=== PATIENT | female | born 1985 | race Caucasian/White ===

== ENCOUNTER 2021-08-08 20:08 | Emergency (ER) | payer OTHER ==
[2021-08-08 21:01] VITALS: TEMP 98.3
[2021-08-08] MEDS ORDERED: SODIUM CHLORIDE 0.9% 1,000 ML IV STA (22:41)
[2021-08-08] MEDS ORDERED: SODIUM CHLORIDE 0.9% 500 ML 500 ML IV STA (22:41)
--- NOTE | 2021-08-08 22:42 | ED ---
Chest Pain HPI - General Chief Complaint: Chest Pain Stated Complaint: Chest pain and low blood pressure Time Seen by Provider: 08/08/21 22:40 Source: patient, RN notes reviewed, old records reviewed Mode of arrival: ambulatory Limitations: no limitations - History of Present Illness Initial Comments: This is a 36-year-old female DF for evaluation chest pain chest pain which makes her severely anxious patient is anxious she has had: Is really what having a blood clot. Patient's chest pain is anterior with travel to her back.. Is pretty sudden onset with shortness of breath prior to arrival. Otherwise patient has no fevers cough or congestion. MD Complaint: chest pain, other (Shortness of breath) -: hour(s) Onset: during rest Pain Location: substernal, left chest Pain Radiation: back Severity: moderate Severity scale (1-10): 7 Quality: aching Consistency: constant Improves With: nothing Worsens With: nothing Context: recent illness (Patient did have coronavirus is here) Anginal Symptoms: dyspnea Other Symptoms: cough, palpitations Treatments Prior to Arrival: none - Related Data Home Medications Medication Instructions Recorded Confirmed ARIPiprazole [Abilify] 10 mg PO HS 04/07/21 04/07/21 Fludrocortisone [Florinef] 0.1 mg PO DAILY 04/07/21 04/07/21 Levothyroxine Sodium [Synthroid] 25 mcg PO DAILY 04/07/21 04/07/21 Meclizine [Antivert] 25 mg PO TID PRN 04/07/21 04/07/21 OXcarbazepine [Trileptal] 300 mg PO TID 04/07/21 04/07/21 Ondansetron [Zofran ODT] 4 mg PO Q8H PRN 04/07/21 04/07/21 SUMAtriptan SUCCINATE [Imitrex] 100 mg PO BID PRN 04/07/21 04/07/21 Topiramate [Topamax] 50 mg PO HS 04/07/21 04/07/21 Venlafaxine HCl ER [Effexor XR] 75 mg PO AC-BRKFST 04/07/21 04/07/21 Allergies Allergy/AdvReac Type Severity Reaction Status Date / Time Tetanus Vaccines and Toxoid Allergy Anaphylaxis Verified 08/08/21 20:59 cephalexin [From Keflex] AdvReac Nausea & Verified 08/08/21 20:59 Vomiting Review of Systems ROS Statement: Those systems with pertinent positive or pertinent negative responses have been documented in the HPI. ROS Other: All systems not noted in ROS Statement are negative. EKG Findings - EKG Comments: EKG Findings:: EKG is sinus rhythm 101 MO 93 QRS 128 QTc 88 QTc 455 Past Medical History Additional Past Medical History / Comment(s): POTS, covid 2020 History of Any Multi-Drug Resistant Organisms: None Reported Additional Past Surgical History / Comment(s): right shoulder. fallopian removal, right elbow. Past Psychological History: No Psychological Hx Reported Smoking Status: Never smoker Past Alcohol Use History: None Reported Past Drug Use History: None Reported General Exam Limitations: no limitations General appearance: alert, in no apparent distress, anxious Head exam: Present: atraumatic, normocephalic, normal inspection Eye exam: Present: normal appearance, PERRL, EOMI. Absent: scleral icterus, conjunctival injection, periorbital swelling ENT exam: Present: normal exam, mucous membranes moist Neck exam: Present: normal inspection. Absent: tenderness, meningismus, lymphadenopathy Respiratory exam: Present: normal lung sounds bilaterally. Absent: respiratory distress, wheezes, rales, rhonchi, stridor Cardiovascular Exam: Present: normal rhythm, tachycardia, normal heart sounds. Absent: systolic murmur, diastolic murmur, rubs, gallop, clicks GI/Abdominal exam: Present: soft, normal bowel sounds. Absent: distended, tenderness, guarding, rebound, rigid Extremities exam: Present: normal inspection, full ROM, normal capillary refill. Absent: tenderness, pedal edema, joint swelling, calf tenderness Back exam: Present: normal inspection Neurological exam: Present: alert, oriented X3, CN II-XII intact Psychiatric exam: Present: normal affect, normal mood Skin exam: Present: warm, dry, intact, normal color. Absent: rash Course Vital Signs 08/08/21 08/08/21 08/09/21 20:59 23:04 01:18 Temperature 98.3 F Pulse Rate 101 H 95 87 Respiratory 18 17 17 Rate Blood Pressure 123/72 113/61 107/67 O2 Sat by Pulse 99 99 98 Oximetry - Reevaluation(s) Reevaluation #1: Medical record is reviewed Patient symptoms are significantly improved here in the Patient informed of results and questions answered Chest Pain MDM - MDM 36 female to the emergency or today. Patient is safe for evaluation of chest pain believes her blood pressure maybe low. Patient has significant chest pain sharp chest pain, normal imaging and EKG here in the ER, labs are normal patient can be discharged home Disposition Clinical Impression: Chest pain, Atypical chest pain Disposition: HOME SELF-CARE Condition: Good Instructions (If sedation given, give patient instructions): Chest Pain (ED) Is patient prescribed a controlled substance at d/c from ED?: No Referrals: Nonstaff,Physician [Primary Care Provider] - 1-2 days
[2021-08-08 23:05] VITALS: RESP 17
[2021-08-08 23:18] LABS: Basophils # (A) 0.1 k/uL (0-0.2); Basophils % (A) 1 %; Eosinophils # (A) 0.1 k/uL (0-0.7); Eosinophils % (A) 1 %; HCT 41.5 % (34.0-46.0); HGB 13.8 gm/dL (11.4-16.0); Lymphocytes # (A) 3.9 k/uL (1.0-4.8); Lymphocytes % (A) 37 %; MCH 29.8 pg (25.0-35.0); MCHC 33.2 g/dL (31.0-37.0); MCV 89.8 fL (80.0-100.0); Mean Platelet Volume 7.6; Monocytes # (A) 0.4 k/uL (0-1.0); Monocytes % (A) 4 %; Neutrophils # (A) 5.8 k/uL (1.3-7.7); Neutrophils % (A) 56 %; Platelet Count 288 k/uL (150-450); RBC 4.62 m/uL (3.80-5.40); RDW 13.6 % (11.5-15.5); WBC 10.4 k/uL (3.8-10.6)
[2021-08-08 23:27] LABS: ALT 39 U/L (4-34); AST 36 U/L (14-36); African American GFR (CKD) >90 (>60 ml/min/1.73 sqM); Albumin 4.5 g/dL (3.5-5.0); Alkaline Phosphatase 72 U/L (38-126); Anion Gap 11 mmol/L; Blood Urea Nitrogen 14 mg/dL (7-17); Calcium 9.4 mg/dL (8.4-10.2); Carbon Dioxide 22 mmol/L (22-30); Chloride 104 mmol/L (98-107); Glucose 133 mg/dL (74-99); Lipase 172 U/L (23-300); Non-African American GFR(CKD) >90 (>60 ml/min/1.73 sqM); Potassium 4.2 mmol/L (3.5-5.1); Sodium 137 mmol/L (137-145); Total Bilirubin 0.2 mg/dL (0.2-1.3); Total Protein 7.6 g/dL (6.3-8.2)
--- NOTE | 2021-08-08 23:34 | XR ---
EXAMINATION TYPE: XR chest 2V DATE OF EXAM: 08/08/2021 COMPARISON: 04/07/2021 HISTORY: Chest pain TECHNIQUE: FINDINGS: Heart and mediastinum are normal. Lungs are clear. Diaphragm is normal. Bony thorax is inta ct. There are chest leads. IMPRESSION: Normal chest. No change.
[2021-08-08 23:36] LABS: INR 0.9 (<1.2); Partial Thromboplastin Time 23.4 sec (22.0-30.0); Prothrombin Time 9.8 sec (9.0-12.0)
--- NOTE | 2021-08-09 00:38 | CT ---
EXAMINATION TYPE: CT angio chest DATE OF EXAM: 08/08/2021 COMPARISON: 04/08/2021 HISTORY: rule out PE Chest pain CT DLP: 722.8 mGycm Automated exposure control for dose reduction was used. CONTRAST: Performed with IV Contrast, patient injected with 80ml mL of Isovue 370. There are 3-D post processed images. There is mild increased interstitial density in the lungs. Heart is enlarged. There is no pleural eff usion. There is no pericardial effusion. There is normal contrast opacification of the pulmonary arteries. There are no filling defects. There is no mediastinal adenopathy. There are no hilar masses. The thoracic spine is intact. There is no c ompression fracture. Sternum is intact. Some fatty infiltration of the liver. IMPRESSION: No evidence of pulmonary embolism. Fatty infiltration of the liver. Mild increased pulmonary intersti tial density. No suspicious pulmonary mass.
[2021-08-09 01:19] VITALS: BP 107/67; PULSE 87
== END 2021-08-09 01:18 | disposition home or self-care (01) ==
LOC: EC 20:08
DX: R07.89 Other chest pain (principal); Z79.899 Other long term (current) drug therapy
CPT/HCPCS: 36415; 93005; 85379; 83880; 80053; 83690; 83735; 84484; 85025; 85610; 85730; 71046; 71275; 99285; 96360; Q9967

== ENCOUNTER 2021-09-14 16:28 | Emergency (ER) | payer OTHER ==
[2021-09-14 16:49] VITALS: RESP 18
[2021-09-14 17:22] LABS: Basophils % (A) 0 %; Eosinophils # (A) 0.2 k/uL (0-0.7); Eosinophils % (A) 2 %; HCT 41.1 % (34.0-46.0); HGB 13.6 gm/dL (11.4-16.0); Lymphocytes # (A) 2.7 k/uL (1.0-4.8); Lymphocytes % (A) 27 %; MCH 29.7 pg (25.0-35.0); MCHC 33.1 g/dL (31.0-37.0); MCV 89.9 fL (80.0-100.0); Mean Platelet Volume 7.6; Monocytes # (A) 0.4 k/uL (0-1.0); Monocytes % (A) 4 %; Neutrophils # (A) 6.6 k/uL (1.3-7.7); Neutrophils % (A) 66 %; Platelet Count 267 k/uL (150-450); RBC 4.57 m/uL (3.80-5.40); RDW 13.1 % (11.5-15.5)
[2021-09-14 17:27] LABS: Appearance,Urine Cloudy (Clear); Bacteria,Urine Rare /hpf; Bilirubin,Urine Negative (Negative); Blood,Urine Trace (Negative); Color,Urine Light Yellow; Glucose,Urine (UA) Negative (Negative); Ketones,Urine Negative (Negative); Leukocyte Esterase,Urine Negative (Negative); Mucus,Urine Rare /hpf; Nitrite,Urine Negative (Negative); Protein,Urine Negative (Negative); RBC,Urine 9 /hpf (0-5); Specific Gravity,Urine 1.019 (1.001-1.035); Squamous Epithelial Cell,Urine 10 /hpf (0-4); Urobilinogen,Urine <2.0 mg/dL (<2.0); WBC,Urine 6 /hpf (0-5)
[2021-09-14 17:31] LABS: African American GFR (CKD) >90 (>60 ml/min/1.73 sqM); Anion Gap 13 mmol/L; Blood Urea Nitrogen 14 mg/dL (7-17); Calcium 9.3 mg/dL (8.4-10.2); Carbon Dioxide 20 mmol/L (22-30); Chloride 106 mmol/L (98-107); Glucose 108 mg/dL (74-99); Non-African American GFR(CKD) >90 (>60 ml/min/1.73 sqM); Potassium 3.9 mmol/L (3.5-5.1); Sodium 139 mmol/L (137-145)
[2021-09-14] MEDS ORDERED: SODIUM CHLORIDE 0.9% 1,000 ML IV STA (18:56)
[2021-09-14] MEDS ORDERED: ONDANSETRON 4 MG/2 ML VIAL IVP STA (18:56)
[2021-09-14] MEDS ORDERED: KETOROLAC 15 MG/ML 1 ML VIAL IVP STA (18:56)
--- NOTE | 2021-09-14 19:00 | ED ---
General Adult HPI - General Chief complaint: Urogenital Stated complaint: Lower back pain/side pain/blood in urine Time Seen by Provider: 09/14/21 18:40 Source: patient, RN notes reviewed Mode of arrival: ambulatory Limitations: no limitations - History of Present Illness Initial comments: 36-year-old female presents to the emergency Department with complaints of right flank pain that began last night and is accompanied by urgency and frequency. Patient states she noticed blood in her urine today so decided to come to the emergency department for further evaluation and treatment. Patient reports mild nausea. Denies fever, chills, chest pain, shortness of breath, vomiting, diarrhea, or constipation. - Related Data Home Medications Medication Instructions Recorded Confirmed ARIPiprazole [Abilify] 10 mg PO HS 04/07/21 04/07/21 Fludrocortisone [Florinef] 0.1 mg PO DAILY 04/07/21 04/07/21 Levothyroxine Sodium [Synthroid] 25 mcg PO DAILY 04/07/21 04/07/21 Meclizine [Antivert] 25 mg PO TID PRN 04/07/21 04/07/21 OXcarbazepine [Trileptal] 300 mg PO TID 04/07/21 04/07/21 Ondansetron [Zofran ODT] 4 mg PO Q8H PRN 04/07/21 04/07/21 SUMAtriptan SUCCINATE [Imitrex] 100 mg PO BID PRN 04/07/21 04/07/21 Topiramate [Topamax] 50 mg PO HS 04/07/21 04/07/21 Venlafaxine HCl ER [Effexor XR] 75 mg PO AC-BRKFST 04/07/21 04/07/21 Previous Rx's Medication Instructions Recorded Sulfamethox-Tmp 800-160Mg [Bactrim 1 each PO Q12HR #20 tab 09/14/21 Ds] Allergies Allergy/AdvReac Type Severity Reaction Status Date / Time Tetanus Vaccines and Toxoid Allergy Anaphylaxis Verified 09/14/21 16:49 cephalexin [From Keflex] AdvReac Nausea & Verified 09/14/21 16:49 Vomiting Review of Systems ROS Statement: Those systems with pertinent positive or pertinent negative responses have been documented in the HPI. ROS Other: All systems not noted in ROS Statement are negative. Past Medical History Additional Past Medical History / Comment(s): POTS, covid 2020 History of Any Multi-Drug Resistant Organisms: None Reported Past Surgical History: Orthopedic Surgery Additional Past Surgical History / Comment(s): right shoulder. fallopian removal, right elbow. Past Psychological History: No Psychological Hx Reported Smoking Status: Never smoker Past Alcohol Use History: None Reported Past Drug Use History: None Reported General Exam Limitations: no limitations (Well-developed, well-nourished female in no acute distress. Initial temperature 98.7, pulse 88, respirations 18, blood pressure 139/89, pulse ox 98% on room air) General appearance: alert, in no apparent distress ENT exam: Present: normal exam, normal oropharynx, mucous membranes moist Respiratory exam: Present: normal lung sounds bilaterally. Absent: respiratory distress, wheezes, rales, rhonchi, stridor Cardiovascular Exam: Present: regular rate, normal rhythm, normal heart sounds. Absent: systolic murmur, diastolic murmur, rubs, gallop, clicks GI/Abdominal exam: Present: soft, normal bowel sounds. Absent: distended, tenderness, guarding, rebound, rigid Back exam: Present: CVA tenderness (R). Absent: CVA tenderness (L) Neurological exam: Present: alert, oriented X3, CN II-XII intact Psychiatric exam: Present: normal affect, normal mood Skin exam: Present: warm, dry, intact, normal color. Absent: rash Course Vital Signs 09/14/21 09/14/21 09/14/21 16:46 19:45 21:23 Temperature 98.7 F 98.4 F Pulse Rate 88 80 78 Respiratory 18 18 18 Rate Blood Pressure 139/89 133/94 134/92 O2 Sat by Pulse 98 97 97 Oximetry Medical Decision Making - Medical Decision Making 36-year-old female presents to the emergency department for evaluation of right flank pain, urinary frequency, and urgency, onset last night. Upon exam, patient is well-appearing and in no acute distress. Physical exam findings are significant for right CVA tenderness upon palpation. Patient was given IV fluids, pain medication, and nausea medicine with improvement. Laboratory studies were reviewed. Urinalysis positive for RBCs and WBCs. CT of the abdomen and pelvis was unremarkable. The urinalysis was not overwhelmingly demonstrative of infectious process, given physical exam findings she will be started on Bactrim and instructed to follow up with her primary care provider for a recheck. Also instructed to increase fluids. Return parameters were discussed in detail. Patient verbalizes understanding and agrees with this plan. This patient's care was discussed with my attending Dr. Augustin. - Lab Data Result diagrams: 09/14/21 17:14 09/14/21 17:14 Lab Results 09/14/21 09/14/21 09/14/21 Range/Units 17:14 17:14 17:14 WBC 10.0 (3.8-10.6) k/uL RBC 4.57 (3.80-5.40) m/uL Hgb 13.6 (11.4-16.0) gm/dL Hct 41.1 (34.0-46.0) % MCV 89.9 (80.0-100.0) fL MCH 29.7 (25.0-35.0) pg MCHC 33.1 (31.0-37.0) g/dL RDW 13.1 (11.5-15.5) % Plt Count 267 (150-450) k/uL MPV 7.6 Neutrophils % 66 % Lymphocytes % 27 % Monocytes % 4 % Eosinophils % 2 % Basophils % 0 % Neutrophils # 6.6 (1.3-7.7) k/uL Lymphocytes # 2.7 (1.0-4.8) k/uL Monocytes # 0.4 (0-1.0) k/uL Eosinophils # 0.2 (0-0.7) k/uL Basophils # 0.0 (0-0.2) k/uL Sodium 139 (137-145) mmol/L Potassium 3.9 (3.5-5.1) mmol/L Chloride 106 (98-107) mmol/L Carbon Dioxide 20 L (22-30) mmol/L Anion Gap 13 mmol/L BUN 14 (7-17) mg/dL Creatinine 0.64 (0.52-1.04) mg/dL Est GFR (CKD-EPI)AfAm >90 (>60 ml/min/1.73 sqM) Est GFR (CKD-EPI)NonAf >90 (>60 ml/min/1.73 sqM) Glucose 108 H (74-99) mg/dL Calcium 9.3 (8.4-10.2) mg/dL Urine Color Light Yellow Urine Appearance Cloudy H (Clear) Urine pH 6.0 (5.0-8.0) Ur Specific [place] 1.019 (1.001-1.035) Urine Protein Negative (Negative) Urine Glucose (UA) Negative (Negative) Urine Ketones Negative (Negative) Urine Blood Trace H (Negative) Urine Nitrite Negative (Negative) Urine Bilirubin Negative (Negative) Urine Urobilinogen <2.0 (<2.0) mg/dL Ur Leukocyte Esterase Negative (Negative) Urine RBC 9 H (0-5) /hpf Urine WBC 6 H (0-5) /hpf Ur Squamous Epith Cells 10 H (0-4) /hpf Urine Bacteria Rare H (None) /hpf Urine Mucus Rare H (None) /hpf - Radiology Data Radiology results: report reviewed, image reviewed CT of the abdomen and pelvis was obtained without contrast. Report was reviewed in its entirety. Impression per Dr. Doyle is fatty infiltration of the liver. No dilated ducts. No evidence of renal stone or obstruction. Normal appendix. Disposition Clinical Impression: Pyelonephritis of right kidney, Hematuria Disposition: HOME SELF-CARE Condition: Stable Instructions (If sedation given, give patient instructions): Urinary Tract Infection in Women (ED), Kidney Infection (ED) Additional Instructions: Increase intake of fluids. Alternate Tylenol and Motrin as needed for pain or fever. Take antibiotic as directed. Follow up with her primary care provider for a recheck early next week. Return to the emergency department with any new, worsening, or concerning symptoms. Prescriptions: Sulfamethox-Tmp 800-160Mg [Bactrim Ds] 1 each PO Q12HR #20 tab Is patient prescribed a controlled substance at d/c from ED?: No Referrals: None,Stated [Primary Care Provider] - 1-2 days Time of Disposition: 21:22
[2021-09-14] MEDS ORDERED: MORPHINE SULFATE 2 MG/ML SYRINGE IVP ONE (19:42)
--- NOTE | 2021-09-14 20:20 | CT ---
EXAMINATION TYPE: CT abdomen pelvis wo con DATE OF EXAM: 09/14/2021 COMPARISON: None HISTORY: RT flank pain, hematuria CT DLP: 1747 mGycm Automated exposure control for dose reduction was used. Images obtained from the diaphragm to the floor the pelvis without contrast. Lung bases are clear. There is no pleural effusion. Heart size is normal. There is no pericardial eff usion. There is diffuse fatty infiltration of the liver. Spleen is intact. Stomach is intact. There i s no pancreatic mass. There are clips from cholecystectomy. The bile ducts are not dilated. There is no adrenal mass. Kidneys have normal size and contour. There is no hydronephrosis. Ureters a re not dilated. There is no retroperitoneal adenopathy. Bladder distends smoothly. There is no inguin al hernia. Uterus is anteverted. There is no pelvic mass. There is no free fluid in the pelvis. There is no mesenteric edema. There is no ascites or free air. There is no bowel obstruction. Appendi x is posterior and appears normal. There is fat containing 3 x 2 cm umbilical hernia. Liver is enlarged and measures 23 cm. The lumbar vertebra have normal alignment. Disc spaces are norm al. Posterior elements are intact. There is no compression fracture. Bony pelvis is intact. IMPRESSION: Fatty infiltration of the liver. No dilated ducts. No evidence of renal stone or obstruction. Normal appendix.
[2021-09-14] MEDS ORDERED: SULFAMETHOX-TMP 800-160MG 1 EACH TAB PO STA (20:46)
[2021-09-14 21:25] VITALS: BP 134/92; PULSE 78; TEMP 98.4
== END 2021-09-14 21:30 | disposition home or self-care (01) ==
LOC: EC 16:28
DX: N10 Acute pyelonephritis (principal); R31.9 Hematuria, unspecified; Z88.7 Allergy status to serum and vaccine; Z88.1 Allergy status to other antibiotic agents
CPT/HCPCS: 99284; 96374; 96375 ×2; 96361; 36415; 80048; 85025; 81001; 74176; J2405; J2270; J1885

== ENCOUNTER 2021-09-26 18:49 | Observation (INO) | payer OTHER ==
[2021-09-26] MEDS ORDERED: ASPIRIN 81 MG PO STA (20:41)
[2021-09-26 21:23] LABS: Basophils # (A) 0.1 k/uL (0-0.2); Basophils % (A) 1 %; Eosinophils # (A) 0.2 k/uL (0-0.7); Eosinophils % (A) 2 %; HCT 42.4 % (34.0-46.0); HGB 14.1 gm/dL (11.4-16.0); Lymphocytes # (A) 3.8 k/uL (1.0-4.8); Lymphocytes % (A) 37 %; MCH 30.4 pg (25.0-35.0); MCHC 33.3 g/dL (31.0-37.0); MCV 91.3 fL (80.0-100.0); Mean Platelet Volume 7.9; Monocytes # (A) 0.5 k/uL (0-1.0); Monocytes % (A) 4 %; Neutrophils # (A) 5.7 k/uL (1.3-7.7); Neutrophils % (A) 56 %; Platelet Count 290 k/uL (150-450); RBC 4.65 m/uL (3.80-5.40); RDW 13.2 % (11.5-15.5); WBC 10.3 k/uL (3.8-10.6)
[2021-09-26 21:34] LABS: ALT 28 U/L (4-34); AST 27 U/L (14-36); African American GFR (CKD) >90 (>60 ml/min/1.73 sqM); Albumin 4.6 g/dL (3.5-5.0); Alkaline Phosphatase 76 U/L (38-126); Anion Gap 12 mmol/L; Blood Urea Nitrogen 12 mg/dL (7-17); Calcium 9.6 mg/dL (8.4-10.2); Carbon Dioxide 23 mmol/L (22-30); Chloride 103 mmol/L (98-107); Glucose 103 mg/dL (74-99); Magnesium 2.1 mg/dL (1.6-2.3); Non-African American GFR(CKD) >90 (>60 ml/min/1.73 sqM); Potassium 4.1 mmol/L (3.5-5.1); Sodium 138 mmol/L (137-145); Total Bilirubin 0.2 mg/dL (0.2-1.3); Total Protein 7.7 g/dL (6.3-8.2)
--- NOTE | 2021-09-26 21:35 | XR ---
EXAMINATION TYPE: XR chest 2V DATE OF EXAM: 09/26/2021 COMPARISON: 08/08/2021 HISTORY: 36 years Female. STUDY INDICATION GIVEN: Chest Pain . TECHNIQUE: Frontal and lateral chest radiographs. IMPRESSION: No focal airspace disease, pneumothorax or pleural effusion. The cardiomediastinal silhouette is normal in appearance. No acute osseous abnormalities seen. No significant change compared to prior.
[2021-09-26 21:38] LABS: INR 0.9 (<1.2); Partial Thromboplastin Time 23.6 sec (22.0-30.0); Prothrombin Time 9.8 sec (9.0-12.0)
[2021-09-26] MEDS ORDERED: MORPHINE SULFATE 4 MG/ML SYRINGE IVP STA (22:01)
--- NOTE | 2021-09-26 22:23 | ED ---
General Adult HPI - General Chief complaint: Chest Pain Stated complaint: Chest Pain, Arm numbness, Pots syndrome Time Seen by Provider: 09/26/21 20:39 Source: patient, RN notes reviewed, old records reviewed Mode of arrival: wheelchair Limitations: no limitations - History of Present Illness Initial comments: Patient is a 36-year-old female with past medical history remarkable for pots disease, Covid 19 in 2020, and family medical history of early-onset CAD and [place] as in family members who presents emergency Department complaining of acute onset of chest pain an approximate 6 PM. She discounts as a sharp sensation left chest with radiation to left arm. States she has had chest pain in the past but not similar to this in severity. Currently rates it as a 6 out of 10. He does not radiate. It started while watching TV. No known palliative or provocative factors. Presents emergency department for further evaluation. I evaluated the patient when she was placed in a room. - Related Data Home Medications Medication Instructions Recorded Confirmed Fludrocortisone [Florinef] 0.1 mg PO DAILY 04/07/21 09/26/21 Topiramate [Topamax] 50 mg PO BID 04/07/21 09/26/21 ARIPiprazole [Abilify] 15 mg PO DAILY 09/26/21 09/26/21 Levothyroxine Sodium [Synthroid] 50 mcg PO DAILY 09/26/21 09/26/21 Venlafaxine HCl ER [Effexor Xr] 150 mg PO DAILY 09/26/21 09/26/21 lamoTRIgine [LaMICtal] 100 mg PO DAILY 09/26/21 09/26/21 Allergies Allergy/AdvReac Type Severity Reaction Status Date / Time Tetanus Vaccines and Toxoid Allergy Anaphylaxis Verified 09/26/21 22:43 cephalexin [From Keflex] AdvReac Nausea & Verified 09/26/21 22:43 Vomiting Review of Systems ROS Statement: Those systems with pertinent positive or pertinent negative responses have been documented in the HPI. Review of Systems: CONST: Denies fever EYES: Denies blurry vision ENT: Denies nasal congestion C/V: Endorses chest pain RESP: Denies shortness of breath GI: Denies abdominal pain : Denies dysuria SKIN: Denies rash. MSK: Denies joint pain. NEURO: Denies headache ROS Other: All systems not noted in ROS Statement are negative. Past Medical History Additional Past Medical History / Comment(s): POTS, covid 2020 History of Any Multi-Drug Resistant Organisms: None Reported Past Surgical History: Orthopedic Surgery Additional Past Surgical History / Comment(s): right shoulder. fallopian removal, right elbow. Past Psychological History: No Psychological Hx Reported Smoking Status: Never smoker Past Alcohol Use History: None Reported Past Drug Use History: None Reported General Exam - General Exam Comments Initial Comments: General: Appears in no acute distress. HEAD: Normal with no signs of head trauma. EYES: PERRLA, EOMI, conjunctiva normal, no discharge. ENT: Hearing grossly intact, normal oropharynx. RESPIRATORY: Clear breath sounds bilaterally. No wheezes, rales, or rhonchi. C/V: Regular rate and rhythm. S1 and S2 auscultated, no edema, peripheral pulses 2+ and intact throughout ABD: Abd is soft, nontender, nondistended EXT: Normal range of motion, no obvious deformity SKIN: No rashes or lesions observed on exposed skin. NEURO: Alert and oriented 4. No focal deficits. Limitations: no limitations Course Vital Signs 09/26/21 09/26/21 19:15 22:29 Temperature 99.3 F Pulse Rate 90 72 Respiratory 18 16 Rate Blood Pressure 124/73 137/101 O2 Sat by Pulse 98 98 Oximetry Medical Decision Making - Medical Decision Making Based on the patient's presentation and physical exam, I'm concerned for cardiac etiology for her current symptoms. This is in particular due to her distinct family medical history. We will obtain cardiac workup including troponin, EKG, chest x-ray. She will be given morphine as well as aspirin. She was in agreement this plan. EKG showed chronic T wave inversions with no signs of acute ischemia. Labora tory studies are remarkable for negative troponin, d-dimer that is within normal limits. Remainder of the labs are unremarkable. Chest x-ray showed no acute cardio pulmonary process. On reevaluation, patient states her chest pain is somewhat improved. Heart score is 3-4 points, and after discussion with the patient I would like to mention the hospital for cardiac evaluation. She was in agreement this plan. Patient's chest pain is intermittent and is currently under control at this time. We'll continue to monitor. I spoke with the admitting team under [facility], who accepted the patient. Patient will be admitted in stable condition to observation telemetry for chest pain. Cardiology is consulted. - Lab Data Result diagrams: 09/26/21 21:15 09/26/21 21:15 Lab Results 09/26/21 09/26/21 09/26/21 Range/Units 21:15 21:15 21:15 WBC 10.3 (3.8-10.6) k/uL RBC 4.65 (3.80-5.40) m/uL Hgb 14.1 (11.4-16.0) gm/dL Hct 42.4 (34.0-46.0) % MCV 91.3 (80.0-100.0) fL MCH 30.4 (25.0-35.0) pg MCHC 33.3 (31.0-37.0) g/dL RDW 13.2 (11.5-15.5) % Plt Count 290 (150-450) k/uL MPV 7.9 Neutrophils % 56 % Lymphocytes % 37 % Monocytes % 4 % Eosinophils % 2 % Basophils % 1 % Neutrophils # 5.7 (1.3-7.7) k/uL Lymphocytes # 3.8 (1.0-4.8) k/uL Monocytes # 0.5 (0-1.0) k/uL Eosinophils # 0.2 (0-0.7) k/uL Basophils # 0.1 (0-0.2) k/uL PT 9.8 (9.0-12.0) sec INR 0.9 (<1.2) APTT 23.6 (22.0-30.0) sec D-Dimer 0.36 (<0.60) mg/L FEU Sodium 138 (137-145) mmol/L Potassium 4.1 (3.5-5.1) mmol/L Chloride 103 (98-107) mmol/L Carbon Dioxide 23 (22-30) mmol/L Anion Gap 12 mmol/L BUN 12 (7-17) mg/dL Creatinine 0.73 (0.52-1.04) mg/dL Est GFR (CKD-EPI)AfAm >90 (>60 ml/min/1.73 sqM) Est GFR (CKD-EPI)NonAf >90 (>60 ml/min/1.73 sqM) Glucose 103 H (74-99) mg/dL Calcium 9.6 (8.4-10.2) mg/dL Magnesium 2.1 (1.6-2.3) mg/dL Total Bilirubin 0.2 (0.2-1.3) mg/dL AST 27 (14-36) U/L ALT 28 (4-34) U/L Alkaline Phosphatase 76 (38-126) U/L Troponin I (0.000-0.034) ng/mL Total Protein 7.7 (6.3-8.2) g/dL Albumin 4.6 (3.5-5.0) g/dL 09/26/21 Range/Units 21:15 WBC (3.8-10.6) k/uL RBC (3.80-5.40) m/uL Hgb (11.4-16.0) gm/dL Hct (34.0-46.0) % MCV (80.0-100.0) fL MCH (25.0-35.0) pg MCHC (31.0-37.0) g/dL RDW (11.5-15.5) % Plt Count (150-450) k/uL MPV Neutrophils % % Lymphocytes % % Monocytes % % Eosinophils % % Basophils % % Neutrophils # (1.3-7.7) k/uL Lymphocytes # (1.0-4.8) k/uL Monocytes # (0-1.0) k/uL Eosinophils # (0-0.7) k/uL Basophils # (0-0.2) k/uL PT (9.0-12.0) sec INR (<1.2) APTT (22.0-30.0) sec D-Dimer (<0.60) mg/L FEU Sodium (137-145) mmol/L Potassium (3.5-5.1) mmol/L Chloride (98-107) mmol/L Carbon Dioxide (22-30) mmol/L Anion Gap mmol/L BUN (7-17) mg/dL Creatinine (0.52-1.04) mg/dL Est GFR (CKD-EPI)AfAm (>60 ml/min/1.73 sqM) Est GFR (CKD-EPI)NonAf (>60 ml/min/1.73 sqM) Glucose (74-99) mg/dL Calcium (8.4-10.2) mg/dL Magnesium (1.6-2.3) mg/dL Total Bilirubin (0.2-1.3) mg/dL AST (14-36) U/L ALT (4-34) U/L Alkaline Phosphatase (38-126) U/L Troponin I <0.012 (0.000-0.034) ng/mL Total Protein (6.3-8.2) g/dL Albumin (3.5-5.0) g/dL - EKG Data -: EKG Interpreted by Me EKG Comments: 12-lead Electrocardiogram Interpretation Note EKG was reviewed and interpreted by myself. 12-lead ECG performed at 1923 is interpreted by me as revealing normal sinus rhythm at a rate of 92 beats per minute. [place] is normal. MA interval is 124 ms, QRS duration is 84 ms, QTc is 440 ms.. There were T-wave inversion seen in III, aVF, V3 through V6 which are seen on prior EKGs from last month.. R wave progression across the precordium was satisfactory. By my interpretation this EKG is non-diagnostic for acute ischemia. It does show chronic EKG changes including T-wave inversions in inferior lateral distribution that are seen on prior EKGs from July 2021 Disposition Clinical Impression: Chest pain of unknown etiology Disposition: ADMITTED IP TO THIS [facility] Condition: Stable Referrals: None,Stated [Primary Care Provider] - 1-2 days
[2021-09-26] MEDS ORDERED: NALOXONE 0.4 MG/ML 1 ML VIAL IV PRN (23:33)
[2021-09-27] MEDS: HEPARIN SODIUM,PORCINE/PF 5,000 UNIT/0.5 ML SYRINGE SQ SCH ×4 (00:08→20:03)
[2021-09-27] MEDS: MORPHINE SULFATE 4 MG/ML SYRINGE IV PRN ×5 (03:20→20:02)
[2021-09-27] MEDS: LEVOTHYROXINE 50 MCG TAB PO SCH (05:42)
[2021-09-27] MEDS: lamoTRIgine 100 MG TAB PO SCH (08:44)
[2021-09-27] MEDS: TOPIRAMATE 25 MG TAB PO SCH ×2 (08:44→20:03)
[2021-09-27] MEDS: ARIPiprazole 15 MG TAB PO SCH (09:50)
[2021-09-27] MEDS: VENLAFAXINE HCL ER 150 MG CAP PO SCH (09:50)
--- NOTE | 2021-09-27 10:00 | ECHOF ---
Referral Reason:chest pain MEASUREMENTS -------- HEIGHT: 172.7 cm WEIGHT: 127.0 kg BP: 130/94 RVIDd: 3.3 cm (< 3.3) IVSd: 1.2 cm (0.6 - 1.1) LVIDd: 4.6 cm (3.9 - 5.3) LVPWd: 1.1 cm (0.6 - 1.1) IVSs: 1.6 cm LVIDs: 3.0 cm LVPWs: 1.8 cm Ao Diam: 3.2 cm (2.0 - 3.7) AV Cusp: 2.1 cm (1.5 - 2.6) LA Diam: 3.1 cm (2.7 - 3.8) MV EXCURSION: 19.436 mm (> 18.000) MV EF SLOPE: 90 mm/s (70 - 150) EPSS: 1.5 cm MV E Awais: 0.58 m/s MV DecT: 169 ms MV A Awais: 0.53 m/s MV E/A Ratio: 1.09 RAP: 5.00 mmHg RVSP: 23.79 mmHg FINDINGS -------- Sinus rhythm. This was a technically difficult study with suboptimal apical views. The left ventricular size is normal. There is mild concentric left ventricular hypertrophy. Overa ll left ventricular systolic function is normal with, an EF between 55 - 60 %. The right ventricle is normal in size. Normal LA size by volume 22+/-6 ml/m2. The right atrium was not well visualized. 5.0mg of Lumason was utilized for enhancement of images Interatrial and interventricular septum intact. There is no evidence of aortic regurgitation. There is no evidence of aortic stenosis. No mitral regurgitation. Mild tricuspid regurgitation present. There is no evidence of pulmonary hypertension. The right v entricular systolic pressure, as measured by Doppler, is 23.79mmHg. There is no pulmonic regurgitation present. The aortic root size is normal. IVC Not well visulized. There is no pericardial effusion. CONCLUSIONS -------- 1. The left ventricular size is normal. 2. There is mild concentric left ventricular hypertrophy. 3. Overall left ventricular systolic function is normal with, an EF between 55 - 60 %. 4. Mild tricuspid regurgitation present. DIRECTOR OF SEARCH ENGINE MARKETING: Vicky Juárez [facility]
[2021-09-27] MEDS: FLUDROCORTISONE 0.1 MG TAB PO SCH (13:17)
--- NOTE | 2021-09-27 13:58 | P.CRDCN ---
History of Present Illness Consult date: 09/27/21 History of present illness: She is a 36-year-old female with a past medical history for Pott's disease, hypothyroidism,bipolar disease, and COVID-19 in 2020, and a family medical history of early onset coronary artery disease and [place] admitted with sharp left- sided chest pain that radiates down the left arm. She follows with Dr. Dunn in the office. Today patient is examined resting in bed in with no acute distress. She denies chest pain, palpitations, dyspnea, dizziness, syncope, edema, nausea, vomiting, or diaphoresis. Her EKG shows sinus rhythm with poor R-wave progression and nonspecific ST and T-wave changes. Patient's cardiac enzymes were negative 3. She is not currently on any cardiac medication. Will obtain an echocardiogram to evaluate myocardial function. Will evaluate echocardiogram and patient's symptoms for the next 24 hours. If symptoms persist will consider doing stress test tomorrow. If patient remains chest pain free for the next 24 hours will perform stress test as an outpatient. Patient's blood pressure is 129/71, heart rate 97, respirations 18, 98% on room air. DIAGNOSTICS chest x-ray was negative for acute cardiopulmonary process Labs reviewed, WBC 10.3, hemoglobin 14.1, d-dimer negative, INR 0.9, sodium 138, potassium 4.1, BUN 12, creatinine 0.73, magnesium 2.1, AST 27, ALT 28, troponins negative 3 Review of Systems REVIEW OF SYSTEMS At the time of my exam: CONSTITUTIONAL: Denies fever or chills. EYES: Negative for vision changes ENT: Negative for hearing loss CARDIOVASCULAR: Denies chest pain, shortness of breath, diaphoresis, orthopnea, PND or palpitations. VASCULAR: Denies edema RESPIRATORY: Denies cough. GASTROINTESTINAL: Denies abdominal pain, diarrhea, constipation, nausea or vomiting. MUSCULOSKELETAL: Denies myalgias. NEUROLOGIC: Denies numbness, tingling, headache or weakness. ENDOCRINE: Denies fatigue, weight change, polydipsia or polyurina. GENITOURINARY: Denies burning, hematuria or urgency with micturation. HEMATOLOGIC: Denies history of anemia or bleeding. DERMATOLOGY: Denies rash or skin sores PSYCH: Negative for depression or hallucinations. Past Medical History Additional Past Medical History / Comment(s): POTS, covid 2020 History of Any Multi-Drug Resistant Organisms: None Reported Past Surgical History: Orthopedic Surgery Additional Past Surgical History / Comment(s): right shoulder. fallopian removal, right elbow. Past Psychological History: No Psychological Hx Reported Smoking Status: Never smoker Past Alcohol Use History: None Reported Past Drug Use History: None Reported Medications and Allergies Home Medications Medication Instructions Recorded Confirmed Type Fludrocortisone [Florinef] 0.1 mg PO DAILY 04/07/21 09/26/21 History Topiramate [Topamax] 50 mg PO BID 04/07/21 09/26/21 History ARIPiprazole [Abilify] 15 mg PO DAILY 09/26/21 09/26/21 History Levothyroxine Sodium [Synthroid] 50 mcg PO DAILY 09/26/21 09/26/21 History Venlafaxine HCl ER [Effexor Xr] 150 mg PO DAILY 09/26/21 09/26/21 History lamoTRIgine [LaMICtal] 100 mg PO DAILY 09/26/21 09/26/21 History Allergies Allergy/AdvReac Type Severity Reaction Status Date / Time Tetanus Vaccines and Toxoid Allergy Anaphylaxis Verified 09/26/21 22:43 cephalexin [From Keflex] AdvReac Nausea & Verified 09/26/21 22:43 Vomiting Physical Exam Vitals: Vital Signs Temp Pulse Pulse Resp BP BP Pulse Ox 09/27/21 13:20 97 18 129/71 98 09/27/21 11:00 82 16 111/65 97 09/27/21 09:51 80 18 121/82 98 09/27/21 08:43 75 18 112/73 96 09/27/21 07:00 98.4 F 77 18 132/94 98 09/27/21 03:19 84 16 130/94 98 09/26/21 22:29 72 16 137/101 98 09/26/21 19:15 99.3 F 90 18 124/73 98 Intake and Output 09/26/21 09/27/21 09/27/21 22:59 06:59 14:59 Other: Weight 127.006 kg PHYSICAL EXAMINATION VITAL SIGNS: Reviewed CONSTITUTIONAL: No apparent distress. HEENT: Head is normocephalic. Pupils are equal, round. Sclerae anicteric. Mucous membranes of the mouth are moist. NECK: No JVD. No carotid bruit. RESPIRATORY: Lungs are clear to auscultation. No chest wall tenderness is noted on palpation or with deep breathing. CARDIAC: Regular rate and rhythm. S1, S2 heard. No murmurs, gallops or rub. ABDOMEN: Soft, nontender. EXTREMITIES: 2+ peripheral pulses, no lower extremity edema and no calf tendern ess. NEUROLOGIC EXAMINATION: Patient is awake, alert and oriented x3. INTEGUMENTARY: Warm, absent for rashes or sores PSYCH: Negative for depression or hallucinations, mood appropriate. Results 09/26/21 21:15 09/26/21 21:15 Cardiac Enzymes 09/26/21 09/26/21 09/26/21 Range/Units 21:15 21:15 23:30 AST 27 (14-36) U/L Troponin I <0.012 <0.012 (0.000-0.034) ng/mL 09/27/21 Range/Units 02:51 AST (14-36) U/L Troponin I <0.012 (0.000-0.034) ng/mL Coagulation 09/26/21 Range/Units 21:15 PT 9.8 (9.0-12.0) sec APTT 23.6 (22.0-30.0) sec CBC 09/26/21 Range/Units 21:15 WBC 10.3 (3.8-10.6) k/uL RBC 4.65 (3.80-5.40) m/uL Hgb 14.1 (11.4-16.0) gm/dL Hct 42.4 (34.0-46.0) % Plt Count 290 (150-450) k/uL Comprehensive Metabolic Panel 09/26/21 Range/Units 21:15 Sodium 138 (137-145) mmol/L Potassium 4.1 (3.5-5.1) mmol/L Chloride 103 (98-107) mmol/L Carbon Dioxide 23 (22-30) mmol/L BUN 12 (7-17) mg/dL Creatinine 0.73 (0.52-1.04) mg/dL Glucose 103 H (74-99) mg/dL Calcium 9.6 (8.4-10.2) mg/dL AST 27 (14-36) U/L ALT 28 (4-34) U/L Alkaline Phosphatase 76 (38-126) U/L Total Protein 7.7 (6.3-8.2) g/dL Albumin 4.6 (3.5-5.0) g/dL Current Medications Generic Name Dose Route Start Last Admin Trade Name Freq PRN Reason Stop Dose Admin Aripiprazole 15 mg 09/27/21 09:00 09/27/21 09:50 Aripiprazole 15 Mg Tab PO 15 mg DAILY BRITTANEY Administration Fludrocortisone Acetate 0.1 mg 09/27/21 12:45 09/27/21 13:17 Fludrocortisone 0.1 Mg Tab PO 0.1 mg DAILY BRITTANEY Administration Heparin Sodium (Porcine) 5,000 unit 09/27/21 00:00 09/27/21 08:44 Heparin Sodium,Porcine/Pf 5,000 Unit/0.5 Ml Syringe SQ 5,000 unit Q8HR BRITTANEY Administration Lamotrigine 100 mg 09/27/21 09:00 09/27/21 08:44 Lamotrigine 100 Mg Tab PO 100 mg DAILY BRITTANEY Administration Levothyroxine Sodium 50 mcg 09/27/21 06:30 09/27/21 05:42 Levothyroxine 50 Mcg Tab PO 50 mcg DAILY@0630 BRITTANEY Administration Morphine Sulfate 4 mg 09/26/21 23:33 09/27/21 12:22 Morphine Sulfate 4 Mg/Ml Syringe IV 4 mg Q4HR PRN Administration Severe Pain Naloxone HCl 0.2 mg 09/26/21 23:33 Naloxone 0.4 Mg/Ml 1 Ml Vial IV Q2M PRN Opioid Reversal Topiramate 50 mg 09/27/21 09:00 09/27/21 08:44 Topiramate 25 Mg Tab PO 50 mg BID BRITTANEY Administration Venlafaxine HCl 150 mg 09/27/21 09:00 09/27/21 09:50 Venlafaxine Hcl Er 150 Mg Cap PO 150 mg DAILY BRITTANEY Administration Intake and Output 09/26/21 09/27/21 09/27/21 22:59 06:59 14:59 Other: Weight 127.006 kg 09/26/21 21:15 09/26/21 21:15 Assessment and Plan Assessment: Chest pain Negative troponins Hypothyroidism Plan: Obtain an echocardiogram to evaluate myocardial function Increase activity as tolerated Continue with telemetry monitoring Possible stress test outpatient If patient remains free from cardiac symptoms possible discharge tomorrow The above impression and plan of care have been discussed and directed by the signing physician. Lyubov Joseph, nurse practitioner, acting as scribe for signing physician.
--- NOTE | 2021-09-27 21:44 | P.HPIM ---
History of Present Illness H&P Date: 09/27/21 Chief Complaint: Chest Pain Patient is a 36-year-old female with a known history of POTS and history of COVID-19 in 2019, hypothyroidism, bipolar disorder presents to ER with complaints of chest pain left retrosternal started around 5 PM yesterday evening. Patient did have sharp pain along with tingling sensation in the left arm. Patient felt like increased heart rate. Denied any complaints of shortness of breath. No nausea vomiting or abdominal pain or diarrhea. No dizziness or lightheadedness no diaphoresis. No fever no chills. Denied any recent illnesses. EKG showed normal sinus rhythm with nonspecific ST-T wave changes. Chest x-ray showed no focal airspace disease, pneumothorax or pleural effusion. Laboratory data showed sodium 138 potassium 4.1 chloride 103 bicarb is 23 BUN 12 and creatinine 0.73 Troponin x3 - D-dimer 0.36 COVID-19 PCR not detected Review of Systems Constitutional: Patient denies any fever or chills . No generalized weakness or weight loss. Abdomen: Patient denied nausea vomiting and diarrhea and abdominal pain. Cardiovascular: Patient denies any chest pain or short of breath no palpitations. Respiratory: patient denied any cough or sputum production. No shortness of breath Neurologic: Patient denied any numbness or tingling headache. Musculoskeletal: Patient denies any complaints of joint swelling or deformity. Skin: Negative Psychiatric: Negative Endocrine: No heat or cold intolerance. No recent weight gain. Genitourinary: No dysuria or hematuria. All other 14 point ROS negative except the above Past Medical History Additional Past Medical History / Comment(s): POTS, covid 2019 History of Any Multi-Drug Resistant Organisms: None Reported Past Surgical History: Orthopedic Surgery Additional Past Surgical History / Comment(s): right shoulder. fallopian removal, right elbow. Past Psychological History: No Psychological Hx Reported Smoking Status: Never smoker Past Alcohol Use History: None Reported Past Drug Use History: None Reported Medications and Allergies Home Medications Medication Instructions Recorded Confirmed Type Fludrocortisone [Florinef] 0.1 mg PO DAILY 04/07/21 09/26/21 History Topiramate [Topamax] 50 mg PO BID 04/07/21 09/26/21 History ARIPiprazole [Abilify] 15 mg PO DAILY 09/26/21 09/26/21 History Levothyroxine Sodium [Synthroid] 50 mcg PO DAILY 09/26/21 09/26/21 History Venlafaxine HCl ER [Effexor Xr] 150 mg PO DAILY 09/26/21 09/26/21 History lamoTRIgine [LaMICtal] 100 mg PO DAILY 09/26/21 09/26/21 History Allergies Allergy/AdvReac Type Severity Reaction Status Date / Time Tetanus Vaccines and Toxoid Allergy Anaphylaxis Verified 09/26/21 22:43 cephalexin [From Keflex] AdvReac Nausea & Verified 09/26/21 22:43 Vomiting Physical Exam Vitals: Vital Signs Temp Pulse Pulse Resp BP BP Pulse Ox 09/27/21 11:00 82 16 111/65 97 09/27/21 09:51 80 18 121/82 98 09/27/21 08:43 75 18 112/73 96 09/27/21 07:00 98.4 F 77 18 132/94 98 09/27/21 03:19 84 16 130/94 98 09/26/21 22:29 72 16 137/101 98 09/26/21 19:15 99.3 F 90 18 124/73 98 Intake and Output 09/26/21 09/27/21 09/27/21 22:59 06:59 14:59 Other: Weight 127.006 kg PHYSICAL EXAMINATION: Patient is lying in the bed comfortably, no acute distress, awake alert and oriented.. HEENT: Normocephalic. Neck is supple. Pupils reactive. Nostrils clear. Oral cavity is moist. Neck reveals no JVD, carotid bruits, or thyromegaly. CHEST EXAMINATION: Trachea is central. Symmetrical expansion. Lung grande clear to auscultation and percussion. CARDIAC: Normal S1, S2 with no gallops. No murmurs ABDOMEN: Soft. Bowel sounds normal. No organomegaly. No abdominal bruits. Extremities: reveal no edema. No clubbing or cyanosis Neurologically awake, alert, oriented x3 with well-coordinated movements. No focal deficits noted Skin: No rash or skin lesions. Psychiatric: Cooperative. Nonsuicidal Musculoskeletal: No joint swelling or deformity. Normal range of motion. Results CBC & Chem 7: 09/26/21 21:15 09/26/21 21:15 Labs: Abnormal Lab Results - Last 24 Hours (Table) 09/26/21 Range/Units 21:15 Glucose 103 H (74-99) mg/dL Thrombosis Risk Factor Assmnt - DVT/VTE Prophylaxis DVT/VTE Prophylaxis: Pharmacologic Prophylaxis ordered Assessment and Plan Assessment: Atypical chest pain. Ruled out ACS. History of COVID-19 in 2019 POTS Hypothyroidism Anxiety/depression and bipolar disorder Morbid obesity with BMI 42.6 DVT prophylaxis. Plan: Patient be continued on telemetry monitoring. Serial EKG and troponin x3 -. D- dimer is not elevated. Cardiology was consulted for evaluation of chest pain. 2D echocardiogram is ordered. Currently patient is asymptomatic. Cardiology is planning for stress test tomorrow. Continue to follow closely. Time with Patient: Greater than 30
[2021-09-28] MEDS: MORPHINE SULFATE 4 MG/ML SYRINGE IV PRN ×2 (03:27→13:01)
[2021-09-28] MEDS: LEVOTHYROXINE 50 MCG TAB PO SCH (05:53)
[2021-09-28] MEDS: HEPARIN SODIUM,PORCINE/PF 5,000 UNIT/0.5 ML SYRINGE SQ SCH ×3 (08:21→20:40)
[2021-09-28] MEDS: ARIPiprazole 15 MG TAB PO SCH (08:22)
[2021-09-28] MEDS: FLUDROCORTISONE 0.1 MG TAB PO SCH (08:22)
[2021-09-28] MEDS: lamoTRIgine 100 MG TAB PO SCH (08:22)
[2021-09-28] MEDS: TOPIRAMATE 25 MG TAB PO SCH ×2 (08:22→20:40)
[2021-09-28] MEDS: VENLAFAXINE HCL ER 150 MG CAP PO SCH (08:22)
--- NOTE | 2021-09-28 11:15 | P.PN ---
Subjective Progress Note Date: 09/28/21 She is a 36-year-old female with a past medical history for Pott's disease, hypothyroidism, bipolar disease, COVID-19 in 2020, and a family medical history of early onset coronary artery disease and [place] is admitted with sharp left-sided chest pain that radiates down the left arm. She follows with Dr. Dunn in the office. Today patient is examined resting in bed with no signs of acute distress. Patient reports she is having the same chest pain she did when she came in. She reports pain at a 7/10 and is radiating down her left arm. She denies palpitations, dyspnea, dizziness, syncope, edema, nausea, vomiting, or diaphoresis. She remains sinus rhythm on telemetry. Patient's cardiac enzymes were negative 3. She is not currently on any cardiac medication. Patient's echocardiogram revealed a normal left ventricular function with an EF of 55-60% and mild tricuspid regurgitation. Patient was unable to do a stress test yesterday due to she had already eaten breakfast. Patient's blood pressure is 115/75, heart rate 84, respirations 16, 96% on room air. Will obtain a new EKG and troponin 1 to rule out ischemic changes. Objective - Vital Signs Vital signs: Vital Signs Temp 98.0 F 09/28/21 07:00 Pulse 84 09/28/21 07:00 Resp 16 09/28/21 07:00 BP 115/75 09/28/21 07:00 Pulse Ox 96 09/28/21 07:00 Intake & Output 09/27/21 09/28/21 09/28/21 18:59 06:59 18:59 Intake Total 240 Balance 240 Weight 127.006 kg Intake: Oral 240 Other: # Voids 0 2 - Exam PHYSICAL EXAM: VITAL SIGNS: Reviewed. GENERAL: Well-developed in no acute distress. HEENT: Head is normocephalic. Pupils are equal, round. Sclerae anicteric. Mucous membranes of the mouth are moist. NECK: Supple. No JVD or thyromegaly RESPIRATORY: Respirations even and unlabored. Lungs diminished to auscultation bilaterally. CARDIO: Regular rate and rhythm. S1 and S2 heard. No murmur or gallops. EXTREMITIES: Normal range of motion. No clubbing or cyanosis. Peripheral pulses intact. Negative for bilateral lower extremity edema NEURO: Orientated to person, time, mood is appropriate - Labs CBC & Chem 7: 09/26/21 21:15 09/26/21 21:15 Assessment and Plan Assessment: Pericardial Chest pain Negative troponins x3 Hypothyroidism Plan: Will obtain a new EKG and troponin x1 to rule out ischemic changes Continue with telemetry monitoring Possible stress test outpatient Further recommendations based on clinical course The above impression and plan of care have been discussed and directed by the signing physician. Lyubov Joseph, nurse practitioner, acting as scribe for signing physician.
[2021-09-29] MEDS: LEVOTHYROXINE 50 MCG TAB PO SCH (05:40)
[2021-09-29] MEDS: lamoTRIgine 100 MG TAB PO SCH (08:44)
[2021-09-29] MEDS: HEPARIN SODIUM,PORCINE/PF 5,000 UNIT/0.5 ML SYRINGE SQ SCH ×3 (08:44→21:04)
[2021-09-29] MEDS: TOPIRAMATE 25 MG TAB PO SCH ×2 (08:44→21:04)
[2021-09-29] MEDS: ARIPiprazole 15 MG TAB PO SCH (08:44)
[2021-09-29] MEDS: VENLAFAXINE HCL ER 150 MG CAP PO SCH (08:44)
[2021-09-29] MEDS: FLUDROCORTISONE 0.1 MG TAB PO SCH (08:45)
--- NOTE | 2021-09-29 13:31 | PN ---
PROGRESS NOTE FOLLOW-UP NOTE: Sary is a 36-year-old lady who is admitted to hospital with chest pain and ruled out for myocardial infarction. This morning she is feeling comfortable at rest and does not have any chest pain. On exam, vital signs are stable. There jugular venous distention. Carotid upstroke is normal. There is no bruit. Chest exam reveals good air entry bilaterally. Heart exam reveals first and second heart sounds. No gallop. No murmur. Abdomen is soft, nontender. Examination of extremities did not reveal any edema. Peripheral pulses are felt. ASSESSMENT: Chest pain, sharp, precordial. Patient will undergo a stress echo tomorrow. If this is negative, she will be discharged home. If this is abnormal, I will perform a cardiac catheterization on her. MMODL / IJN: [id number] /
[2021-09-29] MEDS: MORPHINE SULFATE 4 MG/ML SYRINGE IV PRN ×2 (13:34→22:05)
--- NOTE | 2021-09-30 02:39 | P.PN ---
Subjective Progress Note Date: 09/29/21 Patient is a 36-year-old female with a known history of POTS and history of COVID-19 in 2019, hypothyroidism, bipolar disorder presents to ER with complaints of chest pain left retrosternal started around 5 PM yesterday evening. Patient did have sharp pain along with tingling sensation in the left arm. Patient felt like increased heart rate. Denied any complaints of shortness of breath. No nausea vomiting or abdominal pain or diarrhea. No dizziness or lightheadedness no diaphoresis. No fever no chills. Denied any recent illnesses. EKG showed normal sinus rhythm with nonspecific ST-T wave paul nges. Chest x-ray showed no focal airspace disease, pneumothorax or pleural effusion. Laboratory data showed sodium 138 potassium 4.1 chloride 103 bicarb is 23 BUN 12 and creatinine 0.73 Troponin x3 - D-dimer 0.36 COVID-19 PCR not detected 09/28/2021 Patient is currently sitting in chair. Awake alert and oriented x3. Still complains of left retrosternal chest pressure and radiating to the left arm. No complaints of nausea vomiting. No palpitations. No headache or dizziness lightheadedness. Troponin x3 -. 2D echocardiogram today contractibility bradycardia 60% and mild TR. Patient is scheduled for stress test on Thursday. 09/29/2021 Patient is currently resting in the bed. Awake alert and oriented x3. No complaints of fever or chills. No cough or sputum production. Still having left retrosternal chest pressure. Which is constant. Patient will be started on PPI and follow-up closely. Serial EKG and troponin x3 -. Continued on telemetry monitoring. Cardiology is planning for stress test tomorrow morning. Current medications reviewed. Objective - Vital Signs Vital signs: Vital Signs Temp 98.4 F 09/29/21 19:51 Pulse 88 09/29/21 19:51 Resp 17 09/29/21 19:51 BP 115/75 09/29/21 19:51 Pulse Ox 97 09/29/21 19:51 Intake & Output 09/29/21 09/29/21 09/30/21 06:59 18:59 06:59 Intake Total 350 Balance 350 Intake: Oral 350 Other: Voiding Method Toilet Toilet # Voids 1 3 0 # Bowel Movements 1 - Exam PHYSICAL EXAMINATION: Patient is lying in the bed comfortably, no acute distress, awake alert and oriented.. HEENT: Normocephalic. Neck is supple. Pupils reactive. Nostrils clear. Oral cavity is moist. Neck reveals no JVD, carotid bruits, or thyromegaly. CHEST EXAMINATION: Trachea is central. Symmetrical expansion. Lung grande clear to auscultation and percussion. CARDIAC: Normal S1, S2 with no gallops. No murmurs ABDOMEN: Soft. Bowel sounds normal. No organomegaly. No abdominal bruits. Extremities: reveal no edema. No clubbing or cyanosis Neurologically awake, alert, oriented x3 with well-coordinated movements. No focal deficits noted Skin: No rash or skin lesions. Psychiatric: Cooperative. Nonsuicidal Musculoskeletal: No joint swelling or deformity. Normal range of motion. - Labs CBC & Chem 7: 09/26/21 21:15 09/26/21 21:15 Assessment and Plan Assessment: Atypical chest pain. Ruled out ACS. History of COVID-19 in 2019 POTS Hypothyroidism Anxiety/depression and bipolar disorder Morbid obesity with BMI 42.6 DVT prophylaxis. Plan: Patient be continued on telemetry monitoring. Serial EKG and troponin x3 -. D- dimer is not elevated. Cardiology was consulted for evaluation of chest pain. 2D echocardiogram is ordered. Currently patient is asymptomatic. Cardiology is planning for stress test on thursday. Continue to follow closely.
--- NOTE | 2021-09-30 02:39 | P.PN ---
Subjective Progress Note Date: 09/28/21 Patient is a 36-year-old female with a known history of POTS and history of COVID-19 in 2019, hypothyroidism, bipolar disorder presents to ER with complaints of chest pain left retrosternal started around 5 PM yesterday evening. Patient did have sharp pain along with tingling sensation in the left arm. Patient felt like increased heart rate. Denied any complaints of shortness of breath. No nausea vomiting or abdominal pain or diarrhea. No dizziness or lightheadedness no diaphoresis. No fever no chills. Denied any recent illnesses. EKG showed normal sinus rhythm with nonspecific ST-T wave paul nges. Chest x-ray showed no focal airspace disease, pneumothorax or pleural effusion. Laboratory data showed sodium 138 potassium 4.1 chloride 103 bicarb is 23 BUN 12 and creatinine 0.73 Troponin x3 - D-dimer 0.36 COVID-19 PCR not detected 09/28/2021 Patient is currently sitting in chair. Awake alert and oriented x3. Still complains of left retrosternal chest pressure and radiating to the left arm. No complaints of nausea vomiting. No palpitations. No headache or dizziness lightheadedness. Troponin x3 -. 2D echocardiogram today contractibility bradycardia 60% and mild TR. Patient is scheduled for stress test on Thursday. Current medications reviewed. Objective - Vital Signs Vital signs: Vital Signs Temp 98.1 F 09/28/21 15:00 Pulse 91 09/28/21 15:00 Resp 16 09/28/21 15:00 BP 115/76 09/28/21 15:00 Pulse Ox 95 09/28/21 15:00 Intake & Output 09/28/21 09/28/21 09/29/21 06:59 18:59 06:59 Intake Total 1192 Balance 1192 Intake: Oral 1192 Other: # Voids 2 2 - Exam PHYSICAL EXAMINATION: Patient is lying in the bed comfortably, no acute distress, awake alert and oriented.. HEENT: Normocephalic. Neck is supple. Pupils reactive. Nostrils clear. Oral cavity is moist. Neck reveals no JVD, carotid bruits, or thyromegaly. CHEST EXAMINATION: Trachea is central. Symmetrical expansion. Lung garnde clear to auscultation and percussion. CARDIAC: Normal S1, S2 with no gallops. No murmurs ABDOMEN: Soft. Bowel sounds normal. No organomegaly. No abdominal bruits. Extremities: reveal no edema. No clubbing or cyanosis Neurologically awake, alert, oriented x3 with well-coordinated movements. No focal deficits noted Skin: No rash or skin lesions. Psychiatric: Cooperative. Nonsuicidal Musculoskeletal: No joint swelling or deformity. Normal range of motion. - Labs CBC & Chem 7: 09/26/21 21:15 09/26/21 21:15 Assessment and Plan Assessment: Atypical chest pain. Ruled out ACS. History of COVID-19 in 2019 POTS Hypothyroidism Anxiety/depression and bipolar disorder Morbid obesity with BMI 42.6 DVT prophylaxis. Plan: Patient be continued on telemetry monitoring. Serial EKG and troponin x3 -. D- dimer is not elevated. Cardiology was consulted for evaluation of chest pain. 2D echocardiogram is ordered. Currently patient is asymptomatic. Cardiology is planning for stress test on thursday. Continue to follow closely.
[2021-09-30] MEDS: LEVOTHYROXINE 50 MCG TAB PO SCH (05:14)
[2021-09-30] MEDS ORDERED: AMINOPHYLLINE 500 MG/20 ML VIAL IV PRN (06:00)
[2021-09-30] MEDS ORDERED: CAFFEINE CITRATE 60 MG/3 ML VIAL IV PRN (06:00)
[2021-09-30] MEDS ORDERED: REGADENOSON 0.4 MG/5 ML SYRINGE IV PRN (06:00)
[2021-09-30] MEDS ORDERED: PANTOPRAZOLE 40 MG TABLET PO SCH (07:30)
[2021-09-30] MEDS: lamoTRIgine 100 MG TAB PO SCH (08:14)
[2021-09-30] MEDS: HEPARIN SODIUM,PORCINE/PF 5,000 UNIT/0.5 ML SYRINGE SQ SCH (08:14)
[2021-09-30] MEDS: FLUDROCORTISONE 0.1 MG TAB PO SCH (08:14)
[2021-09-30] MEDS: TOPIRAMATE 25 MG TAB PO SCH (08:14)
[2021-09-30] MEDS: ARIPiprazole 15 MG TAB PO SCH (08:14)
[2021-09-30] MEDS: VENLAFAXINE HCL ER 150 MG CAP PO SCH (08:15)
--- NOTE | 2021-09-30 11:11 | NM ---
EXAMINATION TYPE: NM stress lexiscan cardiolite DATE OF EXAM: 09/30/2021 COMPARISON: CTA chest August 08, 2021 HISTORY: History of hypercholesterolemia and family history of heart attack presents with chest pain and difficulty in breathing. TECHNIQUE: After the intravenous administration of 10.3 mCi Tc 99m Sestamibi - Cardiolite resting SP ECT images acquired 45 minutes post injection. The patient received 0.4mg Lexiscan, 26.8 mCi Tc 99m Sestamibi - Stress images obtained [address] injection FINDINGS: Review of stress and rest SPECT images demonstrates no distinct perfusion abnormality. Gated analysi s shows normal wall motion with an estimated left ventricular ejection fraction of 54 %. IMPRESSION: No scintigraphic evidence for reversible ischemia.
--- NOTE | 2021-09-30 12:06 | P.PN ---
Subjective At baseline EKG showed normal sinus rhythm, normal axis, T-wave inversions 3 and aVF, T-wave inversion in V3, V4. Patient recieved IV infusion of Lexiscan 0.4mg and at peak infusion EKG showed a significant change from baseline. Conclusions: 1. Nondiagnostic stress EKG portion secondary baseline EKG abnormalities. 2. Nuclear imaging to be reported separately. Objective - Vital Signs Vital signs: Vital Signs Temp 97.4 F L 09/30/21 07:00 Pulse 70 09/30/21 07:00 Resp 16 09/30/21 07:00 BP 114/53 09/30/21 07:00 Pulse Ox 98 09/30/21 07:00 Intake & Output 09/29/21 09/30/21 09/30/21 18:59 06:59 18:59 Intake Total 350 Balance 350 Weight 127.01 kg Intake: Oral 350 Other: Voiding Method Toilet # Voids 3 2 # Bowel Movements 1 - Labs CBC & Chem 7: 09/26/21 21:15 09/26/21 21:15
[2021-09-30 12:21] LABS: Basophils % (A) 0 %; Eosinophils # (A) 0.1 k/uL (0-0.7); Eosinophils % (A) 1 %; HCT 41.2 % (34.0-46.0); HGB 13.2 gm/dL (11.4-16.0); Lymphocytes % (A) 31 %; MCH 29.8 pg (25.0-35.0); MCHC 32.2 g/dL (31.0-37.0); MCV 92.7 fL (80.0-100.0); Mean Platelet Volume 7.9; Monocytes # (A) 0.3 k/uL (0-1.0); Monocytes % (A) 4 %; Neutrophils # (A) 4.1 k/uL (1.3-7.7); Neutrophils % (A) 63 %; Platelet Count 242 k/uL (150-450); RBC 4.44 m/uL (3.80-5.40); RDW 13.6 % (11.5-15.5); WBC 6.4 k/uL (3.8-10.6)
[2021-09-30 12:37] LABS: African American GFR (CKD) >90 (>60 ml/min/1.73 sqM); Anion Gap 11 mmol/L; Blood Urea Nitrogen 12 mg/dL (7-17); Calcium 9.1 mg/dL (8.4-10.2); Carbon Dioxide 21 mmol/L (22-30); Chloride 106 mmol/L (98-107); Glucose 116 mg/dL (74-99); Non-African American GFR(CKD) >90 (>60 ml/min/1.73 sqM); Sodium 138 mmol/L (137-145)
--- NOTE | 2021-09-30 13:30 | P.PN ---
Subjective She is a 36-year-old female with a past medical history for postural orthostatic tachycardia disease, hypothyroidism, bipolar disease, COVID-19 in 2020, and a family medical history of early onset coronary artery disease and [place]. Patient was admitted with sharp left-sided chest pain that radiates down the left arm. She follows with Dr. Dunn in the office. Patient reports she is having the same chest pain she did when she came in. She denies palpitations, dyspnea, dizziness, syncope, edema, nausea, vomiting, or diaphoresis. She remains sinus mechanism on telemetry HR 60s-90s, occasionally up to low 100s. Patient's cardiac enzymes were negative 4. She is not currently on any cardiac medication. Patient's echocardiogram revealed a normal left ventricular function with an EF of 55-60% and mild tricuspid regurgitation. She is hemod ynamically stable. Vitals: Reviewed GENERAL: Well-appearing, well-nourished and in no acute distress. NECK: Supple without JVD or thyromegaly. LUNGS: Breath sounds clear to auscultation bilaterally. Respiration equal and unlabored. No wheezes, rales or rhonchi. HEART: Regular rate and rhythm without murmurs, rubs or gallops. S1 and S2 heard. EXTREMITIES: Normal range of motion, no edema. No clubbing or cyanosis. Peripheral pulses intact. ASSESSMENT Chest pain, atypical acute coronary syndrome ruled out History of hypothyroidism Bipolar History of postural orthostatic tachycardia disease PLAN Patient's Lexiscan stress test was negative for reversible ischemia. Ok to discharge from cardiology perspective and follow up with Dr. Marquis outpatient. Nurse Practitioner note has been reviewed, I agree with a documented findings and plan of care. Patient was seen and examined. Objective - Vital Signs Vital signs: Vital Signs Temp 97.4 F L 09/30/21 07:00 Pulse 70 09/30/21 07:00 Resp 16 09/30/21 07:00 BP 114/53 09/30/21 07:00 Pulse Ox 98 09/30/21 07:00 Intake & Output 09/29/21 09/30/21 09/30/21 18:59 06:59 18:59 Intake Total 350 Balance 350 Weight 127.01 kg Intake: Oral 350 Other: Voiding Method Toilet # Voids 3 2 # Bowel Movements 1 - Labs CBC & Chem 7: 09/30/21 11:40 09/30/21 11:40
[2021-09-30 14:35] VITALS: BP 121/83; PULSE 104; RESP 17; TEMP 98.7
--- NOTE | 2021-10-01 08:57 | ECHOS ---
At baseline EKG showed normal sinus rhythm, normal axis, T-wave inversions 3 and aVF, T-wave inversion in V3, V4. Patient recieved IV infusion of Lexiscan 0.4mg and at peak infusion EKG showed a significant change from baseline. Conclusions: 1. Nondiagnostic stress EKG portion secondary baseline EKG abnormalities. 2. Nuclear imaging to be reported separately. [facility]
--- NOTE | 2021-10-21 15:00 | P.DS ---
Providers Date of admission: 09/30/21 08:27 Expected date of discharge: 09/30/21 Attending physician: Bettye Briones Consults: 09/26/21 23:33 Consult Physician Routine Consulting Provider: [facility] Consult Reason/Comments: chest pain Do you want consulting provider notified?: Yes Primary care physician: Stated None Hospital Course: Discharge diagnosis Atypical chest pain. Ruled out ACS. History of COVID-19 in 2019 POTS Hypothyroidism Anxiety/depression and bipolar disorder Morbid obesity with BMI 42.6 DVT prophylaxis. Hospital course Patient is a 36-year-old female with a known history of POTS and history of COVID-19 in 2019, hypothyroidism, bipolar disorder presents to ER with complaints of chest pain left retrosternal started around 5 PM yesterday e vening. Patient did have sharp pain along with tingling sensation in the left arm. Patient felt like increased heart rate. Denied any complaints of shortness of breath. No nausea vomiting or abdominal pain or diarrhea. No dizziness or lightheadedness no diaphoresis. No fever no chills. Denied any recent illnesses. EKG showed normal sinus rhythm with nonspecific ST-T wave changes. Chest x-ray showed no focal airspace disease, pneumothorax or pleural effusion. Laboratory data showed sodium 138 potassium 4.1 chloride 103 bicarb is 23 BUN 12 and creatinine 0.73 Troponin x3 - D-dimer 0.36 COVID-19 PCR not detected 09/28/2021 Patient is currently sitting in chair. Awake alert and oriented x3. Still complains of left retrosternal chest pressure and radiating to the left arm. No complaints of nausea vomiting. No palpitations. No headache or dizziness lightheadedness. Troponin x3 -. 2D echocardiogram today contractibility bradycardia 60% and mild TR. Patient is scheduled for stress test on Thursday. 09/29/2021 Patient is currently resting in the bed. Awake alert and oriented x3. No complaints of fever or chills. No cough or sputum production. Still having left retrosternal chest pressure. Which is constant. Patient will be started on PPI and follow-up closely. Serial EKG and troponin x3 -. Continued on telemetry monitoring. Cardiology is planning for stress test tomorrow morning. 09/30/2021 Patient is currently resting in the bed. No complaints of chest pain or shortness of breath.. Underwent Lexiscan stress test today. Which is nondiagnostic stress EKG portion secondary to baseline EKG abnormalities. Nuclear scan showed no scintigraphic evidence for reversible ischemia. Laboratory data reviewed. Patient is cleared from cardiology and is being discharged home today. Follow-up with primary care physician and Dr. Dunn as an outpatient. PHYSICAL EXAMINATION: Patient is lying in the bed comfortably, no acute distress, awake alert and oriented.. HEENT: Normocephalic. Neck is supple. Pupils reactive. Nostrils clear. Oral cavity is moist. Neck reveals no JVD, carotid bruits, or thyromegaly. CHEST EXAMINATION: Trachea is central. Symmetrical expansion. Lung grande clear to auscultation and percussion. CARDIAC: Normal S1, S2 with no gallops. No murmurs ABDOMEN: Soft. Bowel sounds normal. No organomegaly. No abdominal bruits. Extremities: reveal no edema. No clubbing or cyanosis Neurologically awake, alert, oriented x3 with well-coordinated movements. No focal deficits noted Skin: No rash or skin lesions. Psychiatric: Cooperative. Nonsuicidal Musculoskeletal: No joint swelling or deformity. Normal range of motion. Vital signs: Vital Signs Temp 97.4 F L 09/30/21 07:00 Pulse 70 09/30/21 07:00 Resp 16 09/30/21 07:00 BP 114/53 09/30/21 07:00 Pulse Ox 98 09/30/21 07:00 Intake & Output 09/29/21 09/30/21 09/30/21 18:59 06:59 18:59 Intake Total 350 Balance 350 Weight 127.01 kg Intake: Oral 350 Other: Voiding Method Toilet # Voids 3 2 # Bowel Movements 1 Patient Condition at Discharge: Stable Plan - Discharge Summary New Discharge Prescriptions: Continue lamoTRIgine [LaMICtal] 100 mg PO DAILY Levothyroxine Sodium [Synthroid] 50 mcg PO DAILY Topiramate [Topamax] 50 mg PO BID Fludrocortisone [Florinef] 0.1 mg PO DAILY Venlafaxine HCl ER [Effexor XR] 150 mg PO DAILY ARIPiprazole [Abilify] 15 mg PO DAILY Discharge Medication List Fludrocortisone [Florinef] 0.1 mg PO DAILY 04/07/21 [History] Topiramate [Topamax] 50 mg PO BID 04/07/21 [History] ARIPiprazole [Abilify] 15 mg PO DAILY 09/26/21 [History] Levothyroxine Sodium [Synthroid] 50 mcg PO DAILY 09/26/21 [History] Venlafaxine HCl ER [Effexor XR] 150 mg PO DAILY 09/26/21 [History] lamoTRIgine [LaMICtal] 100 mg PO DAILY 09/26/21 [History] Follow up Appointment(s)/Referral(s): Bud Dunn MD [STAFF PHYSICIAN] - 2 Weeks (office to call patient to schedule ) None,Stated [Primary Care Provider] - 1-2 days Patient Instructions/Handouts: Chest Pain (DC) Discharge Disposition: HOME SELF-CARE
== END 2021-09-30 15:45 | disposition home or self-care (01) ==
LOC: EC 18:49 → 6NMEDSUR 23:33 → OBSVTOIN 09-30 08:27 → INTOOBSV 09-30 08:27 → UNDODISIN 09-30 15:45
PROVIDERS: ADMIT Hospitalist; ATTEND Hospitalist
DX: R07.2 Precordial pain (principal); Z68.41 Body mass index [BMI] 40.0-44.9, adult; R20.0 Anesthesia of skin; R20.2 Paresthesia of skin; I49.8 Other specified cardiac arrhythmias; R00.1 Bradycardia, unspecified; E03.9 Hypothyroidism, unspecified; I25.10 Atherosclerotic heart disease of native coronary artery without angina pectoris; I51.7 Cardiomegaly; I08.1 Rheumatic disorders of both mitral and tricuspid valves; E66.01 Morbid (severe) obesity due to excess calories; Z20.822 Contact with and (suspected) exposure to COVID-19; F31.9 Bipolar disorder, unspecified; F41.9 Anxiety disorder, unspecified; Z79.890 Hormone replacement therapy; Z79.52 Long term (current) use of systemic steroids; Z79.899 Other long term (current) drug therapy; Z88.1 Allergy status to other antibiotic agents; Z88.7 Allergy status to serum and vaccine; Z86.16 Personal history of COVID-19; Z82.49 Family history of ischemic heart disease and other diseases of the circulatory system
CPT/HCPCS: 96376 ×4; 96372 ×5; 96374; 99285; 36415; 93005; 93017; 85379; 80053; 80048; 83735; 84484 ×3; 85025 ×2; 85610; 85730; 87635; 71046; 78452; G0378 ×4; C8929; A9500; J2270 ×4; J2785; Q9950; J1644 ×4; 93306

== ENCOUNTER 2021-10-23 12:29 | Observation (INO) | payer OTHER ==
[2021-10-23] MEDS ORDERED: SODIUM CHLORIDE 0.9% 1,000 ML IV ONE (13:01)
--- NOTE | 2021-10-23 13:04 | ED ---
General Adult HPI - General Chief complaint: Syncope Stated complaint: Syncope/weak Time Seen by Provider: 10/23/21 12:35 Source: patient, RN notes reviewed, old records reviewed Mode of arrival: wheelchair Limitations: no limitations - History of Present Illness Initial comments: This is a 36-year-old female with a past medical history significant for pots syndrome. Patient comes in today stating she felt lightheaded at work so she had her father come pick her up. Patient states her dad tells her that she passed out once in the car and then again when they got home and she was lying down she lost consciousness again. Patient denies any injury because she was sitting in the car. Patient states she has no headache she denies numbness or focal weakness. Patient states she still feels a little lightheaded. Patient denies any palpitations. Patient states when she presses on the side of her breasts she has some tenderness but it does not hurt unless somebody is palpating it. Patient denies any abdominal pain patient denies any nausea vo miting or diarrhea. Patient denies any recent fever chills or cough per patient denies any swelling to the legs or calf tenderness. - Related Data Home Medications Medication Instructions Recorded Confirmed Fludrocortisone [Florinef] 0.1 mg PO DAILY 04/07/21 10/23/21 Topiramate [Topamax] 50 mg PO BID 04/07/21 10/23/21 ARIPiprazole [Abilify] 15 mg PO DAILY 09/26/21 10/23/21 Levothyroxine Sodium [Synthroid] 50 mcg PO DAILY 09/26/21 10/23/21 Venlafaxine HCl ER [Effexor XR] 150 mg PO DAILY 09/26/21 10/23/21 lamoTRIgine [LaMICtal] 100 mg PO DAILY 09/26/21 10/23/21 Allergies Allergy/AdvReac Type Severity Reaction Status Date / Time Tetanus Vaccines and Toxoid Allergy Anaphylaxis Verified 10/23/21 13:48 cephalexin [From Keflex] AdvReac Nausea & Verified 10/23/21 13:48 Vomiting Review of Systems ROS Statement: Those systems with pertinent positive or pertinent negative responses have been documented in the HPI. ROS Other: All systems not noted in ROS Statement are negative. Past Medical History Additional Past Medical History / Comment(s): POTS, covid 2020 History of Any Multi-Drug Resistant Organisms: None Reported Past Surgical History: Cholecystectomy, Orthopedic Surgery Additional Past Surgical History / Comment(s): right shoulder. fallopian removal, right elbow. Past Anesthesia/Blood Transfusion Reactions: No Reported Reaction Past Psychological History: Depression Smoking Status: Never smoker Past Alcohol Use History: None Reported Past Drug Use History: None Reported General Exam - General Exam Comments Initial Comments: GENERAL: Patient is well-developed and well-nourished. Patient is nontoxic and well- hydrated and is in no acute distress. ENT: Neck is soft and supple. No significant lymphadenopathy is noted. Oropharynx is clear. Moist mucous membranes. Neck has full range of motion without jamee citing any pain. EYES: The sclera were anicteric and conjunctiva were pink and moist. Extraocular movements were intact and pupils were equal round and reactive to light. Eyelids were unremarkable. PULMONARY: Unlabored respirations. Good breath sounds bilaterally. No audible rales rhonchi or wheezing was noted. CARDIOVASCULAR: There is a regular rate and rhythm without any murmurs gallops or rubs. ABDOMEN: Soft and nontender with normal bowel sounds. SKIN: Skin is clear with no lesions or rashes and otherwise unremarkable. NEUROLOGIC: Patient is alert and oriented x3. Cranial nerves II through XII are grossly intact. Motor and sensory are also intact. Normal speech, volume and content. Symmetrical smile. MUSCULOSKELETAL: Normal extremities with adequate strength and full range of motion. LYMPHATICS: No significant lymphadenopathy is noted PSYCHIATRIC: Normal psychiatric evaluation. Limitations: no limitations Course Vital Signs 10/23/21 10/23/21 12:34 15:14 Temperature 97.9 F Pulse Rate 77 Pulse Rate [ 65 Sitting] Pulse Rate [ 75 Standing] Pulse Rate [ 66 Supine] Respiratory 18 Rate Blood Pressure 149/99 Blood Pressure 136/89 [Sitting] Blood Pressure 135/90 [Standing] Blood Pressure 130/87 [Supine] O2 Sat by Pulse 99 Oximetry Medical Decision Making - Medical Decision Making EKG shows normal sinus rhythm at 60 bpm OH interval 232 QRS is 92 QT interval 46 QTC is 431 per patient's EKG shows no ST segment elevation or depression. Orthostatics were negative. Chest x-ray showed no acute abnormality. I went back into reevaluate the patient she stated she continued to feel lightheaded and she was scared to go home because she or depressed up twice and she has a 3-year-old. I spoke with some physicians and he agreed to admit the patient is a 23 hour observation and I admitted the patient. - Lab Data Result diagrams: 10/23/21 13:55 10/23/21 13:55 Lab Results 10/23/21 10/23/21 10/23/21 Range/Units 13:55 13:55 13:55 WBC 7.1 (3.8-10.6) k/uL RBC 4.38 (3.80-5.40) m/uL Hgb 13.5 (11.4-16.0) gm/dL Hct 40.0 (34.0-46.0) % MCV 91.4 (80.0-100.0) fL MCH 30.7 (25.0-35.0) pg MCHC 33.6 (31.0-37.0) g/dL RDW 13.4 (11.5-15.5) % Plt Count 261 (150-450) k/uL MPV 7.7 Neutrophils % 60 % Lymphocytes % 33 % Monocytes % 4 % Eosinophils % 2 % Basophils % 1 % Neutrophils # 4.3 (1.3-7.7) k/uL Lymphocytes # 2.4 (1.0-4.8) k/uL Monocytes # 0.3 (0-1.0) k/uL Eosinophils # 0.1 (0-0.7) k/uL Basophils # 0.1 (0-0.2) k/uL PT 10.1 (9.0-12.0) sec INR 0.9 (<1.2) APTT 24.6 (22.0-30.0) sec Sodium 139 (137-145) mmol/L Potassium 3.9 (3.5-5.1) mmol/L Chloride 104 (98-107) mmol/L Carbon Dioxide 27 (22-30) mmol/L Anion Gap 8 mmol/L BUN 13 (7-17) mg/dL Creatinine 0.74 (0.52-1.04) mg/dL Est GFR (CKD-EPI)AfAm >90 (>60 ml/min/1.73 sqM) Est GFR (CKD-EPI)NonAf >90 (>60 ml/min/1.73 sqM) Glucose 95 (74-99) mg/dL Calcium 9.4 (8.4-10.2) mg/dL Magnesium 2.0 (1.6-2.3) mg/dL Total Bilirubin 0.5 (0.2-1.3) mg/dL AST 37 H (14-36) U/L ALT 34 (4-34) U/L Alkaline Phosphatase 89 (38-126) U/L Troponin I (0.000-0.034) ng/mL Total Protein 7.6 (6.3-8.2) g/dL Albumin 4.6 (3.5-5.0) g/dL Coronavirus (PCR) (Not Detectd) 10/23/21 10/23/21 Range/Units 13:55 13:55 WBC (3.8-10.6) k/uL RBC (3.80-5.40) m/uL Hgb (11.4-16.0) gm/dL Hct (34.0-46.0) % MCV (80.0-100.0) fL MCH (25.0-35.0) pg MCHC (31.0-37.0) g/dL RDW (11.5-15.5) % Plt Count (150-450) k/uL MPV Neutrophils % % Lymphocytes % % Monocytes % % Eosinophils % % Basophils % % Neutrophils # (1.3-7.7) k/uL Lymphocytes # (1.0-4.8) k/uL Monocytes # (0-1.0) k/uL Eosinophils # (0-0.7) k/uL Basophils # (0-0.2) k/uL PT (9.0-12.0) sec INR (<1.2) APTT (22.0-30.0) sec Sodium (137-145) mmol/L Potassium (3.5-5.1) mmol/L Chloride (98-107) mmol/L Carbon Dioxide (22-30) mmol/L Anion Gap mmol/L BUN (7-17) mg/dL Creatinine (0.52-1.04) mg/dL Est GFR (CKD-EPI)AfAm (>60 ml/min/1.73 sqM) Est GFR (CKD-EPI)NonAf (>60 ml/min/1.73 sqM) Glucose (74-99) mg/dL Calcium (8.4-10.2) mg/dL Magnesium (1.6-2.3) mg/dL Total Bilirubin (0.2-1.3) mg/dL AST (14-36) U/L ALT (4-34) U/L Alkaline Phosphatase (38-126) U/L Troponin I <0.012 (0.000-0.034) ng/mL Total Protein (6.3-8.2) g/dL Albumin (3.5-5.0) g/dL Coronavirus (PCR) Not Detected (Not Detectd) Disposition Clinical Impression: Syncope Disposition: ADMITTED IP TO THIS HOSP Referrals: None,Stated [Primary Care Provider] - 1-2 days Time of Disposition: 15:37
[2021-10-23 14:00] LABS: Basophils # (A) 0.1 k/uL (0-0.2); Basophils % (A) 1 %; Eosinophils # (A) 0.1 k/uL (0-0.7); Eosinophils % (A) 2 %; HGB 13.5 gm/dL (11.4-16.0); Lymphocytes # (A) 2.4 k/uL (1.0-4.8); Lymphocytes % (A) 33 %; MCH 30.7 pg (25.0-35.0); MCHC 33.6 g/dL (31.0-37.0); MCV 91.4 fL (80.0-100.0); Mean Platelet Volume 7.7; Monocytes # (A) 0.3 k/uL (0-1.0); Monocytes % (A) 4 %; Neutrophils # (A) 4.3 k/uL (1.3-7.7); Neutrophils % (A) 60 %; Platelet Count 261 k/uL (150-450); RBC 4.38 m/uL (3.80-5.40); RDW 13.4 % (11.5-15.5); WBC 7.1 k/uL (3.8-10.6)
--- NOTE | 2021-10-23 14:01 | XR ---
EXAMINATION TYPE: XR chest 2V DATE OF EXAM: 10/23/2021 COMPARISON: 09/26/2021 HISTORY: Chest pain TECHNIQUE: Frontal and lateral views of the chest are obtained. FINDINGS: There is no focal air space opacity. No evidence for pneumothorax. No pleural effusion. The cardiac silhouette size is within normal limits. The osseous structures are grossly intact. IMPRESSION: 1. No acute cardiopulmonary process.
[2021-10-23 14:12] LABS: INR 0.9 (<1.2); Partial Thromboplastin Time 24.6 sec (22.0-30.0); Prothrombin Time 10.1 sec (9.0-12.0)
[2021-10-23 14:14] LABS: ALT 34 U/L (4-34); AST 37 U/L (14-36); African American GFR (CKD) >90 (>60 ml/min/1.73 sqM); Albumin 4.6 g/dL (3.5-5.0); Alkaline Phosphatase 89 U/L (38-126); Anion Gap 8 mmol/L; Blood Urea Nitrogen 13 mg/dL (7-17); Calcium 9.4 mg/dL (8.4-10.2); Carbon Dioxide 27 mmol/L (22-30); Chloride 104 mmol/L (98-107); Glucose 95 mg/dL (74-99); Non-African American GFR(CKD) >90 (>60 ml/min/1.73 sqM); Potassium 3.9 mmol/L (3.5-5.1); Sodium 139 mmol/L (137-145); Total Bilirubin 0.5 mg/dL (0.2-1.3); Total Protein 7.6 g/dL (6.3-8.2)
[2021-10-23] MEDS ORDERED: MAG HYDROX/AL HYDROX/SIMETH 30 ML CUP PO PRN (15:47)
[2021-10-23] MEDS ORDERED: ACETAMINOPHEN TAB 325 MG TAB PO PRN (15:47)
[2021-10-23] MEDS ORDERED: ONDANSETRON 4 MG/2 ML VIAL IVP PRN (15:47)
[2021-10-23] MEDS ORDERED: NALOXONE 0.4 MG/ML 1 ML VIAL IV PRN (15:47)
--- NOTE | 2021-10-23 16:07 | P.HPIM ---
History of Present Illness H&P Date: 10/23/21 This 36-year-old female with past medical history of pots syndrome admitted to the hospital with a syncopal episode the patient states that she did have 2 syncopal episodes Did have question about chest discomfort that resolved Patient did have history of syncopal episodes in the past and was diagnosed with possible syndrome Review of systems and systems has been reviewed all negative and positive findings as per history of present illness Constitutional: No acute distress, conversant, pleasant Eyes: Anicteric sclerae, moist conjunctiva, no lid-lag PERRLA ENMT: NC/AT Oropharynx clear, no erythema, exudates Neck: Supple, FROM, no masses, or JVD No carotid bruits No thyromegaly Lungs: Clear to auscultation Clear to percussion Normal respiratory effort, no accessory muscle use Cardiovascular: Heart regular in rate and rhythm, No murmurs, gallops, or rubs No peripheral edema Abdominal: Soft Nontender, no guarding, rebound or rigidity Abdomen moving with respiration Normoactive bowel sounds No hepatomegaly, No splenomegaly No palpable mass No abdominal wall hernia noted Skin: Normal temperature, tone, texture, turgor No induration No subcutaneous nodules No rash, lesions No ulcers Extremities: No digital cyanosis No clubbing Pedal pulses intact and symmetrical Radial pulses intact and symmetrical Normal gait and station No calf tenderness Psychiatric:Alert and oriented to person, place and time Appropriate affect Intact judgement Neuro: Muscles Strength 5/5 in all 4 extremities Sensation to light touch grossly present throughout Cranial nerves II-XII grossly intact No focal sensory deficits Syncopal episode likely due to pots syndrome will observe overnight we'll consult cardiology Anxiety Obesity Past Medical History Additional Past Medical History / Comment(s): POTS, covid 2020 History of Any Multi-Drug Resistant Organisms: None Reported Past Surgical History: Cholecystectomy, Orthopedic Surgery Additional Past Surgical History / Comment(s): right shoulder. fallopian removal, right elbow. Past Anesthesia/Blood Transfusion Reactions: No Reported Reaction Past Psychological History: Depression Smoking Status: Never smoker Past Alcohol Use History: None Reported Past Drug Use History: None Reported Medications and Allergies Home Medications Medication Instructions Recorded Confirmed Type Fludrocortisone [Florinef] 0.1 mg PO DAILY 04/07/21 10/23/21 History Topiramate [Topamax] 50 mg PO BID 04/07/21 10/23/21 History ARIPiprazole [Abilify] 15 mg PO DAILY 09/26/21 10/23/21 History Levothyroxine Sodium [Synthroid] 50 mcg PO DAILY 09/26/21 10/23/21 History Venlafaxine HCl ER [Effexor XR] 150 mg PO DAILY 09/26/21 10/23/21 History lamoTRIgine [LaMICtal] 100 mg PO DAILY 09/26/21 10/23/21 History Allergies Allergy/AdvReac Type Severity Reaction Status Date / Time Tetanus Vaccines and Toxoid Allergy Anaphylaxis Verified 10/23/21 13:48 cephalexin [From Keflex] AdvReac Nausea & Verified 10/23/21 13:48 Vomiting Physical Exam Vitals: Vital Signs Temp Pulse Pulse Pulse Pulse Resp BP 10/23/21 15:14 65 75 66 10/23/21 12:34 97.9 F 77 18 149/99 BP BP BP Pulse Ox 10/23/21 15:14 136/89 135/90 130/87 10/23/21 12:34 99 Intake and Output 10/23/21 10/23/21 10/23/21 06:59 14:59 22:59 Other: Weight 130.635 kg Results CBC & Chem 7: 10/23/21 13:55 10/23/21 13:55 Labs: Abnormal Lab Results - Last 24 Hours (Table) 10/23/21 Range/Units 13:55 AST 37 H (14-36) U/L
[2021-10-23] MEDS: TOPIRAMATE 25 MG TAB PO SCH (21:47)
[2021-10-24 04:26] VITALS: RESP 16
[2021-10-24] MEDS ORDERED: LEVOTHYROXINE 50 MCG TAB PO SCH (06:30)
[2021-10-24] MEDS: TOPIRAMATE 25 MG TAB PO SCH (07:35)
[2021-10-24 07:43] VITALS: BP 126/80; TEMP 97.2
--- NOTE | 2021-10-24 08:30 | P.DS ---
Providers Date of admission: 10/23/21 15:37 Attending physician: Reynaldo Ellis MD Primary care physician: Stated None Hospital Course: 36-year-old female admitted to the hospital with a syncopal episode patient does have history of pots syndrome which she did have history of syncope in the past due to pots syndrome No evidence of the no evidence of acute coronary syndrome Patient is stable no complains of chest pains Constitutional: No acute distress, conversant, pleasant Eyes: Anicteric sclerae, moist conjunctiva, no lid-lag PERRLA ENMT: NC/AT Oropharynx clear, no erythema, exudates Neck: Supple, FROM, no masses, or JVD No carotid bruits No thyromegaly Lungs: Clear to auscultation Clear to percussion Normal respiratory effort, no accessory muscle use Cardiovascular: Heart regular in rate and rhythm, No murmurs, gallops, or rubs No peripheral edema Abdominal: Soft Nontender, no guarding, rebound or rigidity Abdomen moving with respiration Normoactive bowel sounds No hepatomegaly, No splenomegaly No palpable mass No abdominal wall hernia noted Skin: Normal temperature, tone, texture, turgor No induration No subcutaneous nodules No rash, lesions No ulcers Extremities: No digital cyanosis No clubbing Pedal pulses intact and symmetrical Radial pulses intact and symmetrical Normal gait and station No calf tenderness Psychiatric:Alert and oriented to person, place and time Appropriate affect Intact judgement Neuro: Muscles Strength 5/5 in all 4 extremities Sensation to light touch grossly present throughout Cranial nerves II-XII grossly intact No focal sensory deficits Discharge plan syncopal episode likely due to post syndrome patient to follow-up with primary care physician and neurology and cardiology as an outpatient Obesity Plan - Discharge Summary New Discharge Prescriptions: Continue lamoTRIgine [LaMICtal] 100 mg PO DAILY Levothyroxine Sodium [Synthroid] 50 mcg PO DAILY Topiramate [Topamax] 50 mg PO BID Fludrocortisone [Florinef] 0.1 mg PO DAILY Venlafaxine HCl ER [Effexor XR] 150 mg PO DAILY ARIPiprazole [Abilify] 15 mg PO DAILY Discharge Medication List Fludrocortisone [Florinef] 0.1 mg PO DAILY 04/07/21 [History] Topiramate [Topamax] 50 mg PO BID 04/07/21 [History] ARIPiprazole [Abilify] 15 mg PO DAILY 09/26/21 [History] Levothyroxine Sodium [Synthroid] 50 mcg PO DAILY 09/26/21 [History] Venlafaxine HCl ER [Effexor XR] 150 mg PO DAILY 09/26/21 [History] lamoTRIgine [LaMICtal] 100 mg PO DAILY 09/26/21 [History] Follow up Appointment(s)/Referral(s): None,Stated [Primary Care Provider] - 1-2 days Discharge Disposition: HOME SELF-CARE
[2021-10-24] MEDS ORDERED: VENLAFAXINE HCL ER 150 MG CAP PO SCH (09:00)
[2021-10-24] MEDS ORDERED: FLUDROCORTISONE 0.1 MG TAB PO SCH (09:00)
[2021-10-24] MEDS ORDERED: ARIPiprazole 15 MG TAB PO SCH (09:00)
[2021-10-24] MEDS ORDERED: lamoTRIgine 100 MG TAB PO SCH (09:00)
[2021-10-24 09:37] VITALS: PULSE 80
[2021-10-24 11:01] LABS: Basophils # (A) 0.03 X 10*3/uL (0.00-0.10); Basophils % (A) 0.5 %; Eosinophils # (A) 0.11 X 10*3/uL (0.04-0.35); Eosinophils % (A) 1.8 %; HCT 39.6 % (37.2-46.3); HGB 12.4 g/dL (12.0-15.0); Immature Grans, Automated 0.5 %; Lymphocytes # (A) 2.16 X 10*3/uL (0.90-5.00); Lymphocytes % (A) 35.7 %; MCH 29.4 pg (27.0-32.0); MCHC 31.3 g/dL (32.0-37.0); MCV 93.8 fL (80.0-97.0); Mean Platelet Volume 10.6 fL (9.5-12.2); Monocytes # (A) 0.43 X 10*3/uL (0.20-1.00); Monocytes % (A) 7.1 %; NRBC Per 100 WBC 0 /100 WBCS (0.0-0.0); Neutrophils # (A) 3.29 X 10*3/uL (1.80-7.70); Neutrophils % (A) 54.4 %; Platelet Count 236 X 10*3/uL (140-440); RBC 4.22 X 10*6/uL (4.10-5.20); RDW 13.3 % (11.5-14.5); WBC 6.05 X 10*3/uL (4.50-10.00)
[2021-10-24 11:13] LABS: African American GFR (CKD) 109.9 (60.0-200.0); Albumin 4.2 g/dL (3.8-4.9); Albumin/Globulin Ratio 1.91 (1.60-3.17); Anion Gap 15.4 mmol/L (10.00-18.00); BUN/Creat Ratio 12.5 Ratio (12.00-20.00); Calcium 8.9 mg/dL (8.7-10.3); Carbon Dioxide 24.6 mmol/L (20.0-27.5); Globulin 2.2 g/dL (1.6-3.3); Non-African American GFR(CKD) 94.8 (60.0-200.0); Potassium 4.1 mmol/L (3.5-5.5); Total Bilirubin 0.4 mg/dL (0.30-1.20); Total Protein 6.4 g/dL (6.2-8.2)
== END 2021-10-24 10:08 | disposition home or self-care (01) ==
LOC: EC 12:29 → 6NMEDSUR 15:37
PROVIDERS: ADMIT Internal Medicine; ATTEND Internal Medicine
DX: R55 Syncope and collapse (principal); I49.8 Other specified cardiac arrhythmias; R07.89 Other chest pain; R42 Dizziness and giddiness; F32.A Depression, unspecified; F41.9 Anxiety disorder, unspecified; E66.9 Obesity, unspecified; Z68.41 Body mass index [BMI] 40.0-44.9, adult; Z20.822 Contact with and (suspected) exposure to COVID-19; Z79.52 Long term (current) use of systemic steroids; Z79.899 Other long term (current) drug therapy; Z79.890 Hormone replacement therapy; Z88.1 Allergy status to other antibiotic agents; Z88.7 Allergy status to serum and vaccine; Z86.16 Personal history of COVID-19; Z90.49 Acquired absence of other specified parts of digestive tract; Z98.890 Other specified postprocedural states; Z90.79 Acquired absence of other genital organ(s)
CPT/HCPCS: 96374; 99285; 36415; 93005; 85379; 80053 ×2; 83735; 84484; 85025 ×2; 85610; 85730; 87635; 71046; G0378 ×2; J2405

== ENCOUNTER 2021-11-08 08:56 | Emergency (ER) | payer OTHER ==
[2021-11-08] MEDS ORDERED: KETOROLAC 15 MG/ML 1 ML VIAL IM STA (09:05)
--- NOTE | 2021-11-08 09:08 | ED ---
General Adult HPI - General Chief complaint: Skin/Abscess/Foreign Body Stated complaint: Poss Cyst on Breast Time Seen by Provider: 11/08/21 09:02 Source: patient, RN notes reviewed, old records reviewed Mode of arrival: ambulatory Limitations: no limitations - History of Present Illness Initial comments: Well-appearing 36-year-old female presents emergency room complaints of painful lump to right breast with bruising that she noticed last night. Patient denies any injury. There is no drainage. She has had multiple abscesses in the past to her axilla, denies history of MRSA. She denies any fevers. -: days(s) (1) Location: right (breast 9 o'clock) Severity scale (1-10): 4 Quality: constant Consistency: constant Improves with: none Associated Symptoms: denies other symptoms Treatments Prior to Arrival: none - Related Data Home Medications Medication Instructions Recorded Confirmed Fludrocortisone [Florinef] 0.1 mg PO DAILY 04/07/21 10/23/21 Topiramate [Topamax] 50 mg PO BID 04/07/21 10/23/21 ARIPiprazole [Abilify] 15 mg PO DAILY 09/26/21 10/23/21 Levothyroxine Sodium [Synthroid] 50 mcg PO DAILY 09/26/21 10/23/21 Venlafaxine HCl ER [Effexor XR] 150 mg PO DAILY 09/26/21 10/23/21 lamoTRIgine [LaMICtal] 100 mg PO DAILY 09/26/21 10/23/21 Previous Rx's Medication Instructions Recorded Acetaminophen [Tylenol] 500 mg PO Q4-6H PRN #24 tab 11/06/21 Cyclobenzaprine [Flexeril] 10 mg PO TID PRN #20 tab 11/06/21 Naproxen [Naprosyn] 500 mg PO Q12HR #24 tab 11/06/21 Sulfamethox-Tmp 800-160Mg [Bactrim 1 each PO Q12HR 7 Days #14 tab 11/08/21 Ds] Allergies Allergy/AdvReac Type Severity Reaction Status Date / Time Tetanus Vaccines and Toxoid Allergy Anaphylaxis Verified 11/08/21 09:00 cephalexin [From Keflex] AdvReac Nausea & Verified 11/08/21 09:00 Vomiting Review of Systems ROS Statement: Those systems with pertinent positive or pertinent negative responses have been documented in the HPI. ROS Other: All systems not noted in ROS Statement are negative. Past Medical History Additional Past Medical History / Comment(s): POTS, covid 2020 History of Any Multi-Drug Resistant Organisms: None Reported Past Surgical History: Cholecystectomy, Orthopedic Surgery Additional Past Surgical History / Comment(s): right shoulder. fallopian removal, right elbow. Past Anesthesia/Blood Transfusion Reactions: No Reported Reaction Past Psychological History: Anxiety, Depression Smoking Status: Never smoker Past Alcohol Use History: None Reported Past Drug Use History: None Reported General Exam Limitations: no limitations General appearance: alert, in no apparent distress Head exam: Present: atraumatic, normocephalic, normal inspection Eye exam: Present: normal appearance Respiratory exam: Present: normal lung sounds bilaterally. Absent: accessory muscle use Cardiovascular Exam: Present: regular rate Back exam: Present: normal inspection. Absent: tenderness, CVA tenderness (R), CVA tenderness (L), rash noted Neurological exam: Present: alert, oriented X3, normal gait Psychiatric exam: Present: normal affect, normal mood Skin exam: Present: warm, dry, normal color, other (Bruising noted to the right breast at 9:00. There is a mass approximately 2 x 3 cm). Absent: cyanosis, diaphoretic Course Vital Signs 11/08/21 11/08/21 08:57 10:06 Temperature 98.2 F 98.6 F Pulse Rate 90 88 Respiratory 20 16 Rate Blood Pressure 126/71 126/67 O2 Sat by Pulse 99 99 Oximetry Medical Decision Making - Medical Decision Making 36-year-old female presents with complaints of painful lump to right breast with bruising that she noticed last night. Ultrasound of the right breast shows a 4.9 x 3.7 x 1.4 cm hyper echoic lesion at 9:00. Hematoma versus infection with recommendation to repeat ultrasound in 1 month. No history of MRSA. Patient will be treated with antibiotics and directed to follow up with her primary care doctor next week. Return to the emergency room with any new or concerning symptoms. She is agreeable to this plan of care. Patient does have an appointment with her primary care doctor on Thursday. Case discussed with Dr. Thorne. Disposition Clinical Impression: Breast lump in female Clinical Impression: (Ruled Out): Breast mass, right Disposition: HOME SELF-CARE Condition: Good Instructions (If sedation given, give patient instructions): Hematoma (ED) Additional Instructions: Take antibiotics as prescribed. Warm moist compresses to the area. Tylenol and/or Motrin for pain. Follow-up with the primary care doctor as scheduled on Thursday. Return to the emergency room with any new or worsening symptoms includi ng increased pain or fevers. Prescriptions: Sulfamethox-Tmp 800-160Mg [Bactrim Ds] 1 each PO Q12HR 7 Days #14 tab Is patient prescribed a controlled substance at d/c from ED?: No Referrals: None,Stated [Primary Care Provider] - 1-2 days Time of Disposition: 09:58
[2021-11-08 10:09] VITALS: BP 126/67; PULSE 88; RESP 16; TEMP 98.6
--- NOTE | 2021-11-08 11:31 | USB ---
Reason for exam: clinical finding. US Breast Limited RT Right limited breast ultrasound including focal area of concern, retroareolar and axilla demonstrates a 4.9 x 3.7 x 1.4cm hyperechoic lesion at 9 o'clock. Hematome versus infection. Manage on a clinical basis and short term follow up in 1 months. Scanned 9-12 o'clock. ASSESSMENT: Probably benign, BI-RAD 3 RECOMMENDATION: Ultrasound of the right breast in 1 month. Manage patient on a clinical basis.
== END 2021-11-08 10:08 | disposition home or self-care (01) ==
LOC: EC 08:56
DX: N63.11 Unspecified lump in the right breast, upper outer quadrant (principal); F41.9 Anxiety disorder, unspecified; F32.A Depression, unspecified; Z88.1 Allergy status to other antibiotic agents; Z88.7 Allergy status to serum and vaccine; Z90.49 Acquired absence of other specified parts of digestive tract
CPT/HCPCS: 99283; 96372; 76642; J1885

== ENCOUNTER 2021-11-19 10:58 | Observation (INO) | payer OTHER ==
[2021-11-19 11:02] VITALS: TEMP 97.3
[2021-11-19] MEDS ORDERED: ASPIRIN 81 MG PO STA (11:04)
[2021-11-19 11:46] LABS: Basophils % (A) 0 %; Eosinophils # (A) 0.1 k/uL (0-0.7); Eosinophils % (A) 1 %; HCT 40.1 % (34.0-46.0); HGB 13.6 gm/dL (11.4-16.0); Lymphocytes # (A) 2.4 k/uL (1.0-4.8); Lymphocytes % (A) 32 %; MCH 31.2 pg (25.0-35.0); MCV 91.8 fL (80.0-100.0); Monocytes # (A) 0.3 k/uL (0-1.0); Monocytes % (A) 4 %; Neutrophils # (A) 4.6 k/uL (1.3-7.7); Neutrophils % (A) 62 %; Platelet Count 255 k/uL (150-450); RBC 4.36 m/uL (3.80-5.40); RDW 13.9 % (11.5-15.5); WBC 7.4 k/uL (3.8-10.6)
--- NOTE | 2021-11-19 11:50 | ED ---
General Adult HPI - General Chief complaint: Chest Pain Stated complaint: chest pain Time Seen by Provider: 11/19/21 11:03 Source: patient, RN notes reviewed, old records reviewed Mode of arrival: wheelchair Limitations: no limitations - History of Present Illness Initial comments: She is a 36-year-old female with past medical history remarkable for obesity, pots disease, who presents emergency Department complaining of acute onset of left-sided chest pain which occurred 1-2 hours prior to arrival in the emergency department. Describes the pain as a sharp, pressure sensation that radiates up to her left neck. States she was just sitting there when the pain started. Denies any known palliative or provocative factors. States it is still 7 out of 10. Endorses shortness of breath as well as a mild pleuritic nature to it. Denies any recent fever, chills, cough. Denies any abdominal pain, nausea, vomiting. Denies any back pain. His no other acute complaints this time. Presents emergency department for further evaluation for chest pain.Denies PND, orthopnea, lower extremity edema. Denies any history of blood clots. - Related Data Home Medications Medication Instructions Recorded Confirmed Fludrocortisone [Florinef] 0.1 mg PO DAILY 04/07/21 11/19/21 ARIPiprazole [Abilify] 15 mg PO DAILY 09/26/21 11/19/21 Levothyroxine Sodium [Synthroid] 50 mcg PO DAILY 09/26/21 11/19/21 Venlafaxine HCl ER [Effexor XR] 150 mg PO DAILY 09/26/21 11/19/21 lamoTRIgine [LaMICtal] 100 mg PO DAILY 09/26/21 11/19/21 Ergocalciferol [Vitamin D2 (1250 1,250 mcg PO WE 11/19/21 11/19/21 Mcg = 82668 Iu)] Topiramate [Topamax] 100 mg PO BID 11/19/21 11/19/21 Previous Rx's Medication Instructions Recorded Acetaminophen [Tylenol] 500 mg PO Q4-6H PRN #24 tab 11/06/21 Cyclobenzaprine [Flexeril] 10 mg PO TID PRN #20 tab 11/06/21 Naproxen [Naprosyn] 500 mg PO Q12HR #24 tab 11/06/21 Allergies Allergy/AdvReac Type Severity Reaction Status Date / Time Tetanus Vaccines and Toxoid Allergy Anaphylaxis Verified 11/19/21 12:42 cephalexin [From Keflex] AdvReac Nausea & Verified 11/19/21 12:42 Vomiting Review of Systems ROS Statement: Those systems with pertinent positive or pertinent negative responses have been documented in the HPI. Review of Systems: CONST: Denies fever EYES: Denies blurry vision ENT: Denies nasal congestion C/V: Endorses chest pain RESP: Denies shortness of breath GI: Denies abdominal pain : Denies dysuria SKIN: Denies rash. MSK: Denies joint pain. NEURO: Denies headache ROS Other: All systems not noted in ROS Statement are negative. Past Medical History Additional Past Medical History / Comment(s): POTS, History of Any Multi-Drug Resistant Organisms: None Reported Past Surgical History: Cholecystectomy, Orthopedic Surgery Additional Past Surgical History / Comment(s): right shoulder. fallopian removal, right elbow. Past Anesthesia/Blood Transfusion Reactions: No Reported Reaction Past Psychological History: Anxiety, Depression Smoking Status: Never smoker Past Alcohol Use History: None Reported Past Drug Use History: None Reported General Exam - General Exam Comments Initial Comments: General: Appears in no acute distress. HEAD: Normal with no signs of head trauma. EYES: PERRLA, EOMI, conjunctiva normal, no discharge. ENT: Hearing grossly intact, normal oropharynx. RESPIRATORY: Clear breath sounds bilaterally. No wheezes, rales, or rhonchi. C/V: Regular rate and rhythm. S1 and S2 auscultated, no edema, peripheral pulses 2+ and intact throughout ABD: Abd is soft, nontender, nondistended EXT: Normal range of motion, no obvious deformity SKIN: No rashes or lesions observed on exposed skin. NEURO: Alert and oriented x 4. Cranial nerves II-XII intact. No focal sensory or strength deficits. 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 Cannot rule out possibility of blood clot either. Therefore we will obtain a d-dimer as well as screening cardiac labs including troponin, EKG, chest x-ray. She'll be given an aspirin as well as IV morphine. Patient was in agreement this plan. Vital signs are within normal limits and stable. EKG showed no signs of acute ischemia.Chest x-ray reveals findings suspicious for chronic asthma. No focal infiltrate. Laboratory studies are remarkable for a and initial negative troponin. D-dimer is within normal limits. The remainder of the labs are unremarkable. Patient will be given a nitroglycerin tablet at the request the admitting team, however she reports no improvement in pain. She does develop a mild headache. She'll be given morphine, which she states does improve pain somewhat. I did discuss with her the results of her labs and imaging. Heart score is low to moderate at 3-4. I did recommend that she be admitted to the hospital at this time and she was in agreement with. She'll be admitted to observation telemetry cardiology on as a consult. Patient was in agreement with this plan. We will continue to trend her troponins. She received aspirin. I spoke with the admitting team under Dr. Doran, who accepted the patient. He was in agreement with the plan. Patient was admitted to observation telemetry. Cardiology is consulted to evaluate the patient tomorrow. - Lab Data Result diagrams: 11/19/21 11:25 11/19/21 11:25 Lab Results 11/19/21 11/19/21 11/19/21 Range/Units 11:25 11:25 11:25 WBC 7.4 (3.8-10.6) k/uL RBC 4.36 (3.80-5.40) m/uL Hgb 13.6 (11.4-16.0) gm/dL Hct 40.1 (34.0-46.0) % MCV 91.8 (80.0-100.0) fL MCH 31.2 (25.0-35.0) pg MCHC 34.0 (31.0-37.0) g/dL RDW 13.9 (11.5-15.5) % Plt Count 255 (150-450) k/uL MPV 8.0 Neutrophils % 62 % Lymphocytes % 32 % Monocytes % 4 % Eosinophils % 1 % Basophils % 0 % Neutrophils # 4.6 (1.3-7.7) k/uL Lymphocytes # 2.4 (1.0-4.8) k/uL Monocytes # 0.3 (0-1.0) k/uL Eosinophils # 0.1 (0-0.7) k/uL Basophils # 0.0 (0-0.2) k/uL PT 9.7 (9.0-12.0) sec INR 0.9 (<1.2) APTT 23.6 (22.0-30.0) sec D-Dimer 0.33 (<0.60) mg/L FEU Sodium 139 (137-145) mmol/L Potassium 3.8 (3.5-5.1) mmol/L Chloride 110 H (98-107) mmol/L Carbon Dioxide 19 L (22-30) mmol/L Anion Gap 10 mmol/L BUN 15 (7-17) mg/dL Creatinine 0.81 (0.52-1.04) mg/dL Est GFR (CKD-EPI)AfAm >90 (>60 ml/min/1.73 sqM) Est GFR (CKD-EPI)NonAf >90 (>60 ml/min/1.73 sqM) Glucose 99 (74-99) mg/dL Calcium 9.2 (8.4-10.2) mg/dL Magnesium 2.1 (1.6-2.3) mg/dL Total Bilirubin 0.3 (0.2-1.3) mg/dL AST 34 (14-36) U/L ALT 28 (4-34) U/L Alkaline Phosphatase 78 (38-126) U/L Troponin I (0.000-0.034) ng/mL Total Protein 7.8 (6.3-8.2) g/dL Albumin 4.5 (3.5-5.0) g/dL 11/19/21 Range/Units 11:25 WBC (3.8-10.6) k/uL RBC (3.80-5.40) m/uL Hgb (11.4-16.0) gm/dL Hct (34.0-46.0) % MCV (80.0-100.0) fL MCH (25.0-35.0) pg MCHC (31.0-37.0) g/dL RDW (11.5-15.5) % Plt Count (150-450) k/uL MPV Neutrophils % % Lymphocytes % % Monocytes % % Eosinophils % % Basophils % % Neutrophils # (1.3-7.7) k/uL Lymphocytes # (1.0-4.8) k/uL Monocytes # (0-1.0) k/uL Eosinophils # (0-0.7) k/uL Basophils # (0-0.2) k/uL PT (9.0-12.0) sec INR (<1.2) APTT (22.0-30.0) sec D-Dimer (<0.60) mg/L FEU Sodium (137-145) mmol/L Potassium (3.5-5.1) mmol/L Chloride (98-107) mmol/L Carbon Dioxide (22-30) mmol/L Anion Gap mmol/L BUN (7-17) mg/dL Creatinine (0.52-1.04) mg/dL Est GFR (CKD-EPI)AfAm (>60 ml/min/1.73 sqM) Est GFR (CKD-EPI)NonAf (>60 ml/min/1.73 sqM) Glucose (74-99) mg/dL Calcium (8.4-10.2) mg/dL Magnesium (1.6-2.3) mg/dL Total Bilirubin (0.2-1.3) mg/dL AST (14-36) U/L ALT (4-34) U/L Alkaline Phosphatase (38-126) U/L Troponin I <0.012 (0.000-0.034) ng/mL Total Protein (6.3-8.2) g/dL Albumin (3.5-5.0) g/dL - EKG Data -: EKG Interpreted by Me EKG Comments: 12-lead Electrocardiogram Interpretation Note EKG was reviewed and interpreted by myself. 12-lead ECG performed at 1109 is interpreted by me as revealing sinus tachycardia at a rate of 101 beats per minute. Slight left axis deviation. DE interval is 143 ms, QRS duration is 95 ms, QTc is 410 ms.. There were no ST or T wave abnormalities to suggest myocardial ischemia or injury. R wave progression across the precordium was satisfactory. By my interpretation this EKG is non-diagnostic for acute ischemia. Disposition Clinical Impression: Chest pain of unknown etiology Disposition: ADMITTED IP TO THIS HOSP Condition: Stable
[2021-11-19 11:59] LABS: ALT 28 U/L (4-34); AST 34 U/L (14-36); African American GFR (CKD) >90 (>60 ml/min/1.73 sqM); Albumin 4.5 g/dL (3.5-5.0); Alkaline Phosphatase 78 U/L (38-126); Anion Gap 10 mmol/L; Blood Urea Nitrogen 15 mg/dL (7-17); Calcium 9.2 mg/dL (8.4-10.2); Carbon Dioxide 19 mmol/L (22-30); Chloride 110 mmol/L (98-107); Glucose 99 mg/dL (74-99); Magnesium 2.1 mg/dL (1.6-2.3); Non-African American GFR(CKD) >90 (>60 ml/min/1.73 sqM); Potassium 3.8 mmol/L (3.5-5.1); Sodium 139 mmol/L (137-145); Total Bilirubin 0.3 mg/dL (0.2-1.3); Total Protein 7.8 g/dL (6.3-8.2)
--- NOTE | 2021-11-19 12:06 | XR ---
EXAMINATION TYPE: XR chest 2V DATE OF EXAM: 11/19/2021 COMPARISON: 10/23/2021 HISTORY: 36-year-old female with chest pain TECHNIQUE: PA and lateral views FINDINGS: Heart normal size. Aorta and pulmonary vasculature within normal limits. Some central mild peribronch ial cuffing is noted. No consolidation or pleural effusion. IMPRESSION: Some mild central peribronchial cuffing can be seen with bronchitis or chronic asthma. No focal infil trate.
[2021-11-19 12:21] LABS: INR 0.9 (<1.2); Partial Thromboplastin Time 23.6 sec (22.0-30.0); Prothrombin Time 9.7 sec (9.0-12.0)
[2021-11-19] MEDS ORDERED: MORPHINE SULFATE 4 MG/ML SYRINGE IVP STA ×2 (12:31→12:53)
[2021-11-19] MEDS ORDERED: NITROGLYCERIN SL TABS 0.4 MG TAB SUBLINGUAL STA (12:38)
[2021-11-19 12:47] VITALS: RESP 18
[2021-11-19] MEDS ORDERED: NALOXONE 0.4 MG/ML 1 ML VIAL IV PRN (12:52)
[2021-11-19] MEDS ORDERED: MORPHINE SULFATE 4 MG/ML SYRINGE IV PRN (12:52)
[2021-11-19] MEDS ORDERED: ACETAMINOPHEN TAB 500 MG TAB PO PRN (13:00)
--- NOTE | 2021-11-19 14:22 | P.CRDCN ---
History of Present Illness History of present illness: HISTORY OF PRESENTING ILLNESS This is a pleasant 36-year-old female past medical history significant for Postural orthostatic tachycardia syndrome, depression, anxiety, PTSD. She follows in the office with Dr. Dunn. . We have been asked to see in consultation for chest pain. Patient presents emergency department with constant left sided chest pain starting at 10:30 AM. It is located in the left side of her chest, radiating up to her left side of her neck and left ear. It is continu ous and has not subsided. She describes it as a heaviness as an "elephant sitting on her chest". She states it began when she was sitting down about to eat. It is non-exertional. No specific aggravating factors. She states she had associated dizziness and lightheadedness, some mild nausea and felt as if she could not take a deep breath. She denies any fever, cough, chills, abdominal pain, vomiting, syncope or near syncope. She denies any symptoms of orthopnea or PND. The intensity of the pain has been relieved after getting 4mg IV morphine. She is a non/never smoker. She is a family history of coronary artery disease. Patient recently admitted in September 2021 and underwent a Lexiscan stress test 09/30/2021 which was negative for reversible ischemia. Echocardiogram 09/27/2021 revealed EF 5560 percent, mild tricuspid regurgitation with an RVSP of 24 mmHg no significant wall motion abnormalities. DIAGNOSTICS EKG reveals sinus tachycardia, heart rate 101, T wave inversion in lead III, no significant St-T wave abnormalities to suggest acute ischemia.Previous EKG with similar findings Telemetry tracings indicate sinus mechanism, heart rate 90s Chest xray some mild central peribronchial cuffing PVC with proctitis or chronic asthma. Laboratory reviewed, CBC unremarkable, d-dimer negative, troponin negative, sodium 139, potassium 3.8, BUN 15, serum creatinine 0.8, magnesium 2.1, COVID-19 negative Current home medications include Lamictal, Effexor, Topamax, naproxen, Synthroid, Flexeril, Abilify REVIEW OF SYSTEMS At the time of my exam: CONSTITUTIONAL: Denies fever or chills. CARDIOVASCULAR: + chest pain, Denies shortness of breath, orthopnea, PND or palpitations. RESPIRATORY: Denies cough. GASTROINTESTINAL: Denies abdominal pain, diarrhea, constipation, nausea or vomit ing. MUSCULOSKELETAL: Denies myalgias. NEUROLOGIC: Denies numbness, tingling, headacbe or weakness. ENDOCRINE: Denies fatigue, weight change, polydipsia or polyurina. GENITOURINARY: Denies burning, hematuria or urgency with micturation. HEMATOLOGIC: Denies history of anemia or bleeding. PHYSICAL EXAMINATION Blood pressure 113/69, heart rate 79, afebrile, oxygen saturation is greater than 92% on room air CONSTITUTIONAL: No apparent distress. HEENT: Head is normocephalic. Pupils are equal, round. Sclerae anicteric. Mucous membranes of the mouth are moist. No JVD. No carotid bruit. CHEST EXAMINATION: Lungs are clear to auscultation. No chest wall tenderness is noted on palpation or with deep breathing. HEART EXAMINATION: Regular rate and rhythm. S1, S2 heard. No murmurs, gallops or rub. ABDOMEN: Soft, nontender. Positive bowel sounds. EXTREMITIES: 2+ peripheral pulses, no lower extremity edema and no calf tenderness. NEUROLOGIC EXAMINATION: Patient is awake, alert and oriented x3. ASSESSMENT Chest pain, atypical, troponin negative, EKG with no evidence of ischemia History of Postural orthostatic tachycardia syndrome History of Depression/Anxiety History of PTSD History of hypothyroidism PLAN Patient's chest pain is atypical, EKG with no evidence of acute ischemia, Troponin negative. Patient with recent cardiac workup with Negative Lexiscan stress test and Normal 2D echocardiogram. From a cardiology perspective, no further inpatient workup needed at this time, ok to be discharged. Recommend patient follow up with Dr. Dunn outpatient. Nurse practitioner note has been reviewed by physician. Signing provider agrees with the documented findings, assessment, and plan of care. Past Medical History Additional Past Medical History / Comment(s): POTS, History of Any Multi-Drug Resistant Organisms: None Reported Past Surgical History: Cholecystectomy, Orthopedic Surgery Additional Past Surgical History / Comment(s): right shoulder. fallopian remov al, right elbow. Past Anesthesia/Blood Transfusion Reactions: No Reported Reaction Past Psychological History: Anxiety, Depression Smoking Status: Never smoker Past Alcohol Use History: None Reported Past Drug Use History: None Reported Medications and Allergies Home Medications Medication Instructions Recorded Confirmed Type Fludrocortisone [Florinef] 0.1 mg PO DAILY 04/07/21 11/19/21 History ARIPiprazole [Abilify] 15 mg PO DAILY 09/26/21 11/19/21 History Levothyroxine Sodium [Synthroid] 50 mcg PO DAILY 09/26/21 11/19/21 History Venlafaxine HCl ER [Effexor XR] 150 mg PO DAILY 09/26/21 11/19/21 History lamoTRIgine [LaMICtal] 100 mg PO DAILY 09/26/21 11/19/21 History Acetaminophen [Tylenol] 500 mg PO Q4-6H PRN #24 tab 11/06/21 11/19/21 Rx Cyclobenzaprine [Flexeril] 10 mg PO TID PRN #20 tab 11/06/21 11/19/21 Rx Naproxen [Naprosyn] 500 mg PO Q12HR #24 tab 11/06/21 11/19/21 Rx Ergocalciferol [Vitamin D2 (1250 1,250 mcg PO WE 11/19/21 11/19/21 History Mcg = 34810 Iu)] Topiramate [Topamax] 100 mg PO BID 11/19/21 11/19/21 History Allergies Allergy/AdvReac Type Severity Reaction Status Date / Time Tetanus Vaccines and Toxoid Allergy Anaphylaxis Verified 11/19/21 12:42 cephalexin [From Keflex] AdvReac Nausea & Verified 11/19/21 12:42 Vomiting Physical Exam Vitals: Vital Signs Temp Pulse Pulse Resp BP Pulse Ox 11/19/21 12:46 79 18 113/69 11/19/21 11:26 101 H 11/19/21 10:59 97.3 F L 99 16 144/93 98 Intake and Output 11/18/21 11/19/21 11/19/21 22:59 06:59 14:59 Other: Weight 128.367 kg Results 11/19/21 11:25 11/19/21 11:25 Cardiac Enzymes 11/19/21 11/19/21 Range/Units 11:25 11:25 AST 34 (14-36) U/L Troponin I <0.012 (0.000-0.034) ng/mL Coagulation 11/19/21 Range/Units 11:25 PT 9.7 (9.0-12.0) sec APTT 23.6 (22.0-30.0) sec CBC 11/19/21 Range/Units 11:25 WBC 7.4 (3.8-10.6) k/uL RBC 4.36 (3.80-5.40) m/uL Hgb 13.6 (11.4-16.0) gm/dL Hct 40.1 (34.0-46.0) % Plt Count 255 (150-450) k/uL Comprehensive Metabolic Panel 11/19/21 Range/Units 11:25 Sodium 139 (137-145) mmol/L Potassium 3.8 (3.5-5.1) mmol/L Chloride 110 H (98-107) mmol/L Carbon Dioxide 19 L (22-30) mmol/L BUN 15 (7-17) mg/dL Creatinine 0.81 (0.52-1.04) mg/dL Glucose 99 (74-99) mg/dL Calcium 9.2 (8.4-10.2) mg/dL AST 34 (14-36) U/L ALT 28 (4-34) U/L Alkaline Phosphatase 78 (38-126) U/L Total Protein 7.8 (6.3-8.2) g/dL Albumin 4.5 (3.5-5.0) g/dL Current Medications Generic Name Dose Route Start Last Admin Trade Name Freq PRN Reason Stop Dose Admin Acetaminophen 500 mg 11/19/21 13:00 Acetaminophen Tab 500 Mg Tab PO Q4H PRN Mild Pain Aripiprazole 15 mg 11/20/21 09:00 Aripiprazole 15 Mg Tab PO DAILY BRITTANEY Ergocalciferol 1,250 mcg 11/20/21 09:00 Ergocalciferol 1,250 Mcg (50,000 Iu) Capsule PO We@0900 BRITTANEY Fludrocortisone Acetate 0.1 mg 11/20/21 09:00 Fludrocortisone 0.1 Mg Tab PO DAILY BRITTANEY Heparin Sodium (Porcine) 5,000 unit 11/19/21 16:00 Heparin Sodium,Porcine/Pf 5,000 Unit/0.5 Ml Syringe SQ Q8HR BRITTANEY Lamotrigine 100 mg 11/20/21 09:00 Lamotrigine 100 Mg Tab PO DAILY BRITTANEY Levothyroxine Sodium 50 mcg 11/20/21 06:30 Levothyroxine 50 Mcg Tab PO DAILY@0630 [facility] Morphine Sulfate 4 mg 11/19/21 12:52 Morphine Sulfate 4 Mg/Ml Syringe IV Q4HR PRN Severe Pain Naloxone HCl 0.2 mg 11/19/21 12:52 Naloxone 0.4 Mg/Ml 1 Ml Vial IV Q2M PRN Opioid Reversal Topiramate 100 mg 11/19/21 21:00 Topiramate 100 Mg Tab PO BID BRITTANEY Venlafaxine HCl 150 mg 11/20/21 09:00 Venlafaxine Hcl Er 150 Mg Cap PO DAILY BRITTANEY Intake and Output 11/18/21 11/19/21 11/19/21 22:59 06:59 14:59 Other: Weight 128.367 kg Patient Weight 11/20/21 06:59 Weight 128.367 kg 11/19/21 11:25 11/19/21 11:25
--- NOTE | 2021-11-19 14:22 | P.HPIM ---
<Dennis Barker - Last Filed: 11/19/21 14:10> History of Present Illness H&P Date: 11/19/21 History of Presenting Illness: Patient is a 36-year-old female with a past medical history of hypothyroidism, P OTs on daily fludrocortisone, morbid obesity, asthma, anxiety, and depression. She presented to the emergency department with a chief complaint of chest pain. Patient reports sharp pressure like pain to left anterior chest radiating up into left side of neck and into left ear. Patient states nothing made this pain worse in the pain medication, morphine that she received in the ED did seem to make this pain somewhat better decreasing from 8 out of 10 down to 3 out of 10. She denies having any associated symptoms including palpitations, shortness of breath, nausea, vomiting, or experiencing any numbness/tingling/weakness in her extremities. Patient reports she has also had a history of Covid back in December 2020 and has since suffered from chronic shortness of breath. Patient denies being on home oxygen or following a delicatessen slicer. Patient denies history of DVT or PEs and currently denies having any shortness of breath, increased dyspnea with exertion, or cough. The emergency department patient was seen and fully evaluated. Chest x-ray revealed some mild central peribronchiolar cuffing that can be seen with bronchitis or chronic asthma, no focal infiltrates. EKG completed showing sinus tachycardia at 101 bpm with no noted T-wave or ST abnormalities. Labs completed with CBC unremarkable, coag panel normal findings, d-dimer normal finding at 0.33 and troponin normal finding at less than 0.012. Covid PCR was negative. Patient was admitted to observation status under our services with consultation to cardiology. Recent stress test completed 09/30/21 negative showing no skin to graphic evidence for reversible ischemia. Echocardiogram completed 09/27/21 revealed normal EF between 55 and 60% with mild tricuspid regurgitation otherwise no significant abnormalities. Review of systems: Pertinent positives and negatives as discussed in HPI, a complete review of systems was performed and all other systems are negative. Physical exam: Vital signs reviewed and stable. General: Nontoxic, no distress and appears stated age. Obese. Derm: Skin warm and dry, normal coloration for ethnicity. Head: Atraumatic, normocephalic and symmetric. Eyes: EOMs intact, no lid lag, and anicteric sclera Mouth: no lip lesions, mucus membranes moist Cardiovascular: regular rate and rhythm with normal S1S2, no murmur, positive posterior tibial pulses bilaterally, and cap refill < 2 seconds. Lungs: Respirations even, regular, and unlabored on room air. Lungs CTA bilaterally, no rhonchi, no rales, no wheezing, and no accessory muscle usage. Abdominal: Obese abdomen soft, nontender to palpation, no guarding, no appreciable organomegaly Ext: ROM intact. No gross muscle atrophy, no edema, no contractures Neuro: Speech clear, face symmetrical and CN II-XII grossly intact with no noted focal neuro deficits Psych: Alert and oriented to person, place, time, and situation. Appropriate and pleasant affect. Assessment and Plan of Care: Atypical Chest pain -EKG completed showing sinus tachycardia at 101 bpm with no noted T-wave or ST abnormalities. -Troponin negative at less than 0.012. D-dimer normal finding at 0.33. -Cardiology consult -Telemetry monitoring -Trend troponins -Cardiac diet -Recent stress test completed 09/30/21 negative showing no skin to graphic ev idence for reversible ischemia. -Echocardiogram completed 09/27/21 revealed normal EF between 55 and 60% with mild tricuspid regurgitation otherwise no significant abnormalities. POTS -Continue daily medication regimen with fludrocortisone Hypothyroidism -Continue daily medication regimen with the levothyroxine. Anxiety and depression -Continue daily medication regimen with Abilify, Lamictal, Topamax, and Effexor The patient is admitted with an anticipated less than 2 midnight stay for leeann luation of chest pain. CODE STATUS: Full code DVT prophylaxis: Heparin Discussed with:Patient and RN Anticipated discharge date:Clinical course to determine, likely tomorrow morning Anticipated discharge place: home A total of 40 minutes was spent on the care of this complex patient more than 50 % of the time was spent in counseling and care coordination. Past Medical History Additional Past Medical History / Comment(s): POTS, History of Any Multi-Drug Resistant Organisms: None Reported Past Surgical History: Cholecystectomy, Orthopedic Surgery Additional Past Surgical History / Comment(s): right shoulder. fallopian removal, right elbow. Past Anesthesia/Blood Transfusion Reactions: No Reported Reaction Past Psychological History: Anxiety, Depression Smoking Status: Never smoker Past Alcohol Use History: None Reported Past Drug Use History: None Reported Medications and Allergies Home Medications Medication Instructions Recorded Confirmed Type Fludrocortisone [Florinef] 0.1 mg PO DAILY 04/07/21 11/19/21 History ARIPiprazole [Abilify] 15 mg PO DAILY 09/26/21 11/19/21 History Levothyroxine Sodium [Synthroid] 50 mcg PO DAILY 09/26/21 11/19/21 History Venlafaxine HCl ER [Effexor XR] 150 mg PO DAILY 09/26/21 11/19/21 History lamoTRIgine [LaMICtal] 100 mg PO DAILY 09/26/21 11/19/21 History Acetaminophen [Tylenol] 500 mg PO Q4-6H PRN #24 tab 11/06/21 11/19/21 Rx Cyclobenzaprine [Flexeril] 10 mg PO TID PRN #20 tab 11/06/21 11/19/21 Rx Naproxen [Naprosyn] 500 mg PO Q12HR #24 tab 11/06/21 11/19/21 Rx Ergocalciferol [Vitamin D2 (1250 1,250 mcg PO WE 11/19/21 11/19/21 History Mcg = 75975 Iu)] Topiramate [Topamax] 100 mg PO BID 11/19/21 11/19/21 History Allergies Allergy/AdvReac Type Severity Reaction Status Date / Time Tetanus Vaccines and Toxoid Allergy Anaphylaxis Verified 11/19/21 12:42 cephalexin [From Keflex] AdvReac Nausea & Verified 11/19/21 12:42 Vomiting Physical Exam Vitals: Vital Signs Temp Pulse Pulse Resp BP Pulse Ox 11/19/21 12:46 79 18 113/69 11/19/21 11:26 101 H 11/19/21 10:59 97.3 F L 99 16 144/93 98 Intake and Output 11/18/21 11/19/21 11/19/21 22:59 06:59 14:59 Other: Weight 128.367 kg Results CBC & Chem 7: 11/19/21 11:25 11/19/21 11:25 Labs: Abnormal Lab Results - Last 24 Hours (Table) 11/19/21 Range/Units 11:25 Chloride 110 H (98-107) mmol/L Carbon Dioxide 19 L (22-30) mmol/L <Yehuda Kaur - Last Filed: 11/19/21 16:39> History of Present Illness Patient seen and examined independently. Patient was also seen by Dennis Barker NP and case was discussed. I am in agreement with subjective, physical exam, assessment and plan as written above and I have documented my physical exam in its entirety below. General: [non toxic], [no distress], [appears at stated age] Derm: [warm], [dry] Head: [atraumatic], [normocephalic], [symmetric] Eyes: [EOMI], [no lid lag], [anicteric sclera] Mouth: [no lip lesion], [mucus membranes moist] Cardiovascular: [S1S2 reg], [no murmur], [positive posterior tibial pulse bilateral], Lungs: [CTA bilateral], [no rhonchi, no rales] , [no accessory muscle use] Abdominal: [soft], [ nontender to palpation], [no guarding], [no appreciable organomegaly] obese Ext: [no gross muscle atrophy], [no edema], [no contractures] Neuro: [ CN II-XI grossly intact], [no focal neuro deficits] Psych: [Alert], [oriented], [appropriate affect] Physical Exam Osteopathic Statement: *. No significant issues noted on an osteopathic structural exam other than those noted in the History and Physical/Consult. Vitals: Vital Signs Temp Pulse Pulse Resp BP Pulse Ox 11/19/21 12:46 79 18 113/69 11/19/21 11:26 101 H 11/19/21 10:59 97.3 F L 99 16 144/93 98 Intake and Output 11/19/21 11/19/21 11/19/21 06:59 14:59 22:59 Other: Weight 128.367 kg Results CBC & Chem 7: 11/19/21 11:25 11/19/21 11:25 Labs: Abnormal Lab Results - Last 24 Hours (Table) 11/19/21 Range/Units 11:25 Chloride 110 H (98-107) mmol/L Carbon Dioxide 19 L (22-30) mmol/L
[2021-11-19] MEDS ORDERED: HEPARIN SODIUM,PORCINE/PF 5,000 UNIT/0.5 ML SYRINGE SQ SCH (16:00)
--- NOTE | 2021-11-19 17:21 | P.DS ---
Providers Date of admission: 11/19/21 12:52 Expected date of discharge: 11/19/21 Attending physician: John Doran MD Consults: 11/19/21 12:52 Consult Physician Routine Consulting Provider: [facility] Consult Reason/Comments: chest pain Do you want consulting provider notified?: Yes Primary care physician: Gerson Quiroga MD Hospital Course: Discharge Diagnosis: Atypical Chest pain, acute coronary event ruled out POTS, Continue daily medication regimen with fludrocortisone Hypothyroidism, Continue daily medication regimen with the levothyroxine. Anxiety, depression, and PTSD- Continue daily medication regimen with Abilify, Lamictal, Topamax, and Effexor Hospital Course: Patient is a 36-year-old female with a past medical history of hypothyroidism, POTs on daily fludrocortisone, morbid obesity, asthma, anxiety, and depression. She presented to the emergency department with a chief complaint of chest pain. Patient reports sharp pressure like pain to left anterior chest radiating up into left side of neck and into left ear. Patient states nothing made this pain worse in the pain medication, morphine that she received in the ED did seem to make this pain somewhat better decreasing from 8 out of 10 down to 3 out of 10. She denies having any associated symptoms including palpitations, shortness of breath, nausea, vomiting, or experiencing any numbness/tingling/weakness in her extremities. Patient reports she has also had a history of Covid back in December 2020 and has since suffered from chronic shortness of breath. Patient denies being on home oxygen or following a paper tube grader. Patient denies history of DVT or PEs and currently denies having any shortness of breath, increased dyspnea with exertion, or cough. The emergency department patient was seen and fully evaluated. Chest x-ray revealed some mild central peribronchiolar cuffing that can be seen with bronchitis or chronic asthma, no focal infiltrates. EKG completed showing sinus tachycardia at 101 bpm with no noted T-wave or ST abnormalities. Labs completed with CBC unremarkable, coag panel normal findings, d-dimer normal finding at 0.33 and troponin normal finding at less than 0.012. Covid PCR was negative. Patient was admitted to observation status under our services with consultation to cardiology. Recent stress test completed 09/30/21 negative showing no skin to graphic evidence for reversible ischemia. Echocardiogram completed 09/27/21 revealed normal EF between 55 and 60% with mild tricuspid regurgitation otherwise no significant abnormalities. Troponins trended 2 both less than 0.012. Patient was seen and evaluated by pulverizer feeder, ruling out acute coronary event recommending patient to follow up with them in office in 2 weeks. Patient is medically stable for discharge at this time.no changes made to medication regimen. Patient to follow up outpa tient with PCP and cardiology as recommended. A total of 30 minutes of time were spent preparing this complex discharge summary. Patient Condition at Discharge: Stable Plan - Discharge Summary New Discharge Prescriptions: Continue lamoTRIgine [LaMICtal] 100 mg PO DAILY Levothyroxine Sodium [Synthroid] 50 mcg PO DAILY Acetaminophen [Tylenol] 500 mg PO Q4-6H PRN #24 tab PRN Reason: Pain Ergocalciferol [Vitamin D2 (1250 Mcg = 73571 Iu)] 1,250 mcg PO WE Fludrocortisone [Florinef] 0.1 mg PO DAILY Venlafaxine HCl ER [Effexor XR] 150 mg PO DAILY ARIPiprazole [Abilify] 15 mg PO DAILY Cyclobenzaprine [Flexeril] 10 mg PO TID PRN #20 tab PRN Reason: Spasms Naproxen [Naprosyn] 500 mg PO Q12HR #24 tab Topiramate [Topamax] 100 mg PO BID Discharge Medication List Fludrocortisone [Florinef] 0.1 mg PO DAILY 04/07/21 [History] ARIPiprazole [Abilify] 15 mg PO DAILY 09/26/21 [History] Levothyroxine Sodium [Synthroid] 50 mcg PO DAILY 09/26/21 [History] Venlafaxine HCl ER [Effexor XR] 150 mg PO DAILY 09/26/21 [History] lamoTRIgine [LaMICtal] 100 mg PO DAILY 09/26/21 [History] Acetaminophen [Tylenol] 500 mg PO Q4-6H PRN #24 tab 11/06/21 [Rx] Cyclobenzaprine [Flexeril] 10 mg PO TID PRN #20 tab 11/06/21 [Rx] Naproxen [Naprosyn] 500 mg PO Q12HR #24 tab 11/06/21 [Rx] Ergocalciferol [Vitamin D2 (1250 Mcg = 20816 Iu)] 1,250 mcg PO WE 11/19/21 [History] Topiramate [Topamax] 100 mg PO BID 11/19/21 [History] Follow up Appointment(s)/Referral(s): Bud Dunn MD [STAFF PHYSICIAN] - 2 Weeks Gerson Quiroga MD [Primary Care Provider] - 1-2 days Activity/Diet/Wound Care/Special Instructions: Activity: As tolerated. Take breaks as needed. Diet: Heart healthy and carb consistent diet. Avoid salts, or foods with hidden salts such as canned or boxed foods and frozen dinners. Extra salt makes your heart work harder and traps the fluid in your body for longer. Special Instructions: Take all of your medications as directed and remember to keep all of your doctor's appointments and follow-up as needed. Thank you for allowing us to participate in your care, it was truly a pleasure having you for our patient!!! Discharge Disposition: HOME SELF-CARE
[2021-11-19 18:27] VITALS: BP 115/81; PULSE 91
[2021-11-19] MEDS ORDERED: TOPIRAMATE 100 MG TAB PO SCH (21:00)
[2021-11-20] MEDS ORDERED: LEVOTHYROXINE 50 MCG TAB PO SCH (06:30)
[2021-11-20] MEDS ORDERED: lamoTRIgine 100 MG TAB PO SCH (09:00)
[2021-11-20] MEDS ORDERED: ERGOCALCIFEROL 1,250 MCG (50,000 IU) CAPSULE PO SCH (09:00)
[2021-11-20] MEDS ORDERED: FLUDROCORTISONE 0.1 MG TAB PO SCH (09:00)
[2021-11-20] MEDS ORDERED: ARIPiprazole 15 MG TAB PO SCH (09:00)
[2021-11-20] MEDS ORDERED: VENLAFAXINE HCL ER 150 MG CAP PO SCH (09:00)
== END 2021-11-19 18:42 | disposition home or self-care (01) ==
LOC: EC 10:58 → 1SOBS 12:52 → 6NMEDSUR 13:46
PROVIDERS: ADMIT Internal Medicine; ATTEND Internal Medicine
DX: R07.89 Other chest pain (principal); I49.8 Other specified cardiac arrhythmias; J45.909 Unspecified asthma, uncomplicated; E03.9 Hypothyroidism, unspecified; I07.1 Rheumatic tricuspid insufficiency; F32.A Depression, unspecified; F43.10 Post-traumatic stress disorder, unspecified; F41.9 Anxiety disorder, unspecified; R42 Dizziness and giddiness; R51.9 Headache, unspecified; R11.0 Nausea; E66.01 Morbid (severe) obesity due to excess calories; Z68.41 Body mass index [BMI] 40.0-44.9, adult; Z20.822 Contact with and (suspected) exposure to COVID-19; Z79.52 Long term (current) use of systemic steroids; Z79.890 Hormone replacement therapy; Z79.899 Other long term (current) drug therapy; Z88.1 Allergy status to other antibiotic agents; Z88.7 Allergy status to serum and vaccine; Z90.49 Acquired absence of other specified parts of digestive tract; Z90.79 Acquired absence of other genital organ(s); Z86.16 Personal history of COVID-19; Z98.890 Other specified postprocedural states; Z82.49 Family history of ischemic heart disease and other diseases of the circulatory system
CPT/HCPCS: 96372; 96374; 99285; 36415; 93005; 85379; 80053; 83735; 84484; 85025; 85610; 85730; 87635; 71046; G0378 ×2; J2270; J1644

== ENCOUNTER → 2021-11-29 | Outpatient (CLI) | payer OTHER ==
--- NOTE | 2021-11-29 09:33 | USB ---
Reason for exam: follow-up at short interval from prior study. Physical Findings: A clinical breast exam by your physician is recommended on an annual basis and results should be correlated with mammographic findings. US Breast Limited RT Right limited breast ultrasound including focal area of concern, retroareolar and axilla demonstrates a 3.1 x 1.2 x 4.0cm oval, solid, hyperechoic lesion at 9 o'clock, possible hematoma is slightly smaller in size, 4 weeks follow up recommended. These results were verbally communicated with the patient and result sheet given to the patient on 11/29/21. ASSESSMENT: Probably benign, BI-RAD 3 RECOMMENDATION: Ultrasound of the right breast in 1 month. Manage patient on a clinical basis.
== END | disposition home or self-care (01) ==
LOC: RADUSWWP 07:35
PROVIDERS: ATTEND Internal Medicine
DX: N64.89 Other specified disorders of breast (principal)

== ENCOUNTER 2021-12-03 19:25 | Emergency (ER) | payer OTHER ==
[2021-12-03 19:32] VITALS: RESP 18
[2021-12-03 20:22] LABS: Basophils % (A) 0 %; Eosinophils # (A) 0.1 k/uL (0-0.7); Eosinophils % (A) 1 %; HCT 40.5 % (34.0-46.0); HGB 13.3 gm/dL (11.4-16.0); Lymphocytes # (A) 3.5 k/uL (1.0-4.8); Lymphocytes % (A) 35 %; MCH 30.5 pg (25.0-35.0); MCHC 32.7 g/dL (31.0-37.0); MCV 93.3 fL (80.0-100.0); Monocytes # (A) 0.4 k/uL (0-1.0); Monocytes % (A) 4 %; Neutrophils # (A) 5.8 k/uL (1.3-7.7); Neutrophils % (A) 58 %; Platelet Count 264 k/uL (150-450); RBC 4.34 m/uL (3.80-5.40); RDW 13.8 % (11.5-15.5)
[2021-12-03 20:31] LABS: INR 0.9 (<1.2); Partial Thromboplastin Time 23.6 sec (22.0-30.0); Prothrombin Time 10.1 sec (9.0-12.0)
[2021-12-03 20:37] LABS: ALT 23 U/L (4-34); AST 25 U/L (14-36); African American GFR (CKD) >90 (>60 ml/min/1.73 sqM); Albumin 4.1 g/dL (3.5-5.0); Alkaline Phosphatase 65 U/L (38-126); Anion Gap 9 mmol/L; Blood Urea Nitrogen 13 mg/dL (7-17); Calcium 8.7 mg/dL (8.4-10.2); Carbon Dioxide 23 mmol/L (22-30); Chloride 107 mmol/L (98-107); Glucose 128 mg/dL (74-99); Non-African American GFR(CKD) >90 (>60 ml/min/1.73 sqM); Potassium 3.6 mmol/L (3.5-5.1); Sodium 139 mmol/L (137-145); Total Bilirubin 0.4 mg/dL (0.2-1.3)
--- NOTE | 2021-12-03 20:47 | XR ---
EXAMINATION TYPE: XR chest 2V DATE OF EXAM: 12/03/2021 COMPARISON: 11/19/2021 HISTORY: Chest pain TECHNIQUE: Frontal and lateral views of the chest are obtained. FINDINGS: There is no focal air space opacity, pleural effusion, or pneumothorax seen. The cardiac silhouette size is within normal limits. The osseous structures are intact. IMPRESSION: No acute cardiopulmonary process.
--- NOTE | 2021-12-03 22:37 | ED ---
Chest Pain HPI - General Chief Complaint: Chest Pain Stated Complaint: Chest pain, dizzy Time Seen by Provider: 12/03/21 22:21 Source: patient, RN notes reviewed Mode of arrival: wheelchair Limitations: no limitations - History of Present Illness Initial Comments: This is a pleasant 36-year-old female comes in complaining of palpitations since about 4 PM. Patient states that wearing a Holter monitor which was put on at Dr. Dunn's office--this was put on in late October for chest pains. She states she continues to have intermittent chest pains. However the palpitations were new. Patient is taking a beta kade. No headache, no fever or chills, no changes in vision or hearing, no sore throat or difficulty with speech, no neck pain, no shortness of breath, no abdominal pain, no nausea or vomiting, no changes in urination or bowel movements, no numbness or tingling, no extremity pain, no skin rashes or lesions. - Related Data Home Medications Medication Instructions Recorded Confirmed Fludrocortisone [Florinef] 0.1 mg PO DAILY 04/07/21 12/03/21 ARIPiprazole [Abilify] 15 mg PO DAILY 09/26/21 12/03/21 Levothyroxine Sodium [Synthroid] 50 mcg PO DAILY 09/26/21 12/03/21 Venlafaxine HCl ER [Effexor XR] 150 mg PO DAILY 09/26/21 12/03/21 lamoTRIgine [LaMICtal] 100 mg PO DAILY 09/26/21 12/03/21 Topiramate [Topamax] 100 mg PO BID 11/19/21 12/03/21 Naproxen [Naprosyn] 500 mg PO BID PRN 12/03/21 12/03/21 Rosuvastatin Calcium [Crestor] 10 mg PO DAILY 12/03/21 12/03/21 nadoloL [Corgard] 10 mg PO DAILY 12/03/21 12/03/21 Previous Rx's Medication Instructions Recorded Acetaminophen [Tylenol] 500 mg PO Q4-6H PRN #24 tab 11/06/21 Cyclobenzaprine [Flexeril] 10 mg PO TID PRN #20 tab 11/06/21 Allergies Allergy/AdvReac Type Severity Reaction Status Date / Time Tetanus Vaccines and Toxoid Allergy Anaphylaxis Verified 12/03/21 23:20 cephalexin [From Keflex] AdvReac Nausea & Verified 12/03/21 23:20 Vomiting Review of Systems ROS Statement: Those systems with pertinent positive or pertinent negative responses have been documented in the HPI. ROS Other: All systems not noted in ROS Statement are negative. EKG Findings - EKG Comments: EKG Findings:: EKG shows inverted P-wave in lead 1 as well as V1 and flattened T-wave in V5 and V6. When compared to the previous study from 11/19/2021 these are minimal change. No evidence of ST depression or ST elevation. EKG reviewed with ED attending physician. Left axis deviation. Normal intervals. Past Medical History Additional Past Medical History / Comment(s): POTS, History of Any Multi-Drug Resistant Organisms: None Reported Past Surgical History: Cholecystectomy, Orthopedic Surgery Additional Past Surgical History / Comment(s): right shoulder. fallopian removal, right elbow. Past Anesthesia/Blood Transfusion Reactions: No Reported Reaction Past Psychological History: Anxiety, Depression Smoking Status: Never smoker Past Alcohol Use History: None Reported Past Drug Use History: None Reported General Exam - General Exam Comments Initial Comments: 36-year-old female no acute distress. Vital signs reviewed. Does not appear to be ill or toxic. Limitations: no limitations General appearance: alert, obese Head exam: Present: atraumatic, normocephalic, normal inspection Eye exam: Present: normal appearance, PERRL, EOMI. Absent: scleral icterus, conjunctival injection, periorbital swelling ENT exam: Present: normal exam, mucous membranes moist Neck exam: Present: normal inspection. Absent: tenderness, meningismus, lymphadenopathy Respiratory exam: Present: normal lung sounds bilaterally. Absent: respiratory distress, wheezes, rales, rhonchi, stridor Cardiovascular Exam: Present: regular rate, normal rhythm, normal heart sounds. Absent: systolic murmur, diastolic murmur, rubs, gallop, clicks GI/Abdominal exam: Present: soft, normal bowel sounds. Absent: distended, tenderness, guarding, rebound, rigid Extremities exam: Present: normal inspection, full ROM, normal capillary refill. Absent: tenderness, pedal edema, joint swelling, calf tenderness Back exam: Present: normal inspection Neurological exam: Present: alert, oriented X3, CN II-XII intact Psychiatric exam: Present: normal affect, normal mood Skin exam: Present: warm, dry, intact, normal color. Absent: rash Course Vital Signs 12/03/21 12/03/21 19:30 22:48 Temperature 99.1 F Pulse Rate 85 66 Pulse Rate [ 66 Roping Machine Tender ] Respiratory 18 18 Rate Blood Pressure 133/83 111/75 O2 Sat by Pulse 96 96 Oximetry - Reevaluation(s) Reevaluation #1: 12/03/21 23:42 Medical record is reviewed Symptoms are improved here in the emergency department Patient is informed of results and questions answered Patient in no distress Chest Pain MDM - MDM The case was discussed in detail with ED attending physician. Presentation, findings, treatment plan discussed in detail. Patient has strange P-wave morphology noted in lead 1 and lead V1. However no other significant changes noted. Very second troponin. Discussed the case in detail with the ED attending physician. Symptomology does not appear to be consistent with cardiac ischemia as the patient has had nonspecific chest pains going on for more than 2 weeks. Patient presented with palpitations. Patient 2 negative troponins here. Patient will be released and instructed to continue to wear her Holter monitor as instructed by the shipping support. I told her touch base with the cardiology office tomorrow morning to let them know that she was having increased palpitations and was seen here. Patient's arty on a beta kade. Patient concurs with this treatment plan. All questions answered. Follow-up with your regular physician as directed. Return to the ER immediately if any symptoms worsen, new symptoms arise, or any other problems develop. Disposition Clinical Impression: Palpitations Disposition: HOME SELF-CARE Condition: Stable Instructions (If sedation given, give patient instructions): Heart Palpitations (ED) Additional Instructions: Follow-up with your regular physician as directed. Return to the ER immediately if any symptoms worsen, new symptoms arise, or any other problems develop. Call the cardiology office in the morning to let them know you had come to the ER for increased palpitations. Continue the medications as directed by the shipping support. Is patient prescribed a controlled substance at d/c from ED?: No Referrals: None,Stated [REFERRING] - 1-2 days Time of Disposition: 23:43
[2021-12-04 00:15] VITALS: BP 111/66; PULSE 77; TEMP 98.2
== END 2021-12-04 00:12 | disposition home or self-care (01) ==
LOC: EC 19:25
DX: R00.2 Palpitations (principal); E66.9 Obesity, unspecified; F32.A Depression, unspecified; F41.9 Anxiety disorder, unspecified; Z79.890 Hormone replacement therapy; Z79.899 Other long term (current) drug therapy; Z68.41 Body mass index [BMI] 40.0-44.9, adult
CPT/HCPCS: 36415; 71046; 80053; 83735; 84484; 85025; 85610; 85730; 93005; 99285

== ENCOUNTER 2021-12-19 17:23 | Emergency (ER) | payer OTHER ==
[2021-12-19 18:16] VITALS: TEMP 98.5
[2021-12-19] MEDS ORDERED: SODIUM CHLORIDE 0.9% 2,000 ML IV STA (20:22)
[2021-12-19] MEDS ORDERED: MECLIZINE 12.5 MG TAB PO STA (20:23)
[2021-12-19] MEDS ORDERED: ONDANSETRON 4 MG/2 ML VIAL IVP STA (20:24)
--- NOTE | 2021-12-19 20:27 | ED ---
Arrhythmia/Palpitations HPI - General Chief Complaint: Arrhythmia/Palpitations Stated Complaint: Dizziness,irregular heart rate Time Seen by Provider: 12/19/21 20:12 Source: patient Mode of arrival: wheelchair Limitations: no limitations - History of Present Illness Initial Comments: Patient is a 36-year-old female who presents to the emergency department with chief complaint of chest pain and heart palpitations. Patient reports the pain and palpitations started while she was at work today. Patient was recently evaluated for similar symptoms on 12/03/21 with negative cardiac workup. Patient is currently wearing a Holter monitor that she reports is due to intermittent chest pain. She takes a beta kade. She states that there has not been anythi ng unusual recorded on the Holter monitor yet. Today patient has new symptoms compared to previous episodes which include dizziness, lightheadedness, nausea, and mild shortness of breath. Patient states that she feels like the room is spinning and that she is going to pass out. She has not experienced a syncopal episode. She denies leg pain or swelling. Patient denies history of cardiac disease and stroke. She states her father had a heart attack at age 28. She denies current and past history of tobacco use. - Related Data Home Medications Medication Instructions Recorded Confirmed Fludrocortisone [Florinef] 0.1 mg PO DAILY 04/07/21 12/03/21 ARIPiprazole [Abilify] 15 mg PO DAILY 09/26/21 12/03/21 Levothyroxine Sodium [Synthroid] 50 mcg PO DAILY 09/26/21 12/03/21 Venlafaxine HCl ER [Effexor XR] 150 mg PO DAILY 09/26/21 12/03/21 lamoTRIgine [LaMICtal] 100 mg PO DAILY 09/26/21 12/03/21 Topiramate [Topamax] 100 mg PO BID 11/19/21 12/03/21 Naproxen [Naprosyn] 500 mg PO BID PRN 12/03/21 12/03/21 Rosuvastatin Calcium [Crestor] 10 mg PO DAILY 12/03/21 12/03/21 nadoloL [Corgard] 10 mg PO DAILY 12/03/21 12/03/21 Previous Rx's Medication Instructions Recorded Acetaminophen [Tylenol] 500 mg PO Q4-6H PRN #24 tab 11/06/21 Cyclobenzaprine [Flexeril] 10 mg PO TID PRN #20 tab 11/06/21 Meclizine [Antivert] 25 mg PO TID PRN #15 tab 12/19/21 Scopolamine 1.5MG/72Hr Patch 1 patch TRANSDERM Q72H #2 patch 12/19/21 [TransDerm Scop] Allergies Allergy/AdvReac Type Severity Reaction Status Date / Time Tetanus Vaccines and Toxoid Allergy Anaphylaxis Verified 12/19/21 18:13 cephalexin [From Keflex] AdvReac Nausea & Verified 12/19/21 18:13 Vomiting Review of Systems ROS Statement: Those systems with pertinent positive or pertinent negative responses have been documented in the HPI. ROS Other: All systems not noted in ROS Statement are negative. Past Medical History Past Medical History: No Reported History Additional Past Medical History / Comment(s): POTS, History of Any Multi-Drug Resistant Organisms: None Reported Past Surgical History: Cholecystectomy, Orthopedic Surgery Additional Past Surgical History / Comment(s): right shoulder. fallopian removal, right elbow. Past Anesthesia/Blood Transfusion Reactions: No Reported Reaction Past Psychological History: Anxiety, Depression Smoking Status: Never smoker Past Alcohol Use History: None Reported Past Drug Use History: None Reported General Exam Limitations: no limitations General appearance: alert, in no apparent distress Head exam: Present: atraumatic, normocephalic, normal inspection Eye exam: Present: normal appearance, PERRL, EOMI. Absent: scleral icterus, conjunctival injection, periorbital swelling Neck exam: Present: normal inspection, full ROM Respiratory exam: Present: normal lung sounds bilaterally. Absent: respiratory distress, wheezes, rales, rhonchi, stridor Cardiovascular Exam: Present: regular rate, normal rhythm, normal heart sounds. Absent: systolic murmur, diastolic murmur, rubs, gallop, clicks GI/Abdominal exam: Present: soft, normal bowel sounds. Absent: distended, tenderness, guarding, rebound, rigid Extremities exam: Absent: calf tenderness (Negative Homans sign bilaterally) Neurological exam: Present: alert, oriented X3, CN II-XII intact Psychiatric exam: Present: normal affect, normal mood Skin exam: Present: warm, dry, intact, normal color. Absent: rash Course Vital Signs 12/19/21 12/19/21 18:13 20:15 Temperature 98.5 F Pulse Rate 70 65 Respiratory 20 16 Rate Blood Pressure 92/51 116/56 O2 Sat by Pulse 98 98 Oximetry EKG Findings - EKG Comments: EKG Findings:: EKG taken at 18:23. Sinus rhythm. Ventricular rate 60. [place] interval 136. QRS duration 94. QTC 419 Medical Decision Making - Medical Decision Making This is a 36-year-old female who presents with chest pain and palpitations. Thorough history and examination were performed. Patient is hypotensive at 92/51. Oxygen is 98% room air. Lungs are clear to auscultation bilaterally. EKG reveals sinus rhythm. Laboratory studies are within normal limits. Troponin and d-dimer are within normal limits. Antivert, Zofran, and fluid bolus were given. Repeat blood pressure is 116/56. Heart score is 0. Patient will be discharged with antivert and scopolamine patch. She is instructed to follow-up with Dr. Dunn for further evaluation. Return parameters discussed. Patient verbalizes understanding and is agreeable to plan. Dr. Mann is my attending. - Lab Data Result diagrams: 12/19/21 20:37 12/19/21 20:37 Lab Results 12/19/21 12/19/21 12/19/21 Range/Units 20:37 20:37 20:37 WBC 9.9 (3.8-10.6) k/uL RBC 4.53 (3.80-5.40) m/uL Hgb 13.4 (11.4-16.0) gm/dL Hct 41.2 (34.0-46.0) % MCV 91.0 (80.0-100.0) fL MCH 29.5 (25.0-35.0) pg MCHC 32.5 (31.0-37.0) g/dL RDW 13.2 (11.5-15.5) % Plt Count 271 (150-450) k/uL MPV 8.0 Neutrophils % 57 % Lymphocytes % 36 % Monocytes % 3 % Eosinophils % 2 % Basophils % 1 % Neutrophils # 5.6 (1.3-7.7) k/uL Lymphocytes # 3.6 (1.0-4.8) k/uL Monocytes # 0.3 (0-1.0) k/uL Eosinophils # 0.2 (0-0.7) k/uL Basophils # 0.1 (0-0.2) k/uL PT 10.1 (9.0-12.0) sec INR 0.9 (<1.2) APTT 24.6 (22.0-30.0) sec D-Dimer 0.28 (<0.60) mg/L FEU Sodium 138 (137-145) mmol/L Potassium 3.8 (3.5-5.1) mmol/L Chloride 106 (98-107) mmol/L Carbon Dioxide 22 (22-30) mmol/L Anion Gap 10 mmol/L BUN 14 (7-17) mg/dL Creatinine 0.84 (0.52-1.04) mg/dL Est GFR (CKD-EPI)AfAm >90 (>60 ml/min/1.73 sqM) Est GFR (CKD-EPI)NonAf 90 (>60 ml/min/1.73 sqM) Glucose 96 (74-99) mg/dL Calcium 9.0 (8.4-10.2) mg/dL Magnesium 2.1 (1.6-2.3) mg/dL Total Bilirubin 0.4 (0.2-1.3) mg/dL AST 28 (14-36) U/L ALT 25 (4-34) U/L Alkaline Phosphatase 83 (38-126) U/L Troponin I (0.000-0.034) ng/mL Total Protein 7.5 (6.3-8.2) g/dL Albumin 4.4 (3.5-5.0) g/dL 12/19/21 Range/Units 20:37 WBC (3.8-10.6) k/uL RBC (3.80-5.40) m/uL Hgb (11.4-16.0) gm/dL Hct (34.0-46.0) % MCV (80.0-100.0) fL MCH (25.0-35.0) pg MCHC (31.0-37.0) g/dL RDW (11.5-15.5) % Plt Count (150-450) k/uL MPV Neutrophils % % Lymphocytes % % Monocytes % % Eosinophils % % Basophils % % Neutrophils # (1.3-7.7) k/uL Lymphocytes # (1.0-4.8) k/uL Monocytes # (0-1.0) k/uL Eosinophils # (0-0.7) k/uL Basophils # (0-0.2) k/uL PT (9.0-12.0) sec INR (<1.2) APTT (22.0-30.0) sec D-Dimer (<0.60) mg/L FEU Sodium (137-145) mmol/L Potassium (3.5-5.1) mmol/L Chloride (98-107) mmol/L Carbon Dioxide (22-30) mmol/L Anion Gap mmol/L BUN (7-17) mg/dL Creatinine (0.52-1.04) mg/dL Est GFR (CKD-EPI)AfAm (>60 ml/min/1.73 sqM) Est GFR (CKD-EPI)NonAf (>60 ml/min/1.73 sqM) Glucose (74-99) mg/dL Calcium (8.4-10.2) mg/dL Magnesium (1.6-2.3) mg/dL Total Bilirubin (0.2-1.3) mg/dL AST (14-36) U/L ALT (4-34) U/L Alkaline Phosphatase (38-126) U/L Troponin I <0.012 (0.000-0.034) ng/mL Total Protein (6.3-8.2) g/dL Albumin (3.5-5.0) g/dL Disposition Clinical Impression: Chest pain, Palpitation, Dizziness, Lightheadedness, Shortness of breath Disposition: HOME SELF-CARE Condition: Good Instructions (If sedation given, give patient instructions): Chest Pain (ED), Heart Palpitations (ED) Additional Instructions: Please take Antivert and scopolamine patch as directed. Follow-up with your general activities therapist at earliest available appointment. Return to the emergency department if you experience new, concerning, or worsening symptoms. Prescriptions: Meclizine [Antivert] 25 mg PO TID PRN #15 tab PRN Reason: Vertigo Scopolamine 1.5MG/72Hr Patch [TransDerm Scop] 1 patch TRANSDERM Q72H #2 patch Is patient prescribed a controlled substance at d/c from ED?: No Referrals: Gerson Quiroga MD [Primary Care Provider] - 1-2 days Time of Disposition: 22:08
[2021-12-19 20:49] LABS: Basophils # (A) 0.1 k/uL (0-0.2); Basophils % (A) 1 %; Eosinophils # (A) 0.2 k/uL (0-0.7); Eosinophils % (A) 2 %; HCT 41.2 % (34.0-46.0); HGB 13.4 gm/dL (11.4-16.0); Lymphocytes # (A) 3.6 k/uL (1.0-4.8); Lymphocytes % (A) 36 %; MCH 29.5 pg (25.0-35.0); MCHC 32.5 g/dL (31.0-37.0); Monocytes # (A) 0.3 k/uL (0-1.0); Monocytes % (A) 3 %; Neutrophils # (A) 5.6 k/uL (1.3-7.7); Neutrophils % (A) 57 %; Platelet Count 271 k/uL (150-450); RBC 4.53 m/uL (3.80-5.40); RDW 13.2 % (11.5-15.5); WBC 9.9 k/uL (3.8-10.6)
[2021-12-19 21:05] LABS: INR 0.9 (<1.2); Partial Thromboplastin Time 24.6 sec (22.0-30.0); Prothrombin Time 10.1 sec (9.0-12.0)
[2021-12-19 21:18] LABS: ALT 25 U/L (4-34); AST 28 U/L (14-36); African American GFR (CKD) >90 (>60 ml/min/1.73 sqM); Albumin 4.4 g/dL (3.5-5.0); Alkaline Phosphatase 83 U/L (38-126); Anion Gap 10 mmol/L; Blood Urea Nitrogen 14 mg/dL (7-17); Carbon Dioxide 22 mmol/L (22-30); Chloride 106 mmol/L (98-107); Glucose 96 mg/dL (74-99); Magnesium 2.1 mg/dL (1.6-2.3); Non-African American GFR(CKD) 90 (>60 ml/min/1.73 sqM); Potassium 3.8 mmol/L (3.5-5.1); Sodium 138 mmol/L (137-145); Total Bilirubin 0.4 mg/dL (0.2-1.3); Total Protein 7.5 g/dL (6.3-8.2)
[2021-12-19] MEDS ORDERED: SCOPOLAMINE 1.5MG/72HR PATCH TRANSDERM STA (22:04)
[2021-12-19 22:08] VITALS: BP 116/56; PULSE 65; RESP 16
--- NOTE | 2021-12-19 22:08 | XR ---
EXAMINATION TYPE: XR chest 2V DATE OF EXAM: 12/19/2021 COMPARISON: 12/03/2021 HISTORY: Chest pain TECHNIQUE: FINDINGS: Heart and mediastinum are normal. Lungs are clear. Diaphragm is normal. Bony thorax is inta ct. There are chest leads. IMPRESSION: Normal chest. No change.
== END 2021-12-19 22:48 | disposition home or self-care (01) ==
LOC: EC 17:23
DX: R07.89 Other chest pain (principal); R00.2 Palpitations; R42 Dizziness and giddiness; F41.9 Anxiety disorder, unspecified; F32.A Depression, unspecified; Z88.7 Allergy status to serum and vaccine; Z88.1 Allergy status to other antibiotic agents; Z90.49 Acquired absence of other specified parts of digestive tract
CPT/HCPCS: 99285; 96374; 96361; 36415; 93005; 85379; 80053; 83735; 84484; 85025; 85610; 85730; 71046; J2405

== ENCOUNTER 2022-01-13 13:19 | Emergency (ER) | payer OTHER ==
--- NOTE | 2022-01-13 16:12 | ED ---
General Adult HPI - General Chief complaint: Chest Pain Stated complaint: chest/sob/syncioe/dizziness Time Seen by Provider: 01/13/22 16:09 Source: patient Mode of arrival: ambulatory Limitations: no limitations - History of Present Illness Initial comments: Sary is a 36-year-old female who presents to the emergency department today for evaluation of a headache. 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 She has followed with Dr. Dunn and has been referred to the [facility] clinic and has an appointment to be seen next month. Patient states that last night in the shower she had a syncopal episode and fell forward and struck her forehead. Patient then woke up, she felt fine. She states that since that time she's had some nausea and some mild headache. No recurrent loss of consciousness. No vomiting . She's not on any blood thinners. Patient states her parents were concerned she may have a concussion advised her to come to the hospital. - Related Data Home Medications Medication Instructions Recorded Confirmed Fludrocortisone [Florinef] 0.1 mg PO BID 04/07/21 12/31/21 ARIPiprazole [Abilify] 15 mg PO DAILY 09/26/21 12/31/21 Levothyroxine Sodium [Synthroid] 50 mcg PO DAILY 09/26/21 12/31/21 Venlafaxine HCl ER [Effexor XR] 150 mg PO DAILY 09/26/21 12/31/21 lamoTRIgine [LaMICtal] 100 mg PO DAILY 09/26/21 12/31/21 Topiramate [Topamax] 100 mg PO BID 11/19/21 12/31/21 Naproxen [Naprosyn] 500 mg PO BID PRN 12/03/21 12/31/21 Rosuvastatin Calcium [Crestor] 10 mg PO DAILY 12/03/21 12/31/21 nadoloL [Corgard] 10 mg PO DAILY 12/03/21 12/31/21 Previous Rx's Medication Instructions Recorded Acetaminophen [Tylenol] 500 mg PO Q4-6H PRN #24 tab 11/06/21 Cyclobenzaprine [Flexeril] 10 mg PO TID PRN #20 tab 02/09/22 Sulfamethox-Tmp 800-160Mg [Bactrim 1 tab PO Q12HR 10 Days #20 tab 12/31/21 DS 800-160 mg] Ondansetron [Zofran ODT] 4 mg PO Q8HR #12 tab 01/13/22 Allergies Allergy/AdvReac Type Severity Reaction Status Date / Time Tetanus Vaccines and Toxoid Allergy Anaphylaxis Verified 01/13/22 13:26 cephalexin [From Keflex] AdvReac Nausea & Verified 01/13/22 13:26 Vomiting Review of Systems ROS Statement: Those systems with pertinent positive or pertinent negative responses have been documented in the HPI. ROS Other: All systems not noted in ROS Statement are negative. Past Medical History Past Medical History: Chest Pain / Angina Additional Past Medical History / Comment(s): POTS, History of Any Multi-Drug Resistant Organisms: None Reported Past Surgical History: Cholecystectomy, Orthopedic Surgery Additional Past Surgical History / Comment(s): right shoulder. fallopian removal, right elbow. Past Anesthesia/Blood Transfusion Reactions: No Reported Reaction Past Psychological History: Anxiety, Bipolar, Depression Smoking Status: Never smoker Past Alcohol Use History: None Reported Past Drug Use History: None Reported General Exam - General Exam Comments Initial Comments: Physical Exam GENERAL: Patient is well-developed and well-nourished. Patient is nontoxic and well-hydrated and is in no distress. HENT: Normocephalic, Atraumatic. No chaudhari signs or raccoon eyes No hemotympanum EYES: PERRL, EOMI PULMONARY: Unlabored respirations. CARDIOVASCULAR: RRR Warm and well perfused extremities ABDOMEN: Non-distended SKIN: No rashes or bruising : Deferred NEUROLOGIC: Alert and oriented Normal speech Normal gait MUSCULOSKELETAL: Moving all extremities with no apparent injury PSYCHIATRIC: No SI/HI Limitations: no limitations Course Vital Signs 01/13/22 01/13/22 13:24 16:15 Temperature 97.8 F 98.0 F Pulse Rate 111 H 98 Respiratory 20 18 Rate Blood Pressure 130/82 123/75 O2 Sat by Pulse 98 98 Oximetry EKG Findings - EKG Comments: EKG Findings:: EKG was obtained by triage due to patient's tachycardia and regressing to be. EKG was obtained at 1327, rate is 113 rhythm is sinus tach with a leftward axis no acute ST elevations or depressions no evidence of is chemia or infarction. Medical Decision Making - Medical Decision Making Patient was seen and evaluated, upon my evaluation the patient was no longer tachycardic heart rate was in the 90s, oxygen saturation 98-99% on room air. Patient no acute distress patient with no acute concerns about recurrent tachycardia and syncope, only here for evaluation of possible concussion. Physical exam unremarkable, no obvious head trauma, patient awake, alert, oriented, no vomiting No indication for advanced imaging at this time, patient will be treated s ymptomatically, provided information regarding post concussive syndrome Prescription for Zofran provided Patient discharged home in stable condition, plan to continue with out patient follow up for tachycardia/POTS Disposition Clinical Impression: Concussion, Syncope Disposition: HOME SELF-CARE Condition: Stable Instructions (If sedation given, give patient instructions): Post Concussion Syndrome (ED) Additional Instructions: Continue out patient follow up with POTS Prescriptions: Ondansetron [Zofran ODT] 4 mg PO Q8HR #12 tab Is patient prescribed a controlled substance at d/c from ED?: No Referrals: Gerson Quiroga MD [Primary Care Provider] - 1-2 days
[2022-01-13 16:19] VITALS: RESP 18; TEMP 98
[2022-01-13] MEDS ORDERED: ONDANSETRON 4 MG/2 ML VIAL IVP STA (16:24)
[2022-01-13 16:52] VITALS: BP 113/73; PULSE 96
== END 2022-01-13 16:52 | disposition home or self-care (01) ==
LOC: EC 13:19
DX: S06.0X0A Concussion without loss of consciousness, initial encounter (principal); R55 Syncope and collapse; Z88.1 Allergy status to other antibiotic agents; Z88.7 Allergy status to serum and vaccine; Z86.16 Personal history of COVID-19; W19.XXXA Unspecified fall, initial encounter
CPT/HCPCS: 93005; 99284; 96374; J2405

== ENCOUNTER 2022-02-16 17:51 | Emergency (ER) | payer OTHER ==
[2022-02-16 17:55] VITALS: TEMP 98.1
[2022-02-16] MEDS ORDERED: SODIUM CHLORIDE 0.9% 1,000 ML IV STA (19:10)
[2022-02-16] MEDS ORDERED: ASPIRIN 81 MG PO STA (19:10)
--- NOTE | 2022-02-16 19:16 | ED ---
General Adult HPI - General Chief complaint: Chest Pain Stated complaint: Chest pain Time Seen by Provider: 02/16/22 18:51 Source: patient, RN notes reviewed Mode of arrival: wheelchair Limitations: no limitations - History of Present Illness Initial comments: 36-year-old female presents to the emergency Department with complaints of left- sided chest pain, onset 4 hours ago. Patient describes this discomfort as a constant pressure and makes it difficult to take in full deep breath. States her symptoms began while at rest. Denies any exertional activity, increased stress, or anxiety; pain is unaffected by movement. She reports a history of POTS and is scheduled to see a new steel erector at [facility] on Thursday. States her dizziness is no worse than usual. Denies fever, chills, headache, blurry vision, abdominal pain, vomiting, diarrhea, dysuria, hematuria, or edema. No known sick exposures or recent medication changes. - Related Data Home Medications Medication Instructions Recorded Confirmed Fludrocortisone [Florinef] 0.1 mg PO BID@0900,2300 04/07/21 01/30/22 ARIPiprazole [Abilify] 15 mg PO DAILY 09/26/21 01/30/22 Levothyroxine Sodium [Synthroid] 50 mcg PO DAILY@0600 09/26/21 01/30/22 Venlafaxine HCl ER [Effexor XR] 150 mg PO DAILY 09/26/21 01/30/22 lamoTRIgine [LaMICtal] 100 mg PO DAILY 09/26/21 01/30/22 Topiramate [Topamax] 100 mg PO BID@0900,2300 11/19/21 01/30/22 Rosuvastatin [Crestor] 10 mg PO DAILY 01/30/22 01/30/22 Previous Rx's Medication Instructions Recorded nadoloL [Corgard] 10 mg PO DAILY #0 01/30/22 Allergies Allergy/AdvReac Type Severity Reaction Status Date / Time Tetanus Vaccines and Toxoid Allergy Anaphylaxis Verified 02/16/22 17:55 cephalexin [From Keflex] AdvReac Nausea & Verified 02/16/22 17:55 Vomiting Review of Systems ROS Statement: Those systems with pertinent positive or pertinent negative responses have been documented in the HPI. ROS Other: All systems not noted in ROS Statement are negative. Past Medical History Past Medical History: Chest Pain / Angina Additional Past Medical History / Comment(s): POTS, History of Any Multi-Drug Resistant Organisms: None Reported Past Surgical History: Cholecystectomy, Orthopedic Surgery Additional Past Surgical History / Comment(s): right shoulder. fallopian removal, right elbow. Past Anesthesia/Blood Transfusion Reactions: No Reported Reaction Past Psychological History: Anxiety, Bipolar, Depression Smoking Status: Never smoker Past Alcohol Use History: None Reported Past Drug Use History: None Reported General Exam Limitations: no limitations (Developed, well-nourished female in no acute distress. Initial temperature 98.1, pulse 91, respirations 18, blood pressure 126/83, pulse ox 98% on room air.) General appearance: alert, in no apparent distress Eye exam: Present: normal appearance, PERRL, EOMI. Absent: scleral icterus, conjunctival injection, periorbital swelling ENT exam: Present: normal exam, normal oropharynx, mucous membranes moist Neck exam: Present: normal inspection, full ROM. Absent: tenderness, meningi smus, lymphadenopathy Respiratory exam: Present: normal lung sounds bilaterally. Absent: respiratory distress, wheezes, rales, rhonchi, stridor, chest wall tenderness Cardiovascular Exam: Present: regular rate, normal rhythm, normal heart sounds. Absent: systolic murmur, diastolic murmur, rubs, gallop, clicks GI/Abdominal exam: Present: soft, normal bowel sounds. Absent: distended, tenderness, guarding, rebound, rigid Extremities exam: Present: normal inspection, full ROM, normal capillary refill. Absent: tenderness, pedal edema, joint swelling, calf tenderness Neurological exam: Present: alert, oriented X3, CN II-XII intact Psychiatric exam: Present: normal affect, normal mood Skin exam: Present: warm, dry, intact, normal color. Absent: rash Course Vital Signs 02/16/22 02/16/22 02/16/22 17:53 19:36 22:30 Temperature 98.1 F Pulse Rate 91 89 69 Respiratory 18 14 14 Rate Blood Pressure 126/83 121/77 O2 Sat by Pulse 98 98 95 Oximetry - Reevaluation(s) Reevaluation #1: 02/16/22 20:00 Reviewed chart and previous visits. Compared prior EKGs. Patient continues to rest comfortably with mild chest pressure and no further complaints. Medical Decision Making - Medical Decision Making This is a 36-year-old female with a past medical history of pots and chronic chest pain that presents to the emergency department for evaluation of left- sided chest pressure, onset today. Upon exam, patient is well-appearing and in no acute distress. She is able to move freely and breathing easily. Vital signs are stable. Laboratory studies were reviewed and are unremarkable. Troponin and d-dimer are negative. Chest x-ray shows no acute findings. EKG is unchanged from previous. Patient is not experiencing any syncope were episodes of tachycardia therefore she will be discharged home to follow-up with her new steel erector as scheduled on Thursday. Return parameters were discussed in detail. Patient verbalizes understanding and agrees with this plan. Attending: Nina. - Lab Data Result diagrams: 02/16/22 19:16 02/16/22 19:16 Lab Results 02/16/22 02/16/22 02/16/22 Range/Units 19:16 19:16 19:16 WBC 9.1 (3.8-10.6) k/uL RBC 4.74 (3.80-5.40) m/uL Hgb 14.2 (11.4-16.0) gm/dL Hct 42.8 (34.0-46.0) % MCV 90.3 (80.0-100.0) fL MCH 30.0 (25.0-35.0) pg MCHC 33.2 (31.0-37.0) g/dL RDW 13.8 (11.5-15.5) % Plt Count 277 (150-450) k/uL MPV 8.2 Neutrophils % 62 % Lymphocytes % 32 % Monocytes % 4 % Eosinophils % 1 % Basophils % 1 % Neutrophils # 5.7 (1.3-7.7) k/uL Lymphocytes # 2.9 (1.0-4.8) k/uL Monocytes # 0.3 (0-1.0) k/uL Eosinophils # 0.1 (0-0.7) k/uL Basophils # 0.1 (0-0.2) k/uL PT 9.7 (9.0-12.0) sec INR 0.9 (<1.2) APTT 22.7 (22.0-30.0) sec D-Dimer 0.29 (<0.60) mg/L FEU Sodium 140 (137-145) mmol/L Potassium 4.2 (3.5-5.1) mmol/L Chloride 108 H (98-107) mmol/L Carbon Dioxide 21 L (22-30) mmol/L Anion Gap 11 mmol/L BUN 10 (7-17) mg/dL Creatinine 0.63 (0.52-1.04) mg/dL Est GFR (CKD-EPI)AfAm >90 (>60 ml/min/1.73 sqM) Est GFR (CKD-EPI)NonAf >90 (>60 ml/min/1.73 sqM) Glucose 113 H (74-99) mg/dL Calcium 9.3 (8.4-10.2) mg/dL Magnesium 2.1 (1.6-2.3) mg/dL Total Bilirubin 0.2 (0.2-1.3) mg/dL AST 27 (14-36) U/L ALT 25 (4-34) U/L Alkaline Phosphatase 78 (38-126) U/L Troponin I (0.000-0.034) ng/mL Total Protein 7.9 (6.3-8.2) g/dL Albumin 4.8 (3.5-5.0) g/dL Urine Color Urine Appearance (Clear) Urine pH (5.0-8.0) Ur Specific [place] (1.001-1.035) Urine Protein (Negative) Urine Glucose (UA) (Negative) Urine Ketones (Negative) Urine Blood (Negative) Urine Nitrite (Negative) Urine Bilirubin (Negative) Urine Urobilinogen (<2.0) mg/dL Ur Leukocyte Esterase (Negative) 02/16/22 02/16/22 Range/Units 19:16 19:37 WBC (3.8-10.6) k/uL RBC (3.80-5.40) m/uL Hgb (11.4-16.0) gm/dL Hct (34.0-46.0) % MCV (80.0-100.0) fL MCH (25.0-35.0) pg MCHC (31.0-37.0) g/dL RDW (11.5-15.5) % Plt Count (150-450) k/uL MPV Neutrophils % % Lymphocytes % % Monocytes % % Eosinophils % % Basophils % % Neutrophils # (1.3-7.7) k/uL Lymphocytes # (1.0-4.8) k/uL Monocytes # (0-1.0) k/uL Eosinophils # (0-0.7) k/uL Basophils # (0-0.2) k/uL PT (9.0-12.0) sec INR (<1.2) APTT (22.0-30.0) sec D-Dimer (<0.60) mg/L FEU Sodium (137-145) mmol/L Potassium (3.5-5.1) mmol/L Chloride (98-107) mmol/L Carbon Dioxide (22-30) mmol/L Anion Gap mmol/L BUN (7-17) mg/dL Creatinine (0.52-1.04) mg/dL Est GFR (CKD-EPI)AfAm (>60 ml/min/1.73 sqM) Est GFR (CKD-EPI)NonAf (>60 ml/min/1.73 sqM) Glucose (74-99) mg/dL Calcium (8.4-10.2) mg/dL Magnesium (1.6-2.3) mg/dL Total Bilirubin (0.2-1.3) mg/dL AST (14-36) U/L ALT (4-34) U/L Alkaline Phosphatase (38-126) U/L Troponin I <0.012 (0.000-0.034) ng/mL Total Protein (6.3-8.2) g/dL Albumin (3.5-5.0) g/dL Urine Color Light Yellow Urine Appearance Clear (Clear) Urine pH 6.0 (5.0-8.0) Ur Specific [place] 1.009 (1.001-1.035) Urine Protein Negative (Negative) Urine Glucose (UA) Negative (Negative) Urine Ketones Negative (Negative) Urine Blood Negative (Negative) Urine Nitrite Negative (Negative) Urine Bilirubin Negative (Negative) Urine Urobilinogen <2.0 (<2.0) mg/dL Ur Leukocyte Esterase Negative (Negative) - EKG Data EKG shows normal: sinus rhythm Rate: normal EKG Comments: EKG was obtained at 1805 and shows sinus rhythm with left axis deviation, incomplete right bundle branch block, and minimal voltage criteria for LVH. Ventricular rate 80, IN interval 137, QRS duration 93, QT/QTC 375/411. Interpretation abnormal ECG. - Radiology Data Radiology results: report reviewed, image reviewed Two-view chest x-ray was obtained. Report was reviewed in its entirety. Impression per Dr. Cárdenas is no acute cardiopulmonary process. Disposition Clinical Impression: Non-cardiac chest pain Disposition: HOME SELF-CARE Condition: Stable Instructions (If sedation given, give patient instructions): Chest Pain (ED) Additional Instructions: Continue taking your home medications as prescribed. Document and monitor your blood pressure. Keep your appointment as scheduled on Thursday. Return to the emergency department with any new, worsening, or concerning symptoms. Is patient prescribed a controlled substance at d/c from ED?: No Referrals: Gerson Quiroga MD [Primary Care Provider] - 1-2 days Time of Disposition: 22:12
[2022-02-16 19:31] LABS: Basophils # (A) 0.1 k/uL (0-0.2); Basophils % (A) 1 %; Eosinophils # (A) 0.1 k/uL (0-0.7); Eosinophils % (A) 1 %; HCT 42.8 % (34.0-46.0); HGB 14.2 gm/dL (11.4-16.0); Lymphocytes # (A) 2.9 k/uL (1.0-4.8); Lymphocytes % (A) 32 %; MCHC 33.2 g/dL (31.0-37.0); MCV 90.3 fL (80.0-100.0); Mean Platelet Volume 8.2; Monocytes # (A) 0.3 k/uL (0-1.0); Monocytes % (A) 4 %; Neutrophils # (A) 5.7 k/uL (1.3-7.7); Neutrophils % (A) 62 %; Platelet Count 277 k/uL (150-450); RBC 4.74 m/uL (3.80-5.40); RDW 13.8 % (11.5-15.5); WBC 9.1 k/uL (3.8-10.6)
[2022-02-16 19:37] VITALS: BP 121/77; RESP 14
--- NOTE | 2022-02-16 19:37 | XR ---
EXAMINATION TYPE: XR chest 2V DATE OF EXAM: 02/16/2022 COMPARISON: 01/29/2022 HISTORY: Left-sided chest pain TECHNIQUE: Frontal and lateral views of the chest are obtained. FINDINGS: There is no focal air space opacity, pleural effusion, or pneumothorax seen. The cardiac silhouette size is within normal limits. The osseous structures are intact. IMPRESSION: No acute cardiopulmonary process.
[2022-02-16 19:38] LABS: ALT 25 U/L (4-34); AST 27 U/L (14-36); African American GFR (CKD) >90 (>60 ml/min/1.73 sqM); Albumin 4.8 g/dL (3.5-5.0); Alkaline Phosphatase 78 U/L (38-126); Anion Gap 11 mmol/L; Blood Urea Nitrogen 10 mg/dL (7-17); Calcium 9.3 mg/dL (8.4-10.2); Carbon Dioxide 21 mmol/L (22-30); Chloride 108 mmol/L (98-107); Glucose 113 mg/dL (74-99); Magnesium 2.1 mg/dL (1.6-2.3); Non-African American GFR(CKD) >90 (>60 ml/min/1.73 sqM); Potassium 4.2 mmol/L (3.5-5.1); Sodium 140 mmol/L (137-145); Total Bilirubin 0.2 mg/dL (0.2-1.3); Total Protein 7.9 g/dL (6.3-8.2)
[2022-02-16 20:03] LABS: INR 0.9 (<1.2); Partial Thromboplastin Time 22.7 sec (22.0-30.0); Prothrombin Time 9.7 sec (9.0-12.0)
[2022-02-16 20:28] LABS: Appearance,Urine Clear (Clear); Bilirubin,Urine Negative (Negative); Blood,Urine Negative (Negative); Color,Urine Light Yellow; Glucose,Urine (UA) Negative (Negative); Ketones,Urine Negative (Negative); Leukocyte Esterase,Urine Negative (Negative); Nitrite,Urine Negative (Negative); Protein,Urine Negative (Negative); Specific Gravity,Urine 1.009 (1.001-1.035); Urobilinogen,Urine <2.0 mg/dL (<2.0)
[2022-02-16 22:33] VITALS: PULSE 69
== END 2022-02-16 22:39 | disposition home or self-care (01) ==
LOC: EC 17:51
DX: R07.89 Other chest pain (principal); Z88.1 Allergy status to other antibiotic agents; Z88.7 Allergy status to serum and vaccine
CPT/HCPCS: 36415; 71046; 80053; 81003; 83735; 84484; 85025; 85379; 85610; 85730; 93005; 96360; 96361; 99285

== ENCOUNTER 2022-03-07 15:12 | Emergency (ER) | payer OTHER ==
[2022-03-07 15:24] VITALS: TEMP 98.4
[2022-03-07] MEDS ORDERED: SODIUM CHLORIDE 0.9% 500 ML 500 ML IV STA (18:15)
--- NOTE | 2022-03-07 18:23 | ED ---
Arrhythmia/Palpitations HPI - General Chief Complaint: Arrhythmia/Palpitations Stated Complaint: Chest Pain,Headache,Rapid HR Time Seen by Provider: 03/07/22 18:05 Source: patient, RN notes reviewed Mode of arrival: ambulatory Limitations: no limitations - History of Present Illness Initial Comments: This is a pleasant 36-year-old female presents to emergency room complaining of palpitations, intermittent chest pressure with racing heartbeat, patient also states that her blood pressure has been elevated at times. Patient states that she previously has had symptoms similar to this. Patient states her heart rate was going very high, she states upwards of 190 via her wrist device. Patient states his symptoms have resolved to some extent at this time. Denies chance of . Patient denies any history of cardiac arrhythmias. Patient is on thyroid supplementation. Patient denying any previous problems with blood clots. Patient denies any stimulant use. Patient states she was a head high d- dimer when she had COVID-19 in 2019. However there was no clot. INTERMITTENT headaches, no fever or chills, no changes in vision or hearing, no sore throat or difficulty with speech, no neck pain, no shortness of breath, no abdominal pain, no nausea or vomiting, no changes in urination or bowel movements, no numbness or tingling, no extremity pain, no skin rashes or lesions. - Related Data Home Medications Medication Instructions Recorded Confirmed Fludrocortisone [Florinef] 0.1 mg PO BID@0900,2300 04/07/21 03/07/22 ARIPiprazole [Abilify] 15 mg PO DAILY 09/26/21 03/07/22 Levothyroxine Sodium [Synthroid] 50 mcg PO DAILY@0600 09/26/21 03/07/22 Venlafaxine HCl ER [Effexor XR] 150 mg PO DAILY 09/26/21 03/07/22 lamoTRIgine [LaMICtal] 100 mg PO DAILY 09/26/21 03/07/22 Topiramate [Topamax] 100 mg PO BID@0900,2300 11/19/21 03/07/22 Rosuvastatin [Crestor] 10 mg PO DAILY 01/30/22 03/07/22 Allergies Allergy/AdvReac Type Severity Reaction Status Date / Time Tetanus Vaccines and Toxoid Allergy Anaphylaxis Verified 02/16/22 17:55 cephalexin [From Keflex] AdvReac Nausea & Verified 02/16/22 17:55 Vomiting Review of Systems ROS Statement: Those systems with pertinent positive or pertinent negative responses have been documented in the HPI. ROS Other: All systems not noted in ROS Statement are negative. Past Medical History Past Medical History: Chest Pain / Angina, Thyroid Disorder Additional Past Medical History / Comment(s): POTS, History of Any Multi-Drug Resistant Organisms: None Reported Past Surgical History: Cholecystectomy, Orthopedic Surgery Additional Past Surgical History / Comment(s): right shoulder. fallopian removal, right elbow. Past Anesthesia/Blood Transfusion Reactions: No Reported Reaction Past Psychological History: Anxiety, Bipolar, Depression Smoking Status: Never smoker Past Alcohol Use History: None Reported Past Drug Use History: None Reported General Exam - General Exam Comments Initial Comments: Patient does not appear to be ill or toxic. Vital signs reviewed, cranial nerves II through XII grossly intact. Limitations: no limitations General appearance: alert, in no apparent distress, obese Head exam: Present: atraumatic, normocephalic, normal inspection Eye exam: Present: normal appearance, PERRL, EOMI. Absent: scleral icterus, conjunctival injection, periorbital swelling ENT exam: Present: normal exam, mucous membranes moist Neck exam: Present: normal inspection. Absent: tenderness, meningismus, lymphadenopathy Respiratory exam: Present: normal lung sounds bilaterally. Absent: respiratory distress, wheezes, rales, rhonchi, stridor Cardiovascular Exam: Present: regular rate, normal rhythm, normal heart sounds. Absent: systolic murmur, diastolic murmur, rubs, gallop, clicks GI/Abdominal exam: Present: soft, normal bowel sounds. Absent: distended, tenderness, guarding, rebound, rigid Extremities exam: Present: normal inspection, full ROM, normal capillary refill. Absent: tenderness, pedal edema, joint swelling, calf tenderness Back exam: Present: normal inspection Neurological exam: Present: alert, oriented X3, CN II-XII intact Psychiatric exam: Present: normal affect, normal mood Skin exam: Present: warm, dry, intact, normal color. Absent: rash Course Vital Signs 03/07/22 03/07/22 15:22 19:47 Temperature 98.4 F Pulse Rate 98 72 Respiratory 18 18 Rate Blood Pressure 110/70 114/82 O2 Sat by Pulse 98 99 Oximetry - Reevaluation(s) Reevaluation #1: 03/07/22 20:46 Medical record is reviewed Symptoms are improved here in the emergency department Patient is informed of results and questions answered Patient in no distress Reevaluation #2: 03/07/22 23:08 Was improved prior to discharge. Patient had no recurrence of palpitations here. Patient essentially asymptomatic at discharge. EKG Findings - EKG Comments: EKG Findings:: EKG done at 1524 and regular the ED attending physician reveals sinus rhythm with sinus arrhythmia, rate of 83, normal intervals, left axis deviation, no acute ST or T-wave changes. Medical Decision Making - Medical Decision Making Patient denies appear to be ill or toxic. Patient in no distress. Vital signs are stable. Differential include tachycardia, other cardiac arrhythmia such as SVT, think this is less likely cardiac ischemia given the patient symptomology. Thyroid toxicity less likely as the patient's vital signs are normal at this time. Does not appear to be consistent with pulmonary embolism. Patient's d-dimer was negative. Patient's bicarbonate level was 18 however anion gap was 11. Troponin was negative. Urine was contaminated. CBC was normal. Chest x-ray read as negative by me. No evidence of pneumothorax. No evidence of pneumonia. No osseous lesions. No cardiomegaly. No effusion. No free air. Awaiting radiology interpretation Given the patient's symptomatology of intermittent headaches, palpitations, pheochromocytoma possible, however, patient had no recurrence of tachycardia here in the ER. Patient no distress at discharge Follow-up with your regular physician as directed. Follow up with cardiology, calling him Thursday morning. Return to the ER immediately if any symptoms worsen, new symptoms arise, or any other problems develop. Patient was told to return to the ER for any signs or symptoms worsen. Told to return immediately if any other problems arise. All questions answered. Treatment plan discussed. Patient in agreement Every effort has been made to ensure accuracy of this dictation. However, due to the limitations of electronic medical records and dictation devices, errors in charting still occur. The patient's age, low cardiac risk or, I believe this is unlikely be ischemic related. Patient's main complaint of palpitations have resolved. We'll have the patient follow-up with cardiology on Thursday. Patient may need a Holter monitor. Thyroid testing is pending. Supervising physician is Dr. Damer - Lab Data Result diagrams: 03/07/22 19:45 03/07/22 19:45 Lab Results 03/07/22 03/07/22 03/07/22 Range/Units 19:45 19:45 19:45 WBC 9.7 (3.8-10.6) k/uL RBC 4.43 (3.80-5.40) m/uL Hgb 13.2 (11.4-16.0) gm/dL Hct 40.2 (34.0-46.0) % MCV 90.7 (80.0-100.0) fL MCH 29.7 (25.0-35.0) pg MCHC 32.7 (31.0-37.0) g/dL RDW 14.0 (11.5-15.5) % Plt Count 289 (150-450) k/uL MPV 8.3 Neutrophils % 61 % Lymphocytes % 32 % Monocytes % 4 % Eosinophils % 1 % Basophils % 0 % Neutrophils # 5.9 (1.3-7.7) k/uL Lymphocytes # 3.1 (1.0-4.8) k/uL Monocytes # 0.4 (0-1.0) k/uL Eosinophils # 0.1 (0-0.7) k/uL Basophils # 0.0 (0-0.2) k/uL D-Dimer 0.35 (<0.60) mg/L FEU Sodium 139 (137-145) mmol/L Potassium 4.0 (3.5-5.1) mmol/L Chloride 110 H (98-107) mmol/L Carbon Dioxide 18 L (22-30) mmol/L Anion Gap 11 mmol/L BUN 12 (7-17) mg/dL Creatinine 0.68 (0.52-1.04) mg/dL Est GFR (CKD-EPI)AfAm >90 (>60 ml/min/1.73 sqM) Est GFR (CKD-EPI)NonAf >90 (>60 ml/min/1.73 sqM) Glucose 95 (74-99) mg/dL Calcium 8.9 (8.4-10.2) mg/dL Magnesium 2.2 (1.6-2.3) mg/dL Total Bilirubin 0.3 (0.2-1.3) mg/dL AST 33 (14-36) U/L ALT 24 (4-34) U/L Alkaline Phosphatase 82 (38-126) U/L Troponin I (0.000-0.034) ng/mL Total Protein 7.2 (6.3-8.2) g/dL Albumin 4.4 (3.5-5.0) g/dL TSH 0.909 (0.465-4.680) mIU/L Urine Color Urine Appearance (Clear) Urine pH (5.0-8.0) Ur Specific [place] (1.001-1.035) Urine Protein (Negative) Urine Glucose (UA) (Negative) Urine Ketones (Negative) Urine Blood (Negative) Urine Nitrite (Negative) Urine Bilirubin (Negative) Urine Urobilinogen (<2.0) mg/dL Ur Leukocyte Esterase (Negative) Urine RBC (0-5) /hpf Urine WBC (0-5) /hpf Ur Squamous Epith Cells (0-4) /hpf Amorphous Sediment (None) /hpf Urine Bacteria (None) /hpf Urine Mucus (None) /hpf Urine HCG, Qual (Not Detectd) 03/07/22 03/07/22 03/07/22 Range/Units 19:46 19:52 19:52 WBC (3.8-10.6) k/uL RBC (3.80-5.40) m/uL Hgb (11.4-16.0) gm/dL Hct (34.0-46.0) % MCV (80.0-100.0) fL MCH (25.0-35.0) pg MCHC (31.0-37.0) g/dL RDW (11.5-15.5) % Plt Count (150-450) k/uL MPV Neutrophils % % Lymphocytes % % Monocytes % % Eosinophils % % Basophils % % Neutrophils # (1.3-7.7) k/uL Lymphocytes # (1.0-4.8) k/uL Monocytes # (0-1.0) k/uL Eosinophils # (0-0.7) k/uL Basophils # (0-0.2) k/uL D-Dimer (<0.60) mg/L FEU Sodium (137-145) mmol/L Potassium (3.5-5.1) mmol/L Chloride (98-107) mmol/L Carbon Dioxide (22-30) mmol/L Anion Gap mmol/L BUN (7-17) mg/dL Creatinine (0.52-1.04) mg/dL Est GFR (CKD-EPI)AfAm (>60 ml/min/1.73 sqM) Est GFR (CKD-EPI)NonAf (>60 ml/min/1.73 sqM) Glucose (74-99) mg/dL Calcium (8.4-10.2) mg/dL Magnesium (1.6-2.3) mg/dL Total Bilirubin (0.2-1.3) mg/dL AST (14-36) U/L ALT (4-34) U/L Alkaline Phosphatase (38-126) U/L Troponin I <0.012 (0.000-0.034) ng/mL Total Protein (6.3-8.2) g/dL Albumin (3.5-5.0) g/dL TSH (0.465-4.680) mIU/L Urine Color Yellow Urine Appearance Cloudy H (Clear) Urine pH 6.0 (5.0-8.0) Ur Specific [place] 1.023 (1.001-1.035) Urine Protein Trace H (Negative) Urine Glucose (UA) Negative (Negative) Urine Ketones Negative (Negative) Urine Blood Negative (Negative) Urine Nitrite Negative (Negative) Urine Bilirubin Negative (Negative) Urine Urobilinogen <2.0 (<2.0) mg/dL Ur Leukocyte Esterase Large H (Negative) Urine RBC 4 (0-5) /hpf Urine WBC 89 H (0-5) /hpf Ur Squamous Epith Cells 7 H (0-4) /hpf Amorphous Sediment Occasional H (None) /hpf Urine Bacteria Moderate H (None) /hpf Urine Mucus Occasional H (None) /hpf Urine HCG, Qual Not Detected (Not Detectd) - Radiology Data Radiology results: image reviewed Disposition Clinical Impression: Palpitations, Intermittent headache Disposition: HOME SELF-CARE Condition: Stable Instructions (If sedation given, give patient instructions): Heart Palpitations (ED) Additional Instructions: Call the cardiology office at 8 AM Thursday morning to schedule follow-up appointment. Refrain from taking any stimulant-type substances such as caffeine or pseudoephedrine. Follow-up with your regular physician as directed. Return to the ER immediately if any symptoms worsen, new symptoms arise, or any other problems develop. Is patient prescribed a controlled substance at d/c from ED?: No Referrals: Gerson Quiroga MD [Primary Care Provider] - 03/10/22 Timothy Fontaine DO [STAFF PHYSICIAN] - 03/10/22 8:00 am Time of Disposition: 23:07
[2022-03-07 20:11] LABS: Basophils % (A) 0 %; Eosinophils # (A) 0.1 k/uL (0-0.7); Eosinophils % (A) 1 %; HCT 40.2 % (34.0-46.0); HGB 13.2 gm/dL (11.4-16.0); Lymphocytes # (A) 3.1 k/uL (1.0-4.8); Lymphocytes % (A) 32 %; MCH 29.7 pg (25.0-35.0); MCHC 32.7 g/dL (31.0-37.0); MCV 90.7 fL (80.0-100.0); Mean Platelet Volume 8.3; Monocytes # (A) 0.4 k/uL (0-1.0); Monocytes % (A) 4 %; Neutrophils # (A) 5.9 k/uL (1.3-7.7); Neutrophils % (A) 61 %; Platelet Count 289 k/uL (150-450); RBC 4.43 m/uL (3.80-5.40); WBC 9.7 k/uL (3.8-10.6)
[2022-03-07 20:17] LABS: ALT 24 U/L (4-34); AST 33 U/L (14-36); African American GFR (CKD) >90 (>60 ml/min/1.73 sqM); Albumin 4.4 g/dL (3.5-5.0); Alkaline Phosphatase 82 U/L (38-126); Anion Gap 11 mmol/L; Blood Urea Nitrogen 12 mg/dL (7-17); Calcium 8.9 mg/dL (8.4-10.2); Carbon Dioxide 18 mmol/L (22-30); Chloride 110 mmol/L (98-107); Glucose 95 mg/dL (74-99); Magnesium 2.2 mg/dL (1.6-2.3); Non-African American GFR(CKD) >90 (>60 ml/min/1.73 sqM); Sodium 139 mmol/L (137-145); Total Bilirubin 0.3 mg/dL (0.2-1.3); Total Protein 7.2 g/dL (6.3-8.2)
[2022-03-07 20:28] LABS: Amorphous Sediment,Urine Occasional /hpf; Appearance,Urine Cloudy (Clear); Bacteria,Urine Moderate /hpf; Bilirubin,Urine Negative (Negative); Blood,Urine Negative (Negative); Color,Urine Yellow; Glucose,Urine (UA) Negative (Negative); Ketones,Urine Negative (Negative); Leukocyte Esterase,Urine Large (Negative); Mucus,Urine Occasional /hpf; Nitrite,Urine Negative (Negative); Protein,Urine Trace (Negative); RBC,Urine 4 /hpf (0-5); Specific Gravity,Urine 1.023 (1.001-1.035); Squamous Epithelial Cell,Urine 7 /hpf (0-4); Urobilinogen,Urine <2.0 mg/dL (<2.0); WBC,Urine 89 /hpf (0-5)
--- NOTE | 2022-03-07 20:53 | XR ---
EXAMINATION TYPE: XR chest 2V DATE OF EXAM: 03/07/2022 COMPARISON: 02/16/2022 HISTORY: Dysrhythmia TECHNIQUE: FINDINGS: Heart is normal. Lungs are clear. Diaphragm is normal. Bony thorax appears normal. IMPRESSION: Normal chest. No change.
[2022-03-07 23:38] VITALS: BP 109/58; PULSE 68; RESP 16
== END 2022-03-07 23:38 | disposition home or self-care (01) ==
LOC: EC 15:12
DX: R00.2 Palpitations (principal); R51.9 Headache, unspecified; R07.89 Other chest pain; E07.9 Disorder of thyroid, unspecified; Z79.890 Hormone replacement therapy; Z88.7 Allergy status to serum and vaccine; Z88.8 Allergy status to other drugs, medicaments and biological substances
CPT/HCPCS: 36415; 71046; 80053; 81001; 81025; 83735; 84443; 84484; 85025; 85379; 87086; 93005; 96360; 96361; 99285

== ENCOUNTER 2022-03-31 12:03 | Emergency (ER) | payer OTHER ==
[2022-03-31 12:07] VITALS: BP 127/8; PULSE 90; RESP 18; TEMP 98.1
[2022-03-31 12:45] LABS: Appearance,Urine Cloudy (Clear); Bacteria,Urine Rare /hpf; Bilirubin,Urine Negative (Negative); Blood,Urine Moderate (Negative); Color,Urine Yellow; Glucose,Urine (UA) Negative (Negative); Ketones,Urine Negative (Negative); Leukocyte Esterase,Urine Large (Negative); Mucus,Urine Occasional /hpf; Nitrite,Urine Negative (Negative); Protein,Urine 1+ (Negative); RBC,Urine 135 /hpf (0-5); Specific Gravity,Urine 1.028 (1.001-1.035); Squamous Epithelial Cell,Urine 14 /hpf (0-4); Urobilinogen,Urine <2.0 mg/dL (<2.0); WBC,Urine 163 /hpf (0-5)
[2022-03-31] MEDS ORDERED: cefTRIAXone 1,000 MG VIAL (IM USE) IM STA ×2 (12:55→13:13)
--- NOTE | 2022-03-31 13:01 | ED ---
General Adult HPI - General Chief complaint: Urogenital Stated complaint: Blood in urine Time Seen by Provider: 03/31/22 12:19 Source: patient Mode of arrival: ambulatory Limitations: no limitations - History of Present Illness Initial comments: Dictation was produced using [employer] dictation software. please excuse any grammatical, word or spelling errors. Chief Complaint: 36-year-old female presents to the emergency department for vaginal swelling, vaginal discharge, hematuria History of Present Illness: 36-year-old female she presents to the emergency department today to be evaluated for vaginal swelling, vaginal discharge hematuria. Patient also having urinary symptoms. Patient has bilateral fallopian tube removal as a form of control. Patient has any fever or constitutional symptoms. Denies any nausea or vomiting. No diarrhea. Patient has no other complaints. The ROS documented in this emergency department record has been reviewed and confirmed by me. Those systems with pertinent positive or negative responses have been documented in the HPI. All other systems are other negative and/or noncontributory. PHYSICAL EXAM: General Impression: Alert and oriented x3, not in acute distress HEENT: Normocephalic atraumatic, extra-ocular movements intact, pupils equal and reactive to light bilaterally, mucous membranes moist. Cardiovascular: Heart regular rate and rhythm Chest: Able to complete full sentences, no retractions, no tachypnea Abdomen: abdomen soft, non-tender, non-distended, no organomegaly Musculoskeletal: Pulses present and equal in all extremities, no peripheral edema Motor: no focal deficits noted Neurological: CN II-XII grossly intact, no focal motor or sensory deficits noted Skin: Intact with no visualized rashes Psych: Normal affect and mood ED course: 36 y old female presents to the emergency department for 7 days of pelvic symptoms. Her symptoms including hematuria, dysuria, vaginal swelling. Rest of physical examination is benign. Urinalysis suggests urinary tract infection suggesting hemorrhagic cystitis. Urine is negative. Pelvic exam was performed. Patient had normal mucosa without any malodorous discharge. Mucosal was pink and non-eroded. No cervical motion tenderness. No adnexal tenderness. Clinical presentation secondary to hemorrhagic cystitis. Patient given IM injection of ceftriaxone. Patient prescription for treatment of urinary tract infection. - Related Data Home Medications Medication Instructions Recorded Confirmed Fludrocortisone [Florinef] 0.1 mg PO BID@0900,2300 04/07/21 03/07/22 ARIPiprazole [Abilify] 15 mg PO DAILY 09/26/21 03/07/22 Levothyroxine Sodium [Synthroid] 50 mcg PO DAILY@0600 09/26/21 03/07/22 Venlafaxine HCl ER [Effexor XR] 150 mg PO DAILY 09/26/21 03/07/22 lamoTRIgine [LaMICtal] 100 mg PO DAILY 09/26/21 03/07/22 Topiramate [Topamax] 100 mg PO BID@0900,2300 11/19/21 03/07/22 Rosuvastatin [Crestor] 10 mg PO DAILY 01/30/22 03/07/22 Previous Rx's Medication Instructions Recorded Sulfamethox-Tmp 800-160Mg [Bactrim 1 tab PO Q12HR 5 Days #10 tab 03/31/22 DS 800-160 mg] Allergies Allergy/AdvReac Type Severity Reaction Status Date / Time Tetanus Vaccines and Toxoid Allergy Anaphylaxis Verified 03/31/22 12:07 cephalexin [From Keflex] AdvReac Nausea & Verified 03/31/22 12:07 Vomiting Review of Systems ROS Statement: Those systems with pertinent positive or pertinent negative responses have been documented in the HPI. ROS Other: All systems not noted in ROS Statement are negative. Past Medical History Past Medical History: Chest Pain / Angina, Thyroid Disorder Additional Past Medical History / Comment(s): POTS, History of Any Multi-Drug Resistant Organisms: None Reported Past Surgical History: Cholecystectomy, Orthopedic Surgery Additional Past Surgical History / Comment(s): right shoulder. fallopian removal, right elbow. Past Anesthesia/Blood Transfusion Reactions: No Reported Reaction Past Psychological History: Anxiety, Bipolar, Depression Smoking Status: Never smoker Past Alcohol Use History: None Reported Past Drug Use History: None Reported General Exam Limitations: no limitations Course Vital Signs 03/31/22 12:04 Temperature 98.1 F Pulse Rate 90 Respiratory 18 Rate Blood Pressure 127/8 O2 Sat by Pulse 98 Oximetry Medical Decision Making - Lab Data Lab Results 03/31/22 03/31/22 Range/Units 12:31 12:31 Urine Color Yellow Urine Appearance Cloudy H (Clear) Urine pH 6.0 (5.0-8.0) Ur Specific [place] 1.028 (1.001-1.035) Urine Protein 1+ H (Negative) Urine Glucose (UA) Negative (Negative) Urine Ketones Negative (Negative) Urine Blood Moderate H (Negative) Urine Nitrite Negative (Negative) Urine Bilirubin Negative (Negative) Urine Urobilinogen <2.0 (<2.0) mg/dL Ur Leukocyte Esterase Large H (Negative) Urine RBC 135 H (0-5) /hpf Urine WBC 163 H (0-5) /hpf Ur Squamous Epith Cells 14 H (0-4) /hpf Urine Bacteria Rare H (None) /hpf Urine Mucus Occasional H (None) /hpf Urine HCG, Qual Not Detected (Not Detectd) Disposition Clinical Impression: Urinary tract infection Disposition: HOME SELF-CARE Condition: Fair Instructions (If sedation given, give patient instructions): Urinary Tract Infection in Women (ED) Prescriptions: Sulfamethox-Tmp 800-160Mg [Bactrim DS 800-160 mg] 1 tab PO Q12HR 5 Days #10 tab Is patient prescribed a controlled substance at d/c from ED?: No Referrals: Gerson Quiroga MD [Primary Care Provider] - 1-2 days Time of Disposition: 13:16
== END 2022-03-31 13:31 | disposition home or self-care (01) ==
LOC: EC 12:03
DX: N39.0 Urinary tract infection, site not specified (principal); E07.9 Disorder of thyroid, unspecified; Z79.899 Other long term (current) drug therapy; Z88.1 Allergy status to other antibiotic agents; Z88.7 Allergy status to serum and vaccine
CPT/HCPCS: 81001; 81025; 87491; 87591; 87086; 99283; 96372; J0696

== ENCOUNTER 2022-04-01 12:39 | Inpatient (IN) | payer OTHER, MEDICAID ==
[2022-04-01 14:38] LABS: Amphetamine Screen,Urine Not Detected (NotDetected); Barbiturate Screen,Urine Not Detected (NotDetected); Benzodiazepines Screen,Urine Detected (NotDetected); Cocaine Screen,Urine Not Detected (NotDetected); Methadone Screen, Urine Not Detected (NotDetected); Opiate Screen,Urine Not Detected (NotDetected); Oxycodone Screen, Urine Not Detected (NotDetected); Phencyclidine Screen,Urine Not Detected (NotDetected); Tricyclic Antidepressant,Urine Not Detected (NotDetected); Urn Cannabinoid Scrn Not Detected (NotDetected)
--- NOTE | 2022-04-01 14:52 | ED ---
Psych HPI - General Chief Complaint: Psychiatric Symptoms Stated Complaint: Mental Health Time Seen by Provider: 04/01/22 12:45 Source: patient, RN notes reviewed Mode of arrival: ambulatory Limitations: no limitations - History of Present Illness Initial Comments: 36-year-old female presents emergency Department with chief complaint of depression, suicidal ideation. Patient states that she's been having increasing depression thoughts of harming herself. Patient has not attempted arms of from the way denies any drug or alcohol abuse. She is on multiple medications and states that she was seen psychiatry in the past. Denies any physical complaints patient offers no other associated symptoms - Related Data Home Medications Medication Instructions Recorded Confirmed Fludrocortisone [Florinef] 0.1 mg PO DAILY 04/07/21 04/01/22 ARIPiprazole [Abilify] 15 mg PO DAILY 09/26/21 04/01/22 Levothyroxine Sodium [Synthroid] 50 mcg PO DAILY@0600 09/26/21 04/01/22 Venlafaxine HCl ER [Effexor XR] 150 mg PO DAILY 09/26/21 04/01/22 lamoTRIgine [LaMICtal] 100 mg PO DAILY 09/26/21 04/01/22 Topiramate [Topamax] 100 mg PO BID@0900,2300 11/19/21 04/01/22 Rosuvastatin [Crestor] 10 mg PO DAILY 01/30/22 04/01/22 Previous Rx's Medication Instructions Recorded Sulfamethox-Tmp 800-160Mg [Bactrim 1 tab PO Q12HR 5 Days #10 tab 03/31/22 DS 800-160 mg] Allergies Allergy/AdvReac Type Severity Reaction Status Date / Time cephalexin [From Keflex] Allergy Hives & Verified 04/01/22 13:53 Vomiting Tetanus Vaccines and Toxoid Allergy Anaphylaxis Verified 04/01/22 13:53 Review of Systems ROS Statement: Those systems with pertinent positive or pertinent negative responses have been documented in the HPI. ROS Other: All systems not noted in ROS Statement are negative. Past Medical History Past Medical History: Chest Pain / Angina, Thyroid Disorder Additional Past Medical History / Comment(s): POTS, History of Any Multi-Drug Resistant Organisms: None Reported Past Surgical History: Cholecystectomy, Orthopedic Surgery Additional Past Surgical History / Comment(s): right shoulder. fallopian removal, right elbow. Past Anesthesia/Blood Transfusion Reactions: No Reported Reaction Past Psychological History: Anxiety, Bipolar, Depression, PTSD Smoking Status: Never smoker Past Alcohol Use History: None Reported Past Drug Use History: None Reported General Exam Limitations: no limitations General appearance: alert, in no apparent distress Head exam: Present: atraumatic, normocephalic, normal inspection Eye exam: Present: normal appearance, PERRL, EOMI. Absent: scleral icterus, conjunctival injection, periorbital swelling ENT exam: Present: normal exam, normal oropharynx, mucous membranes moist Neck exam: Present: normal inspection, full ROM. Absent: tenderness, meningismus, lymphadenopathy Respiratory exam: Present: normal lung sounds bilaterally. Absent: respiratory distress, wheezes, rales, rhonchi, stridor Cardiovascular Exam: Present: regular rate, normal rhythm, normal heart sounds. Absent: systolic murmur, diastolic murmur, rubs, gallop, clicks Neurological exam: Present: alert, oriented X3, CN II-XII intact Skin exam: Present: warm, dry, intact, normal color. Absent: rash Course Vital Signs 04/01/22 12:40 Temperature 98.8 F Pulse Rate 86 Respiratory 20 Rate Blood Pressure 146/87 O2 Sat by Pulse 98 Oximetry Medical Decision Making - Medical Decision Making 36-year-old presented for depression, suicidal ideation. Patient be admitted for psychiatric treatment. - Lab Data Lab Results 04/01/22 Range/Units 14:01 Urine Opiates Screen Not Detected (NotDetected) Ur Oxycodone Screen Not Detected (NotDetected) Urine Methadone Screen Not Detected (NotDetected) Ur Propoxyphene Screen Not Detected (NotDetected) Ur Barbiturates Screen Not Detected (NotDetected) U Tricyclic Antidepress Not Detected (NotDetected) Ur Phencyclidine Scrn Not Detected (NotDetected) Ur Amphetamines Screen Not Detected (NotDetected) U Methamphetamines Scrn Not Detected (NotDetected) U Benzodiazepines Scrn Detected H (NotDetected) Urine Cocaine Screen Not Detected (NotDetected) U Marijuana (THC) Screen Not Detected (NotDetected) Disposition Clinical Impression: Depression, Suicidal ideation Disposition: TRANSFER TO PSYCH HOSP/UNIT Condition: Stable Referrals: Gerson Quiroga MD [Primary Care Provider] - 1-2 days Time of Disposition: 16:18
[2022-04-01] MEDS ORDERED: ACETAMINOPHEN TAB 500 MG TAB PO STA (18:55)
[2022-04-01] MEDS ORDERED: ACETAMINOPHEN TAB 325 MG TAB PO PRN (20:23)
[2022-04-01] MEDS ORDERED: MAGNESIUM HYDROXIDE 2,400 MG/10 ML CUP PO PRN (20:23)
[2022-04-01] MEDS ORDERED: HALOPERIDOL LACTATE 5 MG/ML 1 ML VIAL IM PRN (20:23)
[2022-04-01] MEDS ORDERED: MAG HYDROX/AL HYDROX/SIMETH 30 ML CUP PO PRN (20:23)
[2022-04-01] MEDS ORDERED: hydrOXYzine pamoate 25 MG CAP PO PRN (20:29)
[2022-04-01] MEDS ORDERED: haloperidoL 5 MG TAB PO PRN (20:29)
[2022-04-01] MEDS ORDERED: hydrOXYzine HCL 50 MG/ML 1 ML VIAL IM PRN (20:29)
[2022-04-01] MEDS: SULFAMETHOX-TMP 800-160MG 1 EACH TAB PO SCH (22:34)
[2022-04-01] MEDS: TOPIRAMATE 100 MG TAB PO SCH (23:10)
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
[2022-04-02] MEDS: LEVOTHYROXINE 50 MCG TAB PO SCH (06:21)
[2022-04-02 08:03] LABS: Basophils % (A) 1 %; Eosinophils # (A) 0.2 k/uL (0-0.7); Eosinophils % (A) 3 %; HGB 12.9 gm/dL (11.4-16.0); Lymphocytes # (A) 2.2 k/uL (1.0-4.8); Lymphocytes % (A) 29 %; MCH 30.7 pg (25.0-35.0); MCHC 33.2 g/dL (31.0-37.0); MCV 92.4 fL (80.0-100.0); Mean Platelet Volume 8.1; Monocytes # (A) 0.4 k/uL (0-1.0); Monocytes % (A) 5 %; Neutrophils # (A) 4.7 k/uL (1.3-7.7); Neutrophils % (A) 62 %; Platelet Count 232 k/uL (150-450); RBC 4.22 m/uL (3.80-5.40); RDW 13.8 % (11.5-15.5); WBC 7.5 k/uL (3.8-10.6)
[2022-04-02 08:16] LABS: ALT 23 U/L (4-34); AST 31 U/L (14-36); African American GFR (CKD) >90 (>60 ml/min/1.73 sqM); Albumin 4.3 g/dL (3.5-5.0); Alkaline Phosphatase 91 U/L (38-126); Anion Gap 10 mmol/L; Blood Urea Nitrogen 12 mg/dL (7-17); Calcium 8.6 mg/dL (8.4-10.2); Carbon Dioxide 23 mmol/L (22-30); Chloride 105 mmol/L (98-107); Glucose 118 mg/dL (74-99); Non-African American GFR(CKD) 86 (>60 ml/min/1.73 sqM); Potassium 4.5 mmol/L (3.5-5.1); Sodium 138 mmol/L (137-145); Total Bilirubin 0.5 mg/dL (0.2-1.3); Total Protein 7.2 g/dL (6.3-8.2)
[2022-04-02] MEDS: FLUDROCORTISONE 0.1 MG TAB PO SCH (08:32)
[2022-04-02] MEDS: ATORVASTATIN 20 MG TAB PO SCH (08:32)
[2022-04-02] MEDS: lamoTRIgine 100 MG TAB PO SCH (08:32)
[2022-04-02] MEDS: TOPIRAMATE 100 MG TAB PO SCH ×2 (08:32→23:05)
[2022-04-02] MEDS: SULFAMETHOX-TMP 800-160MG 1 EACH TAB PO SCH ×2 (08:32→20:19)
[2022-04-02] MEDS ORDERED: VENLAFAXINE HCL ER 150 MG CAP PO SCH (09:00)
[2022-04-02 10:03] LABS: Appearance,Urine Cloudy (Clear); Bacteria,Urine Rare /hpf; Bilirubin,Urine Negative (Negative); Blood,Urine Moderate (Negative); Color,Urine Yellow; Glucose,Urine (UA) Negative (Negative); Ketones,Urine Negative (Negative); Leukocyte Esterase,Urine Large (Negative); Mucus,Urine Rare /hpf; Nitrite,Urine Negative (Negative); PH, Urine 6.5 (5.0-8.0); Protein,Urine 1+ (Negative); RBC,Urine 117 /hpf (0-5); Specific Gravity,Urine 1.024 (1.001-1.035); Squamous Epithelial Cell,Urine 10 /hpf (0-4); WBC,Urine >182 /hpf (0-5)
[2022-04-02] MEDS ORDERED: VENLAFAXINE HCL ER 75 MG CAP PO STA (13:53)
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
[2022-04-02 14:49] LABS: LDL Cholesterol,Calculated 72.4 mg/dL (0.0-131.0)
[2022-04-02] MEDS: traZODone HCL 50 MG TAB PO SCH (20:19)
[2022-04-03] MEDS: LEVOTHYROXINE 50 MCG TAB PO SCH (06:18)
[2022-04-03 08:19] VITALS: TEMP 97.9
[2022-04-03] MEDS: FLUDROCORTISONE 0.1 MG TAB PO SCH (08:19)
[2022-04-03] MEDS: ATORVASTATIN 20 MG TAB PO SCH (08:19)
[2022-04-03] MEDS: lamoTRIgine 100 MG TAB PO SCH (08:19)
[2022-04-03] MEDS: TOPIRAMATE 100 MG TAB PO SCH ×2 (08:20→21:31)
[2022-04-03] MEDS: SULFAMETHOX-TMP 800-160MG 1 EACH TAB PO SCH ×2 (08:20→21:30)
[2022-04-03] MEDS: VENLAFAXINE HCL ER 75 MG CAP PO SCH (08:20)
[2022-04-03] MEDS ORDERED: FLUCONAZOLE 150 MG TAB PO STA (12:10)
--- NOTE | 2022-04-03 13:09 | P.PN ---
Progress Note - Text Progress Note Date: 04/03/22 Interval History: Patient was seen [wandering the hallways] and was directable and agreeable to speak with business writer in the office. Patient claims that she is doing bit better today in terms of her mood and anxiety. She states that she feels medications have been helping her and is denying any side effects at this time. She states that she is having some discomfort and believes that she is having a yeast infection recurrence since yesterday as she is on the antibiotics. She was requesting to have Diflucan as a worker in the past. She claims that she is going to groups and participating as best as she can. She claims that she has a fair appetite and slept poorly last night with the trazodone. At this time patient denies any suicidal or homical ideations, intent or plan. Patient denies any auditory, visual hallucinations and denies any paranoia or delusions. Patient denies any side effects from the medications and has been compliant with meds. Mental Status Exam: General Appearance: Patient appears to be overweight, wearing glasses, stated age is alert, directable, and attempts to cooperate. Patient appears to have fair hygiene and grooming. Behavior: Patient is seated without any agitated behavior. Attempts to cooperate Speech: Patient's speech is fluent and nonpressured. [place] Mood/Affect: Patient reports their mood is improving moderately, affect is congruent and constricted. Suicidality/Homicidality: Patient denies having any homicidal ideation intent or plan. Denies any suicidal ideations intent or plan Perceptions: Patient denies any visual hallucinations and denies any auditory hallucinations Though content/process: [place], poverty of content. Logical. Memory and concentration: AOX3, grossly intact for the purposes of this session Judgment and insight: Fair IMPRESSIONS: Major depressive disorder, without psychotic features Plan: -Patient continues to meet criteria for inpatient psychiatric admission for symptom stabilization and safety. Patient has signed [adult voluntary form and] [medication consent] and was placed in patient's chart. -Medications: Continue with Lamictal 100 mg daily for mood stabilization, Effexor 225 mg daily for mood/anxiety, trazodone 50 mg daily at bedtime for insomnia/mood. -Will give 1 dose of Diflucan today for a yeast infection. -When necessary Ativan and Haldol for agitation/aggression. -NRT - not needed as patient does not smoke -SW on board for discharge planning. Encouraged the patient to participate in milieu. []
[2022-04-03 19:26] LABS: Glucose,Whole Blood 179 mg/dL (70-110)
[2022-04-03] MEDS: traZODone HCL 50 MG TAB PO SCH (21:31)
[2022-04-04] MEDS: LEVOTHYROXINE 50 MCG TAB PO SCH (06:32)
[2022-04-04 07:15] VITALS: BP 104/52; PULSE 69; RESP 16
[2022-04-04] MEDS: VENLAFAXINE HCL ER 75 MG CAP PO SCH (08:18)
[2022-04-04] MEDS: FLUDROCORTISONE 0.1 MG TAB PO SCH (08:18)
[2022-04-04] MEDS: SULFAMETHOX-TMP 800-160MG 1 EACH TAB PO SCH (08:19)
[2022-04-04] MEDS: ATORVASTATIN 20 MG TAB PO SCH (08:19)
[2022-04-04] MEDS: lamoTRIgine 100 MG TAB PO SCH (08:19)
[2022-04-04] MEDS: TOPIRAMATE 100 MG TAB PO SCH (08:19)
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
== END 2022-04-04 12:55 | disposition home or self-care (01) | DRG 885 ==
LOC: EC 12:39 → 3MHU 20:19
PROVIDERS: ADMIT Psychiatry & Neurology Psychiatry; ATTEND Psychiatry & Neurology Psychiatry
DX: F31.30 Bipolar disorder, current episode depressed, mild or moderate severity, unspecified (principal); R45.851 Suicidal ideations; N39.0 Urinary tract infection, site not specified; B37.9 Candidiasis, unspecified; Z20.822 Contact with and (suspected) exposure to COVID-19; E03.9 Hypothyroidism, unspecified; G47.00 Insomnia, unspecified; F43.10 Post-traumatic stress disorder, unspecified; I49.8 Other specified cardiac arrhythmias; E78.5 Hyperlipidemia, unspecified; S80.861A Insect bite (nonvenomous), right lower leg, initial encounter; Z79.52 Long term (current) use of systemic steroids; Z79.890 Hormone replacement therapy; Z79.899 Other long term (current) drug therapy; Z86.16 Personal history of COVID-19; W57.XXXA Bitten or stung by nonvenomous insect and other nonvenomous arthropods, initial encounter; Z88.1 Allergy status to other antibiotic agents; Z88.7 Allergy status to serum and vaccine; Z81.8 Family history of other mental and behavioral disorders
CPT/HCPCS: 80053; 80061; 80306; 81001; 81025; 82075; 83036; 84443; 85025; 87635; 99285

== ENCOUNTER 2022-04-11 20:18 | Emergency (ER) | payer OTHER ==
[2022-04-11 20:23] VITALS: TEMP 98.5
[2022-04-11] MEDS ORDERED: ORPHENADRINE 30 MG/ML 2 ML VIAL IM STA (21:41)
[2022-04-11] MEDS ORDERED: HYDROcodone/APAP 5-325MG 1 EACH TAB PO STA (21:41)
[2022-04-11] MEDS ORDERED: KETOROLAC 15 MG/ML 1 ML VIAL IM STA (21:41)
[2022-04-11] MEDS ORDERED: ACET/COD 300 MG/30 MG STARTER PACK 6 TAB BTL PO STA (21:42)
[2022-04-11] MEDS ORDERED: predniSONE 20 MG TAB PO STA (21:43)
--- NOTE | 2022-04-11 21:43 | ED ---
Back Pain HPI - General Chief Complaint: Back Pain/Injury Stated Complaint: Severe Back Pain Time Seen by Provider: 04/11/22 21:07 Source: patient, RN notes reviewed Limitations: no limitations - History of Present Illness Initial Comments: This is a pleasant 36-year-old female who woke up this morning with pain to her left lower back. Patient states that throughout the day it seems to be getting worse and more stiff. Patient describing sharp pain to her back which is exacerbated by movement. Patient states the pain does radiate down the back of her left leg. She denies any problems with bowel movements or urination. No direct trauma. No immunosuppression. No IV drug abuse. No recent procedures. No headache, no fever or chills, no changes in vision or hearing, no sore throat or difficulty with speech, no neck pain, no chest pain or shortness of breath, no abdominal pain, no nausea or vomiting, no changes in urination or bowel movements, no numbness or tingling,, no skin rashes or lesions. - Related Data Home Medications Medication Instructions Recorded Confirmed Fludrocortisone [Florinef] 0.1 mg PO DAILY 04/07/21 04/01/22 Topiramate [Topamax] 100 mg PO BID@0900,2300 11/19/21 04/01/22 Previous Rx's Medication Instructions Recorded Levothyroxine Sodium [Synthroid] 50 mcg PO DAILY@0600 30 Days tab 04/04/22 Rosuvastatin [Crestor] 10 mg PO DAILY 30 Days tab 04/04/22 Sulfamethox-Tmp 800-160Mg [Bactrim 1 each PO Q12HR 3 Days tab 04/04/22 DS 800-160 mg] Venlafaxine HCl ER [Effexor XR] 225 mg PO DAILY 30 Days cap 04/04/22 lamoTRIgine [LaMICtal] 100 mg PO DAILY 30 Days tab 04/04/22 traZODone HCL [Desyrel] 50 mg PO HS 30 Days tab 04/04/22 Cyclobenzaprine [Flexeril] 10 mg PO TID PRN #20 tab 04/11/22 methylPREDNISolone Dose Pack 4 mg PO DIRECTED #21 tab 04/11/22 [Medrol Dose Pack] Allergies Allergy/AdvReac Type Severity Reaction Status Date / Time cephalexin [From Keflex] Allergy Hives & Verified 04/11/22 20:23 Vomiting Tetanus Vaccines and Toxoid Allergy Anaphylaxis Verified 04/11/22 20:23 Review of Systems ROS Statement: Those systems with pertinent positive or pertinent negative responses have been documented in the HPI. ROS Other: All systems not noted in ROS Statement are negative. Past Medical History Past Medical History: Chest Pain / Angina, Thyroid Disorder Additional Past Medical History / Comment(s): POTS, History of Any Multi-Drug Resistant Organisms: None Reported Past Surgical History: Cholecystectomy, Orthopedic Surgery Additional Past Surgical History / Comment(s): right shoulder. fallopian removal, right elbow. Past Anesthesia/Blood Transfusion Reactions: No Reported Reaction Past Psychological History: Anxiety, Bipolar, Depression, PTSD Smoking Status: Never smoker Past Alcohol Use History: None Reported Past Drug Use History: None Reported - Past Family History Mother Family Medical History: Chest Pain / Angina General Exam - General Exam Comments Initial Comments: Patient does not appear to be ill or toxic. Vital signs reviewed Limitations: no limitations General appearance: in distress Head exam: Present: atraumatic, normocephalic, normal inspection Eye exam: Present: normal appearance, PERRL, EOMI. Absent: scleral icterus, conjunctival injection, periorbital swelling ENT exam: Present: normal exam, mucous membranes moist Neck exam: Present: normal inspection, full ROM. Absent: tenderness, meningismus, lymphadenopathy Respiratory exam: Present: normal lung sounds bilaterally. Absent: respiratory distress, wheezes, rales, rhonchi, stridor Cardiovascular Exam: Present: regular rate, normal rhythm, normal heart sounds. Absent: systolic murmur, diastolic murmur, rubs, gallop, clicks GI/Abdominal exam: Present: soft, normal bowel sounds. Absent: distended, tenderness, guarding, rebound, rigid Extremities exam: Present: normal inspection, full ROM, normal capillary refill. Absent: tenderness, pedal edema, joint swelling, calf tenderness Back exam: Present: normal inspection, tenderness, muscle spasm (Left), paraspinal tenderness. Absent: full ROM, CVA tenderness (R), CVA tenderness (L), vertebral tenderness, rash noted Expanded Back exam: Absent: saddle anesthesia Back exam: Sciatic Notch Tenderness: Left, Positive Straight Leg Raise: Left, Negative Straight Leg Raising: Right Neurological exam: Present: alert, oriented X3, CN II-XII intact, normal gait, reflexes normal. Absent: altered, motor sensory deficit Psychiatric exam: Present: normal affect, normal mood Skin exam: Present: warm, dry, intact, normal color. Absent: rash Course Vital Signs 04/11/22 20:21 Temperature 98.5 F Pulse Rate 85 Respiratory 18 Rate Blood Pressure 131/82 O2 Sat by Pulse 98 Oximetry Medical Decision Making - Medical Decision Making -There are no red flags for concerning back pathology. Specifically: -No history of cancer, this is not a mass effect, MRI not indicated. -No anticoagulation, this is not a bleed. -No fevers, no IVDU, this is not an infectious process. -No trauma, no bony pain, x-rays are not indicated. -With a normal neuro exam, and no urinary or bowel retention or incontinence, there is no clinical sign of motor defect or cauda equina - MRI is not indicated at this point. -No pulsating abdominal mass or risk factors for AAA. -Pain is relieved with rest, which is also less concerning. -I do not believe that x-rays or emergent MRI is indicated at this time. -We will treat symptomatically and discharge home with follow up instructions. -Stretching/strengthening exercise given to patient and they will be referred to physical therapy Condition presents with cephalgia consistent with myofascial back pain with muscle spasm and left lumbar radiculopathy. Does not appear to be ill or toxic. We'll treat with corticosteroids, also relaxers, and pain medication. Patient was told to return to the ER for any signs or symptoms worsen. Told to return immediately if any other problems arise. All questions answered. Treatment plan discussed. Patient in agreement Every effort has been made to ensure accuracy of this dictation. However, due to the limitations of electronic medical records and dictation devices, errors in charting still occur. Materials Clerk Dr. Wood Disposition Clinical Impression: Acute lumbar myofascial strain, Left lumbar radiculopathy Disposition: HOME SELF-CARE Condition: Good Instructions (If sedation given, give patient instructions): Acute Low Back Pain (ED), Lumbar Radiculopathy (ED) Additional Instructions: Apply heat for 20 minutes at a time 4 times daily. Follow-up with your regular physician as discussed. Follow-up with your regular physician as directed. Return to the ER immediately if any symptoms worsen, new symptoms arise, or any other problems develop. Prescriptions: Cyclobenzaprine [Flexeril] 10 mg PO TID PRN #20 tab PRN Reason: Spasms methylPREDNISolone Dose Pack [Medrol Dose Pack] 4 mg PO DIRECTED #21 tab Is patient prescribed a controlled substance at d/c from ED?: No Referrals: Gerson Quiroga MD [Primary Care Provider] - 04/16/22 Time of Disposition: 21:41
[2022-04-11 22:45] VITALS: BP 96/58; PULSE 68; RESP 16
[2022-04-11 22:49] LABS: Amorphous Sediment,Urine Rare /hpf; Appearance,Urine Cloudy (Clear); Bilirubin,Urine Negative (Negative); Blood,Urine Trace (Negative); Color,Urine Light Yellow; Glucose,Urine (UA) Negative (Negative); Ketones,Urine Negative (Negative); Leukocyte Esterase,Urine Large (Negative); Nitrite,Urine Negative (Negative); Protein,Urine Negative (Negative); RBC,Urine 47 /hpf (0-5); Specific Gravity,Urine 1.013 (1.001-1.035); Squamous Epithelial Cell,Urine 5 /hpf (0-4); Urobilinogen,Urine <2.0 mg/dL (<2.0); WBC,Urine 175 /hpf (0-5)
== END 2022-04-11 22:51 | disposition home or self-care (01) ==
LOC: EC 20:18
DX: S39.012A Strain of muscle, fascia and tendon of lower back, initial encounter (principal); M54.16 Radiculopathy, lumbar region; Z88.1 Allergy status to other antibiotic agents; Z88.7 Allergy status to serum and vaccine; X58.XXXA Exposure to other specified factors, initial encounter
CPT/HCPCS: 81001; 81025; 87086; 99283; 96372; J2360; J1885; J7512

== ENCOUNTER 2022-04-28 20:39 | Emergency (ER) | payer OTHER ==
[2022-04-28 20:52] VITALS: RESP 16; TEMP 98.1
--- NOTE | 2022-04-28 21:15 | XR ---
EXAMINATION TYPE: XR knee complete LT DATE OF EXAM: 04/28/2022 COMPARISON: NONE HISTORY: Fall. Pain TECHNIQUE: 3 views FINDINGS: There is no fracture nor dislocation. Joint spaces are normal. No sign of joint effusion. IMPRESSION: Negative left knee exam. No fracture.
--- NOTE | 2022-04-28 22:54 | ED ---
Lower Extremity Injury HPI - General Chief Complaint: Extremity Injury, Lower Stated Complaint: Left knee pain Time Seen by Provider: 04/28/22 21:29 Source: patient Mode of arrival: ambulatory Limitations: no limitations - Related Data Home Medications Medication Instructions Recorded Confirmed Fludrocortisone [Florinef] 0.1 mg PO DAILY 04/07/21 04/01/22 Topiramate [Topamax] 100 mg PO BID@0900,2300 11/19/21 04/01/22 Previous Rx's Medication Instructions Recorded Levothyroxine Sodium [Synthroid] 50 mcg PO DAILY@0600 30 Days tab 04/04/22 Rosuvastatin [Crestor] 10 mg PO DAILY 30 Days tab 04/04/22 Sulfamethox-Tmp 800-160Mg [Bactrim 1 each PO Q12HR 3 Days tab 04/04/22 DS 800-160 mg] Venlafaxine HCl ER [Effexor XR] 225 mg PO DAILY 30 Days cap 04/04/22 lamoTRIgine [LaMICtal] 100 mg PO DAILY 30 Days tab 04/04/22 traZODone HCL [Desyrel] 50 mg PO HS 30 Days tab 04/04/22 Cyclobenzaprine [Flexeril] 10 mg PO TID PRN #20 tab 04/11/22 methylPREDNISolone Dose Pack 4 mg PO DIRECTED #21 tab 04/11/22 [Medrol Dose Pack] Allergies Allergy/AdvReac Type Severity Reaction Status Date / Time cephalexin [From Keflex] Allergy Hives & Verified 04/28/22 20:49 Vomiting Tetanus Vaccines and Toxoid Allergy Anaphylaxis Verified 04/28/22 20:49 Review of Systems ROS Statement: Those systems with pertinent positive or pertinent negative responses have been documented in the HPI. ROS Other: All systems not noted in ROS Statement are negative. Past Medical History Past Medical History: Chest Pain / Angina, Thyroid Disorder Additional Past Medical History / Comment(s): POTS, History of Any Multi-Drug Resistant Organisms: None Reported Past Surgical History: Cholecystectomy, Orthopedic Surgery Additional Past Surgical History / Comment(s): right shoulder. fallopian removal, right elbow. Past Anesthesia/Blood Transfusion Reactions: No Reported Reaction Past Psychological History: Anxiety, Bipolar, Depression, PTSD Smoking Status: Never smoker Past Alcohol Use History: None Reported Past Drug Use History: None Reported - Past Family History Mother Family Medical History: Chest Pain / Angina General Exam Limitations: no limitations Course Vital Signs 04/28/22 20:50 Temperature 98.1 F Pulse Rate 97 Respiratory 16 Rate Blood Pressure 127/89 O2 Sat by Pulse 97 Oximetry Disposition Clinical Impression: Effusion, left knee, Left knee sprain Disposition: HOME SELF-CARE Condition: Good Instructions (If sedation given, give patient instructions): Knee Sprain (ED), Knee Pain (ED), Swollen Knee Joint (ED) Is patient prescribed a controlled substance at d/c from ED?: No Referrals: Gerson Quiroga MD [Primary Care Provider] - 1-2 days Gilberto Carmona MD [Medical Doctor] - 1-2 days
[2022-04-28 23:13] VITALS: BP 126/77; PULSE 81
== END 2022-04-28 23:11 | disposition home or self-care (01) ==
LOC: EC 20:39
DX: S83.92XA Sprain of unspecified site of left knee, initial encounter (principal); Z88.1 Allergy status to other antibiotic agents; X58.XXXA Exposure to other specified factors, initial encounter
CPT/HCPCS: 99283

== ENCOUNTER 2022-05-04 22:35 | Emergency (ER) | payer OTHER ==
[2022-05-04 22:40] VITALS: TEMP 98.1
[2022-05-04] MEDS ORDERED: HYDROmorphone 1 MG/ML 1 ML SYRINGE IVP STA (23:18)
--- NOTE | 2022-05-04 23:22 | ED ---
General Adult HPI - General Chief complaint: Extremity Injury, Lower Stated complaint: LT leg pain follow-up Time Seen by Provider: 05/04/22 22:46 Source: patient Mode of arrival: ambulatory Limitations: physical limitation - History of Present Illness Initial comments: Dictation was produced using [employer] dictation software. please excuse any gramm atical, word or spelling errors. Chief Complaint: 36-year-old female presents to the emergency department for persistent knee pain History of Present Illness: She 36-year-old female she fell about 2 weeks ago. Patient states that she tripped over a blanket and landed on her left knee. She had x-rays performed on the unremarkable pot one week ago. She was given referral to orthopedic surgery. Patient was evaluated at orthopedic surgery and scheduled an MRI. She does not have her MRI for another several days. Patient states that her pain has not been adequately treated. She was prescribed NSAIDs at the orthopedic surgery's office states that is not adequate. The ROS documented in this emergency department record has been reviewed and confirmed by me. Those systems with pertinent positive or negative responses have been documented in the HPI. All other systems are other negative and/or noncontributory. PHYSICAL EXAM: General Impression: Alert and oriented x3, not in acute distress HEENT: Normocephalic atraumatic, extra-ocular movements intact, pupils equal and reactive to light bilaterally, mucous membranes moist. Cardiovascular: Heart regular rate and rhythm Chest: Able to complete full sentences, no retractions, no tachypnea Abdomen: abdomen soft, non-tender, non-distended, no organomegaly Musculoskeletal: Pulses present and equal in all extremities, no peripheral edema Left knee: Abrasion to the anterior left knee, passive range of motion intact Motor: no focal deficits noted Neurological: CN II-XII grossly intact, no focal motor or sensory deficits noted Skin: Intact with no visualized rashes Psych: Normal affect and mood ED course: 36-year-old female presents to emergency Department with left knee pain after injury from almost 2 weeks ago. She had been seen and had negative x-rays and was seen at orthopedic surgery's office per she has an outpatient MRI scheduled. Upon arrival are within acceptable limits. Patient given IM analgesics and prescription for opiate analgesics. - Related Data Home Medications Medication Instructions Recorded Confirmed Fludrocortisone [Florinef] 0.1 mg PO DAILY 04/07/21 04/01/22 Topiramate [Topamax] 100 mg PO BID@0900,2300 11/19/21 04/01/22 Previous Rx's Medication Instructions Recorded Levothyroxine Sodium [Synthroid] 50 mcg PO DAILY@0600 30 Days tab 04/04/22 Rosuvastatin [Crestor] 10 mg PO DAILY 30 Days tab 04/04/22 Sulfamethox-Tmp 800-160Mg [Bactrim 1 each PO Q12HR 3 Days tab 04/04/22 DS 800-160 mg] Venlafaxine HCl ER [Effexor XR] 225 mg PO DAILY 30 Days cap 04/04/22 lamoTRIgine [LaMICtal] 100 mg PO DAILY 30 Days tab 04/04/22 traZODone HCL [Desyrel] 50 mg PO HS 30 Days tab 04/04/22 Cyclobenzaprine [Flexeril] 10 mg PO TID PRN #20 tab 04/11/22 methylPREDNISolone Dose Pack 4 mg PO DIRECTED #21 tab 04/11/22 [Medrol Dose Pack] HYDROcodone/APAP 5-325MG [[place] 1 tab PO Q6HR PRN 3 Days #12 tab 05/04/22 5-325] Allergies Allergy/AdvReac Type Severity Reaction Status Date / Time cephalexin [From Keflex] Allergy Hives & Verified 04/28/22 20:49 Vomiting Tetanus Vaccines and Toxoid Allergy Anaphylaxis Verified 04/28/22 20:49 Review of Systems ROS Statement: Those systems with pertinent positive or pertinent negative responses have been documented in the HPI. ROS Other: All systems not noted in ROS Statement are negative. Past Medical History Past Medical History: Chest Pain / Angina, Thyroid Disorder Additional Past Medical History / Comment(s): POTS, History of Any Multi-Drug Resistant Organisms: None Reported Past Surgical History: Cholecystectomy, Orthopedic Surgery Additional Past Surgical History / Comment(s): right shoulder. fallopian removal, right elbow. Past Anesthesia/Blood Transfusion Reactions: No Reported Reaction Past Psychological History: Anxiety, Bipolar, Depression, PTSD Smoking Status: Never smoker Past Alcohol Use History: None Reported Past Drug Use History: None Reported - Past Family History Mother Family Medical History: Chest Pain / Angina General Exam Limitations: physical limitation Course Vital Signs 05/04/22 22:38 Temperature 98.1 F Pulse Rate 77 Respiratory 18 Rate Blood Pressure 122/75 O2 Sat by Pulse 99 Oximetry Disposition Clinical Impression: Knee pain Disposition: HOME SELF-CARE Condition: Good Instructions (If sedation given, give patient instructions): Knee Pain (ED) Prescriptions: HYDROcodone/APAP 5-325MG [Baker 5-325] 1 tab PO Q6HR PRN 3 Days #12 tab PRN Reason: Severe Pain Is patient prescribed a controlled substance at d/c from ED?: Yes If prescribed controlled substance>3 days was MAPS reviewed?: Prescribed <3 Days Referrals: Gerson Quiroga MD [Primary Care Provider] - 1-2 days Time of Disposition: 23:22
[2022-05-04] MEDS ORDERED: HYDROmorphone 1 MG/ML 1 ML SYRINGE IM STA (23:57)
[2022-05-05 00:06] VITALS: BP 111/76; PULSE 76; RESP 16
== END 2022-05-05 00:06 | disposition home or self-care (01) ==
LOC: EC 22:35
DX: M25.562 Pain in left knee (principal); Z88.7 Allergy status to serum and vaccine; Z88.1 Allergy status to other antibiotic agents; Z79.899 Other long term (current) drug therapy; W22.8XXA Striking against or struck by other objects, initial encounter
CPT/HCPCS: 96372; 99283

== ENCOUNTER 2022-05-06 21:27 | Emergency (ER) | payer OTHER ==
[2022-05-06 21:35] VITALS: BP 101/61; PULSE 80; RESP 18; TEMP 98
--- NOTE | 2022-05-06 21:59 | XR ---
EXAMINATION TYPE: XR knee complete LT DATE OF EXAM: 05/06/2022 9:50 PM INDICATION: Patient age:Female; 36 years old; Reason for study: Pain; COMPARISON: None. TECHNIQUE: The Left knee(s) was examined in 3 projections. Frontal, lateral and oblique. FINDINGS: No evidence of any acute osseous pathology, joint space narrowing, soft tissue swelling, or joint effusion is noted. IMPRESSION: 1. No acute osseous pathology.
--- NOTE | 2022-05-07 00:20 | ED ---
Lower Extremity Injury HPI - General Chief Complaint: Extremity Injury, Lower Stated Complaint: Left knee pain Time Seen by Provider: 05/07/22 00:00 Source: patient, RN notes reviewed Mode of arrival: ambulatory Limitations: no limitations - History of Present Illness MD Complaint: knee injury - Related Data Home Medications Medication Instructions Recorded Confirmed Fludrocortisone [Florinef] 0.1 mg PO DAILY 04/07/21 04/01/22 Topiramate [Topamax] 100 mg PO BID@0900,2300 11/19/21 04/01/22 Previous Rx's Medication Instructions Recorded Levothyroxine Sodium [Synthroid] 50 mcg PO DAILY@0600 30 Days tab 04/04/22 Rosuvastatin [Crestor] 10 mg PO DAILY 30 Days tab 04/04/22 Sulfamethox-Tmp 800-160Mg [Bactrim 1 each PO Q12HR 3 Days tab 04/04/22 DS 800-160 mg] Venlafaxine HCl ER [Effexor XR] 225 mg PO DAILY 30 Days cap 04/04/22 lamoTRIgine [LaMICtal] 100 mg PO DAILY 30 Days tab 04/04/22 traZODone HCL [Desyrel] 50 mg PO HS 30 Days tab 04/04/22 Cyclobenzaprine [Flexeril] 10 mg PO TID PRN #20 tab 04/11/22 methylPREDNISolone Dose Pack 4 mg PO DIRECTED #21 tab 04/11/22 [Medrol Dose Pack] HYDROcodone/APAP 5-325MG [[place] 1 tab PO Q6HR PRN 3 Days #12 tab 05/04/22 5-325] Allergies Allergy/AdvReac Type Severity Reaction Status Date / Time cephalexin [From Keflex] Allergy Hives & Verified 05/06/22 21:34 Vomiting Tetanus Vaccines and Toxoid Allergy Anaphylaxis Verified 05/06/22 21:34 Review of Systems ROS Statement: Those systems with pertinent positive or pertinent negative responses have been documented in the HPI. ROS Other: All systems not noted in ROS Statement are negative. Past Medical History Past Medical History: Chest Pain / Angina, Thyroid Disorder Additional Past Medical History / Comment(s): POTS, History of Any Multi-Drug Resistant Organisms: None Reported Past Surgical History: Cholecystectomy, Orthopedic Surgery Additional Past Surgical History / Comment(s): right shoulder. fallopian removal, right elbow. Past Anesthesia/Blood Transfusion Reactions: No Reported Reaction Past Psychological History: Anxiety, Bipolar, Depression, PTSD Smoking Status: Never smoker Past Alcohol Use History: None Reported Past Drug Use History: None Reported - Past Family History Mother Family Medical History: Chest Pain / Angina General Exam Limitations: no limitations Course Vital Signs 05/06/22 21:32 Temperature 98 F Pulse Rate 80 Respiratory 18 Rate Blood Pressure 101/61 O2 Sat by Pulse 99 Oximetry Disposition Clinical Impression: Contusion of left knee, initial encounter, Internal derangement of left knee Narrative: Subsequent appointment for recheck of left knee internal derangement, patient has seen orthopedics already Disposition: HOME SELF-CARE Condition: Good Instructions (If sedation given, give patient instructions): Knee Pain (ED) Additional Instructions: Wear the knee immobilizer as directed. Follow-up with orthopedics. Call at 8 AM tomorrow morning to schedule follow-up appointment. Follow-up with your regular physician as directed. Return to the ER immediately if any symptoms worsen, new symptoms arise, or any other problems develop. Is patient prescribed a controlled substance at d/c from ED?: No Referrals: Michael Macdonald DO [Doctor of Osteopathic Medicine] - 1-2 days Time of Disposition: 00:19
== END 2022-05-07 00:29 | disposition home or self-care (01) ==
LOC: EC 21:27
DX: S80.02XA Contusion of left knee, initial encounter (principal); M23.92 Unspecified internal derangement of left knee; F41.9 Anxiety disorder, unspecified; F31.9 Bipolar disorder, unspecified; F43.10 Post-traumatic stress disorder, unspecified; Z79.899 Other long term (current) drug therapy; Z88.7 Allergy status to serum and vaccine; Z88.1 Allergy status to other antibiotic agents
CPT/HCPCS: 99283

== ENCOUNTER 2022-05-15 23:31 | Emergency (ER) | payer OTHER ==
[2022-05-15 23:36] VITALS: TEMP 98
[2022-05-16] MEDS ORDERED: HYDROmorphone 0.5 MG/0.5 ML SYRINGE IM STA (00:31)
--- NOTE | 2022-05-16 00:41 | ED ---
Lower Extremity Injury HPI - General Chief Complaint: Extremity Injury, Lower Stated Complaint: left knee pain Time Seen by Provider: 05/16/22 00:14 Source: patient Mode of arrival: ambulatory Limitations: no limitations - History of Present Illness Initial Comments: Patient is a 36-year-old woman who had injured her left knee, then had follow-up with orthopedics today including MRI. She states that she is having a flareup of the pain tonight and is requesting something to help him deal with that. She states she was not informed of the MRI result yet. Original injury was about 10 days ago when she fell on stairs. Complaint: knee injury -: days(s) Injury: Knee: Left Type of Injury: blunt Place: home Severity: severe Improves With: nothing Worsens With: weight bearing Context: fall - Related Data Home Medications Medication Instructions Recorded Confirmed Fludrocortisone [Florinef] 0.1 mg PO DAILY 04/07/21 04/01/22 Topiramate [Topamax] 100 mg PO BID@0900,2300 11/19/21 04/01/22 Previous Rx's Medication Instructions Recorded Levothyroxine Sodium [Synthroid] 50 mcg PO DAILY@0600 30 Days tab 04/04/22 Rosuvastatin [Crestor] 10 mg PO DAILY 30 Days tab 04/04/22 Sulfamethox-Tmp 800-160Mg [Bactrim 1 each PO Q12HR 3 Days tab 04/04/22 DS 800-160 mg] Venlafaxine HCl ER [Effexor XR] 225 mg PO DAILY 30 Days cap 04/04/22 lamoTRIgine [LaMICtal] 100 mg PO DAILY 30 Days tab 04/04/22 traZODone HCL [Desyrel] 50 mg PO HS 30 Days tab 04/04/22 Cyclobenzaprine [Flexeril] 10 mg PO TID PRN #20 tab 04/11/22 methylPREDNISolone Dose Pack 4 mg PO DIRECTED #21 tab 04/11/22 [Medrol Dose Pack] HYDROcodone/APAP 5-325MG [[place] 1 tab PO Q6HR PRN 3 Days #12 tab 05/04/22 5-325] Allergies Allergy/AdvReac Type Severity Reaction Status Date / Time cephalexin [From Keflex] Allergy Hives & Verified 05/15/22 23:35 Vomiting Tetanus Vaccines and Toxoid Allergy Anaphylaxis Verified 05/15/22 23:35 Review of Systems ROS Statement: Those systems with pertinent positive or pertinent negative responses have been documented in the HPI. ROS Other: All systems not noted in ROS Statement are negative. Constitutional: Denies: fever, chills Respiratory: Denies: cough Cardiovascular: Denies: chest pain Musculoskeletal: Reports: arthralgia Neurological: Denies: weakness, numbness Past Medical History Past Medical History: Chest Pain / Angina, Thyroid Disorder Additional Past Medical History / Comment(s): POTS, History of Any Multi-Drug Resistant Organisms: None Reported Past Surgical History: Cholecystectomy, Orthopedic Surgery Additional Past Surgical History / Comment(s): right shoulder. fallopian removal, right elbow. Past Anesthesia/Blood Transfusion Reactions: No Reported Reaction Past Psychological History: Anxiety, Bipolar, Depression, PTSD Smoking Status: Never smoker Past Alcohol Use History: None Reported Past Drug Use History: None Reported - Past Family History Mother Family Medical History: Chest Pain / Angina General Exam Limitations: no limitations General appearance: alert, in no apparent distress Left Hip exam: Present: normal inspection, full ROM. Absent: tenderness, swelling Upper Leg exam: Present: normal inspection, full ROM. Absent: tenderness, swelling Knee exam: Present: tenderness, abrasion. Absent: full ROM, swelling, laceration, ecchymosis, deformity, dislocation, erythema, effusion Lower Leg exam: Present: normal inspection. Absent: tenderness Neurological exam: Present: alert. Absent: motor sensory deficit Course Vital Signs 05/15/22 05/16/22 23:32 00:56 Temperature 98.0 F Pulse Rate 100 91 Respiratory 18 16 Rate Blood Pressure 112/77 116/71 O2 Sat by Pulse 98 98 Oximetry Disposition Clinical Impression: Contusion Disposition: HOME SELF-CARE Condition: Good Instructions (If sedation given, give patient instructions): Knee Pain (ED) Is patient prescribed a controlled substance at d/c from ED?: No Referrals: Gerson Quiroga MD [Primary Care Provider] - 1-2 days Gilberto Carmona MD [Medical Doctor] - 1-2 days
[2022-05-16 00:57] VITALS: BP 116/71; PULSE 91; RESP 16
== END 2022-05-16 00:56 | disposition home or self-care (01) ==
LOC: EC 23:31
DX: S80.02XA Contusion of left knee, initial encounter (principal); Z88.8 Allergy status to other drugs, medicaments and biological substances; Z88.7 Allergy status to serum and vaccine; W19.XXXA Unspecified fall, initial encounter
CPT/HCPCS: 99283; 96372; J1170

== ENCOUNTER → 2022-05-15 | Outpatient (CLI) | payer OTHER ==
--- NOTE | 2022-05-15 10:34 | MR ---
EXAMINATION TYPE: MR knee LT wo con DATE OF EXAM: 05/15/2022 COMPARISON: Left knee x-ray 9 days ago HISTORY: Outer Pain left knee with locking and swelling since fall down stairs injury April 19, 2022 TECHNIQUE: Multiplanar, multisequence imaging of the left knee is performed without IV contrast. FINDINGS: MEDIAL MENISCUS: Anterior and posterior horns are intact without tear. LATERAL MENISCUS: Anterior and posterior horns are intact without tear. CRUCIATE LIGAMENTS: The anterior and posterior cruciate ligaments are intact and unremarkable. COLLATERAL LIGAMENTS: The medial collateral ligament and lateral collateral ligament complex are inta ct and unremarkable. EXTENSOR MECHANISM: Visualized quadriceps and patellar tendons are intact. EFFUSION: No significant suprapatellar joint effusion. POPLITEAL CYST: Tiny popliteal/oliva cyst axial image 18. TRICOMPARTMENT SPACES: Tricompartment joint spaces are maintained. No significant spurring is seen. CARTILAGE: Tricompartment articular cartilage is preserved. BONE MARROW SIGNAL: Focus of increased T2 signal involving the anterolateral aspect of the tibial kristie teau measures approximately 2.6 x 2.3 x 1.8 cm axial image 10 and coronal image 12. No definitive vinny ear low T1 signal. There is some adjacent focal subcutaneous edema along with edema anterior to this along the lateral aspect of the patellar tendon which remains intact. OTHER: No additional significant abnormality is appreciated. IMPRESSION: 1. Osseous contusion injury measuring up to 2.6 cm involving the anterolateral aspect of the tibial p lateau abutting the articular surface with adjacent subcutaneous edema along with edema into inferior lateral aspect of Hoffa's fat pad. No meniscal or ligamentous tear is clearly seen.
== END | disposition home or self-care (01) ==
LOC: RADMRIMAIN 07:23
PROVIDERS: ATTEND Orthopaedic Surgery
DX: S80.02XA Contusion of left knee, initial encounter (principal); W10.8XXA Fall (on) (from) other stairs and steps, initial encounter

== ENCOUNTER 2022-07-08 06:31 | Emergency (ER) | payer OTHER ==
[2022-07-08 06:48] VITALS: RESP 18; TEMP 98.1
[2022-07-08] MEDS ORDERED: SODIUM CHLORIDE 0.9% 500 ML 500 ML IV ONE (07:14)
[2022-07-08] MEDS ORDERED: KETOROLAC 15 MG/ML 1 ML VIAL IVP STA (07:14)
--- NOTE | 2022-07-08 08:19 | ED ---
Headache HPI - General Chief Complaint: Headache Stated Complaint: migrane, vomiting Time Seen by Provider: 07/08/22 06:50 Source: patient, RN notes reviewed Mode of arrival: ambulatory Limitations: no limitations - History of Present Illness Initial Comments: This a 36-year-old female presents emergency Department chief complaint migraine headache. Patient states she normally has migraine headaches but states that she has not had her in a while she states her psychiatrist has been tapering her down from 100 mg of Topamax to 50 mg. Patient states started having more frequent migraine states that she is unable to keep her Imitrex down and which she states she started vomiting. Patient states is a very typical headache for her states it's in the left side of her head. Denies any visual disturbances no focal weakness no fevers or chills no neck pain. - Related Data Home Medications Medication Instructions Recorded Confirmed Fludrocortisone [Florinef] 0.1 mg PO DAILY 04/07/21 04/01/22 Topiramate [Topamax] 100 mg PO BID@0900,2300 11/19/21 04/01/22 Previous Rx's Medication Instructions Recorded Levothyroxine Sodium [Synthroid] 50 mcg PO DAILY@0600 30 Days tab 04/04/22 Rosuvastatin [Crestor] 10 mg PO DAILY 30 Days tab 04/04/22 Sulfamethox-Tmp 800-160Mg [Bactrim 1 each PO Q12HR 3 Days tab 04/04/22 DS 800-160 mg] Venlafaxine HCl ER [Effexor XR] 225 mg PO DAILY 30 Days cap 04/04/22 lamoTRIgine [LaMICtal] 100 mg PO DAILY 30 Days tab 04/04/22 traZODone HCL [Desyrel] 50 mg PO HS 30 Days tab 04/04/22 Cyclobenzaprine [Flexeril] 10 mg PO TID PRN #20 tab 04/11/22 methylPREDNISolone Dose Pack 4 mg PO DIRECTED #21 tab 04/11/22 [Medrol Dose Pack] HYDROcodone/APAP 5-325MG [[place] 1 tab PO Q6HR PRN 3 Days #12 tab 05/04/22 5-325] Allergies Allergy/AdvReac Type Severity Reaction Status Date / Time cephalexin [From Keflex] Allergy Hives & Verified 07/08/22 06:48 Vomiting Tetanus Vaccines and Toxoid Allergy Anaphylaxis Verified 07/08/22 06:48 Review of Systems ROS Statement: Those systems with pertinent positive or pertinent negative responses have been documented in the HPI. ROS Other: All systems not noted in ROS Statement are negative. Past Medical History Past Medical History: Chest Pain / Angina, Thyroid Disorder Additional Past Medical History / Comment(s): migraines, POTS, History of Any Multi-Drug Resistant Organisms: None Reported Past Surgical History: Cholecystectomy, Orthopedic Surgery Additional Past Surgical History / Comment(s): right shoulder. fallopian removal, right elbow. Past Anesthesia/Blood Transfusion Reactions: No Reported Reaction Past Psychological History: Anxiety, Bipolar, Depression, PTSD Smoking Status: Never smoker Past Alcohol Use History: None Reported Past Drug Use History: None Reported - Past Family History Mother Family Medical History: Chest Pain / Angina General Exam Limitations: no limitations General appearance: alert, in no apparent distress Head exam: Present: atraumatic, normocephalic, normal inspection Eye exam: Present: normal appearance, PERRL, EOMI. Absent: scleral icterus, conjunctival injection, periorbital swelling ENT exam: Present: normal exam, normal oropharynx, mucous membranes moist Neck exam: Present: normal inspection, full ROM. Absent: tenderness, men ingismus, lymphadenopathy Respiratory exam: Present: normal lung sounds bilaterally. Absent: respiratory distress, wheezes, rales, rhonchi, stridor Cardiovascular Exam: Present: regular rate, normal rhythm, normal heart sounds. Absent: systolic murmur, diastolic murmur, rubs, gallop, clicks GI/Abdominal exam: Present: soft, normal bowel sounds. Absent: distended, tenderness, guarding, rebound, rigid Neurological exam: Present: alert, oriented X3, CN II-XII intact, reflexes normal. Absent: motor sensory deficit Course Vital Signs 07/08/22 07/08/22 06:46 08:40 Temperature 98.1 F Pulse Rate 73 71 Respiratory 18 18 Rate Blood Pressure 118/78 143/67 O2 Sat by Pulse 98 98 Oximetry Disposition Clinical Impression: Migraine Disposition: HOME SELF-CARE Condition: Stable Instructions (If sedation given, give patient instructions): Acute Headache (ED) Additional Instructions: Please return to the Emergency Department if symptoms worsen or any other concerns. Is patient prescribed a controlled substance at d/c from ED?: No Referrals: Gerson Quiroga MD [Primary Care Provider] - 1-2 days Time of Disposition: 09:43
[2022-07-08 10:14] VITALS: BP 116/75; PULSE 77
== END 2022-07-08 10:14 | disposition home or self-care (01) ==
LOC: EC 06:31
DX: G43.909 Migraine, unspecified, not intractable, without status migrainosus (principal); Z88.8 Allergy status to other drugs, medicaments and biological substances; Z88.7 Allergy status to serum and vaccine
CPT/HCPCS: 99284; 96374; 96375; 96361; J1885; J1790

== ENCOUNTER 2022-07-18 21:16 | Emergency (ER) | payer OTHER ==
[2022-07-18 22:32] LABS: Basophils # (A) 0.1 k/uL (0-0.2); Basophils % (A) 1 %; Eosinophils % (A) 0 %; HCT 38.1 % (34.0-46.0); HGB 13.4 gm/dL (11.4-16.0); Lymphocytes # (A) 3.1 k/uL (1.0-4.8); Lymphocytes % (A) 31 %; MCH 31.3 pg (25.0-35.0); MCHC 35.2 g/dL (31.0-37.0); MCV 88.9 fL (80.0-100.0); Mean Platelet Volume 8.3; Monocytes # (A) 0.4 k/uL (0-1.0); Monocytes % (A) 4 %; Neutrophils # (A) 6.4 k/uL (1.3-7.7); Neutrophils % (A) 63 %; Platelet Count 267 k/uL (150-450); RBC 4.29 m/uL (3.80-5.40); RDW 13.2 % (11.5-15.5); WBC 10.1 k/uL (3.8-10.6)
[2022-07-18 22:46] LABS: ALT 25 U/L (4-34); AST 31 U/L (14-36); African American GFR (CKD) >90 (>60 ml/min/1.73 sqM); Albumin 4.7 g/dL (3.5-5.0); Alkaline Phosphatase 86 U/L (38-126); Anion Gap 14 mmol/L; Blood Urea Nitrogen 13 mg/dL (7-17); Carbon Dioxide 23 mmol/L (22-30); Chloride 102 mmol/L (98-107); Glucose 107 mg/dL (74-99); Magnesium 1.9 mg/dL (1.6-2.3); Non-African American GFR(CKD) >90 (>60 ml/min/1.73 sqM); Sodium 139 mmol/L (137-145); Total Bilirubin 0.7 mg/dL (0.2-1.3); Total Protein 7.9 g/dL (6.3-8.2)
[2022-07-18 22:51] LABS: INR 0.9 (<1.2); Partial Thromboplastin Time 24.9 sec (22.0-30.0); Prothrombin Time 10.4 sec (9.0-12.0)
--- NOTE | 2022-07-18 23:33 | XR ---
EXAMINATION TYPE: XR chest 2V DATE OF EXAM: 07/18/2022 COMPARISON: 03/07/2022 HISTORY: Chest pain TECHNIQUE: 2 views FINDINGS: Heart and mediastinum are normal. Lungs are clear. Diaphragm is normal. Bony thorax is inta ct. IMPRESSION: Normal chest. No change.
[2022-07-19 00:36] VITALS: TEMP 97.2
[2022-07-19] MEDS ORDERED: KETOROLAC 15 MG/ML 1 ML VIAL IVP STA (00:51)
[2022-07-19] MEDS ORDERED: ASPIRIN 81 MG PO STA (00:52)
[2022-07-19 01:58] VITALS: RESP 16
[2022-07-19] MEDS ORDERED: MORPHINE SULFATE 4 MG/ML SYRINGE IVP STA (02:13)
[2022-07-19 02:36] VITALS: BP 119/75; PULSE 66
[2022-07-19] MEDS ORDERED: ACET/COD 300 MG/30 MG STARTER PACK 6 TAB BTL PO STA (02:44)
--- NOTE | 2022-07-19 02:50 | ED ---
General Adult HPI - General Chief complaint: Chest Pain Stated complaint: back pain/chest pain Time Seen by Provider: 07/19/22 00:04 Source: patient, EMS, RN notes reviewed, old records reviewed Mode of arrival: EMS Limitations: no limitations - History of Present Illness Initial comments: Patient is a 36-year-old female with past medical history remarkable for angina, thyroid disorder, pots disease who presents emergency Department complaining of atypical left-sided chest pain. States it is in the lateral ribs on the left, underneath her armpit. States it seems to radiate somewhat along the ribs towards her back. No association with movement. States that has been constant since she was at work earlier standing. Denies any diaphoresis. States she initially felt mildly nauseous but that is passed. No emesis. No abdominal pain, nausea, vomiting currently. Denies any shortness of breath. Denies any fevers, chills, cough. Has no other acute complaints at this time. Has had atypical chest pain in the past, and is concerned that it may be related to that. Cannot rule out cardiac etiology at this time. Does have a history of an elevated d-dimer. No history of blood clots. Presents for further evaluation. - Related Data Home Medications Medication Instructions Recorded Confirmed Fludrocortisone [Florinef] 0.1 mg PO DAILY 04/07/21 04/01/22 Topiramate [Topamax] 100 mg PO BID@0900,2300 11/19/21 04/01/22 Previous Rx's Medication Instructions Recorded Levothyroxine Sodium [Synthroid] 50 mcg PO DAILY@0600 30 Days tab 04/04/22 Rosuvastatin [Crestor] 10 mg PO DAILY 30 Days tab 04/04/22 Sulfamethox-Tmp 800-160Mg [Bactrim 1 each PO Q12HR 3 Days tab 04/04/22 DS 800-160 mg] Venlafaxine HCl ER [Effexor XR] 225 mg PO DAILY 30 Days cap 04/04/22 lamoTRIgine [LaMICtal] 100 mg PO DAILY 30 Days tab 04/04/22 traZODone HCL [Desyrel] 50 mg PO HS 30 Days tab 04/04/22 Cyclobenzaprine [Flexeril] 10 mg PO TID PRN #20 tab 04/11/22 methylPREDNISolone Dose Pack 4 mg PO DIRECTED #21 tab 04/11/22 [Medrol Dose Pack] HYDROcodone/APAP 5-325MG [[place] 1 tab PO Q6HR PRN 3 Days #12 tab 05/04/22 5-325] Allergies Allergy/AdvReac Type Severity Reaction Status Date / Time cephalexin [From Keflex] Allergy Hives & Verified 07/18/22 21:48 Vomiting Tetanus Vaccines and Toxoid Allergy Anaphylaxis Verified 07/18/22 21:48 Review of Systems ROS Statement: Those systems with pertinent positive or pertinent negative responses have been documented in the HPI. Review of Systems: CONST: Denies fever EYES: Denies blurry vision ENT: Denies nasal congestion C/V: Endorses chest pain/rib pain RESP: Denies shortness of breath GI: Denies abdominal pain : Denies dysuria SKIN: Denies rash. MSK: Denies joint pain. NEURO: Denies headache ROS Other: All systems not noted in ROS Statement are negative. Past Medical History Past Medical History: Chest Pain / Angina, Thyroid Disorder Additional Past Medical History / Comment(s): migraines, POTS, History of Any Multi-Drug Resistant Organisms: None Reported Past Surgical History: Cholecystectomy, Orthopedic Surgery Additional Past Surgical History / Comment(s): right shoulder. fallopian removal, right elbow. Past Anesthesia/Blood Transfusion Reactions: No Reported Reaction Past Psychological History: Anxiety, Bipolar, Depression, PTSD Smoking Status: Never smoker Past Alcohol Use History: None Reported Past Drug Use History: None Reported - Past Family History Mother Family Medical History: Chest Pain / Angina General Exam - General Exam Comments Initial Comments: General: Appears in no acute distress. HEAD: Normal with no signs of head trauma. EYES: PERRLA, EOMI, conjunctiva normal, no discharge. ENT: Hearing grossly intact, normal oropharynx. RESPIRATORY: Clear breath sounds bilaterally. No wheezes, rales, or rhonchi. C/V: Regular rate and rhythm. S1 and S2 auscultated, no edema, peripheral pulses 2+ and intact throughout ABD: Abd is soft, nontender, nondistended EXT: Normal range of motion, no obvious deformity. Chest pain is nonpalpable. Patient does have left rib tenderness to palpation in the midaxillary line left ribs. No obvious deformity. SKIN: No rashes or lesions observed on exposed skin. NEURO: Alert and oriented 4. Limitations: no limitations Course Vital Signs 10/21/22 10/22/22 10/22/22 21:46 00:33 01:54 Temperature 98.4 F 97.2 F L Pulse Rate 84 78 71 Pulse Rate [ 78 [employer] ] Respiratory 18 18 16 Rate Blood Pressure 115/63 120/66 104/53 O2 Sat by Pulse 99 98 97 Oximetry 07/19/22 02:34 Temperature Pulse Rate 66 Pulse Rate [ [employer]per ] Respiratory 16 Rate Blood Pressure 119/75 O2 Sat by Pulse 97 Oximetry Medical Decision Making - Medical Decision Making Based on the patient's presentation and physical exam, I'm concerned for cardiopulmonary etiology for her current symptoms. Workup was started while the patient was in triage. Vital signs are within acceptable limits. EKG shows no signs of acute ischemia. Laboratory studies are remarkable for an initial undetectable troponin. Remainder the labs are unremarkable. Chest x-ray shows no acute cardiopulmonary process. We discussed results, and I would like to obtain a d-dimer in addition to second troponin 3 hours after the initial. She was in agreement this plan. She is atypical chest pain at this time. She'll be given an aspirin as well as IV Toradol. Patient's d-dimer is within normal limits. Second troponin is undetectable. Patient is still having pain. I did offer her morphine which she accepted. Reevaluation pain has resolved. She would like to go home. I believe this is reasonable. Heart score is low. Strict return precautions were discussed. She was given a Tylenol 3 starter pack for home. We discussed her negative workup and she expressed understanding. Will follow up with her PCP. I instructed the patient to follow up with their PCP in the next 1-3 days. I explained that the patient should return to the emergency department if they experience any worsening symptoms. Strict return precautions were discussed with the patient. The patient expressed understanding of these instructions. I answered all questions that the patient had. The patient was discharged home in good condition with their prescriptions and follow up information. - Lab Data Result diagrams: 07/18/22 22:05 07/18/22 22:05 Lab Results 07/18/22 07/18/22 07/18/22 Range/Units 22:05 22:05 22:05 WBC 10.1 (3.8-10.6) k/uL RBC 4.29 (3.80-5.40) m/uL Hgb 13.4 (11.4-16.0) gm/dL Hct 38.1 (34.0-46.0) % MCV 88.9 (80.0-100.0) fL MCH 31.3 (25.0-35.0) pg MCHC 35.2 (31.0-37.0) g/dL RDW 13.2 (11.5-15.5) % Plt Count 267 (150-450) k/uL MPV 8.3 Neutrophils % 63 % Lymphocytes % 31 % Monocytes % 4 % Eosinophils % 0 % Basophils % 1 % Neutrophils # 6.4 (1.3-7.7) k/uL Lymphocytes # 3.1 (1.0-4.8) k/uL Monocytes # 0.4 (0-1.0) k/uL Eosinophils # 0.0 (0-0.7) k/uL Basophils # 0.1 (0-0.2) k/uL PT 10.4 (9.0-12.0) sec INR 0.9 (<1.2) APTT 24.9 (22.0-30.0) sec D-Dimer (<0.60) mg/L FEU Sodium 139 (137-145) mmol/L Potassium 4.0 (3.5-5.1) mmol/L Chloride 102 (98-107) mmol/L Carbon Dioxide 23 (22-30) mmol/L Anion Gap 14 mmol/L BUN 13 (7-17) mg/dL Creatinine 0.77 (0.52-1.04) mg/dL Est GFR (CKD-EPI)AfAm >90 (>60 ml/min/1.73 sqM) Est GFR (CKD-EPI)NonAf >90 (>60 ml/min/1.73 sqM) Glucose 107 H (74-99) mg/dL Calcium 9.0 (8.4-10.2) mg/dL Magnesium 1.9 (1.6-2.3) mg/dL Total Bilirubin 0.7 (0.2-1.3) mg/dL AST 31 (14-36) U/L ALT 25 (4-34) U/L Alkaline Phosphatase 86 (38-126) U/L Troponin I (0.000-0.034) ng/mL Total Protein 7.9 (6.3-8.2) g/dL Albumin 4.7 (3.5-5.0) g/dL 07/18/22 07/19/22 07/19/22 Range/Units 22:05 01:05 01:05 WBC (3.8-10.6) k/uL RBC (3.80-5.40) m/uL Hgb (11.4-16.0) gm/dL Hct (34.0-46.0) % MCV (80.0-100.0) fL MCH (25.0-35.0) pg MCHC (31.0-37.0) g/dL RDW (11.5-15.5) % Plt Count (150-450) k/uL MPV Neutrophils % % Lymphocytes % % Monocytes % % Eosinophils % % Basophils % % Neutrophils # (1.3-7.7) k/uL Lymphocytes # (1.0-4.8) k/uL Monocytes # (0-1.0) k/uL Eosinophils # (0-0.7) k/uL Basophils # (0-0.2) k/uL PT (9.0-12.0) sec INR (<1.2) APTT (22.0-30.0) sec D-Dimer 0.52 (<0.60) mg/L FEU Sodium (137-145) mmol/L Potassium (3.5-5.1) mmol/L Chloride (98-107) mmol/L Carbon Dioxide (22-30) mmol/L Anion Gap mmol/L BUN (7-17) mg/dL Creatinine (0.52-1.04) mg/dL Est GFR (CKD-EPI)AfAm (>60 ml/min/1.73 sqM) Est GFR (CKD-EPI)NonAf (>60 ml/min/1.73 sqM) Glucose (74-99) mg/dL Calcium (8.4-10.2) mg/dL Magnesium (1.6-2.3) mg/dL Total Bilirubin (0.2-1.3) mg/dL AST (14-36) U/L ALT (4-34) U/L Alkaline Phosphatase (38-126) U/L Troponin I <0.012 <0.012 (0.000-0.034) ng/mL Total Protein (6.3-8.2) g/dL Albumin (3.5-5.0) g/dL - EKG Data -: EKG Interpreted by Me EKG Comments: 12-lead Electrocardiogram Interpretation Note EKG was reviewed and interpreted by myself. 12-lead ECG performed at 2153 is interpreted by me as revealing normal sinus rhythm at a rate of 75 beats per minute. [place] is normal. DE interval is 134 ms, QRS duration is 96 ms, QTc is 417 ms.. There were no acute ST or T wave abnormalities to suggest myocardial ischemia or injury. R wave progression across the precordium was satisfactory. By my interpretation this EKG is non-diagnostic for acute ischemia. There are chronic T wave inversions in lead III that are isolated and seen prior EKGs from January 2022. No changes. Disposition Clinical Impression: Atypical chest pain Disposition: HOME SELF-CARE Condition: Good Instructions (If sedation given, give patient instructions): Chest Pain (ED) Is patient prescribed a controlled substance at d/c from ED?: No Referrals: None,Stated [Primary Care Provider] - 1-2 days Time of Disposition: 02:35
== END 2022-07-19 02:56 | disposition home or self-care (01) ==
LOC: EC 21:16
DX: Z88.0 Allergy status to penicillin (principal); Z88.1 Allergy status to other antibiotic agents; Z88.7 Allergy status to serum and vaccine
CPT/HCPCS: 36415 ×2; 93005; 85379; 80053; 83735; 84484 ×2; 85025; 85610; 85730; 71046; 99285; 96374; 96375; J2270; J1885

== ENCOUNTER 2022-08-09 12:49 | Emergency (ER) | payer OTHER ==
[2022-08-09] MEDS ORDERED: KETOROLAC 15 MG/ML 1 ML VIAL IM STA (14:04)
--- NOTE | 2022-08-09 14:36 | ED ---
Fall HPI - General Chief Complaint: Fall Stated Complaint: [facility] - slip/fall Time Seen by Provider: 08/09/22 14:01 Source: patient, RN notes reviewed Mode of arrival: ambulatory - History of Present Illness Initial Comments: This is a 36-year-old female who presents to the emergency department for a fall. She slipped on water at work earlier today, and landed on her back. Currently complaining of pain to the lower back and right hip. States that the pain starts to turn into tightness if she does not move around. Denies any loss of bowel or bladder control or saddle anesthesia. She did not hit her head or have any loss of consciousness. Denies any fevers, chills, sore throat, cough, dyspnea, chest pain, palpitations, abdominal pain, nausea, vomiting, diarrhea, or headaches. MD Complaint: fall Fall From: standing Place Fall Occurred: work Loss of Consciousness: none Prolonged Down Time?: no Symptoms Prior to Fall: none Location: back Context: tripped/slipped - Related Data Home Medications Medication Instructions Recorded Confirmed RX: Fludrocortisone [Florinef] 0.1 mg PO DAILY 04/07/21 04/01/22 RX: Topiramate [Topamax] 100 mg PO BID@0900,2300 11/19/21 04/01/22 Previous Rx's Medication Instructions Recorded RX: Levothyroxine Sodium 50 mcg PO DAILY@0600 30 Days tab 04/04/22 [Synthroid] RX: Rosuvastatin [Crestor] 10 mg PO DAILY 30 Days tab 04/04/22 RX: Sulfamethox-Tmp 800-160Mg 1 each PO Q12HR 3 Days tab 04/04/22 [Bactrim DS 800-160 mg] RX: Venlafaxine HCl ER [Effexor XR] 225 mg PO DAILY 30 Days cap 04/04/22 RX: lamoTRIgine [LaMICtal] 100 mg PO DAILY 30 Days tab 04/04/22 RX: traZODone HCL [Desyrel] 50 mg PO HS 30 Days tab 04/04/22 Cyclobenzaprine [Flexeril] 10 mg PO TID PRN #20 tab 04/11/22 methylPREDNISolone Dose Pack 4 mg PO DIRECTED #21 tab 04/11/22 [Medrol Dose Pack] HYDROcodone/APAP 5-325MG [[place] 1 tab PO Q6HR PRN 3 Days #12 tab 05/04/22 5-325] RX: Baclofen 5 mg PO Q8H PRN #20 tablet 08/09/22 RX: Ibuprofen 800 mg PO Q8H PRN #20 tab 08/09/22 Allergies Allergy/AdvReac Type Severity Reaction Status Date / Time cephalexin [From Keflex] Allergy Hives & Verified 08/09/22 13:06 Vomiting Tetanus Vaccines and Toxoid Allergy Anaphylaxis Verified 08/09/22 13:06 Review of Systems ROS Statement: Those systems with pertinent positive or pertinent negative responses have been documented in the HPI. ROS Other: All systems not noted in ROS Statement are negative. Past Medical History Past Medical History: Chest Pain / Angina, Thyroid Disorder Additional Past Medical History / Comment(s): migraines, POTS, History of Any Multi-Drug Resistant Organisms: None Reported Past Surgical History: Cholecystectomy, Orthopedic Surgery Additional Past Surgical History / Comment(s): right shoulder. fallopian removal, right elbow. Past Anesthesia/Blood Transfusion Reactions: No Reported Reaction Past Psychological History: Anxiety, Bipolar, Depression, PTSD Smoking Status: Never smoker Past Alcohol Use History: None Reported Past Drug Use History: None Reported - Past Family History Mother Family Medical History: Chest Pain / Angina General Exam Limitations: no limitations General appearance: alert, in no apparent distress Head exam: Present: atraumatic, normocephalic, normal inspection Respiratory exam: Present: normal lung sounds bilaterally. Absent: respiratory distress, wheezes, rales, rhonchi, stridor Cardiovascular Exam: Present: regular rate, normal rhythm, normal heart sounds. Absent: systolic murmur, diastolic murmur, rubs, gallop, clicks Extremities exam: Present: other (Minor tenderness over the right greater trochanter. ) Back exam: Present: tenderness (Tenderness to the superior aspect of the lumbar spine.) Neurological exam: Present: alert, oriented X3, CN II-XII intact Psychiatric exam: Present: normal affect, normal mood Skin exam: Present: warm, dry, intact, normal color. Absent: rash Course Vital Signs 08/09/22 08/09/22 13:04 15:13 Temperature 98.6 F 98.7 F Pulse Rate 86 85 Respiratory 20 18 Rate Blood Pressure 123/81 122/74 O2 Sat by Pulse 99 98 Oximetry Medical Decision Making - Medical Decision Making This is a 36-year-old female who presents to the emergency department for a fall injury. XR of the lumbar spine and right hip obtained and interpreted by myself. Imaging does not reveal any fractures or dislocations on either of the films. She was given a dose of Toradol, which she states was equally as effective as the ibuprofen she took earlier. Rx for ibuprofen 800 mg and baclofen provided. Advised that the baclofen can be sedating and she should take the first dose at night until she knows how it affects her. Also advised applying ice to the affected areas and purchasing over the counter lidocaine patches for additional relief. Return precautions reviewed in depth, the patient is instructed to return to the emergency department with any new, worsening, or concerning symptoms. Patient verbalized understanding. This case was discussed in detail with the attending ED physician. Presentation, findings, and treatment plan discussed in detail as well. - Radiology Data Radiology results: report reviewed, image reviewed Disposition Clinical Impression: Lower back pain Disposition: HOME SELF-CARE Instructions (If sedation given, give patient instructions): Low Back Strain (ED), Back Pain (ED) Additional Instructions: Return to the emergency department with any new, worsening, or concerning symptoms. Alternate with ibuprofen and Tylenol for pain relief. Apply ice for 10-15 minutes every 2-3 hours. Take your first dose of Baclofen at night until you know how it affects you, as it may be sedating. You can increase the dose of the Baclofen to 2 tablets at a time if needed. Follow up with your primary care provider in 1-2 days. Prescriptions: RX: Baclofen 5 mg PO Q8H PRN #20 tablet PRN Reason: Pain RX: Ibuprofen 800 mg PO Q8H PRN #20 tab PRN Reason: Pain Is patient prescribed a controlled substance at d/c from ED?: No Referrals: Gerson Quiroga MD [Primary Care Provider] - 1-2 days
--- NOTE | 2022-08-09 14:37 | XR ---
EXAMINATION TYPE: XR Hip Complete RT DATE OF EXAM: 08/09/2022 COMPARISON: NONE HISTORY: Pain TECHNIQUE: 2 views FINDINGS: There is no evidence of fracture nor dislocation. Hip joint space is normal. Sacroiliac dangelo nt is intact. IMPRESSION: Negative right hip exam. No fracture seen.
--- NOTE | 2022-08-09 14:38 | XR ---
EXAMINATION TYPE: XR lumbar spine 2 or 3V DATE OF EXAM: 08/09/2022 COMPARISON: NONE HISTORY: 11/06/2021 TECHNIQUE: 3 views FINDINGS: Lumbar vertebra have normal spacing and alignment. Posterior elements are intact. No compre ssion fracture. Sacroiliac joints are intact. IMPRESSION: Normal lumbar spine. No change.
[2022-08-09 15:15] VITALS: BP 122/74; PULSE 85; RESP 18; TEMP 98.7
== END 2022-08-09 15:13 | disposition home or self-care (01) ==
LOC: EC 12:49
DX: M54.50 Low back pain, unspecified (principal); F41.9 Anxiety disorder, unspecified; F31.9 Bipolar disorder, unspecified; E03.9 Hypothyroidism, unspecified; Z79.890 Hormone replacement therapy; Z79.899 Other long term (current) drug therapy; Z88.7 Allergy status to serum and vaccine
CPT/HCPCS: 72100; 73502; 99284; 96372; J1885

== ENCOUNTER → 2022-08-12 | Outpatient (CLI) | payer OTHER ==
--- NOTE | 2022-08-12 17:03 | XR ---
EXAMINATION TYPE: XR pelvis AP view DATE OF EXAM: 08/12/2022 4:58 PM INDICATION: Patient age:Female; 36 years old; Reason for study: S30.0XXA Contusion low back/pelvis; COMPARISON: Hip radiograph 08/09/2022 TECHNIQUE: The pelvis was examined in a single projection. FINDINGS: Tailbone and other osseous structures appear intact. There is no evidence of fracture or di slocation. There is no soft tissue abnormality. No abnormal calcifications are present. IMPRESSION: No acute osseous pathology. Consider CT evaluation for better visualization of the osseous structures .
--- NOTE | 2022-08-12 17:08 | XR ---
EXAMINATION TYPE: XR sacrum coccyx DATE OF EXAM: 08/12/2022 4:58 PM INDICATION: Patient age:Female; 36 years old; Reason for study: S30.0XXA Contusion low back/pelvis; COMPARISON: None TECHNIQUE: The sacrum and coccyx was examined in frontal and lateral projections. FINDINGS: There is angulated anterior aspect of sacrum vertebrae 4 and 5. No evidence of fracture. IMPRESSION: Anteriorly angulated sacrum vertebrae 4 and 5 which could represent acute fracture given history of t rauma.
== END | disposition home or self-care (01) ==
LOC: RADXRMAIN 16:26
PROVIDERS: ATTEND Emergency Medicine
DX: S30.0XXA Contusion of lower back and pelvis, initial encounter (principal)
CPT/HCPCS: 72170; 72220

== ENCOUNTER → 2022-08-13 | Outpatient (CLI) | payer OTHER ==
--- NOTE | 2022-08-13 13:26 | CT ---
EXAMINATION TYPE: CT sacrum wo con, CT coccyx wo con DATE OF EXAM: 08/13/2022 COMPARISON: CT abdomen pelvis 09/14/2021. Sacrum coccyx x-ray from yesterday HISTORY: Hx slip and fall. Oxxa contusion of lower back and pelvis. (accession [id number]), Hx slip and fall. Oxxa contusion of lower back and pelvis (accession [id number]) CT DLP: 1040.4 (accession [id number]), 1109.6 (accession [id number]) mGycm Automated exposure control for dose reduction was used. FINDINGS: There is no acute fracture or dislocation in the sacrum or coccyx. Slight step off this delay or poss ible old healed fracture of the distal sacrum sagittal image 35 through 38 for reference correlates w ith most recent x-ray but is unchanged from CT abdomen and pelvis September 14, 2021. No suspicious li near lucency to suggest acute fracture. Anterior positioning of the coccygeal bodies is unchanged fro m the study. Adjacent soft tissue is unremarkable without suspicious fat stranding or focal fluid collection. Anteverted uterus is seen. Mildly distended bladder incidentally noted. IMPRESSION: No acute displaced sacral or coccygeal fracture. Suspected old injury unchanged from CT D [id number] is noted accounting for x-ray abnormality.
== END | disposition home or self-care (01) ==
LOC: RADCTMAIN 11:48
PROVIDERS: ATTEND Emergency Medicine
DX: S30.0XXA Contusion of lower back and pelvis, initial encounter (principal)
CPT/HCPCS: 72192

== ENCOUNTER 2022-09-08 09:02 | Emergency (ER) | payer OTHER ==
[2022-09-08 09:12] VITALS: RESP 16
--- NOTE | 2022-09-08 10:21 | XR ---
EXAMINATION TYPE: XR chest 2V DATE OF EXAM: 09/08/2022 COMPARISON: 07/18/2022 HISTORY: Chest pain TECHNIQUE: Frontal and lateral views of the chest are obtained. FINDINGS: There is no focal air space opacity. No evidence for pneumothorax. No pleural effusion. The cardiac silhouette size is within normal limits. The osseous structures are grossly intact. IMPRESSION: 1. No acute cardiopulmonary process.
--- NOTE | 2022-09-08 11:33 | ED ---
General Adult HPI - General Chief complaint: Chest Pain Stated complaint: chest discomfort Time Seen by Provider: 09/08/22 11:21 Source: patient, RN notes reviewed Mode of arrival: ambulatory Limitations: no limitations - History of Present Illness Initial comments: 37-year-old female with past medical history of POTS and anxiety coming in the emergency department for chest pain. She describes the pain as a tightness that is constant that starts in her chest and radiates up to her left arm. She notes his symptoms started when she was at rest and are not provoked by activity. She' reports she's never had this sensation in her chest before and has not taken anything for his symptoms. She denies fever palpitations shortness of breath, nausea, vomiting. - Related Data Home Medications Medication Instructions Recorded Confirmed Topiramate [Topamax] 100 mg PO HS 11/19/21 09/08/22 Levothyroxine Sodium [Synthroid] 50 mcg PO DAILY 09/08/22 09/08/22 Ondansetron Odt [Zofran Odt] 4 mg PO BID PRN 09/08/22 09/08/22 SUMAtriptan succinate [Imitrex] 100 mg PO BID PRN 09/08/22 09/08/22 Venlafaxine HCl ER [Effexor XR] 75 mg PO DAILY 09/08/22 09/08/22 Venlafaxine HCl [Effexor XR] 150 mg PO DAILY 09/08/22 09/08/22 Previous Rx's Medication Instructions Recorded Rosuvastatin [Crestor] 10 mg PO DAILY 30 Days tab 04/04/22 lamoTRIgine [LaMICtal] 100 mg PO DAILY 30 Days tab 04/04/22 Cyclobenzaprine [Flexeril] 10 mg PO TID PRN #20 tab 04/11/22 Allergies Allergy/AdvReac Type Severity Reaction Status Date / Time cephalexin [From Keflex] Allergy Hives & Verified 09/08/22 09:12 Vomiting Tetanus Vaccines and Toxoid Allergy Anaphylaxis Verified 09/08/22 09:12 Review of Systems ROS Statement: Those systems with pertinent positive or pertinent negative responses have been documented in the HPI. ROS Other: All systems not noted in ROS Statement are negative. Past Medical History Past Medical History: Chest Pain / Angina, Thyroid Disorder Additional Past Medical History / Comment(s): migraines, POTS, History of Any Multi-Drug Resistant Organisms: None Reported Past Surgical History: Cholecystectomy, Orthopedic Surgery Additional Past Surgical History / Comment(s): right shoulder. fallopian removal, right elbow. Past Anesthesia/Blood Transfusion Reactions: No Reported Reaction Past Psychological History: Anxiety, Bipolar, Depression, PTSD Smoking Status: Never smoker Past Alcohol Use History: None Reported Past Drug Use History: None Reported - Past Family History Mother Family Medical History: Chest Pain / Angina General Exam Limitations: no limitations General appearance: alert, in no apparent distress Head exam: Present: atraumatic, normocephalic, normal inspection Eye exam: Present: normal appearance, PERRL, EOMI. Absent: scleral icterus, conjunctival injection, periorbital swelling ENT exam: Present: normal exam, mucous membranes moist Neck exam: Present: normal inspection. Absent: tenderness, meningismus, lymphadenopathy Respiratory exam: Present: normal lung sounds bilaterally. Absent: respiratory distress, wheezes, rales, rhonchi, stridor Cardiovascular Exam: Present: regular rate, normal rhythm, normal heart sounds. Absent: systolic murmur, diastolic murmur, rubs, gallop, clicks GI/Abdominal exam: Present: soft, normal bowel sounds. Absent: distended, tenderness, guarding, rebound, rigid Extremities exam: Present: normal inspection, full ROM, normal capillary refill. Absent: tenderness, pedal edema, joint swelling, calf tenderness Back exam: Present: normal inspection Neurological exam: Present: alert, oriented X3, CN II-XII intact Psychiatric exam: Present: normal affect, normal mood Skin exam: Present: warm, dry, intact, normal color. Absent: rash Course Vital Signs 09/08/22 09/08/22 09:09 14:00 Temperature 98.1 F 9736 F H Pulse Rate 65 76 Respiratory 16 16 Rate Blood Pressure 130/79 130/72 O2 Sat by Pulse 97 Oximetry - Reevaluation(s) Reevaluation #1: 09/08/22 13:34 Patient reevaluated. Updated on the results of initial lab work and chest x- ray. Agreeable to second troponin draw. EKG Findings - EKG Comments: EKG Findings:: EKG performed at 09:17. Rate 71 bPM, NSR OK interval 135, QRS 102. RBBB Medical Decision Making - Medical Decision Making 37-year-old female coming in for chest pain. Patient had lab work and imaging performed in the ER. The CBC, CMP unremarkable and serial troponin levels negative. I interpreted The following: EKG, chest x-ray negative for acute pleural process or evidence of consolidation. Discussed in detail the results with the patient, questions addressed. Patient encouraged to return to the ED if worsening symptoms of chest pain, shortness of breath, palpitations. Encouraged patient to follow up with her primary care in 1-2 days and to call her supervisor detasseling crew to inform them of her ER visit. She is agreeable to the plan and is discharged in stable condition. Case discussed with Dr. Richards - Lab Data Result diagrams: 09/08/22 11:51 09/08/22 11:41 Lab Results 09/08/22 09/08/22 09/08/22 Range/Units 11:41 11:41 11:41 WBC (3.8-10.6) k/uL RBC (3.80-5.40) m/uL Hgb (11.4-16.0) gm/dL Hct (34.0-46.0) % MCV (80.0-100.0) fL MCH (25.0-35.0) pg MCHC (31.0-37.0) g/dL RDW (11.5-15.5) % Plt Count (150-450) k/uL MPV Neutrophils % % Lymphocytes % % Monocytes % % Eosinophils % % Basophils % % Neutrophils # (1.3-7.7) k/uL Lymphocytes # (1.0-4.8) k/uL Monocytes # (0-1.0) k/uL Eosinophils # (0-0.7) k/uL Basophils # (0-0.2) k/uL PT 9.7 (9.0-12.0) sec INR 0.9 (<1.2) APTT 23.8 (22.0-30.0) sec Sodium 139 (137-145) mmol/L Potassium 4.4 (3.5-5.1) mmol/L Chloride 106 (98-107) mmol/L Carbon Dioxide 22 (22-30) mmol/L Anion Gap 11 mmol/L BUN 12 (7-17) mg/dL Creatinine 0.60 (0.52-1.04) mg/dL Est GFR (CKD-EPI)AfAm >90 (>60 ml/min/1.73 sqM) Est GFR (CKD-EPI)NonAf >90 (>60 ml/min/1.73 sqM) Glucose 104 H (74-99) mg/dL Calcium 8.8 (8.4-10.2) mg/dL Magnesium 1.9 (1.6-2.3) mg/dL Total Bilirubin 0.4 (0.2-1.3) mg/dL AST 23 (14-36) U/L ALT 23 (4-34) U/L Alkaline Phosphatase 78 (38-126) U/L Troponin I <0.012 (0.000-0.034) ng/mL Total Protein 7.9 (6.3-8.2) g/dL Albumin 4.4 (3.5-5.0) g/dL 09/08/22 09/08/22 Range/Units 11:51 14:59 WBC 8.5 (3.8-10.6) k/uL RBC 4.47 (3.80-5.40) m/uL Hgb 13.5 (11.4-16.0) gm/dL Hct 39.6 (34.0-46.0) % MCV 88.5 (80.0-100.0) fL MCH 30.1 (25.0-35.0) pg MCHC 34.1 (31.0-37.0) g/dL RDW 12.9 (11.5-15.5) % Plt Count 273 (150-450) k/uL MPV 8.3 Neutrophils % 63 % Lymphocytes % 30 % Monocytes % 4 % Eosinophils % 1 % Basophils % 0 % Neutrophils # 5.4 (1.3-7.7) k/uL Lymphocytes # 2.6 (1.0-4.8) k/uL Monocytes # 0.3 (0-1.0) k/uL Eosinophils # 0.0 (0-0.7) k/uL Basophils # 0.0 (0-0.2) k/uL PT (9.0-12.0) sec INR (<1.2) APTT (22.0-30.0) sec Sodium (137-145) mmol/L Potassium (3.5-5.1) mmol/L Chloride (98-107) mmol/L Carbon Dioxide (22-30) mmol/L Anion Gap mmol/L BUN (7-17) mg/dL Creatinine (0.52-1.04) mg/dL Est GFR (CKD-EPI)AfAm (>60 ml/min/1.73 sqM) Est GFR (CKD-EPI)NonAf (>60 ml/min/1.73 sqM) Glucose (74-99) mg/dL Calcium (8.4-10.2) mg/dL Magnesium (1.6-2.3) mg/dL Total Bilirubin (0.2-1.3) mg/dL AST (14-36) U/L ALT (4-34) U/L Alkaline Phosphatase (38-126) U/L Troponin I <0.012 (0.000-0.034) ng/mL Total Protein (6.3-8.2) g/dL Albumin (3.5-5.0) g/dL Disposition Clinical Impression: Chest pain Disposition: HOME SELF-CARE Condition: Stable Instructions (If sedation given, give patient instructions): Chest Pain (ED) Additional Instructions: Please return to the nearest ED if worsening symptoms of chest pain, shortness of breath, palpitations. Is patient prescribed a controlled substance at d/c from ED?: No Referrals: Nonstaff,Physician [Primary Care Provider] - 1-2 days Time of Disposition: 15:44
[2022-09-08 12:06] LABS: Basophils % (A) 0 %; Eosinophils % (A) 1 %; HCT 39.6 % (34.0-46.0); HGB 13.5 gm/dL (11.4-16.0); Lymphocytes # (A) 2.6 k/uL (1.0-4.8); Lymphocytes % (A) 30 %; MCH 30.1 pg (25.0-35.0); MCHC 34.1 g/dL (31.0-37.0); MCV 88.5 fL (80.0-100.0); Mean Platelet Volume 8.3; Monocytes # (A) 0.3 k/uL (0-1.0); Monocytes % (A) 4 %; Neutrophils # (A) 5.4 k/uL (1.3-7.7); Neutrophils % (A) 63 %; Platelet Count 273 k/uL (150-450); RBC 4.47 m/uL (3.80-5.40); RDW 12.9 % (11.5-15.5); WBC 8.5 k/uL (3.8-10.6)
[2022-09-08 12:17] LABS: ALT 23 U/L (4-34); AST 23 U/L (14-36); African American GFR (CKD) >90 (>60 ml/min/1.73 sqM); Albumin 4.4 g/dL (3.5-5.0); Alkaline Phosphatase 78 U/L (38-126); Anion Gap 11 mmol/L; Blood Urea Nitrogen 12 mg/dL (7-17); Calcium 8.8 mg/dL (8.4-10.2); Carbon Dioxide 22 mmol/L (22-30); Chloride 106 mmol/L (98-107); Glucose 104 mg/dL (74-99); Magnesium 1.9 mg/dL (1.6-2.3); Non-African American GFR(CKD) >90 (>60 ml/min/1.73 sqM); Potassium 4.4 mmol/L (3.5-5.1); Sodium 139 mmol/L (137-145); Total Bilirubin 0.4 mg/dL (0.2-1.3); Total Protein 7.9 g/dL (6.3-8.2)
[2022-09-08 12:25] LABS: INR 0.9 (<1.2); Partial Thromboplastin Time 23.8 sec (22.0-30.0); Prothrombin Time 9.7 sec (9.0-12.0)
[2022-09-08 16:15] VITALS: BP 136/72; PULSE 74; TEMP 97.6
== END 2022-09-08 16:19 | disposition home or self-care (01) ==
LOC: EC 09:02
DX: R07.89 Other chest pain (principal); E07.9 Disorder of thyroid, unspecified; F41.9 Anxiety disorder, unspecified; F31.9 Bipolar disorder, unspecified; Z79.890 Hormone replacement therapy; Z88.1 Allergy status to other antibiotic agents; Z88.7 Allergy status to serum and vaccine; Z90.49 Acquired absence of other specified parts of digestive tract
CPT/HCPCS: 36415; 71046; 80053; 83735; 84484; 85025; 85610; 85730; 93005; 99285

== ENCOUNTER 2022-10-24 10:21 | Emergency (ER) | payer OTHER ==
--- NOTE | 2022-10-24 10:59 | ED ---
Chest Pain HPI - General Chief Complaint: Chest Pain Stated Complaint: chest pain Time Seen by Provider: 10/24/22 10:29 Source: patient, RN notes reviewed Mode of arrival: ambulatory Limitations: no limitations - History of Present Illness Initial Comments: This is a 37-year-old female who presents to the emergency department for chest pain. States that this has been present for approximately 24 hours at this point. She was evaluated here on 09/08 for chest pain as well. States that this feels similar but is more constant than last time. Describes this as a tightness and "electric jolt". Denies any associated shortness of breath, nausea, or vomiting. States that her father had his first heart attack when he was 28. She sees a process developer at the [facility] due to her family history, but states that she has not seen them in at least 2 years. She did have a cardiac workup here at the beginning of last year, which she believes was normal. Denies any fevers, chills, sore throat, cough, dyspnea, palpitations, abdominal pain, nausea, vomiting, diarrhea, back pain, or headaches. MD Complaint: chest pain Onset/Timin -: days(s) Pain Location: substernal - Related Data Home Medications Medication Instructions Recorded Confirmed Topiramate [Topamax] 100 mg PO BID 11/19/21 10/24/22 Levothyroxine Sodium [Synthroid] 50 mcg PO DAILY 09/08/22 10/24/22 Ondansetron Odt [Zofran Odt] 4 mg PO BID PRN 09/08/22 10/24/22 SUMAtriptan succinate [Imitrex] 100 mg PO BID PRN 09/08/22 10/24/22 Venlafaxine HCl ER [Effexor XR] 75 mg PO DAILY 09/08/22 10/24/22 Venlafaxine HCl [Effexor XR] 150 mg PO DAILY 09/08/22 10/24/22 Previous Rx's Medication Instructions Recorded Rosuvastatin [Crestor] 10 mg PO DAILY 30 Days tab 04/04/22 lamoTRIgine [LaMICtal] 100 mg PO DAILY 30 Days tab 04/04/22 Allergies Allergy/AdvReac Type Severity Reaction Status Date / Time cephalexin [From Keflex] Allergy Hives & Verified 10/24/22 12:39 Vomiting Tetanus Vaccines and Toxoid Allergy Anaphylaxis Verified 10/24/22 12:39 Review of Systems ROS Statement: Those systems with pertinent positive or pertinent negative responses have been documented in the HPI. ROS Other: All systems not noted in ROS Statement are negative. Past Medical History Past Medical History: Chest Pain / Angina, Thyroid Disorder Additional Past Medical History / Comment(s): migraines, POTS, History of Any Multi-Drug Resistant Organisms: None Reported Past Surgical History: Cholecystectomy, Orthopedic Surgery Additional Past Surgical History / Comment(s): right shoulder. fallopian removal, right elbow. Past Anesthesia/Blood Transfusion Reactions: No Reported Reaction Past Psychological History: Anxiety, Bipolar, Depression, PTSD Smoking Status: Never smoker Past Alcohol Use History: None Reported Past Drug Use History: None Reported - Past Family History Mother Family Medical History: Chest Pain / Angina General Exam Limitations: no limitations General appearance: alert, in no apparent distress Head exam: Present: atraumatic, normocephalic, normal inspection Respiratory exam: Present: normal lung sounds bilaterally. Absent: respiratory distress, wheezes, rales, rhonchi, stridor, chest wall tenderness Cardiovascular Exam: Present: regular rate, normal rhythm, normal heart sounds. Absent: systolic murmur, diastolic murmur, rubs, gallop, clicks GI/Abdominal exam: Present: soft, normal bowel sounds. Absent: distended, tenderness, guarding, rebound, rigid Neurological exam: Present: alert, oriented X3, CN II-XII intact Psychiatric exam: Present: normal affect, normal mood Skin exam: Present: warm, dry, intact, normal color. Absent: rash Course Vital Signs 10/24/22 10/24/22 10/24/22 10:23 11:10 12:59 Temperature 97.5 F L 98.1 F Pulse Rate 90 81 Pulse Rate [ 75 Staff Services Manager ] Respiratory 22 16 Rate Blood Pressure 106/57 123/65 O2 Sat by Pulse 97 96 Oximetry 10/24/22 15:18 Temperature 98.1 F Pulse Rate 82 Pulse Rate [ Staff Services Manager ] Respiratory 18 Rate Blood Pressure 132/71 O2 Sat by Pulse 96 Oximetry Chest Pain MDM - MDM This is a 37-year-old female who presents to the emergency department for chest pain. Was pt. sent in by a medical professional or institution? @ -No Did you speak to anyone other than the patient for history? @ -No Did you review nursing and triage notes? @ -Yes, and I agree, it is accurate with regards to the patient's symptoms. Were old charts reviewed? @ -Yes, lab work and imaging from 09/08/22, revealing no actionable findings and the stress test from 09/30/21 and echocardiogram from 09/27/21. Differential Diagnosis? @ -Differential Chest Pain: Stable Angina, Unstable Angina, STEMI, NSTEMI Aortic Dissection, Pneumothorax, Musculoskeletal, Esophageal Spasm GERD, Cholecystitis, Pancreatitis, Zoster, this is not meant to be an all-inclusive list. EKG interpreted by me (3pts min.)? @ -Sinus rhythm. Ventricular rate 75 beats per minute, AK interval 130 milliseconds, QRS duration 91 ms, QTC 419 ms. X-rays interpreted by me (1pt min.)? @ -Chest x-ray obtained, my interpretation identifies no localized consolidations or infiltrates. What testing was considered but not performed? (CT, X-rays, U/S, labs)? Why? @ -None What meds were considered but not given? Why? @ -None Did you discuss the management of the patient with other professionals? @ -No Did you reconcile home meds? @ -No Was smoking cessation discussed for >3mins.? @ -No Was critical care preformed (if so, how long)? @ -No Were there social determinants of health that impacted care today? How? (Homelessness, low income, unemployed, alcoholism, drug addiction, transportation, low edu. Level, literacy, decrease access to med. care, prison, rehab)? @ -No Was there de-escalation of care discussed even if they declined? (Discuss DNR or withdrawal of care, Hospice)? @ -No What co-morbidities impacted this encounter? (DM, HTN, Smoking, COPD, CAD, Cancer, CVA, Hep., AIDS, mental health diagnosis, sleep apnea, morbid obesity)? @ -Morbid obesity, thyroid disorder Was patient admitted / discharged? @ -Discharged. Lab work obtained and found to be nonactionable, including a negative d-dimer and 2 negative troponins. Chest x-ray reveals no acute findings. She was given Toradol and Valium with minor relief in symptoms. She had a negative cardiac workup including a negative stress test and a negative echocardiogram 1 year ago. She also had normal lab work on 09/08/22. Advised that there is no evidence for acute coronary syndrome at this time. Advised she alternate with ibuprofen and Tylenol as needed for pain relief and to contact her process developer for a follow-up appointment to discuss if any additional testi ng is indicated at this time. Undiagnosed new problem with uncertain prognosis? @ -Chest pain Drug Therapy requiring intensive monitoring for toxicity (Heparin, Nitro, Insulin, Cardizem)? @ -None Were any procedures done? @ -None Diagnosis/symptom? @ -Atypical chest pain Acute, or Chronic, or Acute on Chronic? @ -Acute Uncomplicated (without systemic symptoms) or Complicated (systemic symptoms)? @ -Uncomplicated Side effects of treatment? @ -None Exacerbation, Progression, or Severe Exacerbation] @ -Not applicable Poses a threat to life or bodily function? @ -This depends on the cause of the chest pain. Return precautions reviewed in depth, the patient is instructed to return to the emergency department with any new, worsening, or concerning symptoms. Patient verbalized understanding. This case was discussed in detail with the attending ED physician, Dr. Prater. Presentation, findings, and treatment plan discussed in detail as well. Disposition Clinical Impression: Atypical chest pain Disposition: HOME SELF-CARE Instructions (If sedation given, give patient instructions): Chest Pain (ED), Noncardiac Chest Pain (ED) Additional Instructions: Return to the emergency department with any new, worsening, or concerning symptoms. Alternate with ibuprofen and Tylenol as needed for pain relief. Contact your process developer office to discuss a follow-up appointment and additional testing if they feel that it is indicated. Follow up with your primary care provider in 1-2 days. Is patient prescribed a controlled substance at d/c from ED?: No Referrals: Nonstaff,Physician [Primary Care Provider] - 1-2 days
[2022-10-24 11:37] LABS: Basophils % (A) 1 %; Eosinophils # (A) 0.1 k/uL (0-0.7); Eosinophils % (A) 2 %; HCT 38.1 % (34.0-46.0); Lymphocytes # (A) 1.9 k/uL (1.0-4.8); Lymphocytes % (A) 29 %; MCH 29.8 pg (25.0-35.0); MCHC 34.2 g/dL (31.0-37.0); Mean Platelet Volume 8.5; Monocytes # (A) 0.3 k/uL (0-1.0); Monocytes % (A) 5 %; Neutrophils # (A) 4.1 k/uL (1.3-7.7); Neutrophils % (A) 63 %; Platelet Count 240 k/uL (150-450); RBC 4.38 m/uL (3.80-5.40); RDW 13.9 % (11.5-15.5); WBC 6.5 k/uL (3.8-10.6)
[2022-10-24 11:51] LABS: INR 0.9 (<1.2); Partial Thromboplastin Time 23.5 sec (22.0-30.0); Prothrombin Time 9.7 sec (9.0-12.0)
[2022-10-24 11:52] LABS: ALT 24 U/L (4-34); AST 25 U/L (14-36); African American GFR (CKD) >90 (>60 ml/min/1.73 sqM); Albumin 4.2 g/dL (3.5-5.0); Alkaline Phosphatase 67 U/L (38-126); Amylase 52 U/L (30-110); Anion Gap 8 mmol/L; Blood Urea Nitrogen 13 mg/dL (7-17); Calcium 8.8 mg/dL (8.4-10.2); Carbon Dioxide 23 mmol/L (22-30); Chloride 106 mmol/L (98-107); Glucose 113 mg/dL (74-99); Lipase 92 U/L (23-300); Magnesium 1.8 mg/dL (1.6-2.3); Non-African American GFR(CKD) >90 (>60 ml/min/1.73 sqM); Potassium 4.3 mmol/L (3.5-5.1); Sodium 137 mmol/L (137-145); Total Bilirubin 0.6 mg/dL (0.2-1.3); Total Protein 7.5 g/dL (6.3-8.2)
--- NOTE | 2022-10-24 11:53 | XR ---
EXAMINATION TYPE: XR chest 2V DATE OF EXAM: 10/24/2022 COMPARISON: 09/08/2022 INDICATION: Chest pain TECHNIQUE: Frontal and lateral views of the chest are obtained. FINDINGS: The heart size is normal. The pulmonary vasculature is normal. The lungs are clear. IMPRESSION: 1. No acute pulmonary process.
[2022-10-24 12:09] LABS: Appearance,Urine Cloudy (Clear); Bacteria,Urine Rare /hpf; Bilirubin,Urine Negative (Negative); Blood,Urine Negative (Negative); Color,Urine Light Yellow; Glucose,Urine (UA) Negative (Negative); Ketones,Urine Negative (Negative); Leukocyte Esterase,Urine Large (Negative); Mucus,Urine Rare /hpf; Nitrite,Urine Negative (Negative); Protein,Urine Trace (Negative); RBC,Urine 5 /hpf (0-5); Specific Gravity,Urine 1.018 (1.001-1.035); Squamous Epithelial Cell,Urine 9 /hpf (0-4); Urobilinogen,Urine <2.0 mg/dL (<2.0); WBC,Urine 9 /hpf (0-5)
[2022-10-24] MEDS ORDERED: KETOROLAC 15 MG/ML 1 ML VIAL IVP STA (12:38)
[2022-10-24 13:01] VITALS: TEMP 98.1
[2022-10-24 15:19] VITALS: BP 132/71; PULSE 82; RESP 18
== END 2022-10-24 15:19 | disposition home or self-care (01) ==
LOC: EC 10:21
DX: R07.89 Other chest pain (principal); E07.9 Disorder of thyroid, unspecified; F41.9 Anxiety disorder, unspecified; F31.9 Bipolar disorder, unspecified; Z79.890 Hormone replacement therapy; Z88.1 Allergy status to other antibiotic agents; Z88.7 Allergy status to serum and vaccine; Z90.49 Acquired absence of other specified parts of digestive tract
CPT/HCPCS: 36415; 93005; 85379; 80053; 82150; 83690; 83735; 84484; 85025; 85610; 85730; 81001; 81025; 71046; 99285; 96374; 96375; J3360; J1885

== ENCOUNTER 2022-12-31 08:47 | Emergency (ER) | payer OTHER ==
[2022-12-31 09:07] VITALS: TEMP 98.2
--- NOTE | 2022-12-31 09:40 | ED ---
General Adult HPI - General Chief complaint: Extremity Injury, Lower Stated complaint: R Knee Pain Time Seen by Provider: 12/31/22 09:10 Source: patient, RN notes reviewed Mode of arrival: ambulatory Limitations: no limitations - History of Present Illness Initial comments: This is a 37-year-old female presents emergency Department with chief complaint of right knee pain. Patient states she fell on it almost 1 month ago. Patient states he is healing up states she was walking up some steps today states she felt a pop she has pain on the lateral to posterior aspect. Patient denies any paresthesias. Patient states that she cannot bear any weight because of the discomfort. - Related Data Home Medications Medication Instructions Recorded Confirmed Topiramate [Topamax] 100 mg PO BID 11/19/21 10/24/22 Levothyroxine Sodium [Synthroid] 50 mcg PO DAILY 09/08/22 10/24/22 Ondansetron Odt [Zofran Odt] 4 mg PO BID PRN 09/08/22 10/24/22 SUMAtriptan succinate [Imitrex] 100 mg PO BID PRN 09/08/22 10/24/22 Venlafaxine HCl ER [Effexor XR] 75 mg PO DAILY 09/08/22 10/24/22 Venlafaxine HCl [Effexor XR] 150 mg PO DAILY 09/08/22 10/24/22 Previous Rx's Medication Instructions Recorded Rosuvastatin [Crestor] 10 mg PO DAILY 30 Days tab 04/04/22 lamoTRIgine [LaMICtal] 100 mg PO DAILY 30 Days tab 04/04/22 Ibuprofen [Motrin] 600 mg PO Q8HR PRN #20 tab 12/31/22 Allergies Allergy/AdvReac Type Severity Reaction Status Date / Time cephalexin [From Keflex] Allergy Hives & Verified 12/31/22 09:07 Vomiting Tetanus Vaccines and Toxoid Allergy Anaphylaxis Verified 12/31/22 09:07 Review of Systems ROS Statement: Those systems with pertinent positive or pertinent negative responses have been documented in the HPI. ROS Other: All systems not noted in ROS Statement are negative. Past Medical History Past Medical History: Chest Pain / Angina, Thyroid Disorder Additional Past Medical History / Comment(s): migraines, POTS, History of Any Multi-Drug Resistant Organisms: None Reported Past Surgical History: Cholecystectomy, Orthopedic Surgery Additional Past Surgical History / Comment(s): right shoulder. fallopian removal, right elbow. Past Anesthesia/Blood Transfusion Reactions: No Reported Reaction Past Psychological History: Anxiety, Bipolar, Depression, PTSD Smoking Status: Never smoker Past Alcohol Use History: None Reported Past Drug Use History: None Reported - Past Family History Mother Family Medical History: Chest Pain / Angina General Exam General appearance: alert, in no apparent distress Head exam: Present: atraumatic, normocephalic, normal inspection Eye exam: Present: normal appearance, PERRL, EOMI. Absent: scleral icterus, conjunctival injection, periorbital swelling Neck exam: Present: normal inspection, full ROM. Absent: tenderness, meningismus, lymphadenopathy Respiratory exam: Present: normal lung sounds bilaterally. Absent: respiratory distress, wheezes, rales, rhonchi, stridor Cardiovascular Exam: Present: regular rate, normal rhythm, normal heart sounds. Absent: systolic murmur, diastolic murmur, rubs, gallop, clicks Extremities exam: Present: other (Right knee full passive range of motion, tenderness on the lateral to posterior aspect no swelling there is a healing wound over the anterior surface, neurovascular intact) Course Vital Signs 12/31/22 09:02 Temperature 98.2 F Pulse Rate 70 Respiratory 18 Rate Blood Pressure 123/71 O2 Sat by Pulse 97 Oximetry Medical Decision Making - Medical Decision Making Was pt. sent in by a medical professional or institution (KELL Rosas, FAST FOOD SERVICES MANAGER, urgent care, hospital, or skilled nursing...) When possible be specific @ -No Did you speak to anyone other than the patient for history (EMS, parent, family, police, friend...)? What history was obtained from this source @ -No Did you review nursing and triage notes (agree or disagree)? Why? @ -I reviewed and agree with nursing and triage notes Were old charts reviewed (outside hosp., previous admission, EMS record, old EKG, old radiological studies, urgent care reports/EKG's, skilled nursing records)? Report findings @ -No old charts were reviewed Differential Diagnosis (chest pain, altered mental status, abdominal pain women, abdominal pain men, vaginal bleeding, weakness, fever, dyspnea, syncope, headache, dizziness, GI bleed, back pain, seizure, CVA, palpatations, mental health, musculoskeletal)? @ -Right knee sprain, right knee meniscus tear, LCL injury, femur fracture, tibia fracture EKG interpreted by me (3pts min.). @ -None X-rays interpreted by me (1pt min.). @ -X-ray shows no acute osseous abnormality CT interpreted by me (1pt min.). @ -None done U/S interpreted by me (1pt. min.). @ -None done What testing was considered but not performed or refused? (CT, X-rays, U/S, labs)? Why? @ -None What meds were considered but not given or refused? Why? @ -None Did you discuss the management of the patient with other professionals (professionals i.e. DrQueta, PA, FAST FOOD SERVICES MANAGER, lab, RT, psych nurse, social service manager, knockdown worker, teacher, airconditioning drafting officer, manager case)? Give summary @ -No Was smoking cessation discussed for >3mins.? @ -No Was critical care preformed (if so, how long)? @ -No Were there social determinants of health that impacted care today? How? (Homelessness, low income, unemployed, alcoholism, drug addiction, transportation, low edu. Level, literacy, decrease access to med. care, senior living, rehab)? @ -No Was there de-escalation of care discussed even if they declined (Discuss DNR or withdrawal of care, Hospice)? DNR status @ -No What co-morbidities impacted this encounter? (DM, HTN, Smoking, COPD, CAD, Cancer, CVA, ARF, Chemo, Hep., AIDS, mental health diagnosis, sleep apnea, morbid obesity)? @ -None Was patient admitted / discharged? Hospital course, mention meds given and route, prescriptions, significant lab abnormalities, going to OR and other pertinent info. @ -Discharge patient has a right knee injury, sprain there is concern for possible meniscus injury or LCL injury patient's placed in knee immobilizer, given crutches will follow-up with orthopedics Undiagnosed new problem with uncertain prognosis? @ -No Drug Therapy requiring intensive monitoring for toxicity (Heparin, Nitro, Insulin, Cardizem)? @ -No Were any procedures done? @ -No Diagnosis/symptom? @ -Right knee sprain Acute, or Chronic, or Acute on Chronic? @ -Acute Uncomplicated (without systemic symptoms) or Complicated (systemic symptoms)? @ -Uncomplicated Side effects of treatment? @ -No Exacerbation, Progression, or Severe Exacerbation? @ -No Poses a threat to life or bodily function? How? (Chest pain, [place], [place], pneumonia, PE, COPD, DKA, ARF, appy, cholecystitis, CVA, Diverticulitis, Homicidal, Suicidal, threat to staff... and all critical care pts) @ -No Disposition Clinical Impression: Right knee sprain Disposition: HOME SELF-CARE Condition: Stable Instructions (If sedation given, give patient instructions): Knee Sprain (ED) Additional Instructions: Please return to the Emergency Department if symptoms worsen or any other concerns. Prescriptions: Ibuprofen [Motrin] 600 mg PO Q8HR PRN #20 tab PRN Reason: Pain Is patient prescribed a controlled substance at d/c from ED?: No Referrals: Nonstaff,Physician [Primary Care Provider] - 1-2 days Michael Macdonald DO [Doctor of Osteopathic Medicine] - 1-2 days Time of Disposition: 10:25
--- NOTE | 2022-12-31 10:02 | XR ---
EXAMINATION TYPE: XR knee complete RT DATE OF EXAM: 12/31/2022 CLINICAL HISTORY: Recent fall injury with pain and limping. TECHNIQUE: Three views of the right knee are obtained. COMPARISON: None. FINDINGS: There is no acute fracture/dislocation evident in right knee. The tri-compartment joint s paces appear within normal limits. The overlying soft tissue appears unremarkable. IMPRESSION: There is no acute fracture or dislocation in the right knee.
[2022-12-31] MEDS ORDERED: ACET/COD 300 MG/30 MG STARTER PACK 6 TAB BTL PO STA (10:25)
[2022-12-31 11:16] VITALS: BP 114/81; PULSE 86; RESP 16
== END 2022-12-31 11:16 | disposition home or self-care (01) ==
LOC: EC 08:47
DX: S83.91XA Sprain of unspecified site of right knee, initial encounter (principal); E07.9 Disorder of thyroid, unspecified; F31.9 Bipolar disorder, unspecified; F41.9 Anxiety disorder, unspecified; Z79.890 Hormone replacement therapy; Z79.899 Other long term (current) drug therapy; Z88.1 Allergy status to other antibiotic agents; Z88.7 Allergy status to serum and vaccine; X50.1XXA Overexertion from prolonged static or awkward postures, initial encounter
CPT/HCPCS: 73562; 99283; L1830

== ENCOUNTER → 2023-01-07 | Outpatient (CLI) | payer OTHER ==
--- NOTE | 2023-01-09 10:26 | MR ---
EXAMINATION TYPE: MR knee RT wo con DATE OF EXAM: 01/07/2023 COMPARISON: X-ray 01/08/2023 HISTORY: Right knee pain, limited movement TECHNIQUE: Multiplanar, multisequence imaging of the right knee is performed without IV contrast. FINDINGS: MEDIAL MENISCUS: There is a linear area of peripheral signal in the posterior horn of the medial meni scus. LATERAL MENISCUS: Anterior and posterior horns are intact without tear. CRUCIATE LIGAMENTS: The anterior cruciate ligament appears intact. There is ill definition and increa sed signal in the substance of the PCL suggestive of at least a partial tear. COLLATERAL LIGAMENTS: The medial collateral ligament and lateral collateral ligament complex are inta ct and unremarkable. EXTENSOR MECHANISM: Visualized quadriceps and patellar tendons are intact. EFFUSION: There is a small amount of fluid in the suprapatellar bursa. POPLITEAL CYST: No popliteal/oliva cyst. TRICOMPARTMENT SPACES: Joint spaces are preserved. Articular cartilage is preserved CARTILAGE: Preserved BONE MARROW SIGNAL: No focal abnormal marrow signal is appreciated. OTHER: No additional significant abnormality is appreciated. IMPRESSION: 1. Findings are suggestive of a posterior cruciate ligament at partial tear. 2. Small amount of fluid in the suprapatellar bursa. Correlate for fat pad impingement syndrome. 3. Findings suspicious for peripheral simple linear tear posterior horn medial meniscus
== END | disposition home or self-care (01) ==
LOC: RADMRIMAIN 20:15
DX: M25.861 Other specified joint disorders, right knee (principal); M25.361 Other instability, right knee; M25.561 Pain in right knee

== ENCOUNTER → 2023-02-17 | Outpatient (CLI) | payer OTHER ==
[2023-02-17 15:07] LABS: Basophils # (A) 0.03 X 10*3/uL (0.00-0.10); Basophils % (A) 0.4 %; Eosinophils # (A) 0.07 X 10*3/uL (0.04-0.35); HCT 41.1 % (37.2-46.3); Immature Grans, Automated 0.3 %; Lymphocytes # (A) 2.47 X 10*3/uL (0.90-5.00); Lymphocytes % (A) 36.8 %; MCH 29.1 pg (27.0-32.0); MCHC 31.6 g/dL (32.0-37.0); MCV 92.2 fL (80.0-97.0); Mean Platelet Volume 10.7 fL (9.5-12.2); Monocytes # (A) 0.35 X 10*3/uL (0.20-1.00); Monocytes % (A) 5.2 %; NRBC Per 100 WBC 0 /100 WBCS (0.0-0.0); Neutrophils # (A) 3.78 X 10*3/uL (1.80-7.70); Neutrophils % (A) 56.3 %; Platelet Count 257 X 10*3/uL (140-440); RBC 4.46 X 10*6/uL (4.10-5.20); RDW 13.6 % (11.5-14.5); WBC 6.72 X 10*3/uL (4.50-10.00)
[2023-02-17 15:29] LABS: Carbon Dioxide 24.4 mmol/L (20.0-27.5); Potassium 4.2 mmol/L (3.5-5.5)
== END | disposition home or self-care (01) ==
LOC: LABPAT 08:25
PROVIDERS: ATTEND Orthopaedic Surgery
DX: Z01.812 Encounter for preprocedural laboratory examination (principal); M23.91 Unspecified internal derangement of right knee
CPT/HCPCS: 36415; 80051; 85025

== ENCOUNTER 2023-03-03 10:43 | Day surgery (SDC) | payer OTHER ==
[2023-02-27 14:45] VITALS: BMI 41.0
--- NOTE | 2023-03-02 08:36 | P.HPOR ---
History of Present Illness H&P Date: 03/02/23 Chief Complaint: Right knee pain The patient is a 37-year-old female who presents with right knee pain after an injury 12/31/2022. She was going down some steps when she felt a pop in her knee. He's had pain ever since. She notes buckling and locking. She has a difficult time with ambulation. She's tried a brace along with medications and injection with only temporary partial relief of her symptoms. She denies significant previous problems. Review of Systems Negative except as in HPI Past Medical History Past Medical History: Neurologic Disorder Additional Past Medical History / Comment(s): migraines, POTS, WAS ON VENT FOR COVID 01/09/2020 FOR 7 DAYS, WEARING BRACE ON LT KNEE History of Any Multi-Drug Resistant Organisms: None Reported Past Surgical History: Cholecystectomy, Orthopedic Surgery Additional Past Surgical History / Comment(s): right shoulder. BILAT fallopian TUBES removed, right elbow. OVARIAN CYST REMOVED, D & C Past Anesthesia/Blood Transfusion Reactions: No Reported Reaction Smoking Status: Never smoker - Past Family History Mother Family Medical History: Chest Pain / Angina Medications and Allergies Home Medications Medication Instructions Recorded Confirmed Type Ibuprofen [Motrin] 800 mg PO Q8H PRN 02/27/23 02/27/23 History Allergies Allergy/AdvReac Type Severity Reaction Status Date / Time cephalexin [From Keflex] Allergy Hives & Verified 02/27/23 14:35 Vomiting Tetanus Vaccines and Toxoid Allergy Anaphylaxis Verified 02/27/23 14:35 Physical Examination - Knee right Appearance: effusion Effusion grade: grade 1 Tenderness with palpation: medial Pain: throughout ROM Gait: limping ROM: extension: -10 degrees ROM: flexion: 100 degrees Crepitus with motion: Yes Strength: extension: 5/5 Strength: flexion: 5/5 Meniscal tests: medial meniscal tests: positive, medial joint line pain: positive Results The patient is a well-developed well-nourished female proximally 5 foot 8, 270 pounds of endomorphic habitus. HEENT exam is nonfocal, neck is supple. She has painless passive motion of the right hip. Straight leg raise is negative. Her distal neurovascular exam appears intact in the right lower extremity. - Diagnostic results Knee MRI: image reviewed (Right knee MRI shows evidence of a PCL sprain along with a posterior medial meniscal tear.) Assessment and Plan Assessment: Right knee internal derangement/symptomatic medial meniscal tear Plan: I talked with the patient with regard her condition along with treatment options. She is having persistent pain and mechanical symptoms after this acute injury despite conservative measures. After thorough discussion she opts to proceed with surgery. We'll plan on proceeding with right knee arthroscopic evaluation with possible partial medial meniscectomy in addition to possible PCL debridement.
[~2023-03-03 10:43] MED LIST: DEXAMETHASONE SOD PHOSPHATE 4 MG/ML 1 ML VIAL IV ONE; LACTATED RINGERS 1,000 ML IV SCH; ONDANSETRON 4 MG/2 ML VIAL IVP ONE; ceFAZolin 3 GM in SODIUM CHLORIDE 0.9% 100 ML IVPB PRN; fentaNYL (PF) 50 MCG/ML 2 ML AMP IV PRN
[2023-03-03] MEDS ORDERED: MIDAZOLAM 2 MG/2 ML VIAL ONE (12:42)
[2023-03-03] MEDS ORDERED: SUCCINYLCHOLINE CHLORIDE 200 MG/10 ML VIAL IV ONE (12:42)
[2023-03-03] MEDS ORDERED: HYDROmorphone (PF) 1 MG/ML ONE (12:42)
[2023-03-03] MEDS ORDERED: PROPOFOL 10 MG/ML 20 ML VIAL IV ONE (12:42)
[2023-03-03] MEDS ORDERED: fentaNYL (PF) 50 MCG/ML 2 ML AMP ONE (12:42)
[2023-03-03] MEDS ORDERED: KETOROLAC 30 MG/ML 1 ML VIAL ONE (12:42)
[2023-03-03] MEDS ORDERED: EPINEPHrine (PF) 1 ML in SODIUM CHLORIDE 0.9% IRRIGATIO 3,000 ML IRRIGATION ONE (13:05)
--- NOTE | 2023-03-03 13:27 | P.OP ---
Date of Procedure: 03/03/23 Preoperative Diagnosis: Right knee internal derangement Postoperative Diagnosis: Right knee grade 2/3 chondral injury posterior central medial femoral condyle, anterior horn medial meniscal tear Procedure(s) Performed: Right knee arthroscopic medial femoral chondrectomy/partial medial meniscectomy Anesthesia: MAYLIN Surgeon: Urbano Brewster Estimated Blood Loss (ml): 10 Pathology: none sent Condition: stable Disposition: PACU Indications for Procedure: The patient's a 37-year-old female who recently injured her right knee presents with persistent pain and mechanical symptoms despite attempted conservative measures. A discussion of the risks and benefits of operative intervention versus continued conservative measures was made with patient. She opted to pursue surgery. Operative risks to include infection, neurovascular injury, development of blood clots, possible incomplete resolution of symptoms, possible worsening symptoms and need for subsequent procedures was discussed. Informed consent was obtained. Operative Findings: As below Description of Procedure: The patient was brought to the operating room, and after induction of general anesthesia examined the right knee. Collaterals were stable, [place] was negative, and posterior drawer was negative. The right lower extremity was prepped and draped in a normal fashion. A superior lateral portal was made through a 3 mm skin incision superior and lateral to the patella. This was used for outflow. A lateral portal was made through a 5 mm vertical skin incision lateral to the patella tendon above the joint line. Diagnostic arthroscopy was performed. On inspection of the medial compartment, the posterior horn medial meniscus was stable and intact. A grade 2/3 chondral injury was noted involving the central posterior portion medial femoral condyle measuring 8 x 10 mm. There was a loose chondral fragment debris back to stable base with a motorized shaver. A small tear involving the anterior horn of the medial meniscus in the white-white junction was noted. This was debrided back to stable base with straight baskets and a motorized shaver. On inspection of the notch, the anterior cruciate ligament appeared to be intact. The posterior cruciate ligament appeared to be grossly intact as well. On inspection of the lateral compartment, no significant meniscal or cartilage pathology was noted. On inspection of the patellofemoral articulation have some chondral fibrillation however no loose chondral fragments. The gutters were clear debris. The knee was then thoroughly irrigated. The portals were closed with Steri-Strips. A sterile dressing was applied in addition to a compression stocking. The patient was awoken from general anesthesia and transferred to recovery room in good condition. Blood loss was estimated at 10 mL. No complications were incurred.
[2023-03-03 13:34] VITALS: TEMP 97.3
[2023-03-03] MEDS ORDERED: LACTATED RINGERS 1,000 ML IV ONE (14:04)
[2023-03-03] MEDS ORDERED: HYDROcodone/APAP 5-325MG 1 EACH TAB ONE (14:16)
[2023-03-03 14:25] VITALS: RESP 17
[2023-03-03 14:41] VITALS: BP 107/70; PULSE 83
== END 2023-03-03 14:50 | disposition home or self-care (01) ==
LOC: OR 10:43
PROVIDERS: ATTEND Orthopaedic Surgery
DX: S83.241A Other tear of medial meniscus, current injury, right knee, initial encounter (principal); S83.31XA Tear of articular cartilage of right knee, current, initial encounter; X50.1XXA Overexertion from prolonged static or awkward postures, initial encounter; G43.909 Migraine, unspecified, not intractable, without status migrainosus; G90.A Postural orthostatic tachycardia syndrome [POTS]; F41.9 Anxiety disorder, unspecified; F32.A Depression, unspecified; F43.10 Post-traumatic stress disorder, unspecified; Z86.16 Personal history of COVID-19; Z88.1 Allergy status to other antibiotic agents; Z88.7 Allergy status to serum and vaccine; Z79.1 Long term (current) use of non-steroidal anti-inflammatories (NSAID)
CPT/HCPCS: 81025; 29881; J0171

== ENCOUNTER 2023-04-09 08:45 | Emergency (ER) | payer OTHER ==
[2023-04-09] MEDS ORDERED: TOBRAMYCIN 0.3% OPHTH DROPS 5 ML BTL LEFT EYE STA (09:16)
--- NOTE | 2023-04-09 09:26 | ED ---
Eye Problem HPI - General Chief complaint: Eye Problems Stated complaint: Left eye swelling Time Seen by Provider: 04/09/23 08:50 Source: patient, RN notes reviewed Mode of arrival: ambulatory Limitations: no limitations - History of Present Illness Initial comments: 37-year-old female presents emergency department for left eye problems. Patient states she initially that she was getting sty states it started after foreign but states that she has upper eyelid pressure, swelling and redness. Patient denies any visual disturbance other than eyelid swelling is pushing her eyelid down. Patient denies any trauma denies fevers chills denies pain with ocular movements. - Related Data Home Medications Medication Instructions Recorded Confirmed Ibuprofen [Motrin] 800 mg PO Q8H PRN 02/27/23 03/03/23 Previous Rx's Medication Instructions Recorded HYDROcodone/APAP 5-325MG [[place] 1 tab PO Q6HR PRN #21 tab 03/03/23 5-325] Amoxic-Pot Clav 875-125Mg 1 tab PO Q12HR #20 tab 04/09/23 [Augmentin 875-125] Allergies Allergy/AdvReac Type Severity Reaction Status Date / Time cephalexin [From Keflex] Allergy Vomiting Verified 04/09/23 08:49 Tetanus Vaccines and Toxoid Allergy Anaphylaxis Verified 04/09/23 08:49 Review of Systems ROS Statement: Those systems with pertinent positive or pertinent negative responses have been documented in the HPI. ROS Other: All systems not noted in ROS Statement are negative. Past Medical History Past Medical History: Chest Pain / Angina, Thyroid Disorder Additional Past Medical History / Comment(s): migraines, POTS, History of Any Multi-Drug Resistant Organisms: None Reported Past Surgical History: Cholecystectomy, Orthopedic Surgery Additional Past Surgical History / Comment(s): right shoulder. fallopian removal, right elbow. Past Anesthesia/Blood Transfusion Reactions: No Reported Reaction Past Psychological History: Anxiety, Bipolar, Depression, PTSD Smoking Status: Never smoker Past Alcohol Use History: None Reported Past Drug Use History: None Reported - Past Family History Mother Family Medical History: Chest Pain / Angina General Exam Limitations: no limitations General appearance: alert, in no apparent distress Head exam: Present: atraumatic, normocephalic, normal inspection Eye exam: Present: normal appearance, PERRL, EOMI, periorbital swelling, other (Upper inner eyelid there is noted erythema, ulceration). Absent: scleral icterus, conjunctival injection, periorbital tenderness Neck exam: Present: normal inspection. Absent: tenderness, meningismus, lymphadenopathy Respiratory exam: Present: normal lung sounds bilaterally. Absent: respiratory distress, wheezes, rales, rhonchi, stridor Cardiovascular Exam: Present: regular rate, normal rhythm, normal heart sounds. Absent: systolic murmur, diastolic murmur, rubs, gallop, clicks Course Vital Signs 04/09/23 08:46 Temperature 98.7 F Pulse Rate 60 Respiratory 18 Rate Blood Pressure 136/84 O2 Sat by Pulse 100 Oximetry Medical Decision Making - Medical Decision Making Was pt. sent in by a medical professional or institution (, KELL, DIRECTOR OF PATIENT FINANCIAL SERVICES, urgent care, hospital, or fci...) When possible be specific @ -No Did you speak to anyone other than the patient for history (EMS, parent, family, police, friend...)? What history was obtained from this source @ -No Did you review nursing and triage notes (agree or disagree)? Why? @ -I reviewed and agree with nursing and triage notes Were old charts reviewed (outside hosp., previous admission, EMS record, old EKG, old radiological studies, urgent care reports/EKG's, fci records)? Report findings @ -No old charts were reviewed Differential Diagnosis (chest pain, altered mental status, abdominal pain women, abdominal pain men, vaginal bleeding, weakness, fever, dyspnea, syncope, headache, dizziness, GI bleed, back pain, seizure, CVA, palpatations, mental health, musculoskeletal)? @ -Blepharitis, stye, periorbital cellulitis EKG interpreted by me (3pts min.). @ -None X-rays interpreted by me (1pt min.). @ -None done CT interpreted by me (1pt min.). @ -None done U/S interpreted by me (1pt. min.). @ -None done What testing was considered but not performed or refused? (CT, X-rays, U/S, labs)? Why? @ -None What meds were considered but not given or refused? Why? @ -None Did you discuss the management of the patient with other professionals (professionals i.e. KELL Rosas, DIRECTOR OF PATIENT FINANCIAL SERVICES, lab, RT, psych nurse, social services aide, mechanic senior, teacher, customs officer, manager rn case)? Give summary @ -No Was smoking cessation discussed for >3mins.? @ -No Was critical care preformed (if so, how long)? @ -No Were there social determinants of health that impacted care today? How? (Homelessness, low income, unemployed, alcoholism, drug addiction, transportation, low edu. Level, literacy, decrease access to med. care, custodial, rehab)? @ -No Was there de-escalation of care discussed even if they declined (Discuss DNR or withdrawal of care, Hospice)? DNR status @ -No What co-morbidities impacted this encounter? (DM, HTN, Smoking, COPD, CAD, Cancer, CVA, ARF, Chemo, Hep., AIDS, mental health diagnosis, sleep apnea, morbid obesity)? @ -None Was patient admitted / discharged? Hospital course, mention meds given and route, prescriptions, significant lab abnormalities, going to OR and other pertinent info. @ -Discharge patient has internal stye noted patient does have evidence of puffiness early cellulitic changes patient is placed on Tobrex eyedrops, oral antibiotics return parameters were discussed. Undiagnosed new problem with uncertain prognosis? @ -No Drug Therapy requiring intensive monitoring for toxicity (Heparin, Nitro, Insulin, Cardizem)? @ -No Were any procedures done? @ -No Diagnosis/symptom? @ -Internal stye, periorbital cellulitis] Acute, or Chronic, or Acute on Chronic? @ -Acute Uncomplicated (without systemic symptoms) or Complicated (systemic symptoms)? @ -Uncomplicated Side effects of treatment? @ -No Exacerbation, Progression, or Severe Exacerbation? @ -No Poses a threat to life or bodily function? How? (Chest pain, [place], [place], pneumonia, PE, COPD, DKA, ARF, appy, cholecystitis, CVA, Diverticulitis, Homicidal, Suicidal, threat to staff... and all critical care pts) @ -No Disposition Clinical Impression: Hordeolum internum of left eye, Blepharitis Disposition: HOME SELF-CARE Condition: Stable Instructions (If sedation given, give patient instructions): Jesu (ED) Additional Instructions: Use Tobrex eyedrops 1 drop every 4 hours for 7 days Please return to the Emergency Department if symptoms worsen or any other concerns. Prescriptions: Amoxic-Pot Clav 875-125Mg [Augmentin 875-125] 1 tab PO Q12HR #20 tab Is patient prescribed a controlled substance at d/c from ED?: No Referrals: Kayla Hopkins MD [Primary Care Provider] - 1-2 days Time of Disposition: 09:26
[2023-04-09 10:16] VITALS: BP 122/85; PULSE 70; RESP 16; TEMP 97.8
== END 2023-04-09 10:16 | disposition home or self-care (01) ==
LOC: EC 08:45
DX: H00.024 Hordeolum internum left upper eyelid (principal); H01.004 Unspecified blepharitis left upper eyelid; L03.213 Periorbital cellulitis; Z88.1 Allergy status to other antibiotic agents; Z88.7 Allergy status to serum and vaccine
CPT/HCPCS: 99283

== ENCOUNTER 2023-04-30 20:31 | Emergency (ER) | payer OTHER ==
[2023-04-30 20:41] VITALS: BP 132/82; PULSE 101; RESP 20; TEMP 98.7
--- NOTE | 2023-04-30 21:46 | XR ---
EXAMINATION TYPE: XR hand complete RT DATE OF EXAM: 04/30/2023 COMPARISON: NONE HISTORY: 37-year-old female punching injury, fifth metacarpal pain TECHNIQUE: 3 views FINDINGS: No acute fracture, subluxation, or dislocation seen. Joint spaces are maintained. IMPRESSION: No acute osseous abnormality seen.
--- NOTE | 2023-04-30 21:54 | ED ---
General Adult HPI - General Chief complaint: Extremity Injury, Upper Stated complaint: Rt hand injury Time Seen by Provider: 04/30/23 20:49 Source: patient, RN notes reviewed Mode of arrival: ambulatory Limitations: no limitations - History of Present Illness Initial comments: 37-year-old female presents emergency Department with chief complaint of right hand pain. She states that she was breaking up a bag of ice earlier today and after she threw down the ground she punched. She said shortly after this she developed a bruise to her dorsal right hand along with some pain. Denies numbness, tingling. Denies renal or hepatic impairment. She has no significant past medical history. - Related Data Home Medications Medication Instructions Recorded Confirmed Ibuprofen [Motrin] 800 mg PO Q8H PRN 02/27/23 03/03/23 Previous Rx's Medication Instructions Recorded HYDROcodone/APAP 5-325MG [[place] 1 tab PO Q6HR PRN #21 tab 03/03/23 5-325] Amoxic-Pot Clav 875-125Mg 1 tab PO Q12HR #20 tab 04/09/23 [Augmentin 875-125] Allergies Allergy/AdvReac Type Severity Reaction Status Date / Time cephalexin [From Keflex] Allergy Vomiting Verified 04/30/23 20:41 Tetanus Vaccines and Toxoid Allergy Anaphylaxis Verified 04/30/23 20:41 Review of Systems ROS Statement: Those systems with pertinent positive or pertinent negative responses have been documented in the HPI. ROS Other: All systems not noted in ROS Statement are negative. Past Medical History Past Medical History: Chest Pain / Angina, Thyroid Disorder Additional Past Medical History / Comment(s): migraines, POTS, History of Any Multi-Drug Resistant Organisms: None Reported Past Surgical History: Cholecystectomy, Orthopedic Surgery Additional Past Surgical History / Comment(s): right shoulder. fallopian removal, right elbow. Past Anesthesia/Blood Transfusion Reactions: No Reported Reaction Past Psychological History: Anxiety, Bipolar, Depression, PTSD Smoking Status: Never smoker Past Alcohol Use History: None Reported Past Drug Use History: None Reported - Past Family History Mother Family Medical History: Chest Pain / Angina General Exam Limitations: no limitations General appearance: alert, in no apparent distress Head exam: Present: atraumatic, normocephalic, normal inspection Eye exam: Present: normal appearance, PERRL, EOMI. Absent: scleral icterus, conjunctival injection, periorbital swelling ENT exam: Present: normal exam, mucous membranes moist Neck exam: Present: normal inspection. Absent: tenderness, meningismus, lymphadenopathy Respiratory exam: Present: normal lung sounds bilaterally. Absent: respiratory distress, wheezes, rales, rhonchi, stridor Cardiovascular Exam: Present: regular rate, normal rhythm, normal heart sounds. Absent: systolic murmur, diastolic murmur, rubs, gallop, clicks Extremities exam: Present: tenderness (5th [facility] right hand), normal capillary refill, other (radial pulses 2+, ecchymosis to medial right hand) Back exam: Present: normal inspection Neurological exam: Present: alert, oriented X3 Psychiatric exam: Present: normal affect, normal mood Skin exam: Present: warm, dry, intact, other (ecchymosis right dorsal medial hand). Absent: rash Course Vital Signs 04/30/23 20:39 Temperature 98.7 F Pulse Rate 101 H Respiratory 20 Rate Blood Pressure 132/82 O2 Sat by Pulse 97 Oximetry Medical Decision Making - Medical Decision Making Was pt. sent in by a medical professional or institution (, PA, STEEL SPAR OPERATOR, urgent care, hospital, or senior living...) When possible be specific @ -No Did you speak to anyone other than the patient for history (EMS, parent, family, police, friend...)? What history was obtained from this source @ -No Did you review nursing and triage notes (agree or disagree)? Why? @ -I reviewed and agree with nursing and triage notes Were old charts reviewed (outside hosp., previous admission, EMS record, old EKG, old radiological studies, urgent care reports/EKG's, senior living records)? Report findings @ -No old charts were reviewed Differential Diagnosis (chest pain, altered mental status, abdominal pain women, abdominal pain men, vaginal bleeding, weakness, fever, dyspnea, syncope, headache, dizziness, GI bleed, back pain, seizure, CVA, palpatations, mental health, musculoskeletal)? @ -Differential Musculoskeletal Muscular strain, contusion, ligament sprain, fracture, arthritis, septic arthritis, bursitis, cellulitis, muscle spasm, nerve compression, DVT, arterial occlusion, herpes zoster, electrolyte abnormality, tumor.... This is not meant to be in all inclusive list EKG interpreted by me (3pts min.). @ -none X-rays interpreted by me (1pt min.). @ -XR right hand showed no evidence for acute fracture CT interpreted by me (1pt min.). @ -None done U/S interpreted by me (1pt. min.). @ -None done What testing was considered but not performed or refused? (CT, X-rays, U/S, labs)? Why? @ -None What meds were considered but not given or refused? Why? @ -None Did you discuss the management of the patient with other professionals (professionals i.e. , PA, STEEL SPAR OPERATOR, lab, RT, psych nurse, social science instructor, director social, teacher, radiation officer, window caser)? Give summary @ -No Was smoking cessation discussed for >3mins.? @ -No Was critical care preformed (if so, how long)? @ -No Were there social determinants of health that impacted care today? How? (Homelessness, low income, unemployed, alcoholism, drug addiction, transportation, low edu. Level, literacy, decrease access to med. care, [facility], rehab)? @ -No Was there de-escalation of care discussed even if they declined (Discuss DNR or withdrawal of care, Hospice)? DNR status @ -No What co-morbidities impacted this encounter? (DM, HTN, Smoking, COPD, CAD, Cancer, CVA, ARF, Chemo, Hep., AIDS, mental health diagnosis, sleep apnea, morbid obesity)? @ -None Was patient admitted / discharged? Hospital course, mention meds given and route, prescriptions, significant lab abnormalities, going to OR and other pertinent info. @ -discharged. Patient presented to the emergency department for chief complaint of right medial hand pain after punching a bag of ice. XR obtained showed no evidence for acute fracture. Patient seen and wrapped with Martin bandage. Patient stable at time of discharge. Case discussed with my attending, Dr. Mathis Undiagnosed new problem with uncertain prognosis? @ -No Drug Therapy requiring intensive monitoring for toxicity (Heparin, Nitro, Insulin, Cardizem)? @ -No Were any procedures done? @ -No Diagnosis/symptom? @ -hand contusion Acute, or Chronic, or Acute on Chronic? @ -Acute Uncomplicated (without systemic symptoms) or Complicated (systemic symptoms)? @ -Uncomplicated Side effects of treatment? @ -No Exacerbation, Progression, or Severe Exacerbation? @ -No Poses a threat to life or bodily function? How? (Chest pain, [place], [place], pneumonia, PE, COPD, DKA, ARF, appy, cholecystitis, CVA, Diverticulitis, Homicidal, Suicidal, threat to staff... and all critical care pts) @ -No Disposition Clinical Impression: Sprain of right hand Disposition: HOME SELF-CARE Condition: Stable Instructions (If sedation given, give patient instructions): Hand Sprain (ED) Additional Instructions: Please follow up with your primary care provider. Return to the emergency depar tment for new or worsening symptoms. Is patient prescribed a controlled substance at d/c from ED?: No Referrals: Kayla Hopkins MD [Primary Care Provider] - 1-2 days Time of Disposition: 22:16
== END 2023-04-30 22:50 | disposition home or self-care (01) ==
LOC: EC 20:31
DX: S63.91XA Sprain of unspecified part of right wrist and hand, initial encounter (principal); Z88.1 Allergy status to other antibiotic agents; Z88.7 Allergy status to serum and vaccine; W22.8XXA Striking against or struck by other objects, initial encounter
CPT/HCPCS: 99283

== ENCOUNTER 2023-05-07 08:51 | Emergency (ER) | payer OTHER ==
[2023-05-07 08:57] VITALS: RESP 18; TEMP 99
[2023-05-07 09:39] LABS: Basophils % (A) 1 %; Eosinophils # (A) 0.1 k/uL (0-0.7); Eosinophils % (A) 2 %; HCT 38.9 % (34.0-46.0); HGB 13.3 gm/dL (11.4-16.0); Lymphocytes # (A) 2.2 k/uL (1.0-4.8); Lymphocytes % (A) 29 %; MCH 30.3 pg (25.0-35.0); MCHC 34.3 g/dL (31.0-37.0); MCV 88.3 fL (80.0-100.0); Mean Platelet Volume 8.7; Monocytes # (A) 0.3 k/uL (0-1.0); Monocytes % (A) 4 %; Neutrophils # (A) 4.8 k/uL (1.3-7.7); Neutrophils % (A) 64 %; Platelet Count 217 k/uL (150-450); RDW 13.1 % (11.5-15.5); WBC 7.5 k/uL (3.8-10.6)
[2023-05-07] MEDS ORDERED: SODIUM CHLORIDE 0.9% 500 ML 500 ML IV ONE (09:39)
[2023-05-07] MEDS ORDERED: SODIUM CHLORIDE 0.9% 1,000 ML IV ONE (09:39)
--- NOTE | 2023-05-07 09:39 | ED ---
Chest Pain HPI - General Chief Complaint: Chest Pain Stated Complaint: Chest Pain Time Seen by Provider: 05/07/23 09:00 Source: patient, RN notes reviewed, old records reviewed Mode of arrival: wheelchair Limitations: no limitations - History of Present Illness Initial Comments: This a 37-year-old female presents emergency Department chief complaint of p alpitations. Patient states that she was at work states that she felt very. Flushed feeling and felt like her worked was skipping a beat in her heart rate was up and down. Patient states she just feels improved that she is set down now. She does have a history of pots. Patient states she's been taking her normal water intake. Patient denies any nausea vomiting denies any shortness of breath denies any arm symptoms, like symptoms no lower back. - Related Data Home Medications Medication Instructions Recorded Confirmed Ibuprofen [Motrin] 800 mg PO Q8H PRN 02/27/23 03/03/23 Previous Rx's Medication Instructions Recorded HYDROcodone/APAP 5-325MG [[place] 1 tab PO Q6HR PRN #21 tab 03/03/23 5-325] Amoxic-Pot Clav 875-125Mg 1 tab PO Q12HR #20 tab 04/09/23 [Augmentin 875-125] Allergies Allergy/AdvReac Type Severity Reaction Status Date / Time cephalexin [From Keflex] Allergy Vomiting Verified 05/07/23 08:57 Tetanus Vaccines and Toxoid Allergy Anaphylaxis Verified 05/07/23 08:57 Review of Systems ROS Statement: Those systems with pertinent positive or pertinent negative responses have been documented in the HPI. ROS Other: All systems not noted in ROS Statement are negative. EKG Findings - EKG Comments: EKG Findings:: EKG performed at 9:03 sinus rhythm with rate of 80 DE 135 QRS 96 QT/QTC 362/398 inverted T-wave noted in lead 3. - EKG Results: EKG: interpreted by ABRAHAM Past Medical History Past Medical History: Chest Pain / Angina, Thyroid Disorder Additional Past Medical History / Comment(s): migraines, POTS, History of Any Multi-Drug Resistant Organisms: None Reported Past Surgical History: Cholecystectomy, Orthopedic Surgery Additional Past Surgical History / Comment(s): right shoulder. fallopian removal, right elbow. Past Anesthesia/Blood Transfusion Reactions: No Reported Reaction Past Psychological History: Anxiety, Bipolar, Depression, PTSD Smoking Status: Never smoker Past Alcohol Use History: None Reported Past Drug Use History: None Reported - Past Family History Mother Family Medical History: Chest Pain / Angina General Exam Limitations: no limitations General appearance: alert, in no apparent distress Head exam: Present: atraumatic, normocephalic, normal inspection Eye exam: Present: normal appearance, PERRL, EOMI. Absent: scleral icterus, conjunctival injection, periorbital swelling ENT exam: Present: normal exam, normal oropharynx, mucous membranes moist Neck exam: Present: normal inspection, full ROM. Absent: tenderness, meningismus, lymphadenopathy Respiratory exam: Present: normal lung sounds bilaterally. Absent: respiratory distress, wheezes, rales, rhonchi, stridor Cardiovascular Exam: Present: regular rate, normal rhythm, normal heart sounds. Absent: systolic murmur, diastolic murmur, rubs, gallop, clicks GI/Abdominal exam: Present: soft, normal bowel sounds. Absent: distended, tenderness, guarding, rebound, rigid Course Vital Signs 05/07/23 05/07/23 05/07/23 08:54 09:00 09:12 Temperature 99 F Pulse Rate 84 99 Pulse Rate [ 90 Carpet Loom Fixer ] Respiratory 18 18 Rate Blood Pressure 137/84 132/88 O2 Sat by Pulse 97 98 Oximetry 05/07/23 10:54 Temperature Pulse Rate 66 Pulse Rate [ Carpet Loom Fixer ] Respiratory 18 Rate Blood Pressure 114/76 O2 Sat by Pulse 100 Oximetry Chest Pain MDM - MDM Was pt. sent in by a medical professional or institution (, PA, SHIP BOAT OR BARGE MATE, urgent care, hospital, or snf...) When possible be specific @ -No Did you speak to anyone other than the patient for history (EMS, parent, family, police, friend...)? What history was obtained from this source @ -No Did you review nursing and triage notes (agree or disagree)? Why? @ -I reviewed and agree with nursing and triage notes Were old charts reviewed (outside hosp., previous admission, EMS record, old EKG, old radiological studies, urgent care reports/EKG's, snf records)? Report findings @ -Reviewed prior laboratory studies Differential Diagnosis (chest pain, altered mental status, abdominal pain women, abdominal pain men, vaginal bleeding, weakness, fever, dyspnea, syncope, headache, dizziness, GI bleed, back pain, seizure, CVA, palpatations, mental health, musculoskeletal)? @ -Differential Palpitations Ventricular arrhythmias, atrial arrhythmias, myocardial infarction, anemia, thyrotoxicosis, electrolyte imbalance, hypokalemia, pulmonary embolism, pulmonary disease, drugs, alcohol, anxiety, stress.... This is not meant to be an all-inclusive list.able EKG interpreted by me (3pts min.). @ -As above X-rays interpreted by me (1pt min.). @ -Chest x-ray shows no acute cardiopulmonary process. CT interpreted by me (1pt min.). @ -None done U/S interpreted by me (1pt. min.). @ -None done What testing was considered but not performed or refused? (CT, X-rays, U/S, labs)? Why? @ -None What meds were considered but not given or refused? Why? @ -None Did you discuss the management of the patient with other professionals (professionals i.e. , PA, SHIP BOAT OR BARGE MATE, lab, RT, psych nurse, manager social work, founder and chief technical officer, teacher, chief technical officer, watch case polisher)? Give summary @ -No Was smoking cessation discussed for >3mins.? @ -No Was critical care preformed (if so, how long)? @ -[No] Were there social determinants of health that impacted care today? How? (Homelessness, low income, unemployed, alcoholism, drug addiction, transportation, low edu. Level, literacy, decrease access to med. care, penitentiary, rehab)? @ -[No] Was there de-escalation of care discussed even if they declined (Discuss DNR or withdrawal of care, Hospice)? DNR status @ -[No] What co-morbidities impacted this encounter? (DM, HTN, Smoking, COPD, CAD, Cancer, CVA, ARF, Chemo, Hep., AIDS, mental health diagnosis, sleep apnea, morbid obesity)? @ -[POTS Was patient admitted / discharged? Hospital course, mention meds given and route, prescriptions, significant lab abnormalities, going to OR and other pertinent info. @ -[Discharge patient blood pressure is unremarkable patient was hydrated in feels improved. Laboratory studies revealed no evidence of elevated troponin or elevated d-dimer patient does have a history of pots] Undiagnosed new problem with uncertain prognosis? @ -[No] Drug Therapy requiring intensive monitoring for toxicity (Heparin, Nitro, Insulin, Cardizem)? @ -[No] Were any procedures done? @ -[No] Diagnosis/symptom? @ -[Palpitations] Acute, or Chronic, or Acute on Chronic? @ -[Acute ] Uncomplicated (without systemic symptoms) or Complicated (systemic symptoms)? @ -[Uncomplicated] Side effects of treatment? @ -[No] Exacerbation, Progression, or Severe Exacerbation? @ -[No] Poses a threat to life or bodily function? How? (Chest pain, [place], [place], pneumonia, PE, COPD, DKA, ARF, appy, cholecystitis, CVA, Diverticulitis, Homicidal, Suicidal, threat to staff... and all critical care pts) @ -[No] Disposition Clinical Impression: Palpitations Disposition: HOME SELF-CARE Condition: Stable Instructions (If sedation given, give patient instructions): Heart Palpitations (ED) Additional Instructions: Please return to the Emergency Department if symptoms worsen or any other concerns. Is patient prescribed a controlled substance at d/c from ED?: No Referrals: Kayla Hopkins MD [Primary Care Provider] - 1-2 days Time of Disposition: 10:55
[2023-05-07 10:02] LABS: ALT 24 U/L (4-34); AST 24 U/L (14-36); African American GFR (CKD) >90 (>60 ml/min/1.73 sqM); Albumin 4.3 g/dL (3.5-5.0); Alkaline Phosphatase 62 U/L (38-126); Anion Gap 13 mmol/L; Blood Urea Nitrogen 13 mg/dL (7-17); Calcium 8.7 mg/dL (8.4-10.2); Carbon Dioxide 18 mmol/L (22-30); Chloride 105 mmol/L (98-107); Glucose 149 mg/dL (74-99); Magnesium 1.9 mg/dL (1.6-2.3); Non-African American GFR(CKD) >90 (>60 ml/min/1.73 sqM); Potassium 4.3 mmol/L (3.5-5.1); Sodium 136 mmol/L (137-145); Total Bilirubin 0.5 mg/dL (0.2-1.3); Total Protein 7.5 g/dL (6.3-8.2)
--- NOTE | 2023-05-07 10:05 | XR ---
EXAMINATION TYPE: XR chest 2V DATE OF EXAM: 05/07/2023 COMPARISON: 10/24/2022 INDICATION: Chest pain TECHNIQUE: Frontal and lateral views of the chest are obtained. FINDINGS: The heart size is normal. The pulmonary vasculature is normal. The lungs are clear. IMPRESSION: 1. No acute pulmonary process.
[2023-05-07 10:08] LABS: NT-Pro-B-Type Natriuretic Pept 42 pg/mL
[2023-05-07 10:36] LABS: INR 0.9 (<1.2); Partial Thromboplastin Time 24.8 sec (22.0-30.0); Prothrombin Time 9.8 sec (9.0-12.0)
[2023-05-07 10:56] VITALS: BP 114/76; PULSE 66
== END 2023-05-07 11:03 | disposition home or self-care (01) ==
LOC: EC 08:51
DX: R00.2 Palpitations (principal); Z88.7 Allergy status to serum and vaccine; Z88.1 Allergy status to other antibiotic agents; Z86.59 Personal history of other mental and behavioral disorders
CPT/HCPCS: 36415; 71046; 80053; 83735; 83880; 84484; 85025; 85379; 85610; 85730; 93005; 96360; 99285

== ENCOUNTER 2023-06-09 13:53 | Observation (INO) | payer OTHER ==
--- NOTE | 2023-06-09 13:58 | ED ---
General Adult HPI - General Source: patient, RN notes reviewed Mode of arrival: ambulatory Limitations: no limitations <Landen Benavidez - Last Filed: 06/09/23 13:57> - General Source: RN notes reviewed, old records reviewed Mode of arrival: EMS Limitations: no limitations - History of Present Illness -: hour(s) Location: chest Radiation: non-radiation Severity scale (1-10): 4 Quality: aching Consistency: constant Improves with: none Associated Symptoms: denies other symptoms Treatments Prior to Arrival: none <Ricco Wood - Last Filed: 06/12/23 21:49> - General Stated complaint: chest pain Time Seen by Provider: 06/09/23 13:57 - History of Present Illness Initial comments: 37-year-old female presents emergency department of epigastric lower chest pain. Patient states that symptoms started earlier. Patient states that she initially thought it was indigestion but states he returned has not alleviated. Patient states she has a history of POTS denies any other cardiac history. Patient had a prior cholecystectomy. (Landen Benavidez) This is a 37-year-old male to the emergency for evaluation of severe abdominal pain and chest pain. Chest pain that woke her up from sleep last night at 3 AM with persistent chest pain throughout the day sweatiness clamminess (Ricco Wood) - Related Data Home Medications Medication Instructions Recorded Confirmed Venlafaxine HCl [Effexor XR] 75 mg PO DAILY 06/09/23 06/09/23 Vitamin C/Biotin [Hair, Skin and 2 tab PO DAILY 06/09/23 06/09/23 Nails Chew] Previous Rx's Medication Instructions Recorded Pantoprazole [Protonix] 40 mg PO DAILY #30 tab 06/10/23 Allergies Allergy/AdvReac Type Severity Reaction Status Date / Time Tetanus Vaccines and Toxoid Allergy Anaphylaxis Verified 06/09/23 21:47 cephalexin [From Keflex] AdvReac Vomiting Verified 06/09/23 21:47 Review of Systems ROS Other: All systems not noted in ROS Statement are negative. <Landen Benavidez - Last Filed: 06/09/23 13:57> ROS Other: All systems not noted in ROS Statement are negative. <Ricco Wood - Last Filed: 06/12/23 21:49> ROS Statement: Those systems with pertinent positive or pertinent negative responses have been documented in the HPI. Past Medical History Past Medical History: Chest Pain / Angina, Thyroid Disorder Additional Past Medical History / Comment(s): migraines, POTS, History of Any Multi-Drug Resistant Organisms: None Reported Past Surgical History: Cholecystectomy, Orthopedic Surgery Additional Past Surgical History / Comment(s): right shoulder. fallopian removal, right elbow. Past Anesthesia/Blood Transfusion Reactions: No Reported Reaction Past Psychological History: Anxiety, Bipolar, Depression, PTSD Smoking Status: Never smoker Past Alcohol Use History: None Reported Past Drug Use History: None Reported - Past Family History Mother Family Medical History: Chest Pain / Angina <Landen Benavidez - Last Filed: 06/09/23 13:57> General Exam Limitations: no limitations <Landen Benavidez - Last Filed: 06/09/23 13:57> General appearance: alert, in no apparent distress, anxious Head exam: Present: atraumatic, normocephalic, normal inspection Eye exam: Present: normal appearance, PERRL, EOMI. Absent: scleral icterus, conjunctival injection, periorbital swelling ENT exam: Present: normal exam, mucous membranes moist Neck exam: Present: normal inspection. Absent: tenderness, meningismus, lymphadenopathy Respiratory exam: Present: normal lung sounds bilaterally. Absent: respiratory distress, wheezes, rales, rhonchi, stridor Cardiovascular Exam: Present: regular rate, normal rhythm, normal heart sounds. Absent: systolic murmur, diastolic murmur, rubs, gallop, clicks GI/Abdominal exam: Present: soft, normal bowel sounds. Absent: distended, tenderness, guarding, rebound, rigid Extremities exam: Present: normal inspection, full ROM, normal capillary refill. Absent: tenderness, pedal edema, joint swelling, calf tenderness Back exam: Present: normal inspection Neurological exam: Present: alert, oriented X3, CN II-XII intact Psychiatric exam: Present: normal affect, normal mood Skin exam: Present: warm, dry, intact, normal color. Absent: rash <Ricco Wood - Last Filed: 06/12/23 21:49> - General Exam Comments Initial Comments: Visual Physical Exam Vital signs reviewed General: Well-appearing, nontoxic, no acute distress. Head: Normocephalic, atraumatic Eyes: PERRLA, EOMI ENT: Airway patent Chest: Nonlabored breathing Skin: No visual rash, normal skin tone Neuro: Alert and oriented 3 Musculoskeletal: No gross abnormalities (Landen Benavidez) Course <Ricco Wood - Last Filed: 06/12/23 21:49> Vital Signs 06/09/23 06/09/23 06/09/23 13:55 19:32 20:49 Temperature 98.5 F 98.4 F Pulse Rate 77 74 67 Respiratory 16 18 18 Rate Blood Pressure 150/85 129/86 105/54 O2 Sat by Pulse 97 96 97 Oximetry 06/09/23 06/10/23 06/10/23 23:00 03:00 04:00 Temperature Pulse Rate 64 61 67 Respiratory 18 18 18 Rate Blood Pressure 113/75 121/80 106/64 O2 Sat by Pulse 98 97 97 Oximetry 06/10/23 06/10/23 06/10/23 05:00 06:00 08:22 Temperature Pulse Rate 59 L 57 L 84 Respiratory 20 18 19 Rate Blood Pressure 114/74 100/57 101/53 O2 Sat by Pulse 97 98 98 Oximetry 06/10/23 06/10/23 12:11 19:02 Temperature 97.6 F 98.1 F Pulse Rate 97 81 Respiratory 18 18 Rate Blood Pressure 124/73 126/77 O2 Sat by Pulse 98 97 Oximetry - Reevaluation(s) Reevaluation #1: 06/09/23 20:24 Medical record is reviewed (Ricco Wood) Reevaluation #2: 06/09/23 20:24 Patient still with chest pain here in the emergency department (Yony Wood) Reevaluation #3: Results and questions answered (Ricco Wood) Reevaluation #4: 06/09/23 20:25 Was pt. sent in by a medical professional or institution (, PA, SPINNING AND WINDING SUPERVISOR, urgent care, hospital, or care home...) When possible be specific @ -no Did you speak to anyone other than the patient for history (EMS, parent, family, police, friend...)? What history was obtained from this source @ -no Did you review nursing and triage notes (agree or disagree)? Why? @ -agree Are old charts reviewed (outside hosp., previous admission, EMS record, old EKG, old radiological studies, urgent care reports/EKG's, care home records)? Report findings @ -yes Differential Diagnosis (chest pain, altered mental status, abdominal pain women, abdominal pain men, vaginal bleeding, weakness, fever, dyspnea, syncope, headache, dizziness, GI bleed, back pain, seizure, CVA, palpatations, mental health, musculoskeletal)? @ -prior EKG interpreted by me (3pts min.). @ -yes X-rays interpreted by me (1pt min.). @ -yes CT interpreted by me (1pt min.). @ -no U/S interpreted by me (1pt. min.). @ -no What testing was considered but not performed or refused? (CT, X-rays, U/S, labs)? Why? @ -none What meds were considered but not given or refused? Why? @ -none Did you discuss the management of the patient with other professionals (professionals i.e. , PA, SPINNING AND WINDING SUPERVISOR, lab, RT, psych nurse, perinatal social worker, heel turner, teacher, network security officer, renal case manager)? Give summary @ -no Was smoking cessation discussed for >3mins.? @ -no Was critical care preformed (if so, how long)? @ -yes31 Were there social determinants of health that impacted care today? How? (Homelessness, low income, unemployed, alcoholism, drug addiction, transp ortation, low edu. Level, literacy, decrease access to med. care, custodial, rehab)? @ -none Was there de-escalation of care discussed even if they declined (Discuss DNR or withdrawal of care, Hospice)? DNR status @ -no What co-morbidities impacted this encounter? (DM, HTN, Smoking, COPD, CAD, Cancer, CVA, ARF, Chemo, Hep., AIDS, mental health diagnosis, sleep apnea, morbid obesity)? @ -none Was patient admitted / discharged? Hospital course, mention meds given and route, prescriptions, significant lab abnormalities, going to OR and other pertinent info. @ - 37 female will be admitted for cardiology evaluation management with strong and significant family history of heart disease Admitted Undiagnosed new problem with uncertain prognosis? @ -no Drug Therapy requiring intensive monitoring for toxicity (Heparin, Nitro, Insulin, Cardizem)? @ -no Were any procedures done? @ -no Diagnosis/symptom? @ -Chest pain Acute, or Chronic, or Acute on Chronic? @ -Acute Uncomplicated (without systemic symptoms) or Complicated (systemic symptoms)? @ -Complicated Side effects of treatment? @ -no Exacerbation, Progression, or Severe Exacerbation? @ -exacerbation Poses a threat to life or bodily function? How? (Chest pain, [place], [place], pneumonia, PE, COPD, DKA, ARF, appy, cholecystitis, CVA, Diverticulitis, Homicidal, Suicidal, threat to staff... and all critical care pts) @ -yes with acute ACS (Ricco Wood) Reevaluation #5: 06/09/23 20:25 Differential Chest Pain: Stable Angina, Unstable Angina, STEMI, NSTEMI Aortic Dissection, Pneumothorax, Musculoskeletal, Esophageal Spasm GERD, Cholecystitis, Pancreatitis, Zoster, this is not meant to be an all-inclusive list. (Ricco Wood) - Consultations Consultation #1: Spoke with admitting physician who agrees for patient admission (Ricco Wood) EKG Findings - EKG Comments: EKG Findings:: EKG sinus 71 [place] 123 QRS 101 QTC 401 - EKG Results: EKG: interpreted by ERMD <Ricco Wood - Last Filed: 06/12/23 21:49> Medical Decision Making <Landen Benavidez - Last Filed: 06/09/23 13:57> - Lab Data Result diagrams: 06/10/23 05:10 06/10/23 05:10 - EKG Data -: EKG Interpreted by Me - Radiology Data Radiology results: report reviewed (Chest x-rays negative for acute disease), image reviewed <Ricco Wood - Last Filed: 06/12/23 21:49> - Medical Decision Making I performed a quick note portion of discharged signed Landen Benavidez PA-C (Landen Benavidez) 37 female will be admitted for cardiology evaluation management with strong and significant family history of heart disease (Ricco Wood) - Lab Data Lab Results 06/09/23 06/09/23 06/09/23 Range/Units 14:29 14:29 14:29 WBC 9.1 (3.8-10.6) k/uL RBC 4.81 (3.80-5.40) m/uL Hgb 14.3 (11.4-16.0) gm/dL Hct 42.8 (34.0-46.0) % MCV 89.0 (80.0-100.0) fL MCH 29.8 (25.0-35.0) pg MCHC 33.5 (31.0-37.0) g/dL RDW 12.9 (11.5-15.5) % Plt Count 270 (150-450) k/uL MPV 8.2 Neutrophils % 61 % Lymphocytes % 32 % Monocytes % 5 % Eosinophils % 2 % Basophils % 0 % Neutrophils # 5.5 (1.3-7.7) k/uL Lymphocytes # 2.9 (1.0-4.8) k/uL Monocytes # 0.4 (0-1.0) k/uL Eosinophils # 0.1 (0-0.7) k/uL Basophils # 0.0 (0-0.2) k/uL PT 10.2 (9.0-12.0) sec INR 1.0 (<1.2) APTT 24.8 (22.0-30.0) sec Sodium 137 (137-145) mmol/L Potassium 3.8 (3.5-5.1) mmol/L Chloride 105 (98-107) mmol/L Carbon Dioxide 19 L (22-30) mmol/L Anion Gap 13 mmol/L BUN 12 (7-17) mg/dL Creatinine 0.58 (0.52-1.04) mg/dL Est GFR (CKD-EPI)AfAm >90 (>60 ml/min/1.73 sqM) Est GFR (CKD-EPI)NonAf >90 (>60 ml/min/1.73 sqM) Glucose 115 H (74-99) mg/dL Calcium 9.5 (8.4-10.2) mg/dL Magnesium 2.1 (1.6-2.3) mg/dL Total Bilirubin 0.5 (0.2-1.3) mg/dL AST 26 (14-36) U/L ALT 25 (4-34) U/L Alkaline Phosphatase 64 (38-126) U/L Troponin I (0.000-0.034) ng/mL NT-Pro-B Natriuret Pep <20 pg/mL Total Protein 7.8 (6.3-8.2) g/dL Albumin 4.4 (3.5-5.0) g/dL Lipase 134 (23-300) U/L 06/09/23 06/09/23 Range/Units 14:29 19:33 WBC (3.8-10.6) k/uL RBC (3.80-5.40) m/uL Hgb (11.4-16.0) gm/dL Hct (34.0-46.0) % MCV (80.0-100.0) fL MCH (25.0-35.0) pg MCHC (31.0-37.0) g/dL RDW (11.5-15.5) % Plt Count (150-450) k/uL MPV Neutrophils % % Lymphocytes % % Monocytes % % Eosinophils % % Basophils % % Neutrophils # (1.3-7.7) k/uL Lymphocytes # (1.0-4.8) k/uL Monocytes # (0-1.0) k/uL Eosinophils # (0-0.7) k/uL Basophils # (0-0.2) k/uL PT (9.0-12.0) sec INR (<1.2) APTT (22.0-30.0) sec Sodium (137-145) mmol/L Potassium (3.5-5.1) mmol/L Chloride (98-107) mmol/L Carbon Dioxide (22-30) mmol/L Anion Gap mmol/L BUN (7-17) mg/dL Creatinine (0.52-1.04) mg/dL Est GFR (CKD-EPI)AfAm (>60 ml/min/1.73 sqM) Est GFR (CKD-EPI)NonAf (>60 ml/min/1.73 sqM) Glucose (74-99) mg/dL Calcium (8.4-10.2) mg/dL Magnesium (1.6-2.3) mg/dL Total Bilirubin (0.2-1.3) mg/dL AST (14-36) U/L ALT (4-34) U/L Alkaline Phosphatase (38-126) U/L Troponin I <0.012 <0.012 (0.000-0.034) ng/mL NT-Pro-B Natriuret Pep pg/mL Total Protein (6.3-8.2) g/dL Albumin (3.5-5.0) g/dL Lipase (23-300) U/L Critical Care Time Critical Care Time: Yes Total Critical Care Time: 31 <Ricco Wood - Last Filed: 06/12/23 21:49> Disposition <Landen Benavidez - Last Filed: 06/09/23 13:57> Is patient prescribed a controlled substance at d/c from ED?: No Time of Disposition: 21:40 <Ricco Wood - Last Filed: 06/12/23 21:49> Clinical Impression: Chest pain Disposition: ADMITTED IP TO THIS HOSP Condition: Stable
[2023-06-09 14:37] LABS: Basophils % (A) 0 %; Eosinophils # (A) 0.1 k/uL (0-0.7); Eosinophils % (A) 2 %; HCT 42.8 % (34.0-46.0); HGB 14.3 gm/dL (11.4-16.0); Lymphocytes # (A) 2.9 k/uL (1.0-4.8); Lymphocytes % (A) 32 %; MCH 29.8 pg (25.0-35.0); MCHC 33.5 g/dL (31.0-37.0); Mean Platelet Volume 8.2; Monocytes # (A) 0.4 k/uL (0-1.0); Monocytes % (A) 5 %; Neutrophils # (A) 5.5 k/uL (1.3-7.7); Neutrophils % (A) 61 %; Platelet Count 270 k/uL (150-450); RBC 4.81 m/uL (3.80-5.40); RDW 12.9 % (11.5-15.5); WBC 9.1 k/uL (3.8-10.6)
[2023-06-09 14:51] LABS: Partial Thromboplastin Time 24.8 sec (22.0-30.0); Prothrombin Time 10.2 sec (9.0-12.0)
[2023-06-09 15:06] LABS: ALT 25 U/L (4-34); AST 26 U/L (14-36); African American GFR (CKD) >90 (>60 ml/min/1.73 sqM); Albumin 4.4 g/dL (3.5-5.0); Alkaline Phosphatase 64 U/L (38-126); Anion Gap 13 mmol/L; Blood Urea Nitrogen 12 mg/dL (7-17); Calcium 9.5 mg/dL (8.4-10.2); Carbon Dioxide 19 mmol/L (22-30); Chloride 105 mmol/L (98-107); Glucose 115 mg/dL (74-99); Lipase 134 U/L (23-300); Magnesium 2.1 mg/dL (1.6-2.3); Non-African American GFR(CKD) >90 (>60 ml/min/1.73 sqM); Potassium 3.8 mmol/L (3.5-5.1); Sodium 137 mmol/L (137-145); Total Bilirubin 0.5 mg/dL (0.2-1.3); Total Protein 7.8 g/dL (6.3-8.2)
--- NOTE | 2023-06-09 15:08 | XR ---
EXAMINATION TYPE: XR chest 2V DATE OF EXAM: 06/09/2023 COMPARISON: 05/07/2023 HISTORY: 37-year-old female with chest pain TECHNIQUE: PA and lateral views FINDINGS: The cardiomediastinal silhouette, aorta, and pulmonary vasculature are within normal limits. Lungs an d pleural spaces are clear. IMPRESSION: No acute cardiopulmonary process.
[2023-06-09 15:15] LABS: NT-Pro-B-Type Natriuretic Pept <20 pg/mL
[2023-06-09] MEDS ORDERED: NALOXONE 0.4 MG/ML 1 ML VIAL IV PRN (21:35)
[2023-06-09] MEDS ORDERED: ONDANSETRON 4 MG/2 ML VIAL IVP PRN (21:35)
[2023-06-09] MEDS ORDERED: HEPARIN SODIUM 1,000 UN/ML (10ML VL) IV PRN (21:35)
[2023-06-09] MEDS ORDERED: HEPARIN SODIUM 1,000 UN/ML (10ML VL) IV ONE (21:35)
[2023-06-09] MEDS ORDERED: MORPHINE SULFATE 4 MG/ML SYRINGE IV PRN (21:35)
[2023-06-09] MEDS ORDERED: ASPIRIN 81 MG PO STA (21:37)
[2023-06-09] MEDS ORDERED: HEPARIN SOD,PORK IN 0.45% NACL 25,000 UNIT in 0.45% NACL 1 250ML.BAG IV SCH (21:45)
[2023-06-10 05:31] LABS: Basophils % (A) 0 %; Eosinophils # (A) 0.1 k/uL (0-0.7); Eosinophils % (A) 1 %; HCT 40.6 % (34.0-46.0); HGB 13.7 gm/dL (11.4-16.0); Lymphocytes # (A) 3.3 k/uL (1.0-4.8); Lymphocytes % (A) 41 %; MCH 30.1 pg (25.0-35.0); MCHC 33.8 g/dL (31.0-37.0); Mean Platelet Volume 8.2; Monocytes # (A) 0.4 k/uL (0-1.0); Monocytes % (A) 4 %; Neutrophils # (A) 4.1 k/uL (1.3-7.7); Neutrophils % (A) 51 %; Platelet Count 240 k/uL (150-450); RBC 4.56 m/uL (3.80-5.40); RDW 12.9 % (11.5-15.5)
[2023-06-10 05:48] LABS: ALT 25 U/L (4-34); AST 28 U/L (14-36); African American GFR (CKD) >90 (>60 ml/min/1.73 sqM); Albumin 4.3 g/dL (3.5-5.0); Alkaline Phosphatase 72 U/L (38-126); Anion Gap 12 mmol/L; Blood Urea Nitrogen 14 mg/dL (7-17); Calcium 9.1 mg/dL (8.4-10.2); Carbon Dioxide 22 mmol/L (22-30); Chloride 102 mmol/L (98-107); Glucose 112 mg/dL (74-99); Non-African American GFR(CKD) >90 (>60 ml/min/1.73 sqM); Phosphorus 3.4 mg/dL (2.5-4.5); Potassium 4.2 mmol/L (3.5-5.1); Sodium 136 mmol/L (137-145); Total Bilirubin 0.7 mg/dL (0.2-1.3); Total Protein 7.5 g/dL (6.3-8.2)
[2023-06-10] MEDS ORDERED: PANTOPRAZOLE 40 MG/10 ML VIAL IV SCH (09:00)
[2023-06-10] MEDS ORDERED: ASPIRIN 325 MG TAB PO SCH (09:00)
[2023-06-10] MEDS ORDERED: VENLAFAXINE HCL ER 75 MG CAP PO SCH (09:30)
[2023-06-10] MEDS ORDERED: NON FORMULARY DRUG (Vitamin C/Biotin [Hair, Skin And Nails Chew] 1 EACH Tab.Chew) PO SCH (09:30)
[2023-06-10] MEDS ORDERED: ACETAMINOPHEN TAB 325 MG TAB PO PRN (10:58)
--- NOTE | 2023-06-10 11:16 | P.CRDCN ---
History of Present Illness Consult date: 06/10/23 Requesting physician: Bettye Briones Reason for Consult (text): Chest pain Chief complaint: Chest pain History of present illness: This is a pleasant 37-year-old female patient who calls in the office with Dr. Dunn. Was last seen in the office in October 2021. Has a history of hyperlipidemia and family history of CAD in her father who had his first heart attack at 28 and mother who recently had stenting at the age of 58. Presented to the emergency department with complaints of chest discomfort. She woke up quite early yesterday morning with onset of discomfort in her chest radiating to her back center of her chest. She felt it could be her GERD and took some Tums without much relief. The discomfort persisted through the day yesterday and she began to develop some cool and clammy episodes and at the advice of her mother came to the emergency department for further evaluation. Upon examination she is resting comfortably in the ER. She continues to have constant discomfort in the center of her chest radiating to her back without any alleviating or aggravating factors. She is been initiated on IV heparin. Troponins are negative 4. CBC is normal, sodium 136, potassium 4.2, BUN 14, creatinine 0.71. EKG showed sinus mechanism with no evidence of ischemia. Most recent stress test in September 2021 done here showed no evidence for reversible ischemia. Echocardiogram with Doppler study done in August 2021 showed normal LV systolic function with mild TR. She underwent tilt table test in January 2022 that showed no evidence for neurocardiogenic syncope, no evidence for dysautonomia or postural tachycardia, likely psychogenic "altered consciousness ". Her vital signs are stable. He does complain of dizziness, not beyond her normal but no syncope or near syncope. She has occasional palpitations unchanged from her baseline. She denies any shortness of breath, orthopnea or PND. Past Medical History Past Medical History: Chest Pain / Angina, Thyroid Disorder Additional Past Medical History / Comment(s): migraines, POTS, History of Any Multi-Drug Resistant Organisms: None Reported Past Surgical History: Cholecystectomy, Orthopedic Surgery Additional Past Surgical History / Comment(s): right shoulder. fallopian jed tang, right elbow. Past Anesthesia/Blood Transfusion Reactions: No Reported Reaction Past Psychological History: Anxiety, Bipolar, Depression, PTSD Smoking Status: Never smoker Past Alcohol Use History: None Reported Past Drug Use History: None Reported - Past Family History Mother Family Medical History: Chest Pain / Angina Medications and Allergies Home Medications Medication Instructions Recorded Confirmed Type Venlafaxine HCl [Effexor XR] 75 mg PO DAILY 06/09/23 06/09/23 History Vitamin C/Biotin [Hair, Skin and 2 tab PO DAILY 06/09/23 06/09/23 History Nails Chew] Allergies Allergy/AdvReac Type Severity Reaction Status Date / Time Tetanus Vaccines and Toxoid Allergy Anaphylaxis Verified 06/09/23 21:47 cephalexin [From Keflex] AdvReac Vomiting Verified 06/09/23 21:47 Physical Exam Vitals: Vital Signs Temp Pulse Resp BP Pulse Ox 06/10/23 08:22 84 19 101/53 98 06/10/23 06:00 57 L 18 100/57 98 06/10/23 05:00 59 L 20 114/74 97 06/10/23 04:00 67 18 106/64 97 06/10/23 03:00 61 18 121/80 97 06/09/23 23:00 64 18 113/75 98 06/09/23 20:49 67 18 105/54 97 06/09/23 19:32 98.4 F 74 18 129/86 96 06/09/23 13:55 98.5 F 77 16 150/85 97 Intake and Output 06/09/23 06/10/23 06/10/23 22:59 06:59 14:59 Intake Total 92.889 Balance 92.889 Intake: Intake, IV Titration 92.889 Amount Heparin Sod,Pork in 0.45% 92.889 NaCl 25,000 unit In 0.45 % NaCl 1 250ml.bag @ 8.11 UNITS/KG/HR 10.006 mls/ hr IV .Q24H [facility] Rx#: [id number] PHYSICAL EXAMINATION: This is a 33-year-old female in no apparent distress at the time of my examination. VITAL SIGNS: Reviewed HEENT: Head is atraumatic, normocephalic. Pupils are equal, round. Sclerae anicteric. Conjunctivae are clear. Mucous membranes of the mouth are moist. Neck is supple. There is no elevated jugular venous pressure. No carotid bruit is heard. CHEST EXAMINATION: Clear to auscultation bilaterally. No wheezes rales or rhonchi. Respirations even and nonlabored. HEART EXAMINATION: Heart regular, positive S1 and S2. No S3. No S4. No clicks, rubs or murmurs. ABDOMEN: Soft, nontender. Bowel sounds are heard. No organomegaly noted. EXTREMITIES: 2+ peripheral pulses with no evidence of peripheral edema and no calf tenderness noted. NEUROLOGIC EXAMINATION: Patient is awake, alert and oriented x3. Results 06/10/23 05:10 06/10/23 05:10 Cardiac Enzymes 06/09/23 06/09/23 06/09/23 Range/Units 14:29 14:29 19:33 AST 26 (14-36) U/L Troponin I <0.012 <0.012 (0.000-0.034) ng/mL 06/10/23 06/10/23 06/10/23 Range/Units 00:30 05:10 05:10 AST 28 (14-36) U/L Troponin I <0.012 <0.012 (0.000-0.034) ng/mL Coagulation 06/09/23 06/10/23 Range/Units 14:29 05:10 PT 10.2 (9.0-12.0) sec APTT 24.8 24.9 (22.0-30.0) sec CBC 06/09/23 06/10/23 Range/Units 14:29 05:10 WBC 9.1 8.0 (3.8-10.6) k/uL RBC 4.81 4.56 (3.80-5.40) m/uL Hgb 14.3 13.7 (11.4-16.0) gm/dL Hct 42.8 40.6 (34.0-46.0) % Plt Count 270 240 (150-450) k/uL Comprehensive Metabolic Panel 06/09/23 06/10/23 Range/Units 14:29 05:10 Sodium 137 136 L (137-145) mmol/L Potassium 3.8 4.2 (3.5-5.1) mmol/L Chloride 105 102 (98-107) mmol/L Carbon Dioxide 19 L 22 (22-30) mmol/L BUN 12 14 (7-17) mg/dL Creatinine 0.58 0.71 (0.52-1.04) mg/dL Glucose 115 H 112 H (74-99) mg/dL Calcium 9.5 9.1 (8.4-10.2) mg/dL AST 26 28 (14-36) U/L ALT 25 25 (4-34) U/L Alkaline Phosphatase 64 72 (38-126) U/L Total Protein 7.8 7.5 (6.3-8.2) g/dL Albumin 4.4 4.3 (3.5-5.0) g/dL Current Medications Generic Name Dose Route Start Last Admin Trade Name Brandonq PRN Reason Stop Dose Admin Acetaminophen 650 mg 06/10/23 10:58 06/10/23 11:03 Acetaminophen Tab 325 Mg Tab PO 650 mg Q6HR PRN Administration Fever and/ or Pain Aspirin 325 mg 06/10/23 09:00 06/10/23 08:19 Aspirin 325 Mg Tab PO 325 mg DAILY BRITTANEY Administration Morphine Sulfate 4 mg 06/09/23 21:35 Morphine Sulfate 4 Mg/Ml Syringe IV Q4HR PRN Severe Pain (Scale 7 to 10) Naloxone HCl 0.2 mg 06/09/23 21:35 Naloxone 0.4 Mg/Ml 1 Ml Vial IV Q2M PRN Opioid Reversal Ondansetron HCl 4 mg 06/09/23 21:35 Ondansetron 4 Mg/2 Ml Vial IVP Q8HR PRN Nausea And Vomiting Pantoprazole Sodium 40 mg 06/10/23 09:00 06/10/23 08:18 Pantoprazole 40 Mg/10 Ml Vial IV 40 mg DAILY BRITTANEY Administration Venlafaxine HCl 75 mg 06/10/23 09:30 06/10/23 09:31 Venlafaxine Hcl Er 75 Mg Cap PO 75 mg DAILY BRITTANEY Administration Intake and Output 06/09/23 06/10/23 06/10/23 22:59 06:59 14:59 Intake Total 92.889 Balance 92.889 Intake: Intake, IV Titration 92.889 Amount Heparin Sod,Pork in 0.45% 92.889 NaCl 25,000 unit In 0.45 % NaCl 1 250ml.bag @ 8.11 UNITS/KG/HR 10.006 mls/ hr IV .Q24H [facility] Rx#: [id number] 06/10/23 05:10 06/10/23 05:10 EKG Interpretations (text) Sinus rhythm Assessment and Plan Assessment: #1 chest pain, acute coronary event has been ruled out, troponins were negative 4, EKG unremarkable. #2 recurrent dizziness and palpitations, stable, prior workup has been unremarkable #3 hyperlipidemia #4 family history of premature CAD Plan: From commercial parts professional respectively obtain a 2-D echo with Doppler study to assess cardiac structure and function. We will obtain a stress echo to rule out underlying ischemia. If there is no significant abnormalities noted in the testing she may be discharged home. She'll follow-up in the office with Dr. Dunn. ASSEMBLY RIVETER note has been reviewed, I agree with a documented findings and plan of care. Patient was seen and examined.
[2023-06-10 12:12] VITALS: RESP 18
--- NOTE | 2023-06-10 13:01 | CA ---
Stress Echo Report Sary Lopez Age: 37 Gender: F : 1985 Exam Date: 06/10/2023 09:56 Exam Location: [place] Echo Ht (in): 68 Wt (lb): 272 Ordering Physician: Nadine Urena Referring Physician: [id number] [employer] Crew Boss: Jolly Amor [facility] Technologist Procedure CPT: Indication: Chest Pain ICD-9 Codes: Rhythm: Patient History: Chest pain Cardiac Medications: Medications in past 24 hours: Contrast: Stress Results Protocol: Derick Total dose(mL): Exercise Duration (min:sec): 6:[address] Depression (mm): 0 Angina Score: 0 Hinton Score: 6.02 METS: 7.3 Resting HR: 78 Resting BP: 123 / 73 Peak HR: 169 Peak BP: 183 / 70 Max Predicted HR: 183 92 % Max Predicted HR Target HR: 156 Double Product: [id number] Stress Summary: The patient's target heart rate was achieved BP Response: Normal Reason for Termination: Reached target heart rate or work-load Cardiac Symptoms: No symptoms ECG Analysis Resting ECG: Normal sinus rhythm, normal ECG Stress ECG: No abnormal ST/T wave changes with exercise Arrhythmia: None Echo Analysis Resting Echo: Normal resting echocardiogram. Peak Echo Analysis: Normal wall thickening and motion MEASUREMENTS (Male/Female) Normal Values CONCLUSIONS Patient falls into low-risk group (DTS >= +5). This associates the patient with an annual CV mortality <= 0.5%. No ECG evidence of ischemia with exercise. Normal treadmill stress echocardiogram. Dr. Vilma Griffiths MD (Electronically Signed) Final Date: 10 June 2023 13:01
--- NOTE | 2023-06-10 13:07 | CA ---
Transthoracic Echo Report Name: Sary Lopez Age: 37 Gender: F : 1985 Exam Date: 06/10/2023 10:17 Exam Location: [place] Echo Ht (in): 68 Wt (lb): 272 Ordering Physician: Nadine Urena Attending/Referring Phys: [id number], Ayanna Woodworker Helper Jolly Amor [facility] Procedure CPT: Indications: Chest Pain Cardiac Hx: Technical Quality: Fair Contrast 1: Total Dose (mL): Contrast 2: Total Dose (mL): MEASUREMENTS (Male / Female) Normal Values 2D ECHO LV Diastolic Diameter PLAX 4.4 cm 4.2 - 5.9 / 3.9 - 5.3 cm LV Systolic Diameter PLAX 2.8 cm IVS Diastolic Thickness 0.9 cm 0.6 - 1.0 / 0.6 - 0.9 cm LVPW Diastolic Thickness 1.1 cm 0.6 - 1.0 / 0.6 - 0.9 cm LV Relative Wall Thickness 0.5 Ascending Aorta Diameter 3.2 cm DOPPLER AV Peak Velocity 116.3 cm/s AV Peak Gradient 5.4 mmHg AV Mean Velocity 84.1 cm/s AV Mean Gradient 3.2 mmHg AV Velocity Time Integral 18.3 cm LVOT Peak Velocity 113.4 cm/s LVOT Peak Gradient 5.1 mmHg LVOT Velocity Time Integral 16.9 cm Mitral E Point Velocity 55.0 cm/s Mitral A Point Velocity 75.3 cm/s Mitral E to A Ratio 0.7 MV Deceleration Time 194.4 ms LV E' Lateral Velocity 11.1 cm/s Mitral E to LV E' Lateral Ratio 5.0 LV E' Septal Velocity 8.4 cm/s Mitral E to LV E' Septal Ratio 6.5 Right Atrial Pressure 8.0 mmHg FINDINGS Left Ventricle Left ventricular cavity size normal. Normal left ventricular systolic function with no obvious regional wall motion abnormalities. Left ventricular ejection fraction is estimated at 55-60%. Right Ventricle Mild right ventricular dilatation. Right Atrium Mild right atrial dilatation. Left Atrium Normal left atrial size. Mitral Valve Structurally normal mitral valve. No mitral regurgitation. Aortic Valve Trileaflet aortic valve. No aortic valve stenosis or regurgitation. Tricuspid Valve Structurally normal tricuspid valve. Trace tricuspid regurgitation. Pulmonic Valve Structurally normal pulmonic valve. Trace pulmonic regurgitation. Pericardium No pericardial effusion. Aorta Normal size aortic root. CONCLUSIONS 1. Normal left ventricle size and systolic function 2. Trace tricuspid regurgitation Previewed by: Dr. Vilma Griffiths MD (Electronically Signed) Final Date: 10 June 2023 13:06
--- NOTE | 2023-06-10 16:53 | P.HPIM ---
History of Present Illness H&P Date: 06/10/23 This is a 37 year old female with medical history of GERD, migraines, POTS syndrome, thyroid disorder, anxiety, depression, bipolar and PTSD. Patient reports acute onset of chest pain awoken out of sleep at 3 am, pain was left sided felt like a stabbing sensation with radiation to the back. No jaw or arm pain. Denied any shortness of breath, dizziness or lightheadedness. Reported feeling cool clammy and diaphoretic at that time. Does have strong cardiac family history. No recent illness, no fever or chills, the pain is not reported as epigastric not a burning like sensation. Patient came in to the ER for evaluation. Troponin level is negative x 4, fasting blood glucose of 115. Does have strong family history of diabetes. Patient is admitted to the hospital under medicine with cardiology consultation. Scheduled to undergo cardiac stress echo today. Will check a TSH level and an A1C also. Patient continues to report dull left sided chest pressure not radiating through to the back any longer. REVIEW OF SYSTEMS: CONSTITUTIONAL: No fever, no malaise, no fatigue. HEENT: No recent visual problems or hearing problems. Denied any sore throat. CARDIOVASCULAR: Reports chest pain, orthopnea, PND, no palpitations, no syncope. PULMONARY: No shortness of breath, no cough, no hemoptysis. GASTROINTESTINAL: No diarrhea, no nausea, no vomiting, no abdominal pain. NEUROLOGICAL: No headaches, no weakness, no numbness. HEMATOLOGICAL: Denies any bleeding or petechiae. GENITOURINARY: Denies any burning micturition, frequency, or urgency. MUSCULOSKELETAL/RHEUMATOLOGICAL: Denies any joint pain, swelling, or any muscle pain. ENDOCRINE: Denies any polyuria or polydipsia. The rest of the 14-point review of systems is negative PHYSICAL EXAMINATION: GENERAL: The patient is alert and oriented x3, not in any acute distress. Well developed, well nourished. Obese HEENT: Pupils are round and equally reacting to light. EOMI. No scleral icterus. No conjunctival pallor. Normocephalic, atraumatic. No pharyngeal erythema. No thyromegaly. CARDIOVASCULAR: S1 and S2 present. No murmurs, rubs, or gallops. PULMONARY: Chest is clear to auscultation, no wheezing or crackles. ABDOMEN: Soft, nontender, nondistended, normoactive bowel sounds. No palpable organomegaly. MUSCULOSKELETAL: No joint swelling or deformity. EXTREMITIES: No cyanosis, clubbing, or pedal edema. NEUROLOGICAL: Gross neurological examination did not reveal any focal deficits. SKIN: No rashes. Assessment Acute chest pain, acute coronary syndrome ruled out Hx of gastroesophageal reflux disease Thyroid disorder History of POTS Anxiety/Depression/Bipolar/PTSD History of Migraine Elevated fasting blood glucose of 115 Family history of early onset coronary artery disease Obesity GI prophylaxis Full Code Plan Patient to undergo stress echo today pending results patient may be discharged home later today to follow up with her usual german tutor out of [facility] also sees Dr Dunn in the office Check TSH, Check A1C Patient may benefit from sleep study to rule out sleep apnea Continue on PPI for GERD The impression and plan of care has been dictated by Babs Berman Nurse Practitioner as directed. Dr. Grace MD I have performed a history and physical examination and medical decision making of this patient, discussed the same with the dictator, and agree with the dictators assessment and plan as written, documented as a scribe. Based on total visit time, I have performed more than 50% of this visit. Past Medical History Past Medical History: Chest Pain / Angina, Thyroid Disorder Additional Past Medical History / Comment(s): migraines, POTS, History of Any Multi-Drug Resistant Organisms: None Reported Past Surgical History: Cholecystectomy, Orthopedic Surgery Additional Past Surgical History / Comment(s): right shoulder. fallopian removal, right elbow. Past Anesthesia/Blood Transfusion Reactions: No Reported Reaction Past Psychological History: Anxiety, Bipolar, Depression, PTSD Smoking Status: Never smoker Past Alcohol Use History: None Reported Past Drug Use History: None Reported - Past Family History Mother Family Medical History: Chest Pain / Angina Medications and Allergies Home Medications Medication Instructions Recorded Confirmed Type Venlafaxine HCl [Effexor XR] 75 mg PO DAILY 06/09/23 06/09/23 History Vitamin C/Biotin [Hair, Skin and 2 tab PO DAILY 06/09/23 06/09/23 History Nails Chew] Allergies Allergy/AdvReac Type Severity Reaction Status Date / Time Tetanus Vaccines and Toxoid Allergy Anaphylaxis Verified 06/09/23 21:47 cephalexin [From Keflex] AdvReac Vomiting Verified 06/09/23 21:47 Physical Exam Vitals: Vital Signs Temp Pulse Resp BP Pulse Ox 06/10/23 08:22 84 19 101/53 98 06/10/23 06:00 57 L 18 100/57 98 06/10/23 05:00 59 L 20 114/74 97 06/10/23 04:00 67 18 106/64 97 06/10/23 03:00 61 18 121/80 97 06/09/23 23:00 64 18 113/75 98 06/09/23 20:49 67 18 105/54 97 06/09/23 19:32 98.4 F 74 18 129/86 96 06/09/23 13:55 98.5 F 77 16 150/85 97 Intake and Output 06/09/23 06/10/23 06/10/23 22:59 06:59 14:59 Intake Total 92.889 Balance 92.889 Intake: Intake, IV Titration 92.889 Amount Heparin Sod,Pork in 0.45% 92.889 NaCl 25,000 unit In 0.45 % NaCl 1 250ml.bag @ 8.11 UNITS/KG/HR 10.006 mls/ hr IV .Q24H [facility] Rx#: [id number] Results CBC & Chem 7: 06/10/23 05:10 06/10/23 05:10 Labs: Abnormal Lab Results - Last 24 Hours (Table) 06/09/23 06/10/23 Range/Units 14:29 05:10 Sodium 136 L (137-145) mmol/L Carbon Dioxide 19 L (22-30) mmol/L Glucose 115 H 112 H (74-99) mg/dL Assessment and Plan Time with Patient: Less than 30
[2023-06-11 15:47] VITALS: BP 126/77; PULSE 81; TEMP 98.1
--- NOTE | 2023-06-12 20:22 | P.DS ---
Providers Date of admission: 06/09/23 21:36 Attending physician: Bettye Briones Consults: 06/09/23 21:35 Consult Physician Routine Consulting Provider: Vilma Griffiths Consult Reason/Comments: cp Do you want consulting provider notified?: Yes Primary care physician: Kayla Hopkins MD Hospital Course: Final Diagnosis Acute chest pain, acute coronary syndrome ruled out Prediabetic with hemoglobin A1C of 6.1. Hx of gastroesophageal reflux disease Thyroid disorder History of POTS Anxiety/Depression/Bipolar/PTSD History of Migraine Elevated fasting blood glucose of 115 Family history of early onset coronary artery disease Obesity Discharge Disposition Patient is stable for discharge, patient underwent echo stress test and no evidence of reversible ischemia. Patient to follow up with cardiology in the office in [address] Dunn and patient also follows with a logistics planning manager out of [facility] for her POTS syndrome. Patient to continue same home medications and also has been started on protonix for acid reflux. Hospital Course This is a 37 year old female with medical history of GERD, migraines, POTS syndrome, thyroid disorder, anxiety, depression, bipolar and PTSD. Patient reports acute onset of chest pain awoken out of sleep at 3 am, pain was left sided felt like a stabbing sensation with radiation to the back. No jaw or arm pain. Denied any shortness of breath, dizziness or lightheadedness. Reported feeling cool clammy and diaphoretic at that time. Does have strong cardiac family history. No recent illness, no fever or chills, the pain is not reported as epigastric not a burning like sensation. Patient came in to the ER for evaluation. Troponin level is negative x 4, fasting blood glucose of 115. Does have strong family history of diabetes. Patient is admitted to the hospital under medicine with cardiology consultation. Patient underwent exercise stress test with was normal and showing no evidence of ischemia. Echocardiogram shows normal LV function and size with trace TR. Patients chest pain has improved. No shortness of breath, no dizziness or lightheadedness, no palpitations. Hemoglobin A1C found to be 6.1 consistent with diagnosis of prediabetes. Patient was cleared for dc home to see cardiology in the office in 1 to 2 weeks. Recommend possible sleep study outpatient. Lungs are clear, s1 s2 auscultated abdomen soft and nontender focal neurological exam is negative. Please see medication reconciliation for a list of current medication. Thank you for allowing us to participate in the care of this patient. The impression and plan of care has been dictated by Babs Berman, Nurse Practitioner as directed. Dr. Grace MD I have performed a history and physical examination and medical decision making of this patient, discussed the same with the dictator, and agree with the dictators assessment and plan as written, documented as a scribe. Based on total visit time, I have performed more than 50% of this visit. Patient Condition at Discharge: Stable Plan - Discharge Summary New Discharge Prescriptions: New Pantoprazole [Protonix] 40 mg PO DAILY #30 tab Continue Vitamin C/Biotin [Hair, Skin and Nails Chew] 2 tab PO DAILY Venlafaxine HCl [Effexor XR] 75 mg PO DAILY Discharge Medication List Venlafaxine HCl [Effexor XR] 75 mg PO DAILY 06/09/23 [History] Vitamin C/Biotin [Hair, Skin and Nails Chew] 2 tab PO DAILY 06/09/23 [History] Pantoprazole [Protonix] 40 mg PO DAILY #30 tab 06/10/23 [Rx] Follow up Appointment(s)/Referral(s): Kayla Hopkins MD [Primary Care Provider] - 1-2 days Bud Dunn MD [STAFF PHYSICIAN] - 1 Week Patient Instructions/Handouts: Heart Healthy Diet (DC) Activity/Diet/Wound Care/Special Instructions: Follow up A1C level with PCP or Via the physician portal, recommend diet modifications if elevated above 6.7 this would be consistent with diagnosis of diabetes Mellitus Follow up with Dr. Dunn in the office in 1 to 2 weeks See your PCP in 1 to 2 days Recommend evaluation for sleep apnea with outpatient sleep study Discharge Disposition: HOME SELF-CARE
== END 2023-06-10 19:13 | disposition home or self-care (01) ==
LOC: EC 13:53 → 6NMEDSUR 21:36
PROVIDERS: ADMIT Hospitalist; ATTEND Hospitalist
DX: R07.89 Other chest pain (principal); G90.A Postural orthostatic tachycardia syndrome [POTS]; R61 Generalized hyperhidrosis; R73.03 Prediabetes; E78.5 Hyperlipidemia, unspecified; K21.9 Gastro-esophageal reflux disease without esophagitis; R10.13 Epigastric pain; G43.909 Migraine, unspecified, not intractable, without status migrainosus; E07.9 Disorder of thyroid, unspecified; F31.9 Bipolar disorder, unspecified; F43.10 Post-traumatic stress disorder, unspecified; F41.9 Anxiety disorder, unspecified; E66.9 Obesity, unspecified; Z68.41 Body mass index [BMI] 40.0-44.9, adult; Z79.899 Other long term (current) drug therapy; Z88.1 Allergy status to other antibiotic agents; Z88.7 Allergy status to serum and vaccine; Z90.49 Acquired absence of other specified parts of digestive tract; Z90.79 Acquired absence of other genital organ(s); Z98.890 Other specified postprocedural states; Z82.49 Family history of ischemic heart disease and other diseases of the circulatory system; Z83.3 Family history of diabetes mellitus
CPT/HCPCS: 96376 ×2; 96365; 96366 ×2; 96375; 99285; 99291; 36415; 93005; 93306; 93351; 83880; 80053 ×2; 84443; 83690; 83735 ×2; 84100; 84484 ×2; 85025 ×2; 85610; 85730 ×2; 83036; 71046; G0378 ×2; J1644 ×3; C9113

== ENCOUNTER 2023-07-19 09:10 | Observation (INO) | payer OTHER ==
[2023-07-19] MEDS ORDERED: SODIUM CHLORIDE 0.9% 500 ML 500 ML IV STA (09:26)
[2023-07-19] MEDS ORDERED: NITROGLYCERIN OINT 1 INCH/GM PACKET TOPICAL STA (09:29)
[2023-07-19] MEDS ORDERED: ASPIRIN 81 MG PO STA (09:29)
--- NOTE | 2023-07-19 09:29 | ED ---
General Adult HPI - General Chief complaint: Arrhythmia/Palpitations Stated complaint: Chest Pain, SOB Time Seen by Provider: 07/19/23 09:15 Source: patient, RN notes reviewed, old records reviewed Mode of arrival: ambulatory Limitations: no limitations - History of Present Illness Initial comments: This is a 37-year-old female who presents to the emergency department stating she has a past medical history significant for being on the ventilator secondary to cold for 7 days. Patient states when she was on the ventilator she was told her heart stopped on multiple occasions. Patient states she has since been told she has significant right-sided heart enlargement. Patient states today she was at work and she felt her heart racing she took her pulse was 125 beats a minute and shortly after that she felt a little lightheaded and they took her pulse again and she was at 45 beats a minute and that lasted for about 3-4 minutes. Patient states shortly thereafter she started having significant left-sided chest heaviness. Patient states the pain is not radiating were she denies any nausea vomiting. She denies any shortness of breath. Patient denies any recent fever chills or cough. Patient states the pain is continuing currently. Patient denies any pain that is reproducible on the chest - Related Data Home Medications Medication Instructions Recorded Confirmed Venlafaxine HCl [Effexor XR] 75 mg PO DAILY 06/09/23 06/09/23 Vitamin C/Biotin [Hair, Skin and 2 tab PO DAILY 06/09/23 06/09/23 Nails Chew] Previous Rx's Medication Instructions Recorded Pantoprazole [Protonix] 40 mg PO DAILY #30 tab 06/10/23 Allergies Allergy/AdvReac Type Severity Reaction Status Date / Time Tetanus Vaccines and Toxoid Allergy Anaphylaxis Verified 07/19/23 09:17 cephalexin [From Keflex] AdvReac Vomiting Verified 07/19/23 09:17 Review of Systems ROS Statement: Those systems with pertinent positive or pertinent negative responses have been documented in the HPI. ROS Other: All systems not noted in ROS Statement are negative. Past Medical History Past Medical History: Chest Pain / Angina, Thyroid Disorder Additional Past Medical History / Comment(s): migraines, POTS, History of Any Multi-Drug Resistant Organisms: None Reported Past Surgical History: Cholecystectomy, Orthopedic Surgery Additional Past Surgical History / Comment(s): right shoulder. fallopian removal, right elbow. Past Anesthesia/Blood Transfusion Reactions: No Reported Reaction Past Psychological History: Anxiety, Bipolar, Depression, PTSD Smoking Status: Never smoker Past Alcohol Use History: None Reported Past Drug Use History: None Reported - Past Family History Mother Family Medical History: Chest Pain / Angina General Exam - General Exam Comments Initial Comments: GENERAL: Patient is well-developed and well-nourished. Patient is nontoxic and well- hydrated and is in mild distress. ENT: Neck is soft and supple. No significant lymphadenopathy is noted. Oropharynx is clear. Moist mucous membranes. Neck has full range of motion without eliciting any pain. EYES: The sclera were anicteric and conjunctiva were pink and moist. Extraocular movements were intact and pupils were equal round and reactive to light. Eyelids were unremarkable. PULMONARY: Unlabored respirations. Good breath sounds bilaterally. No audible rales rhonchi or wheezing was noted. CARDIOVASCULAR: There is a regular rate and rhythm without any murmurs gallops or rubs. ABDOMEN: Soft and nontender with normal bowel sounds. SKIN: Skin is clear with no lesions or rashes and otherwise unremarkable. NEUROLOGIC: Patient is alert and oriented x3. Cranial nerves II through XII are grossly intact. Motor and sensory are also intact. Normal speech, volume and content. Symmetrical smile. MUSCULOSKELETAL: Normal extremities with adequate strength and full range of motion. LYMPHATICS: No significant lymphadenopathy is noted PSYCHIATRIC: Normal psychiatric evaluation. Limitations: no limitations Course Vital Signs 07/19/23 07/19/23 07/19/23 09:14 09:48 09:49 Temperature 98 F Pulse Rate 81 89 Pulse Rate [ 78 [employer] ] Respiratory 18 16 Rate Blood Pressure 138/76 146/83 O2 Sat by Pulse 98 98 Oximetry 07/19/23 09:51 Temperature Pulse Rate Pulse Rate [ [employer] ] Respiratory 20 Rate Blood Pressure O2 Sat by Pulse Oximetry Medical Decision Making - Medical Decision Making EKG was interpreted by myself. EKG shows a sinus rhythm at 70 bpm CO interval 231 QRS is 93 QT interval 370 QTC is 411. Patient's EKG shows no ST segment elevation or depression. Patient does have flipped T waves in 3 and aVF Was pt. sent in by a medical professional or institution (, PA, [facility], urgent care, hospital, or jail...) When possible be specific @ -[No] Did you speak to anyone other than the patient for history (EMS, parent, family, police, friend...)? What history was obtained from this source @ -[No] Did you review nursing and triage notes (agree or disagree)? Why? @ -[I reviewed and agree with nursing and triage notes] Were old charts reviewed (outside hosp., previous admission, EMS record, old EKG, old radiological studies, urgent care reports/EKG's, jail records)? Report findings @ -I reviewed prior lab work and prior radiological studies on this patient. Differential Diagnosis (chest pain, altered mental status, abdominal pain women, abdominal pain men, vaginal bleeding, weakness, fever, dyspnea, syncope, headache, dizziness, GI bleed, back pain, seizure, CVA, palpatations, mental health, musculoskeletal)? @ -Differential Chest Pain: Stable Angina, Unstable Angina, STEMI, NSTEMI Aortic Dissection, Pneumothorax, Musculoskeletal, Esophageal Spasm GERD, Cholecystitis, Pancreatitis, Zoster, this is not meant to be an all-inclusive list. Differential Palpitations Ventricular arrhythmias, atrial arrhythmias, myocardial infarction, anemia, thyrotoxicosis, electrolyte imbalance, hypokalemia, pulmonary embolism, pulmo nary disease, drugs, alcohol, anxiety, stress.... This is not meant to be an all-inclusive list. EKG interpreted by me (3pts min.). @ -[As above] X-rays interpreted by me (1pt min.). @ -[address] a [address] abnormality CT interpreted by me (1pt min.). @ -[None done] U/S interpreted by me (1pt. min.). @ -[None done] What testing was considered but not performed or refused? (CT, X-rays, U/S, labs)? Why? @ -[None] What meds were considered but not given or refused? Why? @ -[None] Did you discuss the management of the patient with other professionals (carie pelaez i.e. , PA, [facility], lab, RT, psych nurse, social media campaign manager, content development specialist, teacher, immigration officer, case maker)? Give summary @ -[facility] Was smoking cessation discussed for >3mins.? @ -[No] Was critical care preformed (if so, how long)? @ -[No] Were there social determinants of health that impacted care today? How? (Homelessness, low income, unemployed, alcoholism, drug addiction, transportation, low edu. Level, literacy, decrease access to med. care, fpc, rehab)? @ -[No] Was there de-escalation of care discussed even if they declined (Discuss DNR or withdrawal of care, Hospice)? DNR status @ -[No] What co-morbidities impacted this encounter? (DM, HTN, Smoking, COPD, CAD, Cancer, CVA, ARF, Chemo, Hep., AIDS, mental health diagnosis, sleep apnea, morbid obesity)? @ -[None] Was patient admitted / discharged? Hospital course, mention meds given and route, prescriptions, significant lab abnormalities, going to OR and other pertinent info. @ -Patient was given aspirin and Nitropaste in the emergency department it did not relieve her pain however she had no further palpitations in the emergency department. [facility] I admitted the patient I wrote admitting orders. I consulted cardiology. Undiagnosed new problem with uncertain prognosis? @ -[No] Drug Therapy requiring intensive monitoring for toxicity (Heparin, Nitro, Insulin, Cardizem)? @ -[No] Were any procedures done? @ -[No] Diagnosis/symptom? @ -Palpitations Acute, or Chronic, or Acute on Chronic? @ -Acute Uncomplicated (without systemic symptoms) or Complicated (systemic symptoms)? @ -Complicated Side effects of treatment? @ -[No] Exacerbation, Progression, or Severe Exacerbation? @ -[No] Poses a threat to life or bodily function? How? (Chest pain, USA, VT, pneumonia, PE, COPD, DKA, ARF, appy, cholecystitis, CVA, Diverticulitis, Homicidal, Suicidal, threat to staff... and all critical care pts) @ -[No] Diagnosis/symptom? @ -Chest pain Acute, or Chronic, or Acute on Chronic? @ -Acute Uncomplicated (without systemic symptoms) or Complicated (systemic symptoms)? @ -Complicated Side effects of treatment? @ -[none] Exacerbation, Progression, or Severe Exacerbation] @ -[no] Poses a threat to life or bodily function? @ -Yes this could lead to VT and end organ dysfunction - Lab Data Result diagrams: 07/19/23 09:26 07/19/23 09:26 Lab Results 07/19/23 07/19/23 07/19/23 Range/Units 09:26 09:26 09:26 WBC 8.6 (3.8-10.6) k/uL RBC 4.33 (3.80-5.40) m/uL Hgb 12.9 (11.4-16.0) gm/dL Hct 38.5 (34.0-46.0) % MCV 88.9 (80.0-100.0) fL MCH 29.9 (25.0-35.0) pg MCHC 33.6 (31.0-37.0) g/dL RDW 13.3 (11.5-15.5) % Plt Count 269 (150-450) k/uL MPV 8.2 Neutrophils % 64 % Lymphocytes % 29 % Monocytes % 4 % Eosinophils % 1 % Basophils % 0 % Neutrophils # 5.5 (1.3-7.7) k/uL Lymphocytes # 2.5 (1.0-4.8) k/uL Monocytes # 0.4 (0-1.0) k/uL Eosinophils # 0.1 (0-0.7) k/uL Basophils # 0.0 (0-0.2) k/uL PT 9.9 L (10.0-12.5) sec INR 0.9 (<1.2) APTT 23.9 (22.0-30.0) sec D-Dimer 0.38 (<0.60) mg/L FEU Sodium 138 (137-145) mmol/L Potassium 4.3 (3.5-5.1) mmol/L Chloride 103 (98-107) mmol/L Carbon Dioxide 26 (22-30) mmol/L Anion Gap 9 mmol/L BUN 15 (7-17) mg/dL Creatinine 0.55 (0.52-1.04) mg/dL Est GFR (CKD-EPI)AfAm >90 (>60 ml/min/1.73 sqM) Est GFR (CKD-EPI)NonAf >90 (>60 ml/min/1.73 sqM) Glucose 127 H (74-99) mg/dL Calcium 9.0 (8.4-10.2) mg/dL Magnesium 2.0 (1.6-2.3) mg/dL Total Bilirubin 0.6 (0.2-1.3) mg/dL AST 32 (14-36) U/L ALT 32 (4-34) U/L Alkaline Phosphatase 74 (38-126) U/L Troponin I (0.000-0.034) ng/mL Total Protein 7.5 (6.3-8.2) g/dL Albumin 4.2 (3.5-5.0) g/dL TSH 0.759 (0.465-4.680) mIU/L 07/19/23 Range/Units 09:26 WBC (3.8-10.6) k/uL RBC (3.80-5.40) m/uL Hgb (11.4-16.0) gm/dL Hct (34.0-46.0) % MCV (80.0-100.0) fL MCH (25.0-35.0) pg MCHC (31.0-37.0) g/dL RDW (11.5-15.5) % Plt Count (150-450) k/uL MPV Neutrophils % % Lymphocytes % % Monocytes % % Eosinophils % % Basophils % % Neutrophils # (1.3-7.7) k/uL Lymphocytes # (1.0-4.8) k/uL Monocytes # (0-1.0) k/uL Eosinophils # (0-0.7) k/uL Basophils # (0-0.2) k/uL PT (10.0-12.5) sec INR (<1.2) APTT (22.0-30.0) sec D-Dimer (<0.60) mg/L FEU Sodium (137-145) mmol/L Potassium (3.5-5.1) mmol/L Chloride (98-107) mmol/L Carbon Dioxide (22-30) mmol/L Anion Gap mmol/L BUN (7-17) mg/dL Creatinine (0.52-1.04) mg/dL Est GFR (CKD-EPI)AfAm (>60 ml/min/1.73 sqM) Est GFR (CKD-EPI)NonAf (>60 ml/min/1.73 sqM) Glucose (74-99) mg/dL Calcium (8.4-10.2) mg/dL Magnesium (1.6-2.3) mg/dL Total Bilirubin (0.2-1.3) mg/dL AST (14-36) U/L ALT (4-34) U/L Alkaline Phosphatase (38-126) U/L Troponin I <0.012 (0.000-0.034) ng/mL Total Protein (6.3-8.2) g/dL Albumin (3.5-5.0) g/dL TSH (0.465-4.680) mIU/L Disposition Clinical Impression: Palpitations, Chest pain Disposition: ADMITTED IP TO THIS [facility] Referrals: Toney Ortez DO [Primary Care Provider] - 1-2 days Time of Disposition: 11:56
[2023-07-19 09:57] LABS: Basophils % (A) 0 %; Eosinophils # (A) 0.1 k/uL (0-0.7); Eosinophils % (A) 1 %; HCT 38.5 % (34.0-46.0); HGB 12.9 gm/dL (11.4-16.0); Lymphocytes # (A) 2.5 k/uL (1.0-4.8); Lymphocytes % (A) 29 %; MCH 29.9 pg (25.0-35.0); MCHC 33.6 g/dL (31.0-37.0); MCV 88.9 fL (80.0-100.0); Mean Platelet Volume 8.2; Monocytes # (A) 0.4 k/uL (0-1.0); Monocytes % (A) 4 %; Neutrophils # (A) 5.5 k/uL (1.3-7.7); Neutrophils % (A) 64 %; Platelet Count 269 k/uL (150-450); RBC 4.33 m/uL (3.80-5.40); RDW 13.3 % (11.5-15.5); WBC 8.6 k/uL (3.8-10.6)
[2023-07-19 10:15] LABS: INR 0.9 (<1.2); Partial Thromboplastin Time 23.9 sec (22.0-30.0); Prothrombin Time 9.9 sec (10.0-12.5)
[2023-07-19 10:37] LABS: ALT 32 U/L (4-34); AST 32 U/L (14-36); African American GFR (CKD) >90 (>60 ml/min/1.73 sqM); Albumin 4.2 g/dL (3.5-5.0); Alkaline Phosphatase 74 U/L (38-126); Anion Gap 9 mmol/L; Blood Urea Nitrogen 15 mg/dL (7-17); Carbon Dioxide 26 mmol/L (22-30); Chloride 103 mmol/L (98-107); Glucose 127 mg/dL (74-99); Non-African American GFR(CKD) >90 (>60 ml/min/1.73 sqM); Potassium 4.3 mmol/L (3.5-5.1); Sodium 138 mmol/L (137-145); Total Bilirubin 0.6 mg/dL (0.2-1.3); Total Protein 7.5 g/dL (6.3-8.2)
--- NOTE | 2023-07-19 10:37 | XR ---
EXAMINATION TYPE: XR chest 2V DATE OF EXAM: 07/19/2023 9:58 AM CLINICAL INDICATION:Female, 37 years old with history of dysrhythmia; [facility] COMPARISON: 06/09/2023 chest x-ray TECHNIQUE: XR chest 2V Frontal and lateral views of the chest. FINDINGS: Lines/Tubes: EKG leads overlie the chest. No indwelling lines are seen. Lungs/Pleura: There is no evidence of pleural effusion, focal consolidation, or pneumothorax. Pulmonary vascularity: Unremarkable. Heart/mediastinum: Cardiomediastinal silhouette is unremarkable. Heart is not enlarged. Musculoskeletal: No acute osseous pathology. Other findings: Mild asymmetric elevation of the right hemidiaphragm, similar in appearance to the pr ior study. No subdiaphragmatic free air is suggested. IMPRESSION: No acute cardiopulmonary disease/process.
[2023-07-19] MEDS ORDERED: NALOXONE 0.4 MG/ML 1 ML VIAL IVP PRN (11:44)
[2023-07-19] MEDS ORDERED: NITROGLYCERIN SL TABS 0.4 MG TAB SUBLINGUAL PRN (11:56)
[2023-07-19] MEDS ORDERED: MAG HYDROX/AL HYDROX/SIMETH 30 ML, HYOSCYAMINE ELIXIR 10 ML, LIDOCAINE 2% GLYDO JELLY 1... PO STA ×3 (11:58)
[2023-07-19] MEDS: NITROGLYCERIN OINT 1 INCH/GM PACKET TOPICAL SCH ×2 (12:08→17:25)
--- NOTE | 2023-07-19 13:30 | P.HPIM ---
History of Present Illness H&P Date: 07/19/23 Chief Complaint: Chest pain * 37-year-old patient with past medical history significant for hyperlipidemia, family history of premature coronary artery disease to the emergency department with complaints of chest pain * Patient states she was at work and she started having palpitations, checked her pulse with a heart rate in 120s. complained of dizziness associated with that, patient repeated hypoxic and it was 45 few minutes later. Patient started having left-sided chest pain. Patient denied associated nausea, vomiting, shortness of breath, fever, cough, chills or diaphoresis * Workup initiated in ER included EKG and a troponin which was negative * Patient was recently admitted in May and had echocardiogram done which showed normal left and to size and function, trace tricuspid regurgitation was noted * EKG in ER showed sinus rhythm no significant ST segment changes REVIEW OF SYSTEMS: Chest pain, palpitations CONSTITUTIONAL: No fever, no malaise, no fatigue. HEENT: No recent visual problems or hearing problems. Denied any sore throat. CARDIOVASCULAR: No chest pain, orthopnea, PND, no palpitations, no syncope. PULMONARY: No shortness of breath, no cough, no hemoptysis. GASTROINTESTINAL: No diarrhea, no nausea, no vomiting, no abdominal pain. NEUROLOGICAL: No headaches, no weakness, no numbness. HEMATOLOGICAL: Denies any bleeding or petechiae. GENITOURINARY: Denies any burning micturition, frequency, or urgency. MUSCULOSKELETAL/RHEUMATOLOGICAL: Denies any joint pain, swelling, or any muscle pain. ENDOCRINE: Denies any polyuria or polydipsia. PHYSICAL EXAMINATION: GENERAL: The patient is alert and oriented x3, not in any acute distress. Well developed, well nourished. HEENT: Pupils are round and equally reacting to light. EOMI. No scleral icterus. CARDIOVASCULAR: S1 and S2 present. No murmurs, rubs, or gallops. PULMONARY: Chest is clear to auscultation, no wheezing or crackles. ABDOMEN: Soft, nontender, nondistended, normoactive bowel sounds. No palpable organomegaly. MUSCULOSKELETAL: No joint swelling or deformity. EXTREMITIES: No cyanosis, clubbing, or pedal edema. NEUROLOGICAL: Gross neurological examination did not reveal any focal deficits. SKIN: No rashes. Past Medical History Past Medical History: Chest Pain / Angina, Thyroid Disorder Additional Past Medical History / Comment(s): migraines, POTS, History of Any Multi-Drug Resistant Organisms: None Reported Past Surgical History: Cholecystectomy, Orthopedic Surgery Additional Past Surgical History / Comment(s): right shoulder. fallopian removal, right elbow. Past Anesthesia/Blood Transfusion Reactions: No Reported Reaction Past Psychological History: Anxiety, Bipolar, Depression, PTSD Smoking Status: Never smoker Past Alcohol Use History: None Reported Past Drug Use History: None Reported - Past Family History Mother Family Medical History: Chest Pain / Angina Medications and Allergies Home Medications Medication Instructions Recorded Confirmed Type Venlafaxine HCl [Effexor XR] 75 mg PO DAILY 06/09/23 07/19/23 History Vitamin C/Biotin [Hair, Skin and 2 tab PO DAILY 06/09/23 07/19/23 History Nails Chew] Pantoprazole [Protonix] 40 mg PO DAILY #30 tab 06/10/23 07/19/23 Rx Atorvastatin [Lipitor] 20 mg PO DAILY 07/19/23 07/19/23 History Allergies Allergy/AdvReac Type Severity Reaction Status Date / Time Tetanus Vaccines and Toxoid Allergy Anaphylaxis Verified 07/19/23 12:41 cephalexin [From Keflex] AdvReac Vomiting Verified 07/19/23 12:41 Physical Exam Vitals: Vital Signs Temp Pulse Pulse Resp BP Pulse Ox 07/19/23 11:50 82 18 123/75 97 07/19/23 09:51 20 07/19/23 09:49 78 07/19/23 09:48 89 16 146/83 98 07/19/23 09:14 98 F 81 18 138/76 98 Intake and Output 07/18/23 07/19/23 07/19/23 22:59 06:59 14:59 Other: Weight 124.738 kg Results CBC & Chem 7: 07/19/23 09:26 07/19/23 09:26 Labs: Abnormal Lab Results - Last 24 Hours (Table) 07/19/23 07/19/23 Range/Units 09:26 09:26 PT 9.9 L (10.0-12.5) sec Glucose 127 H (74-99) mg/dL Assessment and Plan Assessment: Assessment and plan Chest pain rule out acute coronary syndrome History of dyslipidemia Gastroesophageal reflux disease History of mood disorder * In regards to chest pain serial troponins ordered, EKG ordered cardiology consulted. Patient recently had an echocardiogram which was normal * In regards to her dyslipidemia continue patient on Lipitor * In regards to history of mood disorder continue venlafaxine * Status is full code
[2023-07-19] MEDS: ACETAMINOPHEN TAB 325 MG TAB PO PRN ×2 (14:27→20:59)
[2023-07-19] MEDS: VENLAFAXINE HCL ER 75 MG CAP PO SCH ×2 (14:28→14:29)
[2023-07-19] MEDS: ATORVASTATIN 20 MG TAB PO SCH (14:29)
[2023-07-19] MEDS: PANTOPRAZOLE 40 MG TABLET PO SCH (14:30)
--- NOTE | 2023-07-19 14:53 | P.CRDCN ---
History of Present Illness Consult date: 07/19/23 History of present illness: HISTORY OF PRESENTING ILLNESS 37-year-old with PMH of morbid obesity known to Dr. hooker. She was recently in the hospital in May 2023. She has a family history of coronary artery disease in father and stroke in mother. Patient initially presented to the hospital with chest discomfort in May 2023 at that and she was rule out of acute coronary syndrome and her testing but within normal limits. Her echocardiogram showed normal LV size and systolic function, normal valve function and mild RV dilatation. This is her second admission with similar complaints. She reports previously was more affected chest pain this time it's more like chest pressure. Her symptoms have not resolved after getting GI cocktail or Nitropaste. She reports her symptoms are constant dull achy sensation which is not reproducible on palpation, She is normotensive. Her ECG does not show any significant ST-T wave changes that are diagnostic for ischemia. Sinus rhythm Her labs including troponin, d-dimer, hemoglobin have been within normal limits. She has had prior CT angiogram PE protocol with negative results for PE REVIEW OF SYSTEMS 14 point review of system is negative except what is mentioned above in HPI. PHYSICAL EXAMINATION Vital signs reviewed. Head: Normocephalic. Eyes: Sclerae nonicteric. Neck: Brisk carotid upstroke, no jugular venous distention. Lungs: Clear to auscultation. Heart: Regular rate and rhythm, S1-S2, no S3, no murmur or rub. Abdomen: Soft nontender, positive bowel sounds no organomegaly. Extremities: No edema, intact distal pulses. Neuro: Alert, oritented, no focal deficits ASSESSMENT Atypical chest pain, constant chest pressure, not relieved with nitroglycerin, not relieved with GI cocktail Rule out of acute coronary syndrome Morbid obesity Prior history of VD RF Mood disorder GERD Nuclear stress test 2021 negative for ischemia echo May 2023 normal LV systolic function, no major valvular abnormality, mild RV dilatation PLAN Less likely cardiac She has had prior extensive cardiac workup which has been nonrevealing. Due to prior mild RV dilatation reported on echo, she may benefit from an outpatient right and left heart catheterization to make a definitive diagnosis but this is not coronary ischemia causing her chest pain. At this time patient is stable from cardiac vessel standpoint. She can be discharged with outpatient follow-up with Dr. hooker who can evaluate the need for further testing for ischemic heart disease and RV dilatation Past Medical History Past Medical History: Chest Pain / Angina, Thyroid Disorder Additional Past Medical History / Comment(s): migraines, POTS, History of Any Multi-Drug Resistant Organisms: None Reported Past Surgical History: Cholecystectomy, Orthopedic Surgery Additional Past Surgical History / Comment(s): right shoulder. fallopian removal, right elbow. Past Anesthesia/Blood Transfusion Reactions: No Reported Reaction Past Psychological History: Anxiety, Bipolar, Depression, PTSD Smoking Status: Never smoker Past Alcohol Use History: None Reported Past Drug Use History: None Reported - Past Family History Mother Family Medical History: Chest Pain / Angina Medications and Allergies Home Medications Medication Instructions Recorded Confirmed Type Venlafaxine HCl [Effexor XR] 75 mg PO DAILY 06/09/23 07/19/23 History Vitamin C/Biotin [Hair, Skin and 2 tab PO DAILY 06/09/23 07/19/23 History Nails Chew] Pantoprazole [Protonix] 40 mg PO DAILY #30 tab 06/10/23 07/19/23 Rx Atorvastatin [Lipitor] 20 mg PO DAILY 07/19/23 07/19/23 History Allergies Allergy/AdvReac Type Severity Reaction Status Date / Time Tetanus Vaccines and Toxoid Allergy Anaphylaxis Verified 07/19/23 12:41 cephalexin [From Keflex] AdvReac Vomiting Verified 07/19/23 12:41 Physical Exam Vitals: Vital Signs Temp Pulse Pulse Resp BP Pulse Ox 07/19/23 14:25 98 18 117/65 95 07/19/23 11:50 82 18 123/75 97 07/19/23 09:51 20 07/19/23 09:49 78 07/19/23 09:48 89 16 146/83 98 07/19/23 09:14 98 F 81 18 138/76 98 Intake and Output 07/18/23 07/19/23 07/19/23 22:59 06:59 14:59 Other: Weight 124.738 kg Results 07/19/23 09:26 07/19/23 09:26 Cardiac Enzymes 07/19/23 07/19/23 07/19/23 Range/Units 09:26 09:26 12:03 AST 32 (14-36) U/L Troponin I <0.012 <0.012 (0.000-0.034) ng/mL Coagulation 07/19/23 Range/Units 09:26 PT 9.9 L (10.0-12.5) sec APTT 23.9 (22.0-30.0) sec CBC 07/19/23 Range/Units 09:26 WBC 8.6 (3.8-10.6) k/uL RBC 4.33 (3.80-5.40) m/uL Hgb 12.9 (11.4-16.0) gm/dL Hct 38.5 (34.0-46.0) % Plt Count 269 (150-450) k/uL Comprehensive Metabolic Panel 07/19/23 Range/Units 09:26 Sodium 138 (137-145) mmol/L Potassium 4.3 (3.5-5.1) mmol/L Chloride 103 (98-107) mmol/L Carbon Dioxide 26 (22-30) mmol/L BUN 15 (7-17) mg/dL Creatinine 0.55 (0.52-1.04) mg/dL Glucose 127 H (74-99) mg/dL Calcium 9.0 (8.4-10.2) mg/dL AST 32 (14-36) U/L ALT 32 (4-34) U/L Alkaline Phosphatase 74 (38-126) U/L Total Protein 7.5 (6.3-8.2) g/dL Albumin 4.2 (3.5-5.0) g/dL Current Medications Generic Name Dose Route Start Last Admin Trade Name Freq PRN Reason Stop Dose Admin Acetaminophen 650 mg 07/19/23 11:44 07/19/23 14:27 Acetaminophen Tab 325 Mg Tab PO 650 mg Q6HR PRN Administration Mild Pain or Fever > 100.5 Aspirin 81 mg 07/20/23 09:00 Aspirin 81 Mg PO DAILY [facility] Atorvastatin Calcium 20 mg 07/19/23 13:30 07/19/23 14:29 Atorvastatin 20 Mg Tab PO Not Given DAILY [facility] Multivitamins 1 each 07/20/23 09:00 Multivitamins, Thera 1 Each Tab PO DAILY [facility] Naloxone HCl 0.2 mg 07/19/23 11:44 Naloxone 0.4 Mg/Ml 1 Ml Vial IVP Q2M PRN Opioid Reversal Nitroglycerin 0.4 mg 07/19/23 11:56 Nitroglycerin Sl Tabs 0.4 Mg Tab SUBLINGUAL Q5M PRN Chest Pain Nitroglycerin 1 inch 07/19/23 12:00 07/19/23 12:08 Nitroglycerin Oint 1 Inch/Gm Packet TOPICAL Not Given Q6HR BRITTANEY Ondansetron HCl 4 mg 07/19/23 11:44 Ondansetron 4 Mg/2 Ml Vial IVP Q8HR PRN Nausea And Vomiting Pantoprazole Sodium 40 mg 07/19/23 13:30 07/19/23 14:30 Pantoprazole 40 Mg Tablet PO Not Given AC-BRKFST BRITTANEY Venlafaxine HCl 75 mg 07/19/23 13:30 07/19/23 14:29 Venlafaxine Hcl Er 75 Mg Cap PO Not Given DAILY BRITTANEY Intake and Output 07/18/23 07/19/23 07/19/23 22:59 06:59 14:59 Other: Weight 124.738 kg Patient Weight 07/20/23 06:59 Weight 124.738 kg 07/19/23 09:26 07/19/23 09:26
[2023-07-20] MEDS: NITROGLYCERIN OINT 1 INCH/GM PACKET TOPICAL SCH ×2 (00:30→05:07)
[2023-07-20] MEDS: PANTOPRAZOLE 40 MG TABLET PO SCH (05:38)
[2023-07-20 08:59] LABS: Chol/HDL Ratio 5.18 Ratio; LDL Cholesterol,Calculated 65.6 mg/dL (0.0-131.0)
[2023-07-20] MEDS ORDERED: ASPIRIN 325 MG TAB PO SCH (09:00)
[2023-07-20] MEDS: ATORVASTATIN 20 MG TAB PO SCH (09:11)
[2023-07-20] MEDS: MULTIVITAMINS, THERA 1 EACH TAB PO SCH (09:11)
[2023-07-20] MEDS: ASPIRIN 81 MG PO SCH (09:11)
--- NOTE | 2023-07-20 10:21 | P.PN ---
Subjective HISTORY OF PRESENT ILLNESS: 37-year-old with PMH of morbid obesity known to Dr. dunn. She was recently in the hospital in May 2023. She has a family history of coronary artery disease in father and stroke in mother. Patient initially presented to the hospital with chest discomfort in May 2023 at that and she was rule out of acute coronary syndrome and her testing but within normal limits. Her echocardiogram showed normal LV size and systolic function, normal valve function and mild RV dilatation. This is her second admission with similar complaints. She reports previously was more affected chest pain this time it's more like chest pressure. Her symptoms have not resolved after getting GI cocktail or Nitropaste. She reports her symptoms are constant dull achy sensation which is not reprodu cible on palpation, She is normotensive. Her ECG does not show any significant ST-T wave changes that are diagnostic for ischemia. Sinus rhythm Her labs including troponin, d-dimer, hemoglobin have been within normal limits. She has had prior CT angiogram PE protocol with negative results for PE Nuclear stress test 2021 negative for ischemia echo May 2023 normal LV systolic function, no major valvular abnormality, mild RV dilatation 07/20/2023 Patient examined this morning at the bedside. patient continues to report chest pressure this morning near the epigastric region. She denies shortness of breath. Vital signs are stable. PHYSICAL EXAM: VITAL SIGNS: Reviewed. GENERAL: Well-developed in no acute distress. NECK: Supple. No JVD or thyromegaly LUNGS: Respirations even and unlabored. Lungs essentially clear to auscultation bilaterally. HEART: Regular rate and rhythm. S1 and S2 heard. EXTREMITIES: Normal range of motion. No clubbing or cyanosis. Peripheral pulses intact. No lower extremity edema ASSESSMENT: Chest pressure, constant, not relieved with nitroglycerin or GI cocktail, acute coronary syndrome ruled out History of PE GERD Morbid obesity PLAN: Patient's pain is noncardiac in etiology Consider further workup on an outpatient basis per Dr. Dunn Patient is stable from a cardiac standpoint We will sign off. Please reconsult if needed. Nurse practitioner note has been reviewed by physician. Signing provider agrees with the documented findings, assessment, and plan of care. Objective - Vital Signs Vital signs: Vital Signs Temp 98.1 F 07/20/23 07:05 Pulse 71 07/20/23 07:05 Resp 16 07/20/23 07:05 BP 109/58 07/20/23 07:05 Pulse Ox 98 07/20/23 07:05 FiO2 Intake & Output 07/19/23 07/20/23 07/20/23 18:59 06:59 18:59 Intake Total 500 Balance 500 Weight 124.738 kg Intake: Oral 500 Other: Voiding Method Toilet # Voids 2 - Labs CBC & Chem 7: 07/19/23 09:26 07/19/23 09:26 Labs: Abnormal Lab Results - Last 24 Hours (Table) 07/19/23 07/19/23 Range/Units 09:26 09:26 PT 9.9 L (10.0-12.5) sec Glucose 127 H (74-99) mg/dL
[2023-07-20] MEDS: VENLAFAXINE HCL ER 75 MG CAP PO SCH (13:26)
[2023-07-20] MEDS ORDERED: IOPAMIDOL CONTRAST (ORAL USE) VIAL PO PRN (14:01)
--- NOTE | 2023-07-20 14:06 | P.PN ---
Subjective Progress Note Date: 07/20/23 * 37-year-old patient with past medical history significant for hyperlipidemia, family history of premature coronary artery disease to the emergency department with complaints of chest pain * Patient states she was at work and she started having palpitations, checked her pulse with a heart rate in 120s. complained of dizziness associated with that, patient repeated hypoxic and it was 45 few minutes later. Patient started having left-sided chest pain. Patient denied associated nausea, vomiting, shortness of breath, fever, cough, chills or diaphoresis * Workup initiated in ER included EKG and a troponin which was negative * Patient was recently admitted in May and had echocardiogram done which showed normal left and to size and function, trace tricuspid regurgitation was noted * EKG in ER showed sinus rhythm no significant ST segment changes * 07/20/23: Patient seen and evaluated bedside, patient had multiple troponins done which were negative. Patient complained of epigastric discomfort. Patient ate breakfast however after lunch patient vomited. CT abdomen pelvis ordered. GI Consulted to Evaluate for EGD REVIEW OF SYSTEMS: Epigastric pain nausea, vomiting, abdominal pain CONSTITUTIONAL: No fever, no malaise, no fatigue. HEENT: No recent visual problems or hearing problems. Denied any sore throat. CARDIOVASCULAR: No chest pain, orthopnea, PND, no palpitations, no syncope. PULMONARY: No shortness of breath, no cough, no hemoptysis. GASTROINTESTINAL: No diarrhea, no nausea, no vomiting, no abdominal pain. NEUROLOGICAL: No headaches, no weakness, no numbness. HEMATOLOGICAL: Denies any bleeding or petechiae. GENITOURINARY: Denies any burning micturition, frequency, or urgency. MUSCULOSKELETAL/RHEUMATOLOGICAL: Denies any joint pain, swelling, or any muscle pain. ENDOCRINE: Denies any polyuria or polydipsia. Objective - Vital Signs Vital signs: Vital Signs Temp 98.1 F 07/20/23 07:05 Pulse 71 07/20/23 08:00 Resp 16 07/20/23 08:00 BP 109/58 07/20/23 07:05 Pulse Ox 98 07/20/23 07:05 FiO2 Intake & Output 07/19/23 07/20/23 07/20/23 18:59 06:59 18:59 Intake Total 500 Balance 500 Weight 124.738 kg Intake: Oral 500 Other: Voiding Method Toilet Toilet # Voids 2 2 - Exam PHYSICAL EXAMINATION: GENERAL: The patient is alert and oriented x3, not in any acute distress. Well developed, well nourished. HEENT: Pupils are round and equally reacting to light. EOMI. No scleral icterus. CARDIOVASCULAR: S1 and S2 present. No murmurs, rubs, or gallops. PULMONARY: Chest is clear to auscultation, no wheezing or crackles. ABDOMEN: Soft, nontender, nondistended, normoactive bowel sounds. epigastric tenderness MUSCULOSKELETAL: No joint swelling or deformity. EXTREMITIES: No cyanosis, clubbing, or pedal edema. NEUROLOGICAL: Gross neurological examination did not reveal any focal deficits. SKIN: No rashes. - Labs CBC & Chem 7: 07/19/23 09:26 07/19/23 09:26 Labs: Abnormal Lab Results - Last 24 Hours (Table) 07/19/23 Range/Units 09:26 Triglycerides 370.00 H (0.00-149.00) mg/dL VLDL Cholesterol, Calc 74.00 H (5.00-40.00) mg/dL HDL Cholesterol 33.40 L (40.00-60.00) mg/dL Assessment and Plan Assessment: Assessment and plan Chest pain ruled out acute coronary syndrome History of H. pylori gastritis and epigastric pain History of dyslipidemia Gastroesophageal reflux disease History of mood disorder * In regards to chest pain serial troponins negative,, seen by cardiology will further workup recommended * Regards to epigastric pain likely gastrointestinal in origin, CT abdomen and pelvis ordered GI consulted to evaluate for EGD continue patient on Protonix * In regards to her dyslipidemia continue patient on Lipitor * In regards to history of mood disorder continue venlafaxine * Status is full code
--- NOTE | 2023-07-20 18:47 | CT ---
EXAMINATION TYPE: CT abdomen pelvis wo con DATE OF EXAM: 07/20/2023 COMPARISON: None INDICATION: Epigastric pain/ pressure recurrent vomiting. oral only DLP: 1435.20 mGycm, Automated exposure control for dose reduction was used. CONTRAST: 0 mL of Isovue 300. Study performed with Oral Contrast TECHNIQUE: Axial images were obtained from above the diaphragm to the pubic rami in the axial plane a t 5 mm thick sections. Reconstructed images are reviewed on the computer in the coronal plane. FINDINGS: Limited CT sections are obtained the lung bases. The lung bases are clear. CT ABDOMEN: Liver: Normal Spleen: Normal Pancreas: Normal Adrenal glands: The adrenal glands are normal. Gallbladder: Surgically absent Kidneys: No masses are evident. No hydronephrosis is present. No cysts are present. No renal stone s are evident. Aorta: Normal Inferior vena cava: Normal. CT PELVIS: Loops of bowel within the abdomen and pelvis are normal. There are loops of bowel which are incom pletely distended or lack oral contrast limiting their evaluation. No obstruction is evident. Oral co ntrast extends to the distal small bowel and cecum. No dilated small bowel loops are evident. The col on is visualized appears normal. Appendix: Normal as visualized. Urinary bladder: Normal. Genitourinary structures: Uterus is normal. Adnexa are normal. Osseous structures: No suspicious lytic or sclerotic lesions. IMPRESSION: 1. No suspicious abnormality to account for vomiting. 2. No suspicious changes for ileus or obstruction
[2023-07-20] MEDS: PANTOPRAZOLE 40 MG/10 ML VIAL IVP SCH (20:12)
[2023-07-20] MEDS: ONDANSETRON 4 MG/2 ML VIAL IVP PRN (20:16)
[2023-07-20] MEDS: ACETAMINOPHEN TAB 325 MG TAB PO PRN (20:17)
[2023-07-21 08:49] LABS: HGB 12.5 d/dL (12.0-15.0); MCH 28.9 pg (27.0-32.0); MCHC 32.1 d/dL (32.0-37.0); MCV 90.3 FL (80.0-97.0); Mean Platelet Volume 10.3 FL (9.5-12.2); NRBC Per 100 WBC 0 X 10*3/uL (0.00-0.01); Platelet Count 243 X 10*3/uL (140-440); RBC 4.32 X 10*6/uL (4.10-5.20); WBC 7.42 X 10*3/uL (4.50-10.00)
[2023-07-21 08:59] LABS: BUN/Creat Ratio 17.57 Ratio (12.00-20.00); Blood Urea Nitrogen 12.3 mg/dL (9.0-27.0); Calcium 8.7 mg/dL (8.7-10.3); Carbon Dioxide 24.6 mmol/L (21.6-31.8); Chloride 103 mmol/L (96-109); Glucose 123 mg/dL (70-110); Magnesium 2.3 mg/dL (1.5-2.4); Potassium 4.3 mmol/L (3.5-5.5); Sodium 140 mmol/L (135-145)
[2023-07-21] MEDS: ASPIRIN 81 MG PO SCH (09:45)
[2023-07-21] MEDS: ATORVASTATIN 20 MG TAB PO SCH (09:45)
[2023-07-21] MEDS: MULTIVITAMINS, THERA 1 EACH TAB PO SCH (09:45)
[2023-07-21] MEDS: PANTOPRAZOLE 40 MG/10 ML VIAL IVP SCH ×2 (09:45→19:37)
[2023-07-21] MEDS: VENLAFAXINE HCL ER 75 MG CAP PO SCH (09:45)
--- NOTE | 2023-07-21 12:31 | P.PN ---
Subjective Progress Note Date: 07/21/23 * 37-year-old patient with past medical history significant for hyperlipidemia, family history of premature coronary artery disease to the emergency department with complaints of chest pain * Patient states she was at work and she started having palpitations, checked her pulse with a heart rate in 120s. complained of dizziness associated with that, patient repeated hypoxic and it was 45 few minutes later. Patient started having left-sided chest pain. Patient denied associated nausea, vomiting, shortness of breath, fever, cough, chills or diaphoresis * Workup initiated in ER included EKG and a troponin which was negative * Patient was recently admitted in May and had echocardiogram done which showed normal left and to size and function, trace tricuspid regurgitation was noted * EKG in ER showed sinus rhythm no significant ST segment changes * 07/20/23: Patient seen and evaluated bedside, patient had multiple troponins done which were negative. Patient complained of epigastric discomfort. Patient ate breakfast however after lunch patient vomited. CT abdomen pelvis ordered. GI Consulted to Evaluate for EGD * 07/21/23: Patient continues to complain of postprandial abdominal pain. 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 HEENT: No recent visual problems or hearing problems. Denied any sore throat. CARDIOVASCULAR: No chest pain, orthopnea, PND, no palpitations, no syncope. PULMONARY: No shortness of breath, no cough, no hemoptysis. GASTROINTESTINAL: No diarrhea, no nausea, no vomiting, no abdominal pain. NEUROLOGICAL: No headaches, no weakness, no numbness. HEMATOLOGICAL: Denies any bleeding or petechiae. GENITOURINARY: Denies any burning micturition, frequency, or urgency. MUSCULOSKELETAL/RHEUMATOLOGICAL: Denies any joint pain, swelling, or any muscle pain. ENDOCRINE: Denies any polyuria or polydipsia. Objective - Vital Signs Vital signs: Vital Signs Temp 97.6 F 07/21/23 07:00 Pulse 70 07/21/23 07:00 Resp 16 07/21/23 08:00 BP 111/68 07/21/23 07:00 Pulse Ox 98 07/21/23 07:00 FiO2 Intake & Output 07/20/23 07/21/23 07/21/23 18:59 06:59 18:59 Intake Total 118 Balance 118 Intake: Oral 118 Other: Voiding Method Toilet Toilet # Voids 2 2 - Exam PHYSICAL EXAMINATION: GENERAL: The patient is alert and oriented x3, not in any acute distress. Well developed, well nourished. HEENT: Pupils are round and equally reacting to light. EOMI. No scleral icterus. CARDIOVASCULAR: S1 and S2 present. No murmurs, rubs, or gallops. PULMONARY: Chest is clear to auscultation, no wheezing or crackles. ABDOMEN: Soft, nontender, nondistended, normoactive bowel sounds. Mild epig astric tenderness MUSCULOSKELETAL: No joint swelling or deformity. EXTREMITIES: No cyanosis, clubbing, or pedal edema. NEUROLOGICAL: Gross neurological examination did not reveal any focal deficits. SKIN: No rashes. - Labs CBC & Chem 7: 07/21/23 06:22 07/21/23 06:22 Labs: Abnormal Lab Results - Last 24 Hours (Table) 07/21/23 Range/Units 06:22 Anion Gap 12.40 H (4.00-12.00) mmol/L Glucose 123 H (70-110) mg/dL Assessment and Plan Assessment: Assessment and plan Chest pain ruled out acute coronary syndrome History of H. pylori gastritis and epigastric pain History of dyslipidemia Gastroesophageal reflux disease History of mood disorder * In regards to chest pain serial troponins negative,, seen by cardiology, no further workup indicated cleared for discharge * Regards to epigastric pain likely gastrointestinal in origin, CT abdomen and pelvis negative for acute intra-abdominal process, continue IV Protonix general surgery planning EGD 07/22 * In regards to her dyslipidemia continue patient on Lipitor * In regards to history of mood disorder continue venlafaxine * Status is full code
--- NOTE | 2023-07-21 14:35 | P.GSCN ---
History of Present Illness Consult date: 07/21/23 History of present illness: CHIEF COMPLAINT: Epigastric pain with nausea and vomiting HISTORY OF PRESENT ILLNESS: This is a 37-year-old female who presented to the hospital with complaints of epigastric pressure and pain and chest discomfort. She was having vomiting. Also lately has been having more reflux. Also reports she feels that food is sticking in the esophagus. She also reports a decreased appetite. She does have a prior history of H. pylori. This was diagnosed on EGD in 2016. Also had colonoscopy at that time which was unremarkable. Patient was seen evaluated by cardiology they have cleared her for discharge. Patient does have a prior surgical history of cholecystectomy. Patient's computed tomography scan of abdomen and pelvis unremarkable. Patient reports no blood or coffee-ground emesis. Patient does have a prior history of requiring to be on the ventilator secondary to Covid in December 2019. PAST MEDICAL HISTORY: See below PAST SURGICAL HISTORY: See below MEDICATIONS: See below ALLERGIES: See below SOCIAL HISTORY: No illicit drug use. REVIEW OF SYSTEMS: CONSTITUTIONAL: Denies fever or chills. HEENT: Denies blurred vision, vision changes, or eye pain. Denies hemoptysis CARDIOVASCULAR: Denies chest pain or pressure. RESPIRATORY: No shortness of breath. GASTROINTESTINAL: See HPI for pertinent findings HEMATOLOGIC: Denies bleeding disorders. GENITOURINARY: Denies any blood in urine or increased urinary frequency. SKIN: Denies pruitis. Denies rash. PHYSICAL EXAM: VITAL SIGNS: Reviewed GENERAL: Well-developed in no acute distress. HEENT: No sclera icterus. Extraocular movements grossly intact. Moist buccal mucosa. Head is atraumatic, normocephalic. No nasal drainage. ABDOMEN: Soft. Obese. Nondistended. Epigastric tenderness with palpation NEUROLOGIC: Alert and oriented. Cranial nerves II through XII grossly intact. LABORATORY DATA: WBC 7.4 to Hgb 12.5 platelets 243 Sodium 140 potassium is 4.3 creatinine 0.7 D-dimer 0.38 Troponin negative 3 Lipase 129 IMAGING: Computed tomography scan abdomen and pelvis no suspicious abnormality to account for vomiting. No suspicious changes for ileus or obstruction ASSESSMENT: 1. Epigastric pain with nausea and vomiting 2. Dysphagia 3. History of H. pylori PLAN: -Patient scheduled for EGD tomorrow, 07/22/[address] 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 Signing provider agrees with the documented findings, assessment, and plan of care. Past Medical History Past Medical History: Chest Pain / Angina, Thyroid Disorder Additional Past Medical History / Comment(s): migraines, POTS, History of Any Multi-Drug Resistant Organisms: None Reported Past Surgical History: Cholecystectomy, Orthopedic Surgery Additional Past Surgical History / Comment(s): right shoulder. fallopian removal, right elbow. Past Anesthesia/Blood Transfusion Reactions: No Reported Reaction Past Psychological History: Anxiety, Bipolar, Depression, PTSD Smoking Status: Never smoker Past Alcohol Use History: None Reported Past Drug Use History: None Reported - Past Family History Mother Family Medical History: Chest Pain / Angina Medications and Allergies Home Medications Medication Instructions Recorded Confirmed Type Venlafaxine HCl [Effexor XR] 75 mg PO DAILY 06/09/23 07/19/23 History Vitamin C/Biotin [Hair, Skin and 2 tab PO DAILY 06/09/23 07/19/23 History Nails Chew] Pantoprazole [Protonix] 40 mg PO DAILY #30 tab 06/10/23 07/19/23 Rx Atorvastatin [Lipitor] 20 mg PO DAILY 07/19/23 07/19/23 History Allergies Allergy/AdvReac Type Severity Reaction Status Date / Time Tetanus Vaccines and Toxoid Allergy Anaphylaxis Verified 07/19/23 12:41 cephalexin [From Keflex] AdvReac Vomiting Verified 07/19/23 12:41 Surgical - Exam Vital Signs Temp Pulse Resp BP Pulse Ox 98 F 81 18 138/76 98 07/19/23 09:14 07/19/23 09:14 07/19/23 09:14 07/19/23 09:14 07/19/23 09:14 Results - Labs 07/21/23 06:22 07/21/23 06:22 Abnormal Lab Results - Last 24 Hours (Table) 07/21/23 Range/Units 06:22 Anion Gap 12.40 H (4.00-12.00) mmol/L Glucose 123 H (70-110) mg/dL Diabetes panel 07/21/23 Range/Units 06:22 Sodium 140 (135-145) mmol/L Potassium 4.3 (3.5-5.5) mmol/L Chloride 103 (96-109) mmol/L Carbon Dioxide 24.6 (21.6-31.8) mmol/L BUN 12.3 (9.0-27.0) mg/dL Creatinine 0.7 (0.6-1.5) mg/dL Glucose 123 H (70-110) mg/dL Calcium 8.7 (8.7-10.3) mg/dL Calcium panel 07/21/23 Range/Units 06:22 Calcium 8.7 (8.7-10.3) mg/dL Pituitary panel 07/21/23 Range/Units 06:22 Sodium 140 (135-145) mmol/L Potassium 4.3 (3.5-5.5) mmol/L Chloride 103 (96-109) mmol/L Carbon Dioxide 24.6 (21.6-31.8) mmol/L BUN 12.3 (9.0-27.0) mg/dL Creatinine 0.7 (0.6-1.5) mg/dL Glucose 123 H (70-110) mg/dL Calcium 8.7 (8.7-10.3) mg/dL Adrenal panel 07/21/23 Range/Units 06:22 Sodium 140 (135-145) mmol/L Potassium 4.3 (3.5-5.5) mmol/L Chloride 103 (96-109) mmol/L Carbon Dioxide 24.6 (21.6-31.8) mmol/L BUN 12.3 (9.0-27.0) mg/dL Creatinine 0.7 (0.6-1.5) mg/dL Glucose 123 H (70-110) mg/dL Calcium 8.7 (8.7-10.3) mg/dL
[2023-07-21] MEDS: ACETAMINOPHEN TAB 325 MG TAB PO PRN (15:08)
[2023-07-21] MEDS: ONDANSETRON 4 MG/2 ML VIAL IVP PRN (19:37)
[2023-07-22] MEDS: ASPIRIN 81 MG PO SCH (08:58)
[2023-07-22] MEDS: MULTIVITAMINS, THERA 1 EACH TAB PO SCH (09:01)
[2023-07-22] MEDS: ATORVASTATIN 20 MG TAB PO SCH (09:01)
[2023-07-22] MEDS: PANTOPRAZOLE 40 MG/10 ML VIAL IVP SCH (09:01)
[2023-07-22] MEDS: VENLAFAXINE HCL ER 75 MG CAP PO SCH (09:01)
[2023-07-22] MEDS ORDERED: LIDOCAINE 1% INJ 10MG/ML (20 ML MDV) ONE (11:36)
[2023-07-22] MEDS ORDERED: MIDAZOLAM 2 MG/2 ML VIAL ONE (11:36)
[2023-07-22] MEDS ORDERED: ONDANSETRON 4 MG/2 ML VIAL ONE (11:36)
[2023-07-22] MEDS ORDERED: LACTATED RINGERS 1,000 ML IV ONE (11:36)
[2023-07-22] MEDS ORDERED: PROPOFOL 10 MG/ML 20 ML VIAL IV ONE (11:36)
--- NOTE | 2023-07-22 12:07 | P.DS ---
Providers Date of admission: 07/19/23 11:44 Expected date of discharge: 07/22/23 Attending physician: Franck Peterson MD Consults: 07/20/23 14:02 Consult Physician Routine Consulting Provider: Tatiana Marquis Consult Reason/Comments: Epigastric discomfort and evaluate for EGD history of H. pylori gastritis Do you want consulting provider notified?: Yes 07/20/23 15:19 Consult Physician Routine Consulting Provider: Yasmin Chang Consult Reason/Comments: eval for EGD, Gastritis Do you want consulting provider notified?: Yes Primary care physician: [facility] Course: * 37-year-old patient with past medical history significant for hyperlipidemia, family history of premature coronary artery disease to the emergency department with complaints of chest pain * Patient states she was at work and she started having palpitations, checked her pulse with a heart rate in 120s. complained of dizziness associated with that, patient repeated hypoxic and it was 45 few minutes later. Patient started having left-sided chest pain. Patient denied associated nausea, vomiting, shortness of breath, fever, cough, chills or diaphoresis * Workup initiated in ER included EKG and a troponin which was negative * Patient was recently admitted in May and had echocardiogram done which showed normal left and to size and function, trace tricuspid regurgitation was noted * EKG in ER showed sinus rhythm no significant ST segment changes * 07/20/23: Patient seen and evaluated bedside, patient had multiple troponins done which were negative. Patient complained of epigastric discomfort. Patient ate breakfast however after lunch patient vomited. CT abdomen pelvis ordered. GI Consulted to Evaluate for EGD * 07/21/23: Patient continues to complain of postprandial abdominal pain. 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 EGD final report pending however verbal report date mention gastritis and biopsies taken. Will need follow-up with PCP PHYSICAL EXAMINATION: GENERAL: The patient is alert and oriented x3, not in any acute distress. Well developed, well nourished. HEENT: Pupils are round and equally reacting to light. EOMI. No scleral icterus. CARDIOVASCULAR: S1 and S2 present. No murmurs, rubs, or gallops. PULMONARY: Chest is clear to auscultation, no wheezing or crackles. ABDOMEN: Soft, nontender, nondistended, normoactive bowel sounds. Mild epigastric tenderness RESOLVED MUSCULOSKELETAL: No joint swelling or deformity. EXTREMITIES: No cyanosis, clubbing, or pedal edema. NEUROLOGICAL: Gross neurological examination did not reveal any focal deficits. SKIN: No rashes. Assessment: Assessment and plan Chest pain ruled out acute coronary syndrome History of H. pylori gastritis and epigastric pain>> acute gastritis History of dyslipidemia Gastroesophageal reflux disease History of mood disorder * In regards to chest pain serial troponins negative,, seen by cardiology, no further workup indicated cleared for discharge * Regards to epigastric pain likely gastrointestinal in origin, CT abdomen and pelvis negative for acute intra-abdominal process, continue IV Protonix general surgery planning EGD 07/22>> patient report showed acute gastritis biopsies taken, patient to be discharged on oral Protonix twice a day her outpatient follow-up with PCP for biopsy results * In regards to her dyslipidemia continue patient on Lipitor * In regards to history of mood disorder continue venlafaxine Patient Condition at Discharge: Fair Plan - Discharge Summary New Discharge Prescriptions: New Ondansetron Odt [Zofran Odt] 4 mg PO Q8HR PRN 3 Days #9 tab PRN Reason: Nausea Continue Vitamin C/Biotin [Hair, Skin and Nails Chew] 2 tab PO DAILY Venlafaxine HCl [Effexor XR] 75 mg PO DAILY Atorvastatin [Lipitor] 20 mg PO DAILY Changed Pantoprazole [Protonix] 40 mg PO BID 30 Days #60 tab Discharge Medication List Venlafaxine HCl [Effexor XR] 75 mg PO DAILY 06/09/23 [History] Vitamin C/Biotin [Hair, Skin and Nails Chew] 2 tab PO DAILY 06/09/23 [History] Atorvastatin [Lipitor] 20 mg PO DAILY 07/19/23 [History] Ondansetron Odt [Zofran Odt] 4 mg PO Q8HR PRN 3 Days #9 tab 07/22/23 [Rx] Pantoprazole [Protonix] 40 mg PO BID 30 Days #60 tab 07/22/23 [Rx] Follow up Appointment(s)/Referral(s): Toney Ortez DO [Primary Care Provider] - 1-2 days Bud Dunn MD [STAFF PHYSICIAN] - 1 Week (Follow-up with PCP for follow-up on EGD biopsy results) Discharge Disposition: HOME SELF-CARE
--- NOTE | 2023-07-22 12:34 | P.PCN ---
Date of Procedure: 07/22/23 Description of Procedure: PREOPERATIVE DIAGNOSIS: Gastritis Gastroesophageal reflux disease. Morbid obesity. POSTOPERATIVE DIAGNOSIS: Gastroesophageal reflux disease. Morbid obesity. Gastritis. OPERATION: Esophagogastroduodenoscopy with biopsies along the esophagus, antrum and duodenum SURGEON: Yasmin Chang MD ANESTHESIA: MAC. INDICATIONS: The patient is a 37-year-old female who presents with gastritis. Benefits and risks of the procedure were described. Informed consent was obtained. DESCRIPTION: The patient was brought into the endoscopy suite and laid in the left lateral decubitus position. An Olympus gastroscope was passed along the posterior oropharynx down to the distal esophagus where the squamocolumnar junction was encountered at 40 cm from the incisors. The stomach was entered and no bile reflux was found. Additional findings are listed below. Biopsies with cold forceps were obtained of the antrum. The first through third portion of the duodenum was examined. Retroflexion of the scope confirmed Hill grade 2 lower esophageal valve. The squamocolumnar junction demonstrated LA grade B erosive esophagitis. The stomach was desufflated. The patient tolerated the procedure well. FINDINGS: Squamocolumnar junction 40 cm from the incisors. Diaphragmatic hiatus at 40 cm. Hill grade 2 lower esophageal valve. LA grade B erosive esophagitis with biopsies obtained Biopsies obtained of the duodenum. Chronic gastritis with biopsies obtained. RECOMMENDATIONS: Upper endoscopy as needed.
[2023-07-22] MEDS ORDERED: PROCHLORPERAZINE INJ 10 MG/2 ML VIAL IVP PRN (13:32)
--- NOTE | 2023-07-22 13:35 | P.PN ---
Subjective Progress Note Date: 07/22/23 * 37-year-old patient with past medical history significant for hyperlipidemia, family history of premature coronary artery disease to the emergency department with complaints of chest pain * Patient states she was at work and she started having palpitations, checked her pulse with a heart rate in 120s. complained of dizziness associated with that, patient repeated hypoxic and it was 45 few minutes later. Patient started having left-sided chest pain. Patient denied associated nausea, vomiting, shortness of breath, fever, cough, chills or diaphoresis * Workup initiated in ER included EKG and a troponin which was negative * Patient was recently admitted in May and had echocardiogram done which showed normal left and to size and function, trace tricuspid regurgitation was noted * EKG in ER showed sinus rhythm no significant ST segment changes * 07/20/23: Patient seen and evaluated bedside, patient had multiple troponins done which were negative. Patient complained of epigastric discomfort. Patient ate breakfast however after lunch patient vomited. CT abdomen pelvis ordered. GI Consulted to Evaluate for EGD * 07/21/23: Patient continues to complain of postprandial abdominal pain. Care plan discussed with patient and nursing staff planned for EGD tomorrow general surgery consulted no GI service tax services professional * 07/22/23: Patient seen and evaluated bedside, patient underwent EGD today postprocedure patient monitored, patient had episode of recurrent nausea and vomiting, x-ray KUB ordered * EGD FINDINGS:Squamocolumnar junction 40 cm from the incisors. Diaphragmatic hiatus at 40 cm. Hill grade 2 lower esophageal valve. LA grade B erosive esophagitis with biopsies obtained Biopsies obtained of the duodenum. Chronic gastritis with biopsies obtained. REVIEW OF SYSTEMS: Epigastric pain nausea, vomiting, abdominal pain CONSTITUTIONAL: No fever, no malaise, no fatigue. HEENT: No recent visual problems or hearing problems. Denied any sore throat. CARDIOVASCULAR: No chest pain, orthopnea, PND, no palpitations, no syncope. PULMONARY: No shortness of breath, no cough, no hemoptysis. GASTROINTESTINAL: No diarrhea, no nausea, no vomiting, no abdominal pain. NEUROLOGICAL: No headaches, no weakness, no numbness. HEMATOLOGICAL: Denies any bleeding or petechiae. GENITOURINARY: Denies any burning micturition, frequency, or urgency. MUSCULOSKELETAL/RHEUMATOLOGICAL: Denies any joint pain, swelling, or any muscle pain. ENDOCRINE: Denies any polyuria or polydipsia. Objective - Vital Signs Vital signs: Vital Signs Temp 97.9 F 07/22/23 07:00 Pulse 69 07/22/23 07:00 Resp 18 07/22/23 07:00 BP 98/60 07/22/23 07:00 Pulse Ox 96 07/22/23 07:00 FiO2 Intake & Output 07/21/23 07/22/23 07/22/23 18:59 06:59 18:59 Intake Total 100 Balance 100 Intake: IV 100 Other: Voiding Method Toilet Toilet # Voids 1 2 # Bowel Movements 2 - Exam PHYSICAL EXAMINATION: GENERAL: The patient is alert and oriented x3, not in any acute distress. Well developed, well nourished. HEENT: Pupils are round and equally reacting to light. EOMI. No scleral icterus. CARDIOVASCULAR: S1 and S2 present. No murmurs, rubs, or gallops. PULMONARY: Chest is clear to auscultation, no wheezing or crackles. ABDOMEN: Soft, nontender, nondistended, normoactive bowel sounds. Mild epigastric tenderness MUSCULOSKELETAL: No joint swelling or deformity. EXTREMITIES: No cyanosis, clubbing, or pedal edema. NEUROLOGICAL: Gross neurological examination did not reveal any focal deficits. SKIN: No rashes. - Labs CBC & Chem 7: 07/21/23 06:22 07/21/23 06:22 Assessment and Plan Assessment: Assessment and plan Chest pain ruled out acute coronary syndrome History of H. pylori gastritis and epigastric pain>> acute gastritis History of dyslipidemia Gastroesophageal reflux disease History of mood disorder * In regards to chest pain serial troponins negative, seen by cardiology, no further workup indicated cleared for discharge * Regards to epigastric pain likely gastrointestinal in origin, CT abdomen and pelvis negative for acute intra-abdominal process, continue IV Protonix general surgery planning * EGD 07/22>> patient report showed acute gastritis biopsies taken, post procedure recurrent nausea and vomiting. Advance diet as tolerated * In regards to her dyslipidemia continue patient on Lipitor * In regards to history of mood disorder continue venlafaxineaxine * Status is full code
[2023-07-22] MEDS ORDERED: SODIUM CHLORIDE 0.9% 1,000 ML IV SCH (13:45)
--- NOTE | 2023-07-22 13:54 | XR ---
EXAMINATION TYPE: XR KUB portable DATE OF EXAM: 07/22/2023 COMPARISON: None INDICATION: Postop EGD pain, nausea TECHNIQUE: Single view abdomen with mobile apparatus FINDINGS: There is a normal bowel gas pattern. No obvious free air is evident. Small amount of free air may not be visualized in supine position. No suspicious differential air-fluid levels are evident. Psoas margins are normal. No organomegaly is present. No mass effect is evident. IMPRESSION: 1. Nonspecific abdomen.
[2023-07-22 14:11] VITALS: TEMP 98.1
[2023-07-22 18:37] VITALS: BP 110/77; PULSE 71; RESP 12
== END 2023-07-22 19:05 | disposition home or self-care (01) ==
LOC: EC 09:10 → 6NMEDSUR 11:44
PROVIDERS: ADMIT Internal Medicine; ATTEND Internal Medicine
DX: K29.50 Unspecified chronic gastritis without bleeding (principal); K21.00 Gastro-esophageal reflux disease with esophagitis, without bleeding; D72.820 Lymphocytosis (symptomatic); F31.9 Bipolar disorder, unspecified; F43.10 Post-traumatic stress disorder, unspecified; E78.5 Hyperlipidemia, unspecified; E66.01 Morbid (severe) obesity due to excess calories; Z68.41 Body mass index [BMI] 40.0-44.9, adult; Z86.16 Personal history of COVID-19; Z86.19 Personal history of other infectious and parasitic diseases; Z86.711 Personal history of pulmonary embolism; Z90.49 Acquired absence of other specified parts of digestive tract; Z79.899 Other long term (current) drug therapy; Z88.1 Allergy status to other antibiotic agents; Z82.49 Family history of ischemic heart disease and other diseases of the circulatory system
CPT/HCPCS: 96376 ×2; 96374; 96375 ×2; 99285; 36415; 93005; 85379; 88305; 80061; 80053; 80048; 83690; 83735 ×2; 84443; 84484; 85025; 85027; 85610; 85730; 81025; 71046; 74018; 74176; 43239; G0378 ×4; J2250; J0780; J2405 ×3; J2001; J2704; C9113 ×3

== ENCOUNTER 2023-08-16 20:09 | Emergency (ER) | payer OTHER ==
[2023-08-16] MEDS ORDERED: ONDANSETRON 4 MG/2 ML VIAL IVP STA (20:41)
[2023-08-16] MEDS ORDERED: SODIUM CHLORIDE 0.9% 1,000 ML IV STA (20:41)
[2023-08-16] MEDS ORDERED: KETOROLAC 15 MG/ML 1 ML VIAL IVP STA (20:41)
[2023-08-16 21:08] LABS: Appearance,Urine Clear (Clear); Bilirubin,Urine Negative (Negative); Blood,Urine Negative (Negative); Color,Urine Colorless; Glucose,Urine (UA) Negative (Negative); Ketones,Urine Negative (Negative); Leukocyte Esterase,Urine Negative (Negative); Nitrite,Urine Negative (Negative); PH, Urine 6.5 (5.0-8.0); Protein,Urine Negative (Negative); Specific Gravity,Urine 1.015 (1.001-1.035); Urobilinogen,Urine <2.0 mg/dL (<2.0)
--- NOTE | 2023-08-16 21:19 | ED ---
Abdominal Pain HPI - General Chief Complaint: Abdominal Pain Stated Complaint: left lower quadrant pain Time Seen by Provider: 08/16/23 20:31 Source: patient, RN notes reviewed, old records reviewed Mode of arrival: ambulatory Limitations: no limitations - History of Present Illness Initial Comments: This is a 38-year-old female to the emergency department for evaluation. Patient presents today for evaluation regards to severe abdominal pain left low er quadrant bowel pain with history of ovarian cyst with ovarian cyst rupture. Patient has severe nausea no vomiting no travel history no sick contacts no fevers. No diarrhea. Patient has history of ovarian cysts which is similar to current pain MD Complaint: abdominal pain -: days(s) Location: LLQ, suprapubic Radiation: LLQ Migration to: suprapubic Severity: moderate Severity scale (1-10): 6 Quality: sharp Consistency: constant Improves With: nothing Worsens With: nothing Associated Symptoms: nausea, diarrhea Treatments Prior to Arrival: other (0) - Related Data Home Medications Medication Instructions Recorded Confirmed Venlafaxine HCl [Effexor XR] 75 mg PO DAILY 06/09/23 07/19/23 Vitamin C/Biotin [Hair, Skin and 2 tab PO DAILY 06/09/23 07/19/23 Nails Chew] Atorvastatin [Lipitor] 20 mg PO DAILY 07/19/23 07/19/23 Previous Rx's Medication Instructions Recorded Ondansetron Odt [Zofran Odt] 4 mg PO Q8HR PRN 3 Days #9 tab 07/22/23 Pantoprazole [Protonix] 40 mg PO BID 30 Days #60 tab 07/22/23 Allergies Allergy/AdvReac Type Severity Reaction Status Date / Time Tetanus Vaccines and Toxoid Allergy Anaphylaxis Verified 08/16/23 20:21 cephalexin [From Keflex] AdvReac Vomiting Verified 08/16/23 20:21 Review of Systems ROS Statement: Those systems with pertinent positive or pertinent negative responses have been documented in the HPI. ROS Other: All systems not noted in ROS Statement are negative. Past Medical History Past Medical History: Chest Pain / Angina, Thyroid Disorder Additional Past Medical History / Comment(s): migraines, POTS, History of Any Multi-Drug Resistant Organisms: None Reported Past Surgical History: Cholecystectomy, Orthopedic Surgery Additional Past Surgical History / Comment(s): right shoulder. fallopian removal, right elbow. Past Anesthesia/Blood Transfusion Reactions: No Reported Reaction Past Psychological History: Anxiety, Bipolar, Depression, PTSD Smoking Status: Never smoker Past Alcohol Use History: None Reported Past Drug Use History: None Reported - Past Family History Mother Family Medical History: Chest Pain / Angina General Exam Limitations: no limitations General appearance: alert, in no apparent distress Head exam: Present: atraumatic, normocephalic, normal inspection Eye exam: Present: normal appearance, PERRL, EOMI. Absent: scleral icterus, conjunctival injection, periorbital swelling ENT exam: Present: normal exam, mucous membranes moist Neck exam: Present: normal inspection. Absent: tenderness, meningismus, lymphadenopathy Respiratory exam: Present: normal lung sounds bilaterally. Absent: respiratory distress, wheezes, rales, rhonchi, stridor Cardiovascular Exam: Present: regular rate, normal rhythm, normal heart sounds. Absent: systolic murmur, diastolic murmur, rubs, gallop, clicks GI/Abdominal exam: Present: soft, normal bowel sounds. Absent: distended, tenderness, guarding, rebound, rigid Extremities exam: Present: normal inspection, full ROM, normal capillary refill. Absent: tenderness, pedal edema, joint swelling, calf tenderness Back exam: Present: normal inspection Neurological exam: Present: alert, oriented X3, CN II-XII intact Psychiatric exam: Present: normal affect, normal mood Skin exam: Present: warm, dry, intact, normal color. Absent: rash Course Vital Signs 08/16/23 08/16/23 08/17/23 20:17 22:12 00:06 Temperature 98.1 F 98.1 F 98.3 F Pulse Rate 93 78 89 Respiratory 18 18 15 Rate Blood Pressure 126/73 99/58 115/39 O2 Sat by Pulse 98 97 98 Oximetry - Reevaluation(s) Reevaluation #1: 08/16/23 21:18 Medical records reviewed Reevaluation #2: 08/16/23 21:18 Patient's pain is improved Reevaluation #3: 08/16/23 23:20 Patient informed results questions have been answered Reevaluation #4: 08/16/23 21:18 Was pt. sent in by a medical professional or institution (, PA, DIRECTOR CRITICAL CARE, urgent care, hospital, or jail...) When possible be specific @ -no Did you speak to anyone other than the patient for history (EMS, parent, family, police, friend...)? What history was obtained from this source @ -no Did you review nursing and triage notes (agree or disagree)? Why? @ -agree Are old charts reviewed (outside hosp., previous admission, EMS record, old EKG, old radiological studies, urgent care reports/EKG's, jail records)? Report findings @ -yes Differential Diagnosis (chest pain, altered mental status, abdominal pain women, abdominal pain men, vaginal bleeding, weakness, fever, dyspnea, syncope, headache, dizziness, GI bleed, back pain, seizure, CVA, palpatations, mental health, musculoskeletal)? @ -prior EKG interpreted by me (3pts min.). @ -no X-rays interpreted by me (1pt min.). @ -no CT interpreted by me (1pt min.). @ -no U/S interpreted by me (1pt. min.). @ -yes What testing was considered but not performed or refused? (CT, X-rays, U/S, labs)? Why? @ -none What meds were considered but not given or refused? Why? @ -none Did you discuss the management of the patient with other professionals (professionals i.e. , PA, DIRECTOR CRITICAL CARE, lab, RT, psych nurse, social work specialist, ctrs, teacher, administrative hearing officer, case mgr)? Give summary @ -no Was smoking cessation discussed for >3mins.? @ -no Was critical care preformed (if so, how long)? @ -no Were there social determinants of health that impacted care today? How? (Homelessness, low income, unemployed, alcoholism, drug addiction, transportation, low edu. Level, literacy, decrease access to med. care, fdc, rehab)? @ -none Was there de-escalation of care discussed even if they declined (Discuss DNR or withdrawal of care, Hospice)? DNR status @ -no What co-morbidities impacted this encounter? (DM, HTN, Smoking, COPD, CAD, Cancer, CVA, ARF, Chemo, Hep., AIDS, mental health diagnosis, sleep apnea, mor bid obesity)? @ -none Was patient admitted / discharged? Hospital course, mention meds given and ro rosebud, prescriptions, significant lab abnormalities, going to OR and other pertinent info. @ - 38 female nonspecific abdominal pain. Patient is concerned for ovarian cyst or ovarian cyst rupture. Patient has no findings here in the emergency department, N testing is normal she can be discharged home Discharge Undiagnosed new problem with uncertain prognosis? @ -no Drug Therapy requiring intensive monitoring for toxicity (Heparin, Nitro, Insulin, Cardizem)? @ -no Were any procedures done? @ -no Diagnosis/symptom? @ -Pelvic abdominal pain Acute, or Chronic, or Acute on Chronic? @ -Acute Uncomplicated (without systemic symptoms) or Complicated (systemic symptoms)? @ -Complicated Side effects of treatment? @ -no Exacerbation, Progression, or Severe Exacerbation? @ -exacerbation Poses a threat to life or bodily function? How? (Chest pain, [place], [place], pneumonia, PE, COPD, DKA, ARF, appy, cholecystitis, CVA, Diverticulitis, Homicidal, Suicidal, threat to staff... and all critical care pts) @ -no Reevaluation #5: 08/16/23 21:18 Differential Abdominal Pain Women: Appendicitis, Cholecystitis, diverticulosis, ischemic bowel, pancreatitis, h epatitis, UTI, gastroenteritis, AAA, incarcerated hernia, bowel obstruction, constipation, inflammatory bowel, hepatitis, peptic ulcer disease, splenic infarction, perforated viscus, vulvitis, ovarian torsion, PID, kidney stone, placenta abruption, this is not meant to be an all-inclusive list Medical Decision Making - Medical Decision Making 38 female nonspecific abdominal pain. Patient is concerned for ovarian cyst or ovarian cyst rupture. Patient has no findings here in the emergency department, N testing is normal she can be discharged home - Lab Data Result diagrams: 08/16/23 20:51 08/16/23 20:51 Lab Results 08/16/23 08/16/23 08/16/23 Range/Units 20:51 20:51 20:51 WBC 10.8 H (3.8-10.6) k/uL RBC 4.41 (3.80-5.40) m/uL Hgb 13.3 (11.4-16.0) gm/dL Hct 39.6 (34.0-46.0) % MCV 89.8 (80.0-100.0) fL MCH 30.2 (25.0-35.0) pg MCHC 33.7 (31.0-37.0) g/dL RDW 13.1 (11.5-15.5) % Plt Count 258 (150-450) k/uL MPV 8.5 Neutrophils % 55 % Lymphocytes % 38 % Monocytes % 4 % Eosinophils % 2 % Basophils % 1 % Neutrophils # 6.0 (1.3-7.7) k/uL Lymphocytes # 4.1 (1.0-4.8) k/uL Monocytes # 0.4 (0-1.0) k/uL Eosinophils # 0.2 (0-0.7) k/uL Basophils # 0.1 (0-0.2) k/uL Sodium 139 (137-145) mmol/L Potassium 3.9 (3.5-5.1) mmol/L Chloride 102 (98-107) mmol/L Carbon Dioxide 25 (22-30) mmol/L Anion Gap 12 mmol/L BUN 13 (7-17) mg/dL Creatinine 0.64 (0.52-1.04) mg/dL Est GFR (CKD-EPI)AfAm >90 (>60 ml/min/1.73 sqM) Est GFR (CKD-EPI)NonAf >90 (>60 ml/min/1.73 sqM) Glucose 171 H (74-99) mg/dL Calcium 9.2 (8.4-10.2) mg/dL Total Bilirubin 0.3 (0.2-1.3) mg/dL AST 25 (14-36) U/L ALT 29 (4-34) U/L Alkaline Phosphatase 76 (38-126) U/L Total Protein 7.5 (6.3-8.2) g/dL Albumin 4.3 (3.5-5.0) g/dL Amylase 62 (30-110) U/L Lipase 188 (23-300) U/L Urine Color Colorless Urine Appearance Clear (Clear) Urine pH 6.5 (5.0-8.0) Ur Specific [place] 1.015 (1.001-1.035) Urine Protein Negative (Negative) Urine Glucose (UA) Negative (Negative) Urine Ketones Negative (Negative) Urine Blood Negative (Negative) Urine Nitrite Negative (Negative) Urine Bilirubin Negative (Negative) Urine Urobilinogen <2.0 (<2.0) mg/dL Ur Leukocyte Esterase Negative (Negative) - Radiology Data Radiology results: report reviewed (Ultrasound pelvis negative for acute disease), image reviewed Disposition Clinical Impression: Abdominal colic, Abdominal pain Disposition: HOME SELF-CARE Condition: Good Instructions (If sedation given, give patient instructions): Abdominal Pain (ED) Is patient prescribed a controlled substance at d/c from ED?: No Referrals: Toney Ortez DO [Primary Care Provider] - 1-2 days Time of Disposition: 23:20
[2023-08-16 21:28] LABS: Basophils # (A) 0.1 k/uL (0-0.2); Basophils % (A) 1 %; Eosinophils # (A) 0.2 k/uL (0-0.7); Eosinophils % (A) 2 %; HCT 39.6 % (34.0-46.0); HGB 13.3 gm/dL (11.4-16.0); Lymphocytes # (A) 4.1 k/uL (1.0-4.8); Lymphocytes % (A) 38 %; MCH 30.2 pg (25.0-35.0); MCHC 33.7 g/dL (31.0-37.0); MCV 89.8 fL (80.0-100.0); Mean Platelet Volume 8.5; Monocytes # (A) 0.4 k/uL (0-1.0); Monocytes % (A) 4 %; Neutrophils % (A) 55 %; Platelet Count 258 k/uL (150-450); RBC 4.41 m/uL (3.80-5.40); RDW 13.1 % (11.5-15.5); WBC 10.8 k/uL (3.8-10.6)
[2023-08-16 21:37] LABS: ALT 29 U/L (4-34); AST 25 U/L (14-36); African American GFR (CKD) >90 (>60 ml/min/1.73 sqM); Albumin 4.3 g/dL (3.5-5.0); Alkaline Phosphatase 76 U/L (38-126); Amylase 62 U/L (30-110); Anion Gap 12 mmol/L; Blood Urea Nitrogen 13 mg/dL (7-17); Calcium 9.2 mg/dL (8.4-10.2); Carbon Dioxide 25 mmol/L (22-30); Chloride 102 mmol/L (98-107); Glucose 171 mg/dL (74-99); Lipase 188 U/L (23-300); Non-African American GFR(CKD) >90 (>60 ml/min/1.73 sqM); Potassium 3.9 mmol/L (3.5-5.1); Sodium 139 mmol/L (137-145); Total Bilirubin 0.3 mg/dL (0.2-1.3); Total Protein 7.5 g/dL (6.3-8.2)
--- NOTE | 2023-08-16 23:08 | US ---
EXAMINATION TYPE: US transvaginal DATE OF EXAM: 08/16/2023 COMPARISON: NONE CLINICAL INDICATION: Female, 38 years old with history of pain; LLQ pain. Bilateral fallopian tubes removed. TECHNIQUE: Transvaginal (TV) ultrasound pelvis was performed with color Doppler and waveform analysi s. Date of LMP: 08/10/2023, EXAM MEASUREMENTS: Uterus: 8.8 x 5.0 x 3.9 cm Endometrial Stripe: 0.3 cm Right Ovary: 3.3 x 2.6 x 2.5 cm Left Ovary: 2.7 x 1.9 x 1.4 cm 1. Uterus: Anteverted. Small nabothian cyst. Otherwise unremarkable. 2. Endometrium: wnl 3. Right Ovary: follicles seen 4. Left Ovary: follicles seen Spectral, color and waveform doppler imaging shows good arterial and venous flow within the left ov lisa; there is no evidence for left ovarian torsion. Color Doppler flow is seen to the right ovarian p arenchyma without Doppler waveforms demonstrated. If of concern, additional Doppler imaging could be performed. 5. Bilateral Adnexa: wnl 6. Posterior cul-de-sac: no free fluid IMPRESSION: 1. Essentially unremarkable, anteverted uterus. Endometrium appears within normal limits at 3 mm. 2. Follicular changes of the ovaries. 3. Spectral, color and waveform Doppler imaging shows good arterial and venous flow within the left ovary; there is no evidence for left ovarian torsion at the time of the exam. 4. Color Doppler flow is seen to the right ovarian parenchyma, without Doppler waveforms demonstrate d. If of concern, additional Doppler imaging could be performed.
[2023-08-16] MEDS ORDERED: HYDROmorphone 1 MG/ML 1 ML SYRINGE IVP STA (23:29)
[2023-08-16] MEDS ORDERED: ONDANSETRON 4 MG ODT STARTER PACK 2 TAB BTL PO STA (23:30)
[2023-08-16] MEDS ORDERED: traMADol 50 MG STARTER PACK 3 TAB BTL PO STA (23:30)
[2023-08-17 00:31] VITALS: BP 115/39; PULSE 89; RESP 15; TEMP 98.3
== END 2023-08-17 00:39 | disposition home or self-care (01) ==
LOC: EC 20:09
DX: R10.84 Generalized abdominal pain (principal); F41.9 Anxiety disorder, unspecified; F31.9 Bipolar disorder, unspecified; Z88.7 Allergy status to serum and vaccine; Z88.1 Allergy status to other antibiotic agents; Z79.899 Other long term (current) drug therapy; Z90.49 Acquired absence of other specified parts of digestive tract
CPT/HCPCS: 96361 ×4; 96374 ×2; 96375 ×4; 99284 ×2; 36415; 80053; 82150; 83690; 85025; 81003; 93976; 76830; J2405; J1170; J1885; S0119

== ENCOUNTER 2023-09-24 06:35 | Emergency (ER) | payer OTHER ==
[2023-09-24 06:53] VITALS: TEMP 98
--- NOTE | 2023-09-24 08:08 | XR ---
EXAMINATION TYPE: XR shoulder complete 3 views RT DATE OF EXAM: 09/24/2023 Comparison: None Clinical History: 38-year-old female right shoulder pain Findings: There is thinning of the acromion. Question previous acromioplasty. AC joint appears intact. Subacrom ial space is preserved. Smooth delineation to the greater tuberosity. No acute fracture, subluxation, or dislocation. Impression: Thinning along the undersurface of the acromion could be postsurgical after prior acromioplasty or co ngenital. Clinically correlate. No acute abnormality is seen.
--- NOTE | 2023-09-24 08:32 | ED ---
General Adult HPI - General Chief complaint: Extremity Injury, Upper Stated complaint: Right Shoulder Injury Time Seen by Provider: 09/24/23 06:56 Source: patient, RN notes reviewed Mode of arrival: ambulatory Limitations: no limitations - History of Present Illness Initial comments: 38-year-old female presents to the emergency department with a chief complaint of right shoulder pain. 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 She reports that her arm feels like it is falling asleep. She reports that she is previously injured it and had a bicep repair and then had frozen shoulder. She had her procedures performed by [facility] [facility]. She denies any numbness, tingling, weakness. Did not take any Tylenol or Motrin prior to arrival. - Related Data Home Medications Medication Instructions Recorded Confirmed Venlafaxine HCl [Effexor XR] 75 mg PO DAILY 06/09/23 07/19/23 Vitamin C/Biotin [Hair, Skin and 2 tab PO DAILY 06/09/23 07/19/23 Nails Chew] Atorvastatin [Lipitor] 20 mg PO DAILY 07/19/23 07/19/23 Previous Rx's Medication Instructions Recorded Ondansetron Odt [Zofran Odt] 4 mg PO Q8HR PRN 3 Days #9 tab 07/22/23 Pantoprazole [Protonix] 40 mg PO BID 30 Days #60 tab 07/22/23 Allergies Allergy/AdvReac Type Severity Reaction Status Date / Time Tetanus Vaccines and Toxoid Allergy Anaphylaxis Verified 09/24/23 06:50 cephalexin [From Keflex] AdvReac Vomiting Verified 09/24/23 06:50 Review of Systems ROS Statement: Those systems with pertinent positive or pertinent negative responses have been documented in the HPI. ROS Other: All systems not noted in ROS Statement are negative. Past Medical History Past Medical History: Chest Pain / Angina, Thyroid Disorder Additional Past Medical History / Comment(s): migraines, POTS, History of Any Multi-Drug Resistant Organisms: None Reported Past Surgical History: Cholecystectomy, Orthopedic Surgery Additional Past Surgical History / Comment(s): right shoulder. fallopian removal, right elbow. Past Anesthesia/Blood Transfusion Reactions: No Reported Reaction Past Psychological History: Anxiety, Bipolar, Depression, PTSD Smoking Status: Never smoker Past Alcohol Use History: None Reported Past Drug Use History: None Reported - Past Family History Mother Family Medical History: Chest Pain / Angina General Exam - General Exam Comments Initial Comments: General: Alert, in no acute distress Head: atraumatic normocephalic. Eyes PERRL, EOMI intact, mucous membranes moist Respiratory: Lungs clear to auscultation bilaterally Cardiovascular: rate regular rate and rhythm Abdominal: Soft without guarding or rebound Extremities: Normal inspection with full range of motion and normal capillary refill, right shoulder with generalized tenderness without crepitus Limited range of motion secondary to pain. Distal neurovascular intact. 2+ radial pulses. Neuroogic: alert and oriented 3, CN II-XII intact, able to ambulate with steady gait Skin: warm dry and intact with normal color Limitations: no limitations Course Vital Signs 09/24/23 06:48 Temperature 98 F Medical Decision Making - Medical Decision Making Was pt. sent in by a medical professional or institution (, PA, PLAYGROUND OFFICIAL, urgent care, hospital, or detention...) When possible be specific @ -[No] Did you speak to anyone other than the patient for history (EMS, parent, family, police, friend...)? What history was obtained from this source @ -[No] Did you review nursing and triage notes (agree or disagree)? Why? @ -[I reviewed and agree with nursing and triage notes] Were old charts reviewed (outside hosp., previous admission, EMS record, old EKG, old radiological studies, urgent care reports/EKG's, detention records)? Report findings @ -[No old charts were reviewed] Differential Diagnosis (chest pain, altered mental status, abdominal pain women, abdominal pain men, vaginal bleeding, weakness, fever, dyspnea, syncope, headache, dizziness, GI bleed, back pain, seizure, CVA, palpatations, mental health, musculoskeletal)? @ -[not applicable] EKG interpreted by me (3pts min.). @ -[As above] X-rays interpreted by me (1pt min.). @ -shoulder x-ray does not reveal any evidence of fracture dislocation. There is orevious surgical hardware that remains intact. CT interpreted by me (1pt min.). @ -[None done] U/S interpreted by me (1pt. min.). @ -[None done] What testing was considered but not performed or refused? (CT, X-rays, U/S, labs)? Why? @ -[None] What meds were considered but not given or refused? Why? @ -[None] Did you discuss the management of the patient with other professionals (professionals i.e. , PA, PLAYGROUND OFFICIAL, lab, RT, psych nurse, social worker masters, picu nurse, teacher, toxics program officer, case management director)? Give summary @ -[No] Was smoking cessation discussed for >3mins.? @ -[No] Was critical care preformed (if so, how long)? @ -[No] Were there social determinants of health that impacted care today? How? (Homelessness, low income, unemployed, alcoholism, drug addiction, transportation, low edu. Level, literacy, decrease access to med. care, alf, rehab)? @ -[No] Was there de-escalation of care discussed even if they declined (Discuss DNR or withdrawal of care, Hospice)? DNR status @ -[No] What co-morbidities impacted this encounter? (DM, HTN, Smoking, COPD, CAD, Cancer, CVA, ARF, Chemo, Hep., AIDS, mental health diagnosis, sleep apnea, morbid obesity)? @ -[None] Was patient admitted / discharged? Hospital course, mention meds given and route, prescriptions, significant lab abnormalities, going to OR and other pertinent info. @ -discharge. This is a pleasant 38-year-old female who presents the emergency department with a chief complaint of right shoulder pain. Patient had a thorough history and physical exam performed. There is generalized tenderness with limited range of motion. No obvious deformity or crepitus. Distal neurovascularly intact. 2+ radial pulses. Patient had x-rays which were negative for fracture dislocation. Patient provided sling and Tylenol and Motrin. Return precautions discussed at length. Discharged in stable condition. Case is discussed with Dr. Mathis, ED attending who agrees with plan of care Undiagnosed new problem with uncertain prognosis? @ -[No] Drug Therapy requiring intensive monitoring for toxicity (Heparin, Nitro, Insulin, Cardizem)? @ -[No] Were any procedures done? @ -[No] Diagnosis/symptom? @ -Right shoulder pain Acute, or Chronic, or Acute on Chronic? @ -Acute Uncomplicated (without systemic symptoms) or Complicated (systemic symptoms)? @ -Uncomplicated Side effects of treatment? @ -[No] Exacerbation, Progression, or Severe Exacerbation? @ -[No] Poses a threat to life or bodily function? How? (Chest pain, [place], [place], pneumonia, PE, COPD, DKA, ARF, appy, cholecystitis, CVA, Diverticulitis, Homicidal, Suicidal, threat to staff... and all critical care pts) @ Low liklelihood Disposition Clinical Impression: Shoulder pain Disposition: HOME SELF-CARE Condition: Stable Instructions (If sedation given, give patient instructions): Rotator Cuff Injury (ED), Arthralgia (ED) Additional Instructions: take Tylenol or Motrin for pain Please remain in immobilizer Please return to the emergency department if symptoms worsen or persist Is patient prescribed a controlled substance at d/c from ED?: No Referrals: Toney Ortez DO [Primary Care Provider] - 1-2 days Abhilash Davenport DO [Doctor of Osteopathic Medicine] - 1-2 days Time of Disposition: 08:37
[2023-09-24] MEDS ORDERED: IBUPROFEN 800 MG TAB PO STA (08:37)
[2023-09-24 08:59] VITALS: BP 114/77; PULSE 78; RESP 18
== END 2023-09-24 13:14 | disposition home or self-care (01) ==
LOC: EC 06:35
DX: M25.511 Pain in right shoulder (principal); Z86.59 Personal history of other mental and behavioral disorders; Z88.1 Allergy status to other antibiotic agents; Z88.7 Allergy status to serum and vaccine; Z90.49 Acquired absence of other specified parts of digestive tract
CPT/HCPCS: 99283

== ENCOUNTER 2023-10-22 11:09 | Emergency (ER) | payer OTHER ==
[2023-10-22 11:20] VITALS: TEMP 98.2
[2023-10-22 12:23] LABS: Appearance,Urine Turbid (Clear); Bacteria,Urine Moderate /hpf; Bilirubin,Urine Negative (Negative); Blood,Urine Moderate (Negative); Color,Urine Light Yellow; Glucose,Urine (UA) Negative (Negative); Ketones,Urine Negative (Negative); Leukocyte Esterase,Urine Large (Negative); Nitrite,Urine Positive (Negative); Protein,Urine 1+ (Negative); RBC,Urine 126 /hpf (0-5); Specific Gravity,Urine 1.018 (1.001-1.035); Squamous Epithelial Cell,Urine 31 /hpf (0-4); Urobilinogen,Urine <2.0 mg/dL (<2.0); WBC,Urine >182 /hpf (0-5)
--- NOTE | 2023-10-22 13:00 | ED ---
Female Urogenital HPI - General Chief complaint: Urogenital Stated complaint: Lower Back Pain Time Seen by Provider: 10/22/23 11:28 Source: patient, RN notes reviewed Mode of arrival: ambulatory Limitations: no limitations - History of Present Illness Initial comments: 38-year-old female presents to the emergency department with chief complaint of dysuria. Patient states she has had decreased urine output states that she has been having dribbling, mild left flank pain no history of kidney stones she states she feels like she has a UTI no fever. - Related Data Home Medications Medication Instructions Recorded Confirmed Venlafaxine HCl [Effexor XR] 75 mg PO DAILY 06/09/23 07/19/23 Vitamin C/Biotin [Hair, Skin and 2 tab PO DAILY 06/09/23 07/19/23 Nails Chew] Atorvastatin [Lipitor] 20 mg PO DAILY 07/19/23 07/19/23 Previous Rx's Medication Instructions Recorded Ondansetron Odt [Zofran Odt] 4 mg PO Q8HR PRN 3 Days #9 tab 07/22/23 Pantoprazole [Protonix] 40 mg PO BID 30 Days #60 tab 07/22/23 Nitrofurantoin Monohyd/M-Cryst 100 mg PO Q12HR #14 cap 10/22/23 [Macrobid] Phenazopyridine [Pyridium] 200 mg PO TID #6 tablet 10/22/23 Allergies Allergy/AdvReac Type Severity Reaction Status Date / Time Tetanus Vaccines and Toxoid Allergy Anaphylaxis Verified 10/22/23 11:16 cephalexin [From Keflex] AdvReac Vomiting Verified 10/22/23 11:16 Review of Systems ROS Statement: Those systems with pertinent positive or pertinent negative responses have been documented in the HPI. ROS Other: All systems not noted in ROS Statement are negative. Past Medical History Past Medical History: Chest Pain / Angina, Thyroid Disorder Additional Past Medical History / Comment(s): migraines, POTS, History of Any Multi-Drug Resistant Organisms: None Reported Past Surgical History: Cholecystectomy, Orthopedic Surgery Additional Past Surgical History / Comment(s): right shoulder x2. fallopian removal, right elbow. Past Anesthesia/Blood Transfusion Reactions: No Reported Reaction Past Psychological History: Anxiety, Bipolar, Depression, PTSD Smoking Status: Never smoker Past Alcohol Use History: None Reported Past Drug Use History: None Reported - Past Family History Mother Family Medical History: Chest Pain / Angina General Exam Limitations: no limitations General appearance: alert, in no apparent distress Head exam: Present: atraumatic, normocephalic, normal inspection Neck exam: Present: normal inspection. Absent: tenderness, meningismus, lymphadenopathy Respiratory exam: Present: normal lung sounds bilaterally. Absent: respiratory distress, wheezes, rales, rhonchi, stridor Cardiovascular Exam: Present: regular rate, normal rhythm, normal heart sounds. Absent: systolic murmur, diastolic murmur, rubs, gallop, clicks GI/Abdominal exam: Present: soft, normal bowel sounds. Absent: distended, tenderness, guarding, rebound, rigid Back exam: Present: CVA tenderness (L) (Minimal). Absent: CVA tenderness (R) Course Vital Signs 10/22/23 11:16 Temperature 98.2 F Pulse Rate 86 Respiratory 18 Rate Blood Pressure 123/79 O2 Sat by Pulse 97 Oximetry Medical Decision Making - Medical Decision Making Was pt. sent in by a medical professional or institution (, PA, INDUSTRIAL SAFETY AND HEALTH SPECIALIST, urgent care, hospital, or half-way...) When possible be specific @ -No Did you speak to anyone other than the patient for history (EMS, parent, family, police, friend...)? What history was obtained from this source @ -No Did you review nursing and triage notes (agree or disagree)? Why? @ -I reviewed and agree with nursing and triage notes Were old charts reviewed (outside hosp., previous admission, EMS record, old EKG, old radiological studies, urgent care reports/EKG's, half-way records)? Report findings @ -No old charts were reviewed Differential Diagnosis (chest pain, altered mental status, abdominal pain women, abdominal pain men, vaginal bleeding, weakness, fever, dyspnea, syncope, headache, dizziness, GI bleed, back pain, seizure, CVA, palpatations, mental health, musculoskeletal)? @ -Dysuria, UTI EKG interpreted by me (3pts min.). @ -[None X-rays interpreted by me (1pt min.). @ -None done CT interpreted by me (1pt min.). @ -None done U/S interpreted by me (1pt. min.). @ -None done What testing was considered but not performed or refused? (CT, X-rays, U/S, labs)? Why? @ -None What meds were considered but not given or refused? Why? @ -None Did you discuss the management of the patient with other professionals (professionals i.e. , PA, INDUSTRIAL SAFETY AND HEALTH SPECIALIST, lab, RT, psych nurse, social work instructor, firefighter type one, teacher, radiation safety officer, case preparer and liner)? Give summary @ -No Was smoking cessation discussed for >3mins.? @ -No Was critical care preformed (if so, how long)? @ -No Were there social determinants of health that impacted care today? How? (Homelessness, low income, unemployed, alcoholism, drug addiction, transportation, low edu. Level, literacy, decrease access to med. care, usp, rehab)? @ -No Was there de-escalation of care discussed even if they declined (Discuss DNR or withdrawal of care, Hospice)? DNR status @ -No What co-morbidities impacted this encounter? (DM, HTN, Smoking, COPD, CAD, Cancer, CVA, ARF, Chemo, Hep., AIDS, mental health diagnosis, sleep apnea, morbid obesity)? @ -None Was patient admitted / discharged? Hospital course, mention meds given and route, prescriptions, significant lab abnormalities, going to OR and other pertinent info. @ -[Discharge patient has evidence of urinary tract infection. Patient was started on Macrobid as she has an allergy to Keflex. Patient was also given Pyridium. Return pressure discussed. Undiagnosed new problem with uncertain prognosis? @ -No Drug Therapy requiring intensive monitoring for toxicity (Heparin, Nitro, Insulin, Cardizem)? @ -No Were any procedures done? @ -No Diagnosis/symptom? @ -[UTI Acute, or Chronic, or Acute on Chronic? @ -Acute Uncomplicated (without systemic symptoms) or Complicated (systemic symptoms)? @ -Uncomplicated Side effects of treatment? @ -No Exacerbation, Progression, or Severe Exacerbation? @ -No Poses a threat to life or bodily function? How? (Chest pain, [place], [place], pneumonia, PE, COPD, DKA, ARF, appy, cholecystitis, CVA, Diverticulitis, Homicidal, Suicidal, threat to staff... and all critical care pts) @ -No - Lab Data Lab Results 10/22/23 10/22/23 Range/Units 12:01 12:01 Urine Color Light Yellow Urine Appearance Turbid H (Clear) Urine pH 6.0 (5.0-8.0) Ur Specific [place] 1.018 (1.001-1.035) Urine Protein 1+ H (Negative) Urine Glucose (UA) Negative (Negative) Urine Ketones Negative (Negative) Urine Blood Moderate H (Negative) Urine Nitrite Positive H (Negative) Urine Bilirubin Negative (Negative) Urine Urobilinogen <2.0 (<2.0) mg/dL Ur Leukocyte Esterase Large H (Negative) Urine RBC 126 H (0-5) /hpf Urine WBC >182 H (0-5) /hpf Urine WBC Clumps Many H (None) /hpf Ur Squamous Epith Cells 31 H (0-4) /hpf Urine Bacteria Moderate H (None) /hpf Urine HCG, Qual Not Detected (Not Detectd) Disposition Clinical Impression: UTI (urinary tract infection) Disposition: HOME SELF-CARE Condition: Stable Instructions (If sedation given, give patient instructions): Urinary Tract Infection in Women (ED) Additional Instructions: Please return to the Emergency Department if symptoms worsen or any other concerns. Prescriptions: Nitrofurantoin Monohyd/M-Cryst [Macrobid] 100 mg PO Q12HR #14 cap Phenazopyridine [Pyridium] 200 mg PO TID #6 tablet Is patient prescribed a controlled substance at d/c from ED?: No Referrals: Toney Ortez DO [Primary Care Provider] - 1-2 days Time of Disposition: 13:00
[2023-10-22 13:27] VITALS: BP 101/69; PULSE 83; RESP 16
== END 2023-10-22 13:23 | disposition home or self-care (01) ==
LOC: EC 11:09
DX: N39.0 Urinary tract infection, site not specified (principal); F31.9 Bipolar disorder, unspecified; F41.9 Anxiety disorder, unspecified; Z79.899 Other long term (current) drug therapy; Z88.1 Allergy status to other antibiotic agents; Z88.7 Allergy status to serum and vaccine
CPT/HCPCS: 81001; 81025; 87086; 99283

== ENCOUNTER → 2023-11-17 | Outpatient (CLI) | payer OTHER ==
[2023-11-17 12:45] LABS: Basophils # (A) 0.04 X 10*3/uL (0.00-0.10); Basophils % (A) 0.5 %; Eosinophils # (A) 0.13 X 10*3/uL (0.04-0.35); Eosinophils % (A) 1.6 %; HCT 40.6 % (37.2-46.3); HGB 13.3 g/dL (12.0-15.0); Lymphocytes # (A) 2.61 X 10*3/uL (0.90-5.00); Lymphocytes % (A) 31.9 %; MCH 28.9 pg (27.0-32.0); MCHC 32.8 g/dL (32.0-37.0); MCV 88.1 FL (80.0-97.0); Mean Platelet Volume 10.4 FL (9.5-12.2); Monocytes # (A) 0.48 X 10*3/uL (0.20-1.00); Monocytes % (A) 5.9 %; NRBC Per 100 WBC 0 X 10*3/uL (0.00-0.01); Neutrophils # (A) 4.85 X 10*3/uL (1.80-7.70); Neutrophils % (A) 59.4 %; Platelet Count 263 X 10*3/uL (140-440); RBC 4.61 X 10*6/uL (4.10-5.20); RDW 13.6 % (11.5-14.5); WBC 8.17 X 10*3/uL (4.50-10.00)
[2023-11-17 14:50] LABS: Erythrocyte Sedimentation Rate 28 mm/Hr (0-20)
[2023-11-17 16:51] LABS: Rheumatoid Factor, Qnt <15 IU/mL (0-15); Uric Acid 7.4 mg/dL (2.9-7.7)
[2023-11-18 10:41] LABS: HLA B27 NEGATIVE
== END | disposition home or self-care (01) ==
LOC: LABWHC1 09:09
PROVIDERS: ATTEND Orthopaedic Surgery
DX: M25.50 Pain in unspecified joint (principal)
CPT/HCPCS: 36415; 84550; 85025; 85652; 86038; 86140; 86431; 86812

== ENCOUNTER 2023-11-29 06:40 | Emergency (ER) | payer OTHER ==
--- NOTE | 2023-11-29 06:56 | ED ---
Chest Pain HPI - General Chief Complaint: Chest Pain Stated Complaint: CHEST PAIN,DIZZY Time Seen by Provider: 11/29/23 06:45 Source: patient, RN notes reviewed Mode of arrival: wheelchair Limitations: no limitations - History of Present Illness Initial Comments: Damion valentin is a 38-year-old female presents emergency department chief myelocyte chest pain. Patient states around 2 AM. Patient states pain has been persistent nothing makes it feel better or feel worse. She does have a history of hyperlipidemia which she is on medications for. No prior cardiac disease denies feeling short of breath denies any pain with movement. No abdominal discomfort states she tried some Rolaids with no relief of symptoms as she has a history of GERD and states that is related to this. Patient denies any trauma no rashes. - Related Data Home Medications Medication Instructions Recorded Confirmed Venlafaxine HCl [Effexor XR] 75 mg PO DAILY 06/09/23 07/19/23 Vitamin C/Biotin [Hair, Skin and 2 tab PO DAILY 06/09/23 07/19/23 Nails Chew] Atorvastatin [Lipitor] 20 mg PO DAILY 07/19/23 07/19/23 Previous Rx's Medication Instructions Recorded Ondansetron Odt [Zofran Odt] 4 mg PO Q8HR PRN 3 Days #9 tab 07/22/23 Pantoprazole [Protonix] 40 mg PO BID 30 Days #60 tab 07/22/23 Nitrofurantoin Monohyd/M-Cryst 100 mg PO Q12HR #14 cap 10/22/23 [Macrobid] Phenazopyridine [Pyridium] 200 mg PO TID #6 tablet 10/22/23 Allergies Allergy/AdvReac Type Severity Reaction Status Date / Time Tetanus Vaccines and Toxoid Allergy Anaphylaxis Verified 10/22/23 11:16 cephalexin [From Keflex] AdvReac Vomiting Verified 10/22/23 11:16 Review of Systems ROS Statement: Those systems with pertinent positive or pertinent negative responses have been documented in the HPI. ROS Other: All systems not noted in ROS Statement are negative. EKG Findings - EKG Comments: EKG Findings:: EKG performed at 7: 18 sinus rhythm rate of 74 [place] 135 QRS 97 QT/QTc 391/419 there is inverted T wave in lead III which was found on prior EKGs - EKG Results: EKG: interpreted by ERMD Past Medical History Past Medical History: Chest Pain / Angina, Thyroid Disorder Additional Past Medical History / Comment(s): migraines, POTS, History of Any Multi-Drug Resistant Organisms: None Reported Past Surgical History: Cholecystectomy, Orthopedic Surgery Additional Past Surgical History / Comment(s): right shoulder x2. fallopian removal, right elbow. Past Anesthesia/Blood Transfusion Reactions: No Reported Reaction Past Psychological History: Anxiety, Bipolar, Depression, PTSD Smoking Status: Never smoker Past Alcohol Use History: None Reported Past Drug Use History: None Reported - Past Family History Mother Family Medical History: Chest Pain / Angina General Exam - General Exam Comments Initial Comments: Visual Physical Exam Vital signs reviewed General: Well-appearing, nontoxic, no acute distress. Head: Normocephalic, atraumatic Eyes: PERRLA, EOMI ENT: Airway patent Chest: Nonlabored breathing Skin: No visual rash, normal skin tone Neuro: Alert and oriented 3 Musculoskeletal: No gross abnormalities Limitations: no limitations General appearance: alert, in no apparent distress Head exam: Present: atraumatic, normocephalic, normal inspection Eye exam: Present: normal appearance, PERRL, EOMI. Absent: scleral icterus, conjunctival injection, periorbital swelling ENT exam: Present: normal exam, mucous membranes moist Neck exam: Present: normal inspection, full ROM. Absent: tenderness, meningismus, lymphadenopathy Respiratory exam: Present: normal lung sounds bilaterally, chest wall tenderness. Absent: respiratory distress, wheezes, rales, rhonchi, stridor Cardiovascular Exam: Present: regular rate, normal rhythm, normal heart sounds. Absent: systolic murmur, diastolic murmur, rubs, gallop, clicks GI/Abdominal exam: Present: soft, normal bowel sounds. Absent: distended, tenderness, guarding, rebound, rigid Course Vital Signs 11/29/23 11/29/23 06:42 09:51 Temperature 99.0 F 98.4 F Pulse Rate 76 74 Respiratory 20 16 Rate Blood Pressure 124/85 99/46 O2 Sat by Pulse 98 98 Oximetry Chest Pain MDM - MDM I completed the quick note portion of this chart signed Landen Benavidez PA-C Was pt. sent in by a medical professional or institution (, KELL, HEAD OF STRATEGY, urgent care, hospital, or skilled nursing...) When possible be specific @ -[No] Did you speak to anyone other than the patient for history (EMS, parent, family, police, friend...)? What history was obtained from this source @ -[No] Did you review nursing and triage notes (agree or disagree)? Why? @ -[I reviewed and agree with nursing and triage notes] Were old charts reviewed (outside hosp., previous admission, EMS record, old EKG, old radiological studies, urgent care reports/EKG's, skilled nursing records)? Report findings @ -Reviewed prior laboratory studies, EKG and stress test 6 months ago Differential Diagnosis (chest pain, altered mental status, abdominal pain women, abdominal pain men, vaginal bleeding, weakness, fever, dyspnea, syncope, headache, dizziness, GI bleed, back pain, seizure, CVA, palpatations, mental health, musculoskeletal)? @ -Differential Chest Pain: Stable Angina, Unstable Angina, STEMI, NSTEMI Aortic Dissection, Pneumothorax, Musculoskeletal, Esophageal Spasm GERD, Cholecystitis, Pancreatitis, Zoster, this is not meant to be an all-inclusive list. EKG interpreted by me (3pts min.). @ -[As above] X-rays interpreted by me (1pt min.). @ -[Chest x-ray shows no acute cardiopulmonary process CT interpreted by me (1pt min.). @ -[None done] U/S interpreted by me (1pt. min.). @ -[None done] What testing was considered but not performed or refused? (CT, X-rays, U/S, labs)? Why? @ -[None] What meds were considered but not given or refused? Why? @ -[None] Did you discuss the management of the patient with other professionals (professionals i.e. , PA, HEAD OF STRATEGY, lab, RT, psych nurse, high school social studies teacher, reduction plant supervisor, teacher, residential care officer, dependency case manager)? Give summary @ -[No] Was smoking cessation discussed for >3mins.? @ -[No] Was critical care preformed (if so, how long)? @ -[No] Were there social determinants of health that impacted care today? How? (Homelessness, low income, unemployed, alcoholism, drug addiction, transportation, low edu. Level, literacy, decrease access to med. care, detention, rehab)? @ -[No] Was there de-escalation of care discussed even if they declined (Discuss DNR or withdrawal of care, Hospice)? DNR status @ -[No] What co-morbidities impacted this encounter? (DM, HTN, Smoking, COPD, CAD, Cancer, CVA, ARF, Chemo, Hep., AIDS, mental health diagnosis, sleep apnea, morbid obesity)? @ -[None] Was patient admitted / discharged? Hospital course, mention meds given and route, prescriptions, significant lab abnormalities, going to OR and other pertinent info. @ -[Discharge patient pain is improved at this time. Laboratory studies unremarkable. Patient had a recent stress test which was unremarkable. Patient feels comfortable discharge with analgesics. Undiagnosed new problem with uncertain prognosis? @ -[No] Drug Therapy requiring intensive monitoring for toxicity (Heparin, Nitro, Insulin, Cardizem)? @ -[No] Were any procedures done? @ -[No] Diagnosis/symptom? @ -[default] Acute, or Chronic, or Acute on Chronic? @ -[default] Uncomplicated (without systemic symptoms) or Complicated (systemic symptoms)? @ -[default] Side effects of treatment? @ -[No] Exacerbation, Progression, or Severe Exacerbation? @ -[No] Poses a threat to life or bodily function? How? (Chest pain, [place], [place], pneumonia, PE, COPD, DKA, ARF, appy, cholecystitis, CVA, Diverticulitis, Homicidal, Suicidal, threat to staff... and all critical care pts) @ -[No] Disposition Clinical Impression: Atypical chest pain, Chest wall pain Disposition: HOME SELF-CARE Condition: Stable Instructions (If sedation given, give patient instructions): Chest Pain (ED) Additional Instructions: Please return to the Emergency Department if symptoms worsen or any other concerns. Is patient prescribed a controlled substance at d/c from ED?: No Referrals: Toney Ortez DO [Primary Care Provider] - 1-2 days Time of Disposition: 09:53
--- NOTE | 2023-11-29 07:09 | XR ---
EXAMINATION TYPE: XR chest 2V DATE OF EXAM: 11/29/2023 7:04 AM CLINICAL INDICATION:Female, 38 years old with history of Chest Pain; [facility] COMPARISON: 07/19/2023 TECHNIQUE: XR chest 2V. Frontal and lateral views of the chest.. FINDINGS: Lines/Tubes/Devices: No indwelling lines are seen. Extrinsic radiodensities. Heart/mediastinum: Heart size upper normal. Mediastinum appears normal. Pulmonary vascularity: Not increased, Lungs/Pleura: There is no evidence of pleural effusion, focal consolidation, or pneumothorax. Musculoskeletal: No acute osseous abnormality demonstrated in the limits of the exam. Mild elevation right hemidiaphragm is similar to before. Other findings: None. IMPRESSION: No acute cardiopulmonary abnormality.
[2023-11-29] MEDS: ASPIRIN 81 MG PO STA (07:20)
[2023-11-29 07:32] LABS: Basophils # (A) 0.1 k/uL (0-0.2); Basophils % (A) 1 %; Eosinophils # (A) 0.1 k/uL (0-0.7); Eosinophils % (A) 2 %; HCT 39.5 % (34.0-46.0); HGB 13.1 gm/dL (11.4-16.0); Lymphocytes # (A) 2.4 k/uL (1.0-4.8); Lymphocytes % (A) 27 %; MCH 29.7 pg (25.0-35.0); MCHC 33.2 g/dL (31.0-37.0); MCV 89.4 fL (80.0-100.0); Mean Platelet Volume 8.3; Monocytes # (A) 0.4 k/uL (0-1.0); Monocytes % (A) 4 %; Neutrophils # (A) 5.7 k/uL (1.3-7.7); Neutrophils % (A) 65 %; Platelet Count 248 k/uL (150-450); RBC 4.41 m/uL (3.80-5.40); RDW 13.8 % (11.5-15.5); WBC 8.9 k/uL (3.8-10.6)
[2023-11-29 07:43] LABS: ALT 27 U/L (4-34); AST 29 U/L (14-36); African American GFR (CKD) >90 (>60 ml/min/1.73 sqM); Albumin 4.4 g/dL (3.5-5.0); Alkaline Phosphatase 72 U/L (38-126); Anion Gap 10 mmol/L; Blood Urea Nitrogen 18 mg/dL (7-17); Carbon Dioxide 22 mmol/L (22-30); Chloride 106 mmol/L (98-107); Glucose 143 mg/dL (74-99); Magnesium 1.9 mg/dL (1.6-2.3); Non-African American GFR(CKD) >90 (>60 ml/min/1.73 sqM); Potassium 4.3 mmol/L (3.5-5.1); Sodium 138 mmol/L (137-145); Total Bilirubin 0.5 mg/dL (0.2-1.3); Total Protein 7.5 g/dL (6.3-8.2)
[2023-11-29 07:57] LABS: INR 0.9 (<1.2); Partial Thromboplastin Time 24.4 sec (22.0-30.0); Prothrombin Time 9.9 sec (10.0-12.5)
[2023-11-29] MEDS: KETOROLAC 15 MG/ML 1 ML VIAL IVP STA (09:17)
[2023-11-29 10:06] VITALS: BP 99/46; PULSE 74; RESP 16; TEMP 98.4
[2023-11-29] MEDS: ACET/COD 300 MG/30 MG STARTER PACK 6 TAB BTL PO STA (10:06)
== END 2023-11-29 10:09 | disposition home or self-care (01) ==
LOC: EC 06:40
DX: R07.89 Other chest pain (principal); E78.5 Hyperlipidemia, unspecified; F31.9 Bipolar disorder, unspecified; F41.9 Anxiety disorder, unspecified; Z20.822 Contact with and (suspected) exposure to COVID-19; Z79.899 Other long term (current) drug therapy; Z88.1 Allergy status to other antibiotic agents; Z88.7 Allergy status to serum and vaccine
CPT/HCPCS: 36415; 93005; 80053; 83735; 84484; 85025; 85610; 85730; 87636; 71046; 99285; 96374; J1885

== ENCOUNTER 2023-12-26 16:57 | Emergency (ER) | payer OTHER ==
[2023-12-26] MEDS: KETOROLAC 15 MG/ML 1 ML VIAL IVP STA (18:00)
[2023-12-26] MEDS: diphenhydrAMINE 50 MG/ML 1 ML VIAL IVP STA (18:00)
[2023-12-26] MEDS: METOCLOPRAMIDE 5 MG/ML 2 ML VIAL IVP STA (18:00)
--- NOTE | 2023-12-26 18:16 | ED ---
General Adult HPI - General Chief complaint: Headache Stated complaint: migraine Time Seen by Provider: 12/26/23 17:14 Source: patient, RN notes reviewed Mode of arrival: ambulatory Limitations: no limitations - History of Present Illness Initial comments: 38-year-old female presents to the emergency department for evaluation of migraine headache. Patient states that she has a history of migraines and states this headache is typical in character to her migraines. She states that patient usually relieved with her home medications but they are not working. She states she also started around 7 AM. She notes that it has progressively gotten worse over the course of the day. She takes Ubrelvy daily for preventative treatment. - Related Data Home Medications Medication Instructions Recorded Confirmed Venlafaxine HCl [Effexor XR] 75 mg PO DAILY 06/09/23 07/19/23 Vitamin C/Biotin [Hair, Skin and 2 tab PO DAILY 06/09/23 07/19/23 Nails Chew] Atorvastatin [Lipitor] 20 mg PO DAILY 07/19/23 07/19/23 Previous Rx's Medication Instructions Recorded Ondansetron Odt [Zofran Odt] 4 mg PO Q8HR PRN 3 Days #9 tab 07/22/23 Pantoprazole [Protonix] 40 mg PO BID 30 Days #60 tab 07/22/23 Nitrofurantoin Monohyd/M-Cryst 100 mg PO Q12HR #14 cap 10/22/23 [Macrobid] Phenazopyridine [Pyridium] 200 mg PO TID #6 tablet 10/22/23 Allergies Allergy/AdvReac Type Severity Reaction Status Date / Time Tetanus Vaccines and Toxoid Allergy Anaphylaxis Verified 12/26/23 17:10 cephalexin [From Keflex] AdvReac Vomiting Verified 12/26/23 17:10 Review of Systems ROS Statement: Those systems with pertinent positive or pertinent negative responses have been documented in the HPI. ROS Other: All systems not noted in ROS Statement are negative. Past Medical History Past Medical History: Chest Pain / Angina, Thyroid Disorder Additional Past Medical History / Comment(s): migraines, POTS, History of Any Multi-Drug Resistant Organisms: None Reported Past Surgical History: Cholecystectomy, Orthopedic Surgery Additional Past Surgical History / Comment(s): right shoulder x2. fallopian removal, right elbow. Past Anesthesia/Blood Transfusion Reactions: No Reported Reaction Past Psychological History: Anxiety, Bipolar, Depression, PTSD Smoking Status: Never smoker Past Alcohol Use History: None Reported Past Drug Use History: None Reported - Past Family History Mother Family Medical History: Chest Pain / Angina General Exam Limitations: no limitations General appearance: alert, in no apparent distress Head exam: Present: atraumatic, normocephalic, normal inspection Eye exam: Present: normal appearance, PERRL, EOMI. Absent: scleral icterus, conjunctival injection, periorbital swelling ENT exam: Present: normal exam, mucous membranes moist Neck exam: Present: normal inspection. Absent: tenderness, meningismus, lymphadenopathy Respiratory exam: Present: normal lung sounds bilaterally. Absent: respiratory distress, wheezes, rales, rhonchi, stridor Cardiovascular Exam: Present: regular rate, normal rhythm, normal heart sounds. Absent: systolic murmur, diastolic murmur, rubs, gallop, clicks Extremities exam: Present: normal inspection, full ROM, normal capillary refill. Absent: tenderness, pedal edema, joint swelling, calf tenderness Back exam: Present: normal inspection Neurological exam: Present: alert, oriented X3, CN II-XII intact Psychiatric exam: Present: normal affect, normal mood Skin exam: Present: warm, dry, intact, normal color. Absent: rash Course Vital Signs 12/26/23 12/26/23 17:09 18:48 Temperature 98 F 98.5 F Pulse Rate 96 77 Respiratory 20 16 Rate Blood Pressure 112/73 115/75 O2 Sat by Pulse 99 98 Oximetry Medical Decision Making - Medical Decision Making Was pt. sent in by a medical professional or institution (, PA, SLITTER CUT OFF OPERATOR, urgent care, hospital, or halfway...) When possible be specific @ -No Did you speak to anyone other than the patient for history (EMS, parent, family, police, friend...)? What history was obtained from this source @ -No Did you review nursing and triage notes (agree or disagree)? Why? @ -I reviewed and agree with nursing and triage notes Were old charts reviewed (outside hosp., previous admission, EMS record, old EKG, old radiological studies, urgent care reports/EKG's, halfway records)? Report findings @ -No old charts were reviewed Differential Diagnosis (chest pain, altered mental status, abdominal pain women, abdominal pain men, vaginal bleeding, weakness, fever, dyspnea, syncope, headache, dizziness, GI bleed, back pain, seizure, CVA, palpatations, mental health, musculoskeletal)? @ -Differential Headache: Migraine, tension, cluster, carbon monoxide, central venous thrombosis, pension karma temporal arteritis, acute closure glaucoma, intercranial hemorrhage, mastoiditis, sinusitis, head injury, this is not meant to be an all-inclusive list. EKG interpreted by me (3pts min.). @ -None X-rays interpreted by me (1pt min.). @ -None done CT interpreted by me (1pt min.). @ -None done U/S interpreted by me (1pt. min.). @ -None done What testing was considered but not performed or refused? (CT, X-rays, U/S, labs)? Why? @ -CT considered, patient has a history of migraines and this is consistent with prior What meds were considered but not given or refused? Why? @ -None Did you discuss the management of the patient with other professionals (professionals i.e. , PA, SLITTER CUT OFF OPERATOR, lab, RT, psych nurse, rn social work, immigration lawyer, teacher, global chief creative officer, case worker)? Give summary @ -No Was smoking cessation discussed for >3mins.? @ -No Was critical care preformed (if so, how long)? @ -No Were there social determinants of health that impacted care today? How? (Homelessness, low income, unemployed, alcoholism, drug addiction, transportation, low edu. Level, literacy, decrease access to med. care, prison, rehab)? @ -No Was there de-escalation of care discussed even if they declined (Discuss DNR or withdrawal of care, Hospice)? DNR status @ -No What co-morbidities impacted this encounter? (DM, HTN, Smoking, COPD, CAD, Cancer, CVA, ARF, Chemo, Hep., AIDS, mental health diagnosis, sleep apnea, morbid obesity)? @ -None Was patient admitted / discharged? Hospital course, mention meds given and route, prescriptions, significant lab abnormalities, going to OR and other pertinent info. @ -Discharge. Patient presented to the emergency department for evaluation of migraine headache. She has a history of migraines and states daily presenting for medication. She had a breakthrough migraine today. Patient received a migraine cocktail including Reglan, Benadryl, Toradol. She reports relief with this regimen. Patient is feeling better and would like to be discharged. I believe this is reasonable. Patient advised to follow-up with her PCP. Patient understanding and agreeable with plan. Patient stable at time of discharge. Case discussed with Dr. Frankel Undiagnosed new problem with uncertain prognosis? @ -No Drug Therapy requiring intensive monitoring for toxicity (Heparin, Nitro, Insulin, Cardizem)? @ -No Were any procedures done? @ -No Diagnosis/symptom? @ -Migraine Acute, or Chronic, or Acute on Chronic? @ -Acute Uncomplicated (without systemic symptoms) or Complicated (systemic symptoms)? @ -Uncomplicated Side effects of treatment? @ -No Exacerbation, Progression, or Severe Exacerbation? @ -No Poses a threat to life or bodily function? How? (Chest pain, [place], [place], pneumonia, PE, COPD, DKA, ARF, appy, cholecystitis, CVA, Diverticulitis, Homicidal, Suicidal, threat to staff... and all critical care pts) @ -No Disposition Clinical Impression: Migraine Disposition: HOME SELF-CARE Condition: Stable Instructions (If sedation given, give patient instructions): Migraine Headache (ED) Additional Instructions: Please follow up with Dr. Ortez. Return to the emergency department for new or worsening symptoms. Is patient prescribed a controlled substance at d/c from ED?: No Referrals: Toney Ortez DO [Primary Care Provider] - 1-2 days
[2023-12-26] MEDS: SODIUM CHLORIDE 0.9% 1,000 ML IV ONE (18:47)
[2023-12-26 19:20] VITALS: BP 115/75; PULSE 77; RESP 16; TEMP 98.5
== END 2023-12-26 18:55 | disposition home or self-care (01) ==
LOC: EC 16:57
DX: G43.909 Migraine, unspecified, not intractable, without status migrainosus (principal); Z88.1 Allergy status to other antibiotic agents; Z88.7 Allergy status to serum and vaccine; Z90.49 Acquired absence of other specified parts of digestive tract
CPT/HCPCS: 99283; 96374; 96375 ×2; J1200; J2765; J1885

== ENCOUNTER → 2024-01-25 | Outpatient (CLI) | payer OTHER ==
--- NOTE | 2024-01-25 22:26 | MR ---
EXAMINATION TYPE: MR shoulder RT wo con DATE OF EXAM: 01/25/2024 COMPARISON: Outside right shoulder x-ray October 12, 2023 HISTORY: Right shoulder pain since September 24, 2023, hx surgery 2013 and 2014. TECHNIQUE: Multiplanar, multisequence imaging of the right shoulder is performed without contrast. FINDINGS: Rotator Cuff: Some increased signal in the supraspinatus and infraspinatus tendons. No distinct teari ng. Subscapularis tendon is intact. Rotator cuff muscle bulk is preserved. Acromioclavicular Joint: No significant spurring or narrowing. Glenohumeral Joint: Small joint effusion. No significant spurring. Labrum: The labrum appears grossly intact given limitation of non-arthrogram study. Biceps Tendon: The long head of biceps is in normal location within bicipital groove. Bone marrow signal: No focal abnormal marrow signal is appreciated. Other: No additional significant abnormality is appreciated. IMPRESSION: Some tendinosis of the supraspinatus and infraspinatus tendons. No rotator cuff or labral tear is seen.
== END | disposition home or self-care (01) ==
LOC: RADMRIMAIN 06:33
PROVIDERS: ATTEND Orthopaedic Surgery
DX: M67.813 Other specified disorders of tendon, right shoulder (principal); Z98.890 Other specified postprocedural states

== ENCOUNTER → 2024-02-02 | Outpatient (CLI) | payer OTHER ==
[2024-02-02 15:09] LABS: BUN/Creat Ratio 23.57 Ratio (12.00-20.00); Blood Urea Nitrogen 16.5 mg/dL (9.0-27.0); Calcium 9.2 mg/dL (8.7-10.3); Carbon Dioxide 22.8 mmol/L (21.6-31.8); Chloride 104 mmol/L (96-109); Glucose 136 mg/dL (70-110); Potassium 4.7 mmol/L (3.5-5.5); Sodium 139 mmol/L (135-145)
[2024-02-02 15:53] LABS: Basophils # (A) 0.06 X 10*3/uL (0.00-0.10); Basophils % (A) 0.7 %; Eosinophils # (A) 0.07 X 10*3/uL (0.04-0.35); Eosinophils % (A) 0.8 %; HCT 40.6 % (37.2-46.3); HGB 12.7 g/dL (12.0-15.0); Lymphocytes # (A) 2.69 X 10*3/uL (0.90-5.00); Lymphocytes % (A) 31.2 %; MCH 29.5 pg (27.0-32.0); MCHC 31.3 g/dL (32.0-37.0); MCV 94.2 FL (80.0-97.0); Mean Platelet Volume 11.4 FL (9.5-12.2); Monocytes # (A) 0.58 X 10*3/uL (0.20-1.00); Monocytes % (A) 6.7 %; NRBC Per 100 WBC 0 X 10*3/uL (0.00-0.01); Neutrophils # (A) 5.15 X 10*3/uL (1.80-7.70); Neutrophils % (A) 59.7 %; Platelet Count 255 X 10*3/uL (140-440); RBC 4.31 X 10*6/uL (4.10-5.20); RDW 13.6 % (11.5-14.5); WBC 8.63 X 10*3/uL (4.50-10.00)
== END | disposition home or self-care (01) ==
LOC: LABPAT 08:33
PROVIDERS: ATTEND Orthopaedic Surgery
DX: Z01.812 Encounter for preprocedural laboratory examination (principal); M75.41 Impingement syndrome of right shoulder
CPT/HCPCS: 36415; 80048; 85025

== ENCOUNTER 2024-02-12 05:35 | Day surgery (SDC) | payer OTHER ==
[2024-02-09 10:17] VITALS: BMI 42.5
--- NOTE | 2024-02-11 08:25 | P.HPOR ---
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 She is having pain with overhead activity and at night. She's tried conservative measures in cluding medications, physical therapy, and an injection with only temporary partial relief. She notes daily pain that limits her. Review of Systems As per HPI Past Medical History Past Medical History: Hyperlipidemia Additional Past Medical History / Comment(s): migraines, POTS, History of Any Multi-Drug Resistant Organisms: None Reported Past Surgical History: Cholecystectomy, Orthopedic Surgery Additional Past Surgical History / Comment(s): right shoulder x2. BILAT fallopian removal, right elbow. RT KNEE SCOPE, COLONOSCOPY, EGD Past Anesthesia/Blood Transfusion Reactions: No Reported Reaction Smoking Status: Never smoker - Past Family History Mother Family Medical History: Chest Pain / Angina Father Family Medical History: Cancer Additional Family Medical History / Comment(s): SKIN Medications and Allergies Home Medications Medication Instructions Recorded Confirmed Type Venlafaxine HCl [Effexor XR] 75 mg PO DAILY 06/09/23 02/09/24 History Atorvastatin [Lipitor] 20 mg PO DAILY 07/19/23 02/09/24 History Pantoprazole [Protonix] 40 mg PO BID 30 Days #60 tab 07/22/23 02/09/24 Rx Fremanezumab-Vfrm [Ajovy 225 mg SQ Q28D 02/09/24 02/09/24 History Autoinjector] Ibuprofen [Motrin Ib] 600 mg PO Q8H PRN 02/09/24 02/09/24 History Lasmiditan Succinate [Reyvow] 50 mg PO DAILY PRN 02/09/24 02/09/24 History Ubrogepant [Ubrelvy] 100 mg PO DAILY PRN 02/09/24 02/09/24 History Allergies Allergy/AdvReac Type Severity Reaction Status Date / Time Tetanus Vaccines and Toxoid Allergy Anaphylaxis Verified 02/09/24 09:18 cephalexin [From Keflex] AdvReac Vomiting Verified 02/09/24 09:18 Physical Examination - Shoulder right Tenderness with palpation: anterior, bicipital groove Pain: with abduction, with forward flexion ROM: forward flexion: 160 degrees ROM: internal rotation: lower lumbar ROM: external rotation: 60 degrees Crepitus with motion: Yes Strength: abduction: 5/5 Strength: external rotation: 5/5 Tests: internal impingement tests: positive, external impingment tests: positive Results She is a well-developed well-nourished female approximately 5 foot 8, 270 pounds of endomorphic habitus. HEENT exam is nonfocal, neck is supple. She's tender about the right shoulder anterior subacromial space. Moderate crepitus noted. Black, Neer sign are positive. Her distal neurovascular appears intact in the right upper extremity. - Diagnostic results Shoulder MRI: image reviewed (RI report right shoulder shows evidence of increased signal along the supraspinatus and infraspinatus.) Assessment and Plan Assessment: Right shoulder impingement/rotator cuff tendinosis Plan: I talked to the patient at length regarding her condition along with treatment options. At this point she remains quite symptomatic despite extensive conservative measures. After a thorough discussion she opts to proceed with surgery. We'll plan to proceed with right shoulder arthroscopy with possible revision subacromial decompression, rotator cuff debridement versus repair. We will likely perform that as an outpatient procedure. Risks and benefits were discussed at length in layman's terms.
[2024-02-12] MEDS: LACTATED RINGERS 1,000 ML IV SCH (07:00)
[2024-02-12] MEDS ORDERED: HYDROmorphone 0.5 MG/0.5 ML SYRINGE IVP PRN (07:00)
[2024-02-12] MEDS: ONDANSETRON 4 MG/2 ML VIAL IVP ONE (07:05)
[2024-02-12] MEDS: DEXAMETHASONE SOD PHOSPHATE 4 MG/ML 1 ML VIAL IV ONE (07:05)
[2024-02-12] MEDS: fentaNYL (PF) 50 MCG/ML 2 ML AMP IVP ONE (07:14)
[2024-02-12] MEDS: MIDAZOLAM 2 MG/2 ML VIAL IVP ONE (07:14)
[2024-02-12] MEDS ORDERED: LIDOCAINE 1% INJ 10MG/ML (20 ML MDV) ONE (07:28)
[2024-02-12] MEDS ORDERED: PHENYLEPHRINE 10 MG/ML VIAL ONE (07:28)
[2024-02-12] MEDS ORDERED: ePHEDrine 50 MG/ML 1 ML VIAL ONE (07:28)
[2024-02-12] MEDS ORDERED: fentaNYL (PF) 50 MCG/ML 2 ML AMP ONE (07:28)
[2024-02-12] MEDS ORDERED: MIDAZOLAM 2 MG/2 ML VIAL ONE (07:28)
[2024-02-12] MEDS ORDERED: ALBUTEROL HFA INHALER INHALATION ONE (07:28)
[2024-02-12] MEDS ORDERED: WATER FOR INJECTION, STERILE 10 ML VIAL IV ONE (07:28)
[2024-02-12] MEDS ORDERED: SUCCINYLCHOLINE CHLORIDE 200 MG/10 ML VIAL IV ONE (07:28)
[2024-02-12] MEDS ORDERED: PROPOFOL 10 MG/ML 20 ML VIAL IV ONE (07:28)
[2024-02-12] MEDS ORDERED: ROPIVACAINE 5 MG/ML 30 ML VIAL ONE (07:28)
[2024-02-12] MEDS: CLINDAMYCIN 600 MG in DEXTROSE 5% IN WATER 50 ML IVPB PRN (07:32)
[2024-02-12] MEDS: EPINEPHrine (PF) 1 ML in SODIUM CHLORIDE 0.9% IRRIGATIO 3,000 ML IRRIGATION ONE ×4 (07:58)
[2024-02-12] MEDS: LACTATED RINGERS 1,000 ML IV ONE (08:30)
--- NOTE | 2024-02-12 08:56 | P.OP ---
Date of Procedure: 02/12/24 Preoperative Diagnosis: Right shoulder impingement/partial-thickness rotator cuff tear Postoperative Diagnosis: Type II SLAP lesion, bicipital tendinosis, high-grade partial-thickness rotator cuff tear Procedure(s) Performed: Right shoulder arthroscopic subacromial decompression/biceps tenotomy/rotator cuff repair Implants: Arthrex 4.75 mm swivel lock anchor x 2 [facility] Surgeon: Urbano Brewster Assembler Finger Buffs #1: Avery Ramirez Estimated Blood Loss (ml): 10 Pathology: none sent Condition: stable Disposition: PACU Indications for Procedure: The patient is a 38-year-old female who presents with progressive right shoulder pain despite extensive conservative measures. A discussion of the risks and benefits of operative intervention versus continued conservative measures was made with the patient. She opted proceed with surgery. Operative risk include infection, neurovascular injury, development of blood clots, possible postoperative stiffness, possible need for revision surgery was discussed. Informed consent was obtained. Operative Findings: As below Description of Procedure: The patient was brought to the operating room, and after induction of general anesthesia was placed in a beachchair position. A preoperative interscalene block was placed for postoperative analgesia. I examined the right shoulder. There was no gross block to passive motion or gross glenohumeral instability. The right upper extremity was prepped and draped in normal fashion. The bony outlines the acromion, distal clavicle, and coracoid process were outlined with a skin marker. The glenohumeral joint was inflated with 50 mL of saline utilizing a spinal needle from posterior approach. A posterior portal was made through a 5 mm skin incision 1 cm medial and inferior to the posterior lateral border time. A blunt trocar was used to easily into the joint. Diagnostic arthroscopy was performed. An anterior portal was made just lateral to the coracoid process entering the joint above the subscapularis tendon. The subscapularis tendon appeared to be intact. Anterior labrum was intact. The inferior recess was inspected. The posterior labrum was intact. There was a high-grade partial-thickness tear of the long head of the biceps involving interarticular portion along with a type II SLAP lesion. It was elected to proceed with biceps tenotomy at this point. This was released from the superior labrum with electrocautery and was allowed to retract to the bicipital groove. On inspection the rotator cuff, a high-grade partial-thickness tear involving the articular portion of the anterior supraspinatus was noted. The arthroscope was then placed into the subacromial space. A lateral portal was made 2 centimeters inferior to the anterior lateral border of the acromion. The rotator cuff was inspected. A high-grade bursal surface tear involving the anterior supraspinatus was noted. It was elected to proceed with takedown at this point. This was then taken down with a shaver. The tear measured 1 cm in length. It was easily mobilized. The soft tissue on the undersurface of the acromion was debrided with a motorized shaver and electrocautery clearly defining the anterior medial and lateral borders as well as the distal clavicle. An anterior inferior acromioplasty was performed with a motorized marita starting anterolateral, then extending this posteriorly, then extending this medially. I converted to a flat acromion and this was verified in the posterior and lateral viewing portals. The greater tuberosity was lightly decorticating with a shaver down to a bleeding bony surface. An accessory superior lateral portal was made just off the lateral edge of the acromion for anchor placement. A 4.75 mm swivel lock anchor was then placed along the medial greater tuberosity. 4.75 mm anchor preloaded with #2 fiber tape were placed. Good purchase was obtained. These fiber tapes were then passed the rotator cuff with a scorpion suture passer. A lateral row was created utilizing these tapes. A 4.75 mm swivel lock anchor was placed laterally. Good purchase was obtained. Final arthroscopic view showed adequate compression at the footprint. The arthroscope was then removed. The portals were closed with simple 3-0 nylon sutures. A sterile dressing was applied in addition to a sling. The patient was then awoken from general anesthesia and transferred to recovery room in good condition. Blood loss was estimated at 10 mL. No complications were incurred. Sponge and needle counts were correct in the case. Avery CASTORENA assisted and the major components of the case to include arm positioning, anchor placement, and rotator cuff repair.
[2024-02-12 09:33] VITALS: TEMP 96.8
--- NOTE | 2024-02-12 09:40 | P.ANPRN ---
Procedure Note - Anesthesia - Nerve Block Performed Right Interscalene Single Time Out Performed: Yes ([id number]) Date of Procedure: 02/12/24 Procedure Start Time: :14 Procedure Stop Time: :18 Location of Patient: PreOp Indication: Acute Post-Operative Pain, Requested by Surgeon Specifically requested for management of pain by DrQueta: Urbano Brewster (tl) Sedation Type: Sedate with meaningful contact maintained Preparation: Sterile Prep Position: Supine Catheter: None Needle Types: Pajunk Needle Gauge: 21 Ultrasound used to visualize needle placement: Yes Ultrasound used to observe medication spread: Yes Injectate: 0.5% Ropivacaine (see comment for volume) (30cc) Blood Aspirated: No Pain Paresthesia on Injection Noted: No Resistance on Injection: Normal Image Stored and Saved: Yes Events: Uneventful and Well Tolerated
[2024-02-12 10:31] VITALS: RESP 18
[2024-02-12 11:28] VITALS: BP 108/74; PULSE 99
== END 2024-02-12 10:54 | disposition home or self-care (01) ==
LOC: OR 05:35
PROVIDERS: ATTEND Orthopaedic Surgery
DX: M75.111 Incomplete rotator cuff tear or rupture of right shoulder, not specified as traumatic (principal); M75.41 Impingement syndrome of right shoulder; M67.813 Other specified disorders of tendon, right shoulder; G89.18 Other acute postprocedural pain; E78.5 Hyperlipidemia, unspecified; M25.811 Other specified joint disorders, right shoulder; Z88.1 Allergy status to other antibiotic agents; Z88.7 Allergy status to serum and vaccine; Z79.899 Other long term (current) drug therapy
CPT/HCPCS: 64415; 29826; 29828; 29827; C1713 ×2; C1894; J2250; J0330; J1100; J2405; J0171; J2001; J3010; J2795; J2704; J2371; J0736

== ENCOUNTER → 2024-03-07 | Outpatient (CLI) | payer OTHER ==
[2024-03-07 15:29] LABS: Basophils # (A) 0.06 X 10*3/uL (0.00-0.10); Basophils % (A) 0.6 %; Eosinophils # (A) 0.09 X 10*3/uL (0.04-0.35); Eosinophils % (A) 0.9 %; HCT 39.5 % (37.2-46.3); HGB 12.8 g/dL (12.0-15.0); Lymphocytes # (A) 2.69 X 10*3/uL (0.90-5.00); Lymphocytes % (A) 28.1 %; MCHC 32.4 g/dL (32.0-37.0); MCV 92.7 FL (80.0-97.0); Mean Platelet Volume 11.2 FL (9.5-12.2); Monocytes # (A) 0.49 X 10*3/uL (0.20-1.00); Monocytes % (A) 5.1 %; NRBC Per 100 WBC 0 X 10*3/uL (0.00-0.01); Neutrophils # (A) 6.18 X 10*3/uL (1.80-7.70); Neutrophils % (A) 64.5 %; Platelet Count 287 X 10*3/uL (140-440); RBC 4.26 X 10*6/uL (4.10-5.20); RDW 13.7 % (11.5-14.5); WBC 9.59 X 10*3/uL (4.50-10.00)
== END | disposition home or self-care (01) ==
LOC: LABPAT 09:03
PROVIDERS: ATTEND Obstetrics & Gynecology
DX: Z01.812 Encounter for preprocedural laboratory examination (principal); N92.0 Excessive and frequent menstruation with regular cycle
CPT/HCPCS: 36415; 85025

== ENCOUNTER → 2024-03-17 | Day surgery (SDC) | payer OTHER ==
[2024-03-14 14:15] VITALS: BMI 43.0
[~2024-03-17] MED LIST changes: -DEXAMETHASONE SOD PHOSPHATE 4 MG/ML 1 ML VIAL IV ONE; +HYDROmorphone 0.5 MG/0.5 ML SYRINGE IVP PRN; +KETOROLAC 15 MG/ML 1 ML VIAL ONE; -LACTATED RINGERS 1,000 ML IV SCH; +LIDOCAINE 1% (10MG/ML) FOR IV START INTRADERMA PRN; +LIDOCAINE 1% INJ 10MG/ML (20 ML MDV) ONE; +MIDAZOLAM 2 MG/2 ML VIAL ONE; -ONDANSETRON 4 MG/2 ML VIAL IVP ONE; +PROPOFOL 10 MG/ML 20 ML VIAL IV ONE; +Pre Op ABX Message 1 EACH MISC MISCELLANE ONE; +SCOPOLAMINE 1 MG/72 HR PATCH TRANSDERM ONE; +SUCCINYLCHOLINE CHLORIDE 200 MG/10 ML VIAL IV ONE; -ceFAZolin 3 GM in SODIUM CHLORIDE 0.9% 100 ML IVPB PRN; +droPERidol 5 MG/2 ML VIAL IVP ONE; -fentaNYL (PF) 50 MCG/ML 2 ML AMP IV PRN; +fentaNYL (PF) 50 MCG/ML 2 ML AMP ONE
[2024-03-17] MEDS: LACTATED RINGERS 1,000 ML IV SCH (07:13)
[2024-03-17] MEDS: IV FLUID CONTINUATION 1,000 ML IV ONE ×2 (07:14→07:27)
--- NOTE | 2024-03-17 07:18 | P.HPOB ---
History of Present Illness H&P Date: 03/17/24 Chief Complaint: menorrhagia 38-year-old presents for D&C hysteroscopy, endometrial ablation with NovaSure for her heavy periods. Review of Systems All systems: negative Constitutional: Denies chills, Denies fever Eyes: denies blurred vision, denies pain Ears, nose, mouth and throat: Denies headache, Denies sore throat Cardiovascular: Denies chest pain, Denies shortness of breath Respiratory: Denies cough Gastrointestinal: Denies abdominal pain, Denies diarrhea, Denies nausea, Denies vomiting Genitourinary: Denies dysuria, Denies hematuria Musculoskeletal: Denies myalgias Integumentary: Denies pruritus, Denies rash Neurological: Denies numbness, Denies weakness Psychiatric: Denies anxiety, Denies depression Endocrine: Denies fatigue, Denies weight change Past Medical History Past Medical History: Chest Pain / Angina, Thyroid Disorder Additional Past Medical History / Comment(s): migraines, POTS, EXTREME HEAVY MENSES, History of Any Multi-Drug Resistant Organisms: None Reported Past Surgical History: Cholecystectomy, Orthopedic Surgery Additional Past Surgical History / Comment(s): right shoulder x3. fallopian removal, right elbow. RT KNEE SX Past Anesthesia/Blood Transfusion Reactions: No Reported Reaction Smoking Status: Never smoker - Past Family History Mother Family Medical History: Chest Pain / Angina Father Family Medical History: Cancer Medications and Allergies Home Medications Medication Instructions Recorded Confirmed Type Atorvastatin [Lipitor] 20 mg PO DAILY 07/19/23 03/17/24 History Pantoprazole [Protonix] 40 mg PO BID 30 Days #60 tab 07/22/23 03/17/24 Rx Fremanezumab-Vfrm [Ajovy 225 mg SQ Q28D 02/09/24 03/17/24 History Autoinjector] Ibuprofen [Motrin Ib] 600 mg PO Q8H PRN 02/09/24 03/17/24 History Lasmiditan Succinate [Reyvow] 50 mg PO DAILY PRN 02/09/24 03/17/24 History Ubrogepant [Ubrelvy] 100 mg PO DAILY PRN 02/09/24 03/17/24 History Escitalopram [Lexapro] 20 mg PO DAILY 02/12/24 03/17/24 History Allergies Allergy/AdvReac Type Severity Reaction Status Date / Time Tetanus Vaccines and Toxoid Allergy Anaphylaxis Verified 03/17/24 06:57 cephalexin [From Keflex] AdvReac Vomiting Verified 03/17/24 06:57 Exam Osteopathic Statement: *. No significant issues noted on an osteopathic structural exam other than those noted in the History and Physical/Consult. Intake and Output 03/16/24 03/17/24 03/17/24 22:59 06:59 14:59 Other: Weight 126.6 kg Heart: Regular rate and rhythm Lungs: Clear to auscultation bilaterally Abdomen: Soft, nontender Extremities: Negative Homans sign Assessment and Plan (1) Menorrhagia Current Visit: Yes Status: Acute Code(s): N92.0 - EXCESSIVE AND FREQUENT MENSTRUATION WITH REGULAR CYCLE SNOMED Code(s): 488363596 Plan: D&C, hysteroscopy, endometrial ablation with NovaSure
[2024-03-17] MEDS: DEXAMETHASONE SOD PHOSPHATE 4 MG/ML 1 ML VIAL IV ONE (07:19)
[2024-03-17] MEDS: ONDANSETRON 4 MG/2 ML VIAL IVP ONE (07:19)
[2024-03-17] MEDS: LACTATED RINGERS 900 ML IV ONE (07:29)
[2024-03-17 08:08] VITALS: TEMP 97.6
--- NOTE | 2024-03-17 08:10 | P.OP ---
Date of Procedure: 03/17/24 Preoperative Diagnosis: 1. menorrhagia Postoperative Diagnosis: 1. menorrhagia Procedure(s) Performed: D&C hysteroscopy and endometrial ablation with NovaSure Anesthesia: [facility]LIN Surgeon: Kaitlin Salcedo Estimated Blood Loss (ml): 3 IV fluids (ml): 300 Urine output (ml): 10 Pathology: other (endometrial currettings) Condition: stable Disposition: PACU Operative Findings: cavity length 6.5, width 3.7, power 142 W at 45 seconds Description of Procedure: Patient is taken the operating room where general anesthesia was obtained without difficulty. She was prepped and draped in normal sterile fashion dorsal lithotomy position, legs placed in the Famigo cane stirrups. Bladder was drained of all urine. Weighted speculum placed in the vagina and the anterior lip the cervix was grasped with serial tooth tenaculum. The uterus sounded to 10 cm and the cervix under 3.5 cm making the cavity length 6.5 cm. The cervix was dilated to #8 Hegar dilator. Hysteroscopy was then performed. Both ostia were vi sualized and there was a smooth contour of the uterus. Sharp curet was then gently used to obtain endometrial curettings. The NovaSure was introduced into the uterus with a cavity length of 6.5 cm, width 3.7 cm. after cavity assessment was passed, the time of ablation was 45 seconds at 142 W. Hysteroscopy was again performed and adequate ablation was noted. All instruments removed from the vagina. Patient tolerated the procedure well, sponge and instrument counts were correct 2 and she was taken to recovery in stable condition.
[2024-03-17 08:20] VITALS: RESP 16
[2024-03-17 08:51] VITALS: PULSE 76
[2024-03-17 09:05] VITALS: BP 134/95
--- NOTE | 2024-03-22 12:20 | P.PN ---
Progress Note - Text Progress Note Date: 03/22/24 Patient called today complaining that continue to have sore throat, and she has some bruises on her uvula, and the tonsillar area, and she is concerned about, I , patient had D&C hysteroscopy done on March 17, 2024 the general endotracheal anesthesia, she reports the second day after the surgery she started having the symptoms, denies any shortness of breath, no nausea vomiting, no fever, I offered the patient to come to the hospital for evaluation, she reported that she preferred to wait few more days, if her symptoms continue, will come for evaluation, and as of now she prefer to wait
== END | disposition home or self-care (01) ==
LOC: OR 06:27
PROVIDERS: ATTEND Obstetrics & Gynecology
DX: N92.0 Excessive and frequent menstruation with regular cycle (principal); G43.909 Migraine, unspecified, not intractable, without status migrainosus; E07.9 Disorder of thyroid, unspecified; Z88.1 Allergy status to other antibiotic agents; Z88.7 Allergy status to serum and vaccine; Z90.49 Acquired absence of other specified parts of digestive tract; Z79.899 Other long term (current) drug therapy
CPT/HCPCS: 58563; 81025; 88305; J2250; J0330; J1100; J2405; J2001; J3010; J1885; J2704

== ENCOUNTER 2024-05-26 21:09 | Emergency (ER) | payer OTHER ==
[2024-05-26 21:17] VITALS: BP 122/78; PULSE 69; RESP 18; TEMP 98.5
--- NOTE | 2024-05-26 21:21 | ED ---
General Adult HPI - General Chief complaint: Animal Bite Stated complaint: bug bite Time Seen by Provider: 05/26/24 21:20 Source: patient, RN notes reviewed Mode of arrival: ambulatory Limitations: no limitations - History of Present Illness Initial comments: 38-year-old female presents emergency department chief complaint of a bug bite that occurred this morning while she was at work. 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 Patient states that she has been taking Motrin throughout the day to due to pain. Patient denies fevers, chills, nausea, vomiting, weakness. - Related Data Home Medications Medication Instructions Recorded Confirmed Atorvastatin [Lipitor] 20 mg PO DAILY 07/19/23 03/17/24 Fremanezumab-Vfrm [Ajovy 225 mg SQ Q28D 02/09/24 03/17/24 Autoinjector] Ibuprofen [Motrin Ib] 600 mg PO Q8H PRN 02/09/24 03/17/24 Lasmiditan Succinate [Reyvow] 50 mg PO DAILY PRN 02/09/24 03/17/24 Ubrogepant [Ubrelvy] 100 mg PO DAILY PRN 02/09/24 03/17/24 Escitalopram [Lexapro] 20 mg PO DAILY 02/12/24 03/17/24 Previous Rx's Medication Instructions Recorded Pantoprazole [Protonix] 40 mg PO BID 30 Days #60 tab 07/22/23 Ibuprofen [Motrin] 600 mg PO Q6HR PRN #30 tab 03/17/24 Allergies Allergy/AdvReac Type Severity Reaction Status Date / Time Tetanus Vaccines and Toxoid Allergy Anaphylaxis Verified 05/26/24 21:17 cephalexin [From Keflex] AdvReac Vomiting Verified 05/26/24 21:17 Review of Systems ROS Statement: Those systems with pertinent positive or pertinent negative responses have been documented in the HPI. ROS Other: All systems not noted in ROS Statement are negative. Past Medical History Past Medical History: Chest Pain / Angina, Thyroid Disorder Additional Past Medical History / Comment(s): migraines, POTS, History of Any Multi-Drug Resistant Organisms: None Reported Past Surgical History: Cholecystectomy, Orthopedic Surgery Additional Past Surgical History / Comment(s): right shoulder x2. fallopian removal, right elbow. Past Anesthesia/Blood Transfusion Reactions: No Reported Reaction Past Psychological History: Anxiety, Bipolar, Depression, PTSD Smoking Status: Never smoker Past Alcohol Use History: None Reported Past Drug Use History: None Reported - Past Family History Mother Family Medical History: Chest Pain / Angina Father Family Medical History: Cancer General Exam Limitations: no limitations General appearance: alert, in no apparent distress Head exam: Present: atraumatic, normocephalic, normal inspection Eye exam: Present: normal appearance, PERRL, EOMI. Absent: scleral icterus, conjunctival injection, periorbital swelling ENT exam: Present: normal exam, mucous membranes moist Neck exam: Present: normal inspection. Absent: tenderness, meningismus, lymphadenopathy Respiratory exam: Present: normal lung sounds bilaterally. Absent: respiratory distress, wheezes, rales, rhonchi, stridor Cardiovascular Exam: Present: regular rate, normal rhythm, normal heart sounds. Absent: systolic murmur, diastolic murmur, rubs, gallop, clicks GI/Abdominal exam: Present: soft, normal bowel sounds. Absent: distended, tenderness, guarding, rebound, rigid Extremities exam: Present: normal inspection, full ROM, normal capillary refill. Absent: tenderness, pedal edema, joint swelling, calf tenderness Neurological exam: Present: alert, oriented X3, CN II-XII intact Skin exam: Present: warm, dry, intact, other (left posterior arm erythema, mild edema with 2 puncate byrd with no purulence or drainage) Course Vital Signs 05/26/24 21:11 Temperature 98.5 F Pulse Rate 69 Respiratory 18 Rate Blood Pressure 122/78 O2 Sat by Pulse 99 Oximetry Medical Decision Making - Medical Decision Making Was pt. sent in by a medical professional or institution (, PA, VALIDATION SOFTWARE FACILITATOR, urgent care, hospital, or intermediate...) When possible be specific @ -No Did you speak to anyone other than the patient for history (EMS, parent, family, police, friend...)? What history was obtained from this source @ -No Did you review nursing and triage notes (agree or disagree)? Why? @ -I reviewed and agree with nursing and triage notes Were old charts reviewed (outside hosp., previous admission, EMS record, old EKG, old radiological studies, urgent care reports/EKG's, intermediate records)? Report findings @ -No old charts were reviewed Differential Diagnosis (chest pain, altered mental status, abdominal pain women, abdominal pain men, vaginal bleeding, weakness, fever, dyspnea, syncope, headache, dizziness, GI bleed, back pain, seizure, CVA, palpatations, mental health, musculoskeletal)? @ -Cellulitis, spider bite, mosquito bite, this list is not all inclusive. EKG interpreted by me (3pts min.). @ -none X-rays interpreted by me (1pt min.). @ -None done CT interpreted by me (1pt min.). @ -None done U/S interpreted by me (1pt. min.). @ -None done What testing was considered but not performed or refused? (CT, X-rays, U/S, labs)? Why? @ -None What meds were considered but not given or refused? Why? @ -None Did you discuss the management of the patient with other professionals (professionals i.e. DrQueta, PA, VALIDATION SOFTWARE FACILITATOR, lab, RT, psych nurse, social professionals, transaction processor, teacher, forward air controller/air officer, comp field case manager)? Give summary @ -No Was smoking cessation discussed for >3mins.? @ -No Was critical care preformed (if so, how long)? @ -No Were there social determinants of health that impacted care today? How? (Homelessness, low income, unemployed, alcoholism, drug addiction, transportation, low edu. Level, literacy, decrease access to med. care, assisted, rehab)? @ -No Was there de-escalation of care discussed even if they declined (Discuss DNR or withdrawal of care, Hospice)? DNR status @ -No What co-morbidities impacted this encounter? (DM, HTN, Smoking, COPD, CAD, Cancer, CVA, ARF, Chemo, Hep., AIDS, mental health diagnosis, sleep apnea, morbid obesity)? @ -None Was patient admitted / discharged? Hospital course, mention meds given and route, prescriptions, significant lab abnormalities, going to OR and other pertinent info. @ -Discharge. 38-year-old female with possible spider bite to left posterior arm. Patient is resting comfortably on examination vitals within normal limits. There is a area of erythema and mild edema to the left posterior arm what appears to be 2 punctate byrd. There is no purulence or active drainage. Recommend that patient continues Tylenol Motrin at home and ice in addition to Benadryl for symptomatic relief. Patient provided with a work note as well. All questions answered at bedside strict return parameters jonathan with the patient she is verbalized understanding. Discussed with Dr. Mcclian Undiagnosed new problem with uncertain prognosis? @ -No Drug Therapy requiring intensive monitoring for toxicity (Heparin, Nitro, Insulin, Cardizem)? @ -No Were any procedures done? @ -No Diagnosis/symptom? @ -Spider bite Acute, or Chronic, or Acute on Chronic? @ -Acute Uncomplicated (without systemic symptoms) or Complicated (systemic symptoms)? @ -Uncomplicated Side effects of treatment? @ -No Exacerbation, Progression, or Severe Exacerbation? @ -No Poses a threat to life or bodily function? How? (Chest pain, [place], [place], pneumonia, PE, COPD, DKA, ARF, appy, cholecystitis, CVA, Diverticulitis, Homicidal, Suicidal, threat to staff... and all critical care pts) @ -No Disposition Clinical Impression: Spider bite Disposition: HOME SELF-CARE Condition: Good Instructions (If sedation given, give patient instructions): Insect Bite or Sting (ED) Additional Instructions: Return to the emergency department for any new or worsening symptoms. Continue Tylenol, Motrin, ice and Benadryl as needed. Recommend follow-up with your primary care provider next week for further evaluation. Is patient prescribed a controlled substance at d/c from ED?: No Referrals: Toney Ortze DO [Primary Care Provider] - 1-2 days Time of Disposition: 21:39
== END 2024-05-26 22:05 | disposition home or self-care (01) ==
LOC: EC 21:09
CPT/HCPCS: 99283

== ENCOUNTER 2024-06-04 14:47 | Emergency (ER) | payer OTHER ==
[2024-06-04 14:51] VITALS: RESP 18
--- NOTE | 2024-06-04 15:08 | ED ---
Abdominal Pain HPI - General Chief Complaint: Abdominal Pain Stated Complaint: vomiting, abd pain Time Seen by Provider: 06/04/24 15:06 Source: patient, RN notes reviewed Mode of arrival: ambulatory Limitations: no limitations - History of Present Illness Initial Comments: 38-year-old female presenting with left upper quadrant abdominal pain x 9 hours. States she woke up this morning at 6 AM with constant left upper quadrant pain that is described as dull in quality. She has also been vomiting. She has attempted to take Tylenol/ibuprofen however has not been able to keep anything down. She also has some associated "chest fullness". Denies fever, vomiting, diarrhea, constipation. - Related Data Home Medications Medication Instructions Recorded Confirmed Atorvastatin [Lipitor] 20 mg PO HS 07/19/23 06/04/24 Fremanezumab-Vfrm [Ajovy 225 mg SQ Q28D 02/09/24 06/04/24 Autoinjector] Lasmiditan Succinate [Reyvow] 50 mg PO DAILY PRN 02/09/24 06/04/24 Ubrogepant [Ubrelvy] 100 mg PO DAILY PRN 02/09/24 06/04/24 Escitalopram [Lexapro] 20 mg PO DAILY 02/12/24 06/04/24 Cariprazine HCl [Vraylar] 1.5 mg PO HS 06/04/24 06/04/24 Ondansetron Odt [Zofran Odt] 4 mg PO Q8HR PRN 06/04/24 06/04/24 Sucralfate [Carafate] 1 gm PO TID 06/04/24 06/04/24 Previous Rx's Medication Instructions Recorded Pantoprazole [Protonix] 40 mg PO BID 30 Days #60 tab 07/22/23 Allergies Allergy/AdvReac Type Severity Reaction Status Date / Time Tetanus Vaccines and Toxoid Allergy Anaphylaxis Verified 06/04/24 16:55 cephalexin [From Keflex] AdvReac Vomiting Verified 06/04/24 16:55 Review of Systems ROS Statement: Those systems with pertinent positive or pertinent negative responses have been documented in the HPI. ROS Other: All systems not noted in ROS Statement are negative. Past Medical History Past Medical History: Chest Pain / Angina, Hyperlipidemia, Thyroid Disorder Additional Past Medical History / Comment(s): migraines, POTS, History of Any Multi-Drug Resistant Organisms: None Reported Past Surgical History: Cholecystectomy, Orthopedic Surgery Additional Past Surgical History / Comment(s): right shoulder x2. fallopian removal, right elbow. Past Anesthesia/Blood Transfusion Reactions: No Reported Reaction Past Psychological History: Anxiety, Bipolar, Depression, PTSD Smoking Status: Never smoker Past Alcohol Use History: None Reported Past Drug Use History: None Reported - Past Family History Mother Family Medical History: Chest Pain / Angina Father Family Medical History: Cancer General Exam Limitations: no limitations General appearance: alert, in no apparent distress Head exam: Present: atraumatic, normocephalic, normal inspection Respiratory exam: Present: normal lung sounds bilaterally. Absent: respiratory distress, wheezes, rales, rhonchi, stridor Cardiovascular Exam: Present: regular rate, normal rhythm, normal heart sounds. Absent: systolic murmur, diastolic murmur, rubs, gallop, clicks GI/Abdominal exam: Present: soft, normal bowel sounds. Absent: distended, tenderness, guarding, rebound, rigid Back exam: Absent: CVA tenderness (R), CVA tenderness (L) Neurological exam: Present: alert, oriented X3 Psychiatric exam: Present: normal affect, normal mood Skin exam: Present: warm, dry, intact, normal color. Absent: rash Course Vital Signs 06/04/24 06/04/24 14:48 18:22 Temperature 98.2 F 98.3 F Pulse Rate 76 67 Respiratory 18 18 Rate Blood Pressure 115/79 124/81 O2 Sat by Pulse 99 99 Oximetry Medical Decision Making - Medical Decision Making Was pt. sent in by a medical professional or institution (, PA, STEEL PLATE CAULKER, urgent care, hospital, or fdc...) When possible be specific @ -No Did you speak to anyone other than the patient for history (EMS, parent, family, police, friend...)? What history was obtained from this source @ -No Did you review nursing and triage notes (agree or disagree)? Why? @ -I reviewed and agree with nursing and triage notes Were old charts reviewed (outside hosp., previous admission, EMS record, old EKG, old radiological studies, urgent care reports/EKG's, fdc records)? Report findings @ -No old charts were reviewed Differential Diagnosis (chest pain, altered mental status, abdominal pain women, abdominal pain men, vaginal bleeding, weakness, fever, dyspnea, syncope, headache, dizziness, GI bleed, back pain, seizure, CVA, palpatations, mental health, musculoskeletal)? @ -Differential Abdominal Pain Women: Appendicitis, Cholecystitis, diverticulosis, ischemic bowel, pancreatitis, hepatitis, UTI, gastroenteritis, AAA, incarcerated hernia, bowel obstruction, constipation, inflammatory bowel, hepatitis, peptic ulcer disease, splenic infarction, perforated viscus, vulvitis, ovarian torsion, PID, kidney stone, placenta abruption, this is not meant to be an all-inclusive list EKG interpreted by me (3pts min.). @ -As above X-rays interpreted by me (1pt min.). @ -Chest x-ray reveals no acute process CT interpreted by me (1pt min.). @ -None done U/S interpreted by me (1pt. min.). @ -None done What testing was considered but not performed or refused? (CT, X-rays, U/S, labs)? Why? @ -None What meds were considered but not given or refused? Why? @ -None Did you discuss the management of the patient with other professionals ( professionals i.e. , PA, STEEL PLATE CAULKER, lab, RT, psych nurse, bilingual social worker, belt brander, teacher, security patrol officer, case management manager)? Give summary @ -No Was smoking cessation discussed for >3mins.? @ -No Was critical care preformed (if so, how long)? @ -No Were there social determinants of health that impacted care today? How? (Homelessness, low income, unemployed, alcoholism, drug addiction, transportation, low edu. Level, literacy, decrease access to med. care, longterm, rehab)? @ -No Was there de-escalation of care discussed even if they declined (Discuss DNR or withdrawal of care, Hospice)? DNR status @ -No What co-morbidities impacted this encounter? (DM, HTN, Smoking, COPD, CAD, Cancer, CVA, ARF, Chemo, Hep., AIDS, mental health diagnosis, sleep apnea, morbid obesity)? @ -None Was patient admitted / discharged? Hospital course, mention meds given and route, prescriptions, significant lab abnormalities, going to OR and other pertinent info. @ -Patient was discharged. Patient was seen and evaluated for left upper quadrant abdominal pain x 1 day with vomiting. Patient has history of gastric ulcerations. Vital signs are within normal limits. Abdomen is soft and nontender to palpation. Patient is given IV fluids, Zofran, Toradol, and GI cocktail. EKG reveals normal sinus rhythm with no ST changes. Chest x-ray reveals no acute process. Laboratory studies including CBC, CMP, lipase, lactic acid, troponin are unremarkable. Upon reevaluation, patient states improvement in symptoms. Discussed likely diagnosis of gastritis. Advised patient to follow-up outpatient with GI services, return precautions discussed and patient is agreeable to plan. Patient discharged with Zofran starter pack. Case was discussed with my ED attending Dr. Castro. Patient discharged in stable condition. Undiagnosed new problem with uncertain prognosis? @ -No Drug Therapy requiring intensive monitoring for toxicity (Heparin, Nitro, Insulin, Cardizem)? @ -No Were any procedures done? @ -No Diagnosis/symptom? @ -Gastritis Acute, or Chronic, or Acute on Chronic? @ -Acute Uncomplicated (without systemic symptoms) or Complicated (systemic symptoms)? @ -Uncomplicated Side effects of treatment? @ -No Exacerbation, Progression, or Severe Exacerbation? @ -No Poses a threat to life or bodily function? How? (Chest pain, [place], [place], pneumonia, PE, COPD, DKA, ARF, appy, cholecystitis, CVA, Diverticulitis, Homicidal, Suicidal, threat to staff... and all critical care pts) @ -Not at this time - Lab Data Result diagrams: 06/04/24 16:05 06/04/24 16:05 Lab Results 06/04/24 06/04/24 06/04/24 Range/Units 16:05 16:05 16:05 WBC 9.3 (3.8-10.6) k/uL RBC 4.36 (3.80-5.40) m/uL Hgb 12.9 (11.4-16.0) gm/dL Hct 38.1 (34.0-46.0) % MCV 87.3 (80.0-100.0) fL MCH 29.5 (25.0-35.0) pg MCHC 33.8 (31.0-37.0) g/dL RDW 13.6 (11.5-15.5) % Plt Count 281 (150-450) k/uL MPV 7.9 Neutrophils % 61 % Lymphocytes % 32 % Monocytes % 4 % Eosinophils % 2 % Basophils % 1 % Neutrophils # 5.6 (1.3-7.7) k/uL Lymphocytes # 3.0 (1.0-4.8) k/uL Monocytes # 0.4 (0-1.0) k/uL Eosinophils # 0.1 (0-0.7) k/uL Basophils # 0.1 (0-0.2) k/uL Sodium 137 (137-145) mmol/L Potassium 3.9 (3.5-5.1) mmol/L Chloride 101 (98-107) mmol/L Carbon Dioxide 23 (22-30) mmol/L Anion Gap 13 mmol/L BUN 15 (7-17) mg/dL Creatinine 0.65 (0.52-1.04) mg/dL Est GFR (CKD-EPI)AfAm >90 (>60 ml/min/1.73 sqM) Est GFR (CKD-EPI)NonAf >90 (>60 ml/min/1.73 sqM) Glucose 112 H (74-99) mg/dL Plasma Lactic Acid Darin 1.2 (0.7-2.0) mmol/L Calcium 9.6 (8.4-10.2) mg/dL Total Bilirubin 0.6 (0.2-1.3) mg/dL AST 39 H (14-36) U/L ALT 34 (4-34) U/L Alkaline Phosphatase 82 (38-126) U/L Troponin I (0.000-0.034) ng/mL Total Protein 7.6 (6.3-8.2) g/dL Albumin 4.6 (3.5-5.0) g/dL Lipase 138 (23-300) U/L 06/04/24 Range/Units 16:05 WBC (3.8-10.6) k/uL RBC (3.80-5.40) m/uL Hgb (11.4-16.0) gm/dL Hct (34.0-46.0) % MCV (80.0-100.0) fL MCH (25.0-35.0) pg MCHC (31.0-37.0) g/dL RDW (11.5-15.5) % Plt Count (150-450) k/uL MPV Neutrophils % % Lymphocytes % % Monocytes % % Eosinophils % % Basophils % % Neutrophils # (1.3-7.7) k/uL Lymphocytes # (1.0-4.8) k/uL Monocytes # (0-1.0) k/uL Eosinophils # (0-0.7) k/uL Basophils # (0-0.2) k/uL Sodium (137-145) mmol/L Potassium (3.5-5.1) mmol/L Chloride (98-107) mmol/L Carbon Dioxide (22-30) mmol/L Anion Gap mmol/L BUN (7-17) mg/dL Creatinine (0.52-1.04) mg/dL Est GFR (CKD-EPI)AfAm (>60 ml/min/1.73 sqM) Est GFR (CKD-EPI)NonAf (>60 ml/min/1.73 sqM) Glucose (74-99) mg/dL Plasma Lactic Acid Darin (0.7-2.0) mmol/L Calcium (8.4-10.2) mg/dL Total Bilirubin (0.2-1.3) mg/dL AST (14-36) U/L ALT (4-34) U/L Alkaline Phosphatase (38-126) U/L Troponin I <0.012 (0.000-0.034) ng/mL Total Protein (6.3-8.2) g/dL Albumin (3.5-5.0) g/dL Lipase (23-300) U/L - EKG Data -: EKG Interpreted by Me EKG Comments: EKG reveals normal sinus rhythm with no ST changes. Ventricular rate 69 bpm, IN interval 135, QRS duration 111, QT/QTc 401/421 Disposition Clinical Impression: Gastritis Disposition: HOME SELF-CARE Condition: Stable Additional Instructions: Follow-up with GI as discussed. Take Zofran as needed for nausea. Please return to the Emergency Department if symptoms worsen or any other concerns. Is patient prescribed a controlled substance at d/c from ED?: No Referrals: Toney Ortez DO [Primary Care Provider] - 1-2 days Yasmin Chang MD [STAFF PHYSICIAN] - 1-2 days Time of Disposition: 18:08
[2024-06-04] MEDS: SODIUM CHLORIDE 0.9% 1,000 ML IV STA (15:59)
[2024-06-04] MEDS: ONDANSETRON 4 MG/2 ML VIAL IVP STA (15:59)
[2024-06-04] MEDS: KETOROLAC 15 MG/ML 1 ML VIAL IVP STA (15:59)
[2024-06-04 16:14] LABS: Basophils # (A) 0.1 k/uL (0-0.2); Basophils % (A) 1 %; Eosinophils # (A) 0.1 k/uL (0-0.7); Eosinophils % (A) 2 %; HCT 38.1 % (34.0-46.0); HGB 12.9 gm/dL (11.4-16.0); Lymphocytes % (A) 32 %; MCH 29.5 pg (25.0-35.0); MCHC 33.8 g/dL (31.0-37.0); MCV 87.3 fL (80.0-100.0); Mean Platelet Volume 7.9; Monocytes # (A) 0.4 k/uL (0-1.0); Monocytes % (A) 4 %; Neutrophils # (A) 5.6 k/uL (1.3-7.7); Neutrophils % (A) 61 %; Platelet Count 281 k/uL (150-450); RBC 4.36 m/uL (3.80-5.40); RDW 13.6 % (11.5-15.5); WBC 9.3 k/uL (3.8-10.6)
[2024-06-04 16:28] LABS: ALT 34 U/L (4-34); AST 39 U/L (14-36); African American GFR (CKD) >90 (>60 ml/min/1.73 sqM); Albumin 4.6 g/dL (3.5-5.0); Alkaline Phosphatase 82 U/L (38-126); Anion Gap 13 mmol/L; Blood Urea Nitrogen 15 mg/dL (7-17); Calcium 9.6 mg/dL (8.4-10.2); Carbon Dioxide 23 mmol/L (22-30); Chloride 101 mmol/L (98-107); Glucose 112 mg/dL (74-99); Lipase 138 U/L (23-300); Non-African American GFR(CKD) >90 (>60 ml/min/1.73 sqM); Potassium 3.9 mmol/L (3.5-5.1); Sodium 137 mmol/L (137-145); Total Bilirubin 0.6 mg/dL (0.2-1.3); Total Protein 7.6 g/dL (6.3-8.2)
--- NOTE | 2024-06-04 16:29 | XR ---
EXAMINATION TYPE: XR chest 2V DATE OF EXAM: 06/04/2024 COMPARISON: 11/29/2023 HISTORY: Chest pain TECHNIQUE: Frontal and lateral views of the chest are obtained. FINDINGS: There is no focal air space opacity, pleural effusion, or pneumothorax seen. The cardiac silhouette size is within normal limits. The osseous structures are intact. IMPRESSION: No acute cardiopulmonary process.
[2024-06-04] MEDS: MAG HYDROX/AL HYDROX/SIMETH 30 ML, HYOSCYAMINE ELIXIR 10 ML, LIDOCAINE VISCOUS 2% 10 ML PO STA (17:03)
[2024-06-04] MEDS: ONDANSETRON 4 MG ODT STARTER PACK 2 TAB BTL PO STA (18:19)
[2024-06-04 18:25] VITALS: BP 124/81; PULSE 67; TEMP 98.3
== END 2024-06-04 18:25 | disposition home or self-care (01) ==
LOC: EC 14:47
CPT/HCPCS: 36415; 71046; 80053; 83605; 83690; 84484; 85025; 93005; 96361; 96374; 96375; 99284

== ENCOUNTER 2024-06-16 09:30 | Observation (INO) | payer OTHER ==
[2024-06-16] MEDS: NITROGLYCERIN SL TABS 0.4 MG TAB SUBLINGUAL STA ×2 (10:00→10:29)
[2024-06-16] MEDS: ASPIRIN 81 MG PO STA (10:00)
[2024-06-16] MEDS: SODIUM CHLORIDE 0.9% 1,000 ML IV STA (10:00)
[2024-06-16 10:15] LABS: Basophils # (A) 0.1 k/uL (0-0.2); Basophils % (A) 1 %; Eosinophils # (A) 0.1 k/uL (0-0.7); Eosinophils % (A) 1 %; HCT 39.8 % (34.0-46.0); HGB 13.2 gm/dL (11.4-16.0); Lymphocytes % (A) 28 %; MCH 28.8 pg (25.0-35.0); MCHC 33.1 g/dL (31.0-37.0); MCV 87.1 fL (80.0-100.0); Mean Platelet Volume 8.3; Monocytes # (A) 0.3 k/uL (0-1.0); Monocytes % (A) 5 %; Neutrophils # (A) 4.6 k/uL (1.3-7.7); Neutrophils % (A) 64 %; Platelet Count 264 k/uL (150-450); RBC 4.57 m/uL (3.80-5.40); RDW 13.6 % (11.5-15.5); WBC 7.1 k/uL (3.8-10.6)
[2024-06-16 10:26] LABS: INR 0.9 (<1.2); Partial Thromboplastin Time 23.8 sec (22.0-30.0)
[2024-06-16 10:29] LABS: ALT 36 U/L (4-34); AST 47 U/L (14-36); African American GFR (CKD) >90 (>60 ml/min/1.73 sqM); Albumin 4.4 g/dL (3.5-5.0); Alkaline Phosphatase 73 U/L (38-126); Anion Gap 11 mmol/L; Blood Urea Nitrogen 17 mg/dL (7-17); Calcium 9.3 mg/dL (8.4-10.2); Carbon Dioxide 24 mmol/L (22-30); Chloride 102 mmol/L (98-107); Glucose 160 mg/dL (74-99); Lipase 154 U/L (23-300); Magnesium 1.7 mg/dL (1.6-2.3); Non-African American GFR(CKD) >90 (>60 ml/min/1.73 sqM); Sodium 137 mmol/L (137-145); Total Bilirubin 0.6 mg/dL (0.2-1.3); Total Protein 7.5 g/dL (6.3-8.2)
[2024-06-16 10:45] LABS: HCG,Qualitative Serum Not Detected
[2024-06-16] MEDS: KETOROLAC 15 MG/ML 1 ML VIAL IVP STA (10:59)
[2024-06-16] MEDS: NITROGLYCERIN OINT 1 INCH/GM PACKET TOPICAL SCH (11:00)
--- NOTE | 2024-06-16 11:02 | XR ---
EXAMINATION TYPE: XR chest 2V DATE OF EXAM: 06/16/2024 COMPARISON: 06/04/2024 INDICATION: Chest pain TECHNIQUE: Frontal and lateral views of the chest are obtained. FINDINGS: The heart size is normal. The pulmonary vasculature is normal. The lungs are clear. IMPRESSION: 1. No acute pulmonary process. [facility], , 06/16/2024 11:00 AM
[2024-06-16] MEDS ORDERED: NALOXONE 0.4 MG/ML 1 ML VIAL IV PRN (11:29)
--- NOTE | 2024-06-16 11:39 | ED ---
General Adult HPI - General Chief complaint: Chest Pain Stated complaint: chest/abd pain Source: patient Mode of arrival: ambulatory Limitations: no limitations - Related Data Home Medications Medication Instructions Recorded Confirmed Atorvastatin [Lipitor] 20 mg PO HS 07/19/23 06/16/24 Fremanezumab-Vfrm [Ajovy 225 mg SQ Q28D 02/09/24 06/16/24 Autoinjector] Lasmiditan Succinate [Reyvow] 50 mg PO DAILY PRN 02/09/24 06/16/24 Ubrogepant [Ubrelvy] 100 mg PO DAILY PRN 02/09/24 06/16/24 Escitalopram [Lexapro] 20 mg PO DAILY 02/12/24 06/16/24 Cariprazine HCl [Vraylar] 1.5 mg PO HS 06/04/24 06/16/24 Ondansetron Odt [Zofran Odt] 4 mg PO Q8HR PRN 06/04/24 06/16/24 Sucralfate [Carafate] 1 gm PO TID 06/04/24 06/16/24 Previous Rx's Medication Instructions Recorded Pantoprazole [Protonix] 40 mg PO BID 30 Days #60 tab 07/22/23 Allergies Allergy/AdvReac Type Severity Reaction Status Date / Time Tetanus Vaccines and Toxoid Allergy Anaphylaxis Verified 06/16/24 10:55 cephalexin [From Keflex] AdvReac Vomiting Verified 06/16/24 10:55 Review of Systems ROS Statement: Those systems with pertinent positive or pertinent negative responses have been documented in the HPI. ROS Other: All systems not noted in ROS Statement are negative. Past Medical History Past Medical History: Chest Pain / Angina, Hyperlipidemia, Thyroid Disorder Additional Past Medical History / Comment(s): migraines, POTS, History of Any Multi-Drug Resistant Organisms: None Reported Past Surgical History: Cholecystectomy, Orthopedic Surgery Additional Past Surgical History / Comment(s): right shoulder x2. fallopian removal, right elbow. Past Anesthesia/Blood Transfusion Reactions: No Reported Reaction Past Psychological History: Anxiety, Bipolar, Depression, PTSD Smoking Status: Never smoker Past Alcohol Use History: None Reported Past Drug Use History: None Reported - Past Family History Mother Family Medical History: Chest Pain / Angina Father Family Medical History: Cancer General Exam Limitations: no limitations Course Vital Signs 06/16/24 06/16/2424 09:31 09:39 10:29 Temperature 97.9 F Pulse Rate 80 83 Pulse Rate [ 82 Tow Mate ] Respiratory 18 18 Rate Blood Pressure 133/86 111/68 O2 Sat by Pulse 99 99 Oximetry Medical Decision Making - Lab Data Result diagrams: 06/16/24 09:59 06/16/24 09:59 Lab Results 06/16/24 06/16/24 06/16/24 Range/Units 09:59 09:59 09:59 WBC 7.1 (3.8-10.6) k/uL RBC 4.57 (3.80-5.40) m/uL Hgb 13.2 (11.4-16.0) gm/dL Hct 39.8 (34.0-46.0) % MCV 87.1 (80.0-100.0) fL MCH 28.8 (25.0-35.0) pg MCHC 33.1 (31.0-37.0) g/dL RDW 13.6 (11.5-15.5) % Plt Count 264 (150-450) k/uL MPV 8.3 Neutrophils % 64 % Lymphocytes % 28 % Monocytes % 5 % Eosinophils % 1 % Basophils % 1 % Neutrophils # 4.6 (1.3-7.7) k/uL Lymphocytes # 2.0 (1.0-4.8) k/uL Monocytes # 0.3 (0-1.0) k/uL Eosinophils # 0.1 (0-0.7) k/uL Basophils # 0.1 (0-0.2) k/uL PT 10.0 (10.0-12.5) sec INR 0.9 (<1.2) APTT 23.8 (22.0-30.0) sec Sodium 137 (137-145) mmol/L Potassium 4.0 (3.5-5.1) mmol/L Chloride 102 (98-107) mmol/L Carbon Dioxide 24 (22-30) mmol/L Anion Gap 11 mmol/L BUN 17 (7-17) mg/dL Creatinine 0.67 (0.52-1.04) mg/dL Est GFR (CKD-EPI)AfAm >90 (>60 ml/min/1.73 sqM) Est GFR (CKD-EPI)NonAf >90 (>60 ml/min/1.73 sqM) Glucose 160 H (74-99) mg/dL Calcium 9.3 (8.4-10.2) mg/dL Magnesium 1.7 (1.6-2.3) mg/dL Total Bilirubin 0.6 (0.2-1.3) mg/dL AST 47 H (14-36) U/L ALT 36 H (4-34) U/L Alkaline Phosphatase 73 (38-126) U/L Troponin I (0.000-0.034) ng/mL Total Protein 7.5 (6.3-8.2) g/dL Albumin 4.4 (3.5-5.0) g/dL Lipase 154 (23-300) U/L HCG, Qual Not Detected 06/16/24 Range/Units 09:59 WBC (3.8-10.6) k/uL RBC (3.80-5.40) m/uL Hgb (11.4-16.0) gm/dL Hct (34.0-46.0) % MCV (80.0-100.0) fL MCH (25.0-35.0) pg MCHC (31.0-37.0) g/dL RDW (11.5-15.5) % Plt Count (150-450) k/uL MPV Neutrophils % % Lymphocytes % % Monocytes % % Eosinophils % % Basophils % % Neutrophils # (1.3-7.7) k/uL Lymphocytes # (1.0-4.8) k/uL Monocytes # (0-1.0) k/uL Eosinophils # (0-0.7) k/uL Basophils # (0-0.2) k/uL PT (10.0-12.5) sec INR (<1.2) APTT (22.0-30.0) sec Sodium (137-145) mmol/L Potassium (3.5-5.1) mmol/L Chloride (98-107) mmol/L Carbon Dioxide (22-30) mmol/L Anion Gap mmol/L BUN (7-17) mg/dL Creatinine (0.52-1.04) mg/dL Est GFR (CKD-EPI)AfAm (>60 ml/min/1.73 sqM) Est GFR (CKD-EPI)NonAf (>60 ml/min/1.73 sqM) Glucose (74-99) mg/dL Calcium (8.4-10.2) mg/dL Magnesium (1.6-2.3) mg/dL Total Bilirubin (0.2-1.3) mg/dL AST (14-36) U/L ALT (4-34) U/L Alkaline Phosphatase (38-126) U/L Troponin I <0.012 (0.000-0.034) ng/mL Total Protein (6.3-8.2) g/dL Albumin (3.5-5.0) g/dL Lipase (23-300) U/L HCG, Qual Disposition Clinical Impression: Chest pain Disposition: ADMITTED IP TO THIS HOSP Condition: Stable Referrals: Toney Ortez DO [Primary Care Provider] - 1-2 days Time of Disposition: 11:20
[2024-06-16] MEDS: SODIUM CHLORIDE 0.9% 1,000 ML IV SCH (12:22)
--- NOTE | 2024-06-16 12:48 | P.HPIM ---
History of Present Illness H&P Date: 06/16/24 History of present illness; patient is a 38-year-old lady with past medical history significant for hyperlipidemia, GERD who presented the ER because of chest pain. Patient stated that she was all right yesterday afternoon when she started noticing left-sided chest pain, chest pain was constant, sharp, nonradiating, no aggravating or relieving factor associated with this chest pain. Patient was complaining of nausea but no vomiting. Denied any palpitations. There was no complaint of orthopnea or PND. Denied any fever or chills. Because of this chest pain, patient presented to the ER Initial lab work done in the ER showed WBC 7.1, hemoglobin 13.2, platelet count 264, sodium 139, potassium 4, BUN 17, creatinine 0.67, glucose 160, AST 47, ALT 36, troponin 0.012 EKG done in the ER showed no ST segment elevation or depression seen, no T-wave inversions seen. Chest x-ray done in the ER showed no acute cardiopulmonary process Patient admitted to internal medicine service REVIEW OF SYSTEMS: CONSTITUTIONAL: No fever, no malaise, no fatigue. HEENT: No recent visual problems or hearing problems. Denied any sore throat. CARDIOVASCULAR: As mentioned above PULMONARY: As mentioned above GASTROINTESTINAL: No diarrhea, no nausea, no vomiting, no abdominal pain. NEUROLOGICAL: No headaches, no weakness, no numbness. HEMATOLOGICAL: Denies any bleeding or petechiae. GENITOURINARY: Denies any burning micturition, frequency, or urgency. MUSCULOSKELETAL/RHEUMATOLOGICAL: Denies any joint pain, swelling, or any muscle pain. ENDOCRINE: Denies any polyuria or polydipsia. The rest of the 14-point review of systems is negative. PHYSICAL EXAMINATION: GENERAL: The patient is alert and oriented x3, not in any acute distress. Well developed, well nourished. HEENT: Pupils are round and equally reacting to light. EOMI. No scleral icterus. No conjunctival pallor. Normocephalic, atraumatic. No pharyngeal erythema. No thyromegaly. CARDIOVASCULAR: S1 and S2 present. No murmurs, rubs, or gallops. PULMONARY: Chest is clear to auscultation, no wheezing or crackles. ABDOMEN: Soft, nontender, nondistended, normoactive bowel sounds. No palpable organomegaly. MUSCULOSKELETAL: No joint swelling or deformity. EXTREMITIES: No cyanosis, clubbing, or pedal edema. NEUROLOGICAL: Gross neurological examination did not reveal any focal deficits. SKIN: No rashes. Assessment and plan Chest pain, rule out acute coronary syndrome Hyperlipidemia GERD Depression Monitor vital signs Monitor CBC Monitor CMP Continue telemetry monitoring Trend troponins. Ordered D-dimer Ordered ultrasound abdominal Resume Protonix and Carafate Consult cardiology Labs and medication were reviewed.. Continue same treatment. Continue with symptomatic treatment. Resume home medication. Monitor labs and vitals. DVT and GI prophylaxis. Further recommendations as per clinical course of the patient Dictation was produced using [employer] dictation software. please excuse any grammatical, word or spelling errors. Past Medical History Past Medical History: Chest Pain / Angina, Hyperlipidemia, Thyroid Disorder Additional Past Medical History / Comment(s): migraines, POTS, History of Any Multi-Drug Resistant Organisms: None Reported Past Surgical History: Cholecystectomy, Orthopedic Surgery Additional Past Surgical History / Comment(s): right shoulder x2. fallopian removal, right elbow. Past Anesthesia/Blood Transfusion Reactions: No Reported Reaction Past Psychological History: Anxiety, Bipolar, Depression, PTSD Smoking Status: Never smoker Past Alcohol Use History: None Reported Past Drug Use History: None Reported - Past Family History Mother Family Medical History: Chest Pain / Angina Father Family Medical History: Cancer Medications and Allergies Home Medications Medication Instructions Recorded Confirmed Type Atorvastatin [Lipitor] 20 mg PO HS 07/19/23 06/16/24 History Pantoprazole [Protonix] 40 mg PO BID 30 Days #60 tab 07/22/23 06/16/24 Rx Fremanezumab-Vfrm [Ajovy 225 mg SQ Q28D 02/09/24 06/16/24 History Autoinjector] Lasmiditan Succinate [Reyvow] 50 mg PO DAILY PRN 02/09/24 06/16/24 History Ubrogepant [Ubrelvy] 100 mg PO DAILY PRN 02/09/24 06/16/24 History Escitalopram [Lexapro] 20 mg PO DAILY 02/12/24 06/16/24 History Cariprazine HCl [Vraylar] 1.5 mg PO HS 06/04/24 06/16/24 History Ondansetron Odt [Zofran Odt] 4 mg PO Q8HR PRN 06/04/24 06/16/24 History Sucralfate [Carafate] 1 gm PO TID 06/04/24 06/16/24 History Allergies Allergy/AdvReac Type Severity Reaction Status Date / Time Tetanus Vaccines and Toxoid Allergy Anaphylaxis Verified 06/16/24 10:55 cephalexin [From Keflex] AdvReac Vomiting Verified 06/16/24 10:55 Physical Exam Vitals: Vital Signs Temp Pulse Pulse Resp BP Pulse Ox 06/16/24 10:29 83 18 111/68 99 06/16/24 09:39 82 06/16/24 09:31 97.9 F 80 18 133/86 99 Intake and Output 06/15/24 06/16/24 06/16/24 22:59 06:59 14:59 Other: Weight 123.377 kg Results CBC & Chem 7: 06/16/24 09:59 06/16/24 09:59 Labs: Abnormal Lab Results - Last 24 Hours (Table) 06/16/24 Range/Units 09:59 Glucose 160 H (74-99) mg/dL AST 47 H (14-36) U/L ALT 36 H (4-34) U/L
[2024-06-16 13:04] LABS: Appearance,Urine Cloudy (Clear); Bacteria,Urine Rare /hpf; Bilirubin,Urine Negative (Negative); Blood,Urine Negative (Negative); Color,Urine Light Yellow; Glucose,Urine (UA) Negative (Negative); Hyaline Casts,Urine 1 /lpf (0-2); Ketones,Urine Negative (Negative); Leukocyte Esterase,Urine Moderate (Negative); Mucus,Urine Rare /hpf; Nitrite,Urine Negative (Negative); Protein,Urine Trace (Negative); RBC,Urine 2 /hpf (0-5); Specific Gravity,Urine 1.028 (1.001-1.035); Squamous Epithelial Cell,Urine 10 /hpf (0-4); Urobilinogen,Urine <2.0 mg/dL (<2.0); WBC,Urine 5 /hpf (0-5)
--- NOTE | 2024-06-16 14:26 | US ---
EXAMINATION TYPE: US abdomen limited DATE OF EXAM: 06/16/2024 COMPARISON: CT CLINICAL INDICATION: Female, 38 years old with history of Abdominal pain, elevated LFTs; Elevated LFT 's, GB removed 2009 TECHNIQUE: Multiple sonographic images of the right upper quadrant are obtained. FINDINGS: EXAM MEASUREMENTS: Liver Length: 19.0 cm CBD: 0.8 cm Right Kidney: 11.4 x 4.7 x 4.6 cm SCALP SPECIALIST NOTES: Pancreas: Obscured by bowel gas Liver: Enlarged, difficult to penetrate , compatible with moderate fatty infiltration of liver. Gallbladder: Surgically absent Evidence for sonographic Marcos's sign: No CBD: wnl, post juliano Right Kidney: No evidence of hydro IMPRESSION: Hepatomegaly with moderate fatty fusion of the liver. [facility], , 06/16/2024 2:24 PM
[2024-06-16] MEDS: SUCRALFATE 1 GM TAB PO SCH (15:48)
[2024-06-16] MEDS: HEPARIN SODIUM,PORCINE 5,000 UNIT/ML 1 ML VIAL SQ SCH (15:48)
[2024-06-16] MEDS: ATORVASTATIN 20 MG TAB PO SCH (20:06)
[2024-06-16] MEDS: PANTOPRAZOLE 40 MG TABLET PO SCH (20:06)
[2024-06-16] MEDS ORDERED: ACETAMINOPHEN TAB 325 MG TAB PO PRN (23:35)
[2024-06-16] MEDS: ACETAMINOPHEN TAB 325 MG TAB PO STA (23:44)
[2024-06-17 01:30] LABS: Chol/HDL Ratio 5.88 Ratio; LDL Cholesterol,Calculated 112.8 mg/dL (0.0-131.0)
--- NOTE | 2024-06-17 07:33 | P.CRDCN ---
History of Present Illness History of present illness: This is Dr. Dunn dictating a consult on this patient The patient was interviewed and examined IMPRESSION / ASSESSMENT: Recurrent chest discomfort, lower chest, epigastric area, abnormal EKG Strong family history of premature cardiovascular disease with early MA in her father and early stroke in her mother Dyslipidemia diabetes 2 hemoglobin A1c 6.7 EKG shows sinus mechanism with T wave inversions in the inferior leads Elevated triglycerides Low HDL Total cholesterol high morbid obesity past history of RV enlargement PLAN: In view of recurrent chest discomfort, T wave inversions EKG, risk factors of diabetes and hypertriglyceridemia and family history of premature cardiovascular disease I would recommend a dobutamine stress echo. Last year she had an exercise stress echo when she exercised for about 6 minutes I will order dobutamine stress echo to a maximum of 40 mics to evaluate for any coronary artery disease. Definity contrast will be utilized 2D echo and Doppler study to assess RV size and function consideration for evaluation of RV enlargement if corroborated by the echo on this admission HPI Patient admitted today for chest pain and abdominal pain. She underwent an ultrasound of the abdomen which showed a fatty liver 3 cardiac enzymes are normal First twelve-lead EKG shows this mechanism normal TN narrow QRS flat T waves V4- V6 inverted T waves in 3 and aVF Past history of dyslipidemia GERD Yesterday she started experiencing left-sided chest discomfort that was constant nonradiating without any aggravating relieving factors She was nauseous but no vomiting She has a family history of coronary artery disease, father Mother had CVA Normal exercise stress echo in May of last year. Exercise duration 6 minutes 2D echo showed RV dilation. 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 She had a spell of altered consciousness during tilt table testing without any seizure activity with a completely normal heart rate and blood pressure and then she seemed to regain full alertness CT angio of the neck and the brain were normal in 2021 ROS: No fever chills or rigors, no cough, phlegm or expectoration, no nausea, vomiting or diarrhea, no hematuria, dysuria, no musculoskeletal complaints, no strokes or seizures, no skin lesions. EXAMINATION: Blood pressure 111/68 mmHg pulse rate in the 80s afebrile normal heart sounds regular Normal breath sounds Continues to have lower chest discomfort intermittently REVIEW OF LABS, ECG & MEDICAL DATA Normal white count normal hemoglobin normal platelet count Normal D-dimer Normal electrolytes Troponins normal x 3 Normal lipase Mildly abnormal urine hemoglobin A1c 6.7 Triglycerides 353 Total cholesterol 221, both elevated LDL 113 and HDL low at 38 Past Medical History Past Medical History: Chest Pain / Angina, Hyperlipidemia, Thyroid Disorder Additional Past Medical History / Comment(s): migraines, POTS, History of Any Multi-Drug Resistant Organisms: None Reported Past Surgical History: Cholecystectomy, Orthopedic Surgery Additional Past Surgical History / Comment(s): right shoulder x2. fallopian removal, right elbow. Past Anesthesia/Blood Transfusion Reactions: No Reported Reaction Past Psychological History: Anxiety, Bipolar, Depression, PTSD Smoking Status: Never smoker Past Alcohol Use History: None Reported Past Drug Use History: None Reported - Past Family History Mother Family Medical History: Chest Pain / Angina Father Family Medical History: Cancer Medications and Allergies Home Medications Medication Instructions Recorded Confirmed Type Atorvastatin [Lipitor] 20 mg PO HS 07/19/23 06/16/24 History Pantoprazole [Protonix] 40 mg PO BID 30 Days #60 tab 07/22/23 06/16/24 Rx Fremanezumab-Vfrm [Ajovy 225 mg SQ Q28D 02/09/24 06/16/24 History Autoinjector] Lasmiditan Succinate [Reyvow] 50 mg PO DAILY PRN 02/09/24 06/16/24 History Ubrogepant [Ubrelvy] 100 mg PO DAILY PRN 02/09/24 06/16/24 History Escitalopram [Lexapro] 20 mg PO DAILY 02/12/24 06/16/24 History Cariprazine HCl [Vraylar] 1.5 mg PO HS 06/04/24 06/16/24 History Ondansetron Odt [Zofran Odt] 4 mg PO Q8HR PRN 06/04/24 06/16/24 History Sucralfate [Carafate] 1 gm PO TID 06/04/24 06/16/24 History Allergies Allergy/AdvReac Type Severity Reaction Status Date / Time Tetanus Vaccines and Toxoid Allergy Anaphylaxis Verified 06/16/24 10:55 cephalexin [From Keflex] AdvReac Vomiting Verified 06/16/24 10:55 Physical Exam Vitals: Vital Signs Temp Pulse Pulse Pulse Resp BP BP 06/16/24 18:12 98.1 F 79 18 136/72 06/16/24 15:46 80 16 99/74 06/16/24 12:35 72 18 102/73 06/16/24 10:29 83 18 111/68 06/16/24 09:39 82 06/16/24 09:31 97.9 F 80 18 133/86 Pulse Ox 06/16/24 18:12 97 06/16/24 15:46 06/16/24 12:35 98 06/16/24 10:29 99 06/16/24 09:39 06/16/24 09:31 99 Intake and Output 06/16/24 06/16/24 06/16/24 06:59 14:59 22:59 Intake Total 75 Balance 75 Intake: IV 75 Sodium Chloride 0.9% 1, 75 000 ml @ 75 mls/hr IV . [id number] [facility] Rx#:[id number] Other: Weight 123.377 kg Results 06/16/24 09:59 06/16/24 09:59 Cardiac Enzymes 06/16/24 06/16/24 06/16/24 Range/Units 09:59 09:59 12:25 AST 47 H (14-36) U/L Troponin I <0.012 <0.012 (0.000-0.034) ng/mL 06/16/24 Range/Units 15:04 AST (14-36) U/L Troponin I <0.012 (0.000-0.034) ng/mL Coagulation 06/16/24 Range/Units 09:59 PT 10.0 (10.0-12.5) sec APTT 23.8 (22.0-30.0) sec CBC 06/16/24 Range/Units 09:59 WBC 7.1 (3.8-10.6) k/uL RBC 4.57 (3.80-5.40) m/uL Hgb 13.2 (11.4-16.0) gm/dL Hct 39.8 (34.0-46.0) % Plt Count 264 (150-450) k/uL Comprehensive Metabolic Panel 06/16/24 Range/Units 09:59 Sodium 137 (137-145) mmol/L Potassium 4.0 (3.5-5.1) mmol/L Chloride 102 (98-107) mmol/L Carbon Dioxide 24 (22-30) mmol/L BUN 17 (7-17) mg/dL Creatinine 0.67 (0.52-1.04) mg/dL Glucose 160 H (74-99) mg/dL Calcium 9.3 (8.4-10.2) mg/dL AST 47 H (14-36) U/L ALT 36 H (4-34) U/L Alkaline Phosphatase 73 (38-126) U/L Total Protein 7.5 (6.3-8.2) g/dL Albumin 4.4 (3.5-5.0) g/dL Current Medications Generic Name Dose Route Start Last Admin Trade Name Freq PRN Reason Stop Dose Admin Atorvastatin Calcium 20 mg 06/16/24 21:00 Atorvastatin 20 Mg Tab PO HS BRITTANEY Escitalopram Oxalate 20 mg 06/17/24 09:00 Escitalopram 20 Mg Tab PO DAILY BRITTANEY Heparin Sodium (Porcine) 5,000 unit 06/16/24 16:00 06/16/24 15:48 Heparin Sodium,Porcine 5,000 Unit/Ml 1 Ml Vial SQ 5,000 unit Q8HR BRITTANEY Administration Sodium Chloride 1,000 mls @ 75 mls/hr 06/16/24 11:45 06/16/24 12:22 Saline 0.9% IV 75 mls/hr .[id number] BRITTANEY Administration Naloxone HCl 0.2 mg 06/16/24 11:29 Naloxone 0.4 Mg/Ml 1 Ml Vial IV Q2M PRN Opioid Reversal Pantoprazole Sodium 40 mg 06/16/24 21:00 Pantoprazole 40 Mg Tablet PO BID BRITTANEY Sucralfate 1 gm 06/16/24 16:00 06/16/24 15:48 Sucralfate 1 Gm Tab PO 1 gm TID BRITTANEY Administration Intake and Output 06/16/24 06/16/24 06/16/24 06:59 14:59 22:59 Intake Total 75 Balance 75 Intake: IV 75 Sodium Chloride 0.9% 1, 75 000 ml @ 75 mls/hr IV . [id number] BRITTANEY Rx#:[id number] Other: Weight 123.377 kg Patient Weight 06/17/24 06:59 Weight 123.377 kg 06/16/24 09:59 06/16/24 09:59
[2024-06-17] MEDS ORDERED: DOBUTamine DRIP for NUC MED 500 MG in DEXTROSE/WATER 1 250ML.BAG IV PRN (07:45)
[2024-06-17] MEDS ORDERED: DOBUTamine DRIP for NUC MED 500 MG/250 ML BAG IV ONE (08:00)
[2024-06-17 08:58] LABS: Basophils # (A) 0.04 X 10*3/uL (0.00-0.10); Basophils % (A) 0.6 %; Eosinophils # (A) 0.12 X 10*3/uL (0.04-0.35); Eosinophils % (A) 1.8 %; HGB 11.8 g/dL (12.0-15.0); Lymphocytes # (A) 3.12 X 10*3/uL (0.90-5.00); Lymphocytes % (A) 45.9 %; MCH 28.9 pg (27.0-32.0); MCHC 31.9 g/dL (32.0-37.0); MCV 90.7 FL (80.0-97.0); Mean Platelet Volume 11.1 FL (9.5-12.2); Monocytes # (A) 0.52 X 10*3/uL (0.20-1.00); Monocytes % (A) 7.6 %; NRBC Per 100 WBC 0 X 10*3/uL (0.00-0.01); Neutrophils # (A) 2.97 X 10*3/uL (1.80-7.70); Neutrophils % (A) 43.7 %; Platelet Count 239 X 10*3/uL (140-440); RBC 4.08 X 10*6/uL (4.10-5.20); RDW 13.2 % (11.5-14.5)
[2024-06-17 09:19] LABS: ALT 36 U/L (8-44); AST 30 U/L (13-35); Alkaline Phosphatase 74 U/L (41-126); BUN/Creat Ratio 18.88 Ratio (12.00-20.00); Blood Urea Nitrogen 15.1 mg/dL (9.0-27.0); Calcium 8.8 mg/dL (8.7-10.3); Carbon Dioxide 21.2 mmol/L (21.6-31.8); Chloride 104 mmol/L (96-109); Globulin 2.5 g/dL (1.6-3.3); Glucose 125 mg/dL (70-110); Potassium 4.4 mmol/L (3.5-5.5); Sodium 138 mmol/L (135-145); Total Bilirubin 0.3 mg/dL (0.3-1.2); Total Protein 6.5 g/dL (6.2-8.2)
[2024-06-17] MEDS: ESCITALOPRAM 20 MG TAB PO SCH (09:42)
--- NOTE | 2024-06-17 10:45 | P.GSCN ---
History of Present Illness Consult date: 06/17/24 History of present illness: CHIEF COMPLAINT: Epigastric abdominal pain/chest pain HISTORY OF PRESENT ILLNESS: This is a 38-year-old female who presented to the hospital with complaints of epigastric abdominal pain and chest pain. Patient reports that around 3 PM 2 days ago. She reports the pain will become sharp and radiate into the left chest wall. She has been nauseous. No vomiting. She has a fullness. She also reports some dysphagia. She is having difficulty swallowing solids. She tried to eat chicken nuggets from [employer] and was having difficulty with them. She does have a prior history of H. pylori. Her last EGD in June 2023 had reported GERD, gastritis and erosive esophagitis. Patient reports taking both Protonix and Carafate and still being symptomatic. Abdominal ultrasound completed reporting a fatty liver. Patient has a history o f a cholecystectomy. Patient seen by cardiology service and underwent stress test this morning. Patient does have a EGD scheduled for 06/27/[address] Chang. PAST MEDICAL HISTORY: Hyperlipidemia, thyroid disorder, migraines, POTS, anxiety, bipolar, depression, PTSD PAST SURGICAL HISTORY: Cholecystectomy, EGD MEDICATIONS: See list. ALLERGIES: See list. SOCIAL HISTORY: No illicit drug use. REVIEW OF SYSTEMS: CONSTITUTIONAL: Denies fever or chills. HEENT: Denies blurred vision, vision changes, or eye pain. Denies hemoptysis ENDOCRINE: Denies heat or cold intolerance. CARDIOVASCULAR: Denies chest pain or pressure. RESPIRATORY: No shortness of breath. GASTROINTESTINAL: Denies abdominal pain. Denies nausea or vomiting. NEURO: Denies history of seizures. PSYCH: No depression or suicidal ideation HEMATOLOGIC: Denies bleeding disorders. LYMPHATIC: The patient denies any lumps and bumps around the neck. GENITOURINARY: Denies any blood in urine or increased urinary frequency. MUSCULOSKELETAL: Denies myalgias. Denies joint swelling. Denies decreased range of motion beyond patients baseline. SKIN: Denies pruitis. Denies rash. PHYSICAL EXAM: VITAL SIGNS: Reviewed GENERAL: Well-developed in no acute distress. HEENT: No sclera icterus. Extraocular movements grossly intact. Moist buccal mucosa. Head is atraumatic, normocephalic. Hears conversational speech. No nasal drainage. NECK: Supple without lymphadenopathy. CHEST: Non-labored respirations and equal bilateral excursions. CARDIOVASCULAR: Palpable 2+ radial pulses. ABDOMEN: Soft. Nondistended. Tenderness with palpation epigastric area MUSCULOSKELETAL: No clubbing or cyanosis. NEUROLOGIC: No focal or lateralizing signs. Cranial nerves II through XII grossly intact. PSYCH: Appropriate affect. Alert and oriented to person, place and time. SKIN: Well perfused. Good skin turgor. LABORATORY DATA: WBC 6.8 Hgb 11.8 platelets 239 Sodium 138 potassium 4.4 creatinine 0.8 Troponins negative x 3 Total bilirubin 0.3 mildly elevated LFTs now normalized Elevated triglyceride and cholesterol level Lipase 154 Serum hCG not detected IMAGING: Abdominal ultrasound reports hepatomegaly with moderate fatty fusion of the liver ASSESSMENT: 1. Epigastric abdominal. 2. Dysphagia with solids 3. Prior history of H. pylori 4. Chest pain 5. History of gastritis, erosive esophagitis and GERD noted on EGD from June 2023 PLAN: -EGD scheduled for today with Dr. Chang -Continue Protonix and Carafate -Will clarify with cardiology service stress test results and that the patient is cleared to proceed with procedure. Physician Discothe[employer] Dancer note has been reviewed by physician. Signing provider agrees with the documented findings, assessment, and plan of care. Past Medical History Past Medical History: Chest Pain / Angina, Hyperlipidemia, Thyroid Disorder Additional Past Medical History / Comment(s): migraines, POTS, History of Any Multi-Drug Resistant Organisms: None Reported Past Surgical History: Cholecystectomy, Orthopedic Surgery Additional Past Surgical History / Comment(s): right shoulder x2. fallopian removal, right elbow. Past Anesthesia/Blood Transfusion Reactions: No Reported Reaction Past Psychological History: Anxiety, Bipolar, Depression, PTSD Smoking Status: Never smoker Past Alcohol Use History: None Reported Past Drug Use History: None Reported - Past Family History Mother Family Medical History: Chest Pain / Angina Father Family Medical History: Cancer Medications and Allergies Home Medications Medication Instructions Recorded Confirmed Type Atorvastatin [Lipitor] 20 mg PO HS 07/19/23 06/16/24 History Pantoprazole [Protonix] 40 mg PO BID 30 Days #60 tab 07/22/23 06/16/24 Rx Fremanezumab-Vfrm [Ajovy 225 mg SQ Q28D 02/09/24 06/16/24 History Autoinjector] Lasmiditan Succinate [Reyvow] 50 mg PO DAILY PRN 05/14/24 09/19/24 History Ubrogepant [Ubrelvy] 100 mg PO DAILY PRN 02/09/24 06/16/24 History Escitalopram [Lexapro] 20 mg PO DAILY 02/12/24 06/16/24 History Cariprazine HCl [Vraylar] 1.5 mg PO HS 06/04/24 06/16/24 History Ondansetron Odt [Zofran Odt] 4 mg PO Q8HR PRN 06/04/24 06/16/24 History Sucralfate [Carafate] 1 gm PO TID 06/04/24 06/16/24 History Allergies Allergy/AdvReac Type Severity Reaction Status Date / Time Tetanus Vaccines and Toxoid Allergy Anaphylaxis Verified 06/16/24 10:55 cephalexin [From Keflex] AdvReac Vomiting Verified 06/16/24 10:55 Surgical - Exam Vital Signs Temp Pulse Resp BP Pulse Ox 97.9 F 80 18 133/86 99 06/16/24 09:31 06/16/24 09:31 06/16/24 09:31 06/16/24 09:31 06/16/24 09:31 Results - Labs 06/17/24 03:50 06/17/24 03:50 Abnormal Lab Results - Last 24 Hours (Table) 06/16/24 06/16/24 06/16/24 Range/Units 09:59 09:59 09:59 RBC (4.10-5.20) X 10*6/uL Hgb (12.0-15.0) g/dL Hct (37.2-46.3) % MCHC (32.0-37.0) g/dL Carbon Dioxide (21.6-31.8) mmol/L Anion Gap (4.00-12.00) mmol/L Glucose 160 H (74-99) mg/dL Hemoglobin A1c 6.7 H (<=6.0) % AST 47 H (14-36) U/L ALT 36 H (4-34) U/L Triglycerides (0.00-149.00) mg/dL Cholesterol (0.00-200.00) mg/dL VLDL Cholesterol, Calc (5.00-40.00) mg/dL HDL Cholesterol (40.00-60.00) mg/dL Urine Appearance Cloudy H (Clear) Urine Protein Trace H (Negative) Ur Leukocyte Esterase Moderate H (Negative) Ur Squamous Epith Cells 10 H (0-4) /hpf Urine Bacteria Rare H (None) /hpf Urine Mucus Rare H (None) /hpf 06/16/24 06/17/24 06/17/24 Range/Units 09:59 03:50 03:50 RBC 4.08 L (4.10-5.20) X 10*6/uL Hgb 11.8 L (12.0-15.0) g/dL Hct 37.0 L (37.2-46.3) % MCHC 31.9 L (32.0-37.0) g/dL Carbon Dioxide 21.2 L (21.6-31.8) mmol/L Anion Gap 12.80 H (4.00-12.00) mmol/L Glucose 125 H (74-99) mg/dL Hemoglobin A1c (<=6.0) % AST (14-36) U/L ALT (4-34) U/L Triglycerides 353.00 H (0.00-149.00) mg/dL Cholesterol 221.00 H (0.00-200.00) mg/dL VLDL Cholesterol, Calc 70.60 H (5.00-40.00) mg/dL HDL Cholesterol 37.60 L (40.00-60.00) mg/dL Urine Appearance (Clear) Urine Protein (Negative) Ur Leukocyte Esterase (Negative) Ur Squamous Epith Cells (0-4) /hpf Urine Bacteria (None) /hpf Urine Mucus (None) /hpf Diabetes panel 06/16/24 06/16/24 06/16/24 Range/Units 09:59 09:59 09:59 Sodium 137 (137-145) mmol/L Potassium 4.0 (3.5-5.1) mmol/L Chloride 102 (98-107) mmol/L Carbon Dioxide 24 (22-30) mmol/L BUN 17 (7-17) mg/dL Creatinine 0.67 (0.52-1.04) mg/dL Glucose 160 H (74-99) mg/dL Hemoglobin A1c 6.7 H (<=6.0) % Calcium 9.3 (8.4-10.2) mg/dL AST 47 H (14-36) U/L ALT 36 H (4-34) U/L Alkaline Phosphatase 73 (38-126) U/L Total Protein 7.5 (6.3-8.2) g/dL Albumin 4.4 (3.5-5.0) g/dL Triglycerides 353.00 H (0.00-149.00) mg/dL HDL Cholesterol 37.60 L (40.00-60.00) mg/dL 06/17/24 Range/Units 03:50 Sodium 138 (137-145) mmol/L Potassium 4.4 (3.5-5.1) mmol/L Chloride 104 (98-107) mmol/L Carbon Dioxide 21.2 L (22-30) mmol/L BUN 15.1 (7-17) mg/dL Creatinine 0.8 (0.52-1.04) mg/dL Glucose 125 H (74-99) mg/dL Hemoglobin A1c (<=6.0) % Calcium 8.8 (8.4-10.2) mg/dL AST 30 (14-36) U/L ALT 36 (4-34) U/L Alkaline Phosphatase 74 (38-126) U/L Total Protein 6.5 (6.3-8.2) g/dL Albumin 4.0 (3.5-5.0) g/dL Triglycerides (0.00-149.00) mg/dL HDL Cholesterol (40.00-60.00) mg/dL Calcium panel 06/16/24 06/17/24 Range/Units 09:59 03:50 Calcium 9.3 8.8 (8.4-10.2) mg/dL Albumin 4.4 4.0 (3.5-5.0) g/dL Pituitary panel 06/16/24 06/17/24 Range/Units 09:59 03:50 Sodium 137 138 (137-145) mmol/L Potassium 4.0 4.4 (3.5-5.1) mmol/L Chloride 102 104 (98-107) mmol/L Carbon Dioxide 24 21.2 L (22-30) mmol/L BUN 17 15.1 (7-17) mg/dL Creatinine 0.67 0.8 (0.52-1.04) mg/dL Glucose 160 H 125 H (74-99) mg/dL Calcium 9.3 8.8 (8.4-10.2) mg/dL Adrenal panel 06/16/24 06/17/24 Range/Units 09:59 03:50 Sodium 137 138 (137-145) mmol/L Potassium 4.0 4.4 (3.5-5.1) mmol/L Chloride 102 104 (98-107) mmol/L Carbon Dioxide 24 21.2 L (22-30) mmol/L BUN 17 15.1 (7-17) mg/dL Creatinine 0.67 0.8 (0.52-1.04) mg/dL Glucose 160 H 125 H (74-99) mg/dL Calcium 9.3 8.8 (8.4-10.2) mg/dL Total Bilirubin 0.6 0.3 (0.2-1.3) mg/dL AST 47 H 30 (14-36) U/L ALT 36 H 36 (4-34) U/L Alkaline Phosphatase 73 74 (38-126) U/L Total Protein 7.5 6.5 (6.3-8.2) g/dL Albumin 4.4 4.0 (3.5-5.0) g/dL
--- NOTE | 2024-06-17 11:10 | CA ---
Transthoracic Echo Report Name: Sary Lopez Age: 38 Gender: F : 1985 Exam Date: 06/17/2024 09:02 Exam Location: [place] [facility] Ht (in): 68 Wt (lb): 272 Ordering Physician: Bud Dunn MD ([id number]) Attending/Referring Phys: Pharmacy Scheduler Luz Maria Perdomo RDCS Procedure CPT: Indications: CP, RV enlargement, abnormal ecg Cardiac Hx: Technical Quality: Technically difficult study Contrast 1: Definity Total Dose (mL): 2 Contrast 2: Total Dose (mL): MEASUREMENTS (Male / Female) Normal Values 2D ECHO LV Diastolic Diameter PLAX 4.8 cm 4.2 - 5.9 / 3.9 - 5.3 cm LV Systolic Diameter PLAX 3.2 cm IVS Diastolic Thickness 0.9 cm 0.6 - 1.0 / 0.6 - 0.9 cm LVPW Diastolic Thickness 1.0 cm 0.6 - 1.0 / 0.6 - 0.9 cm LV Relative Wall Thickness 0.4 LVOT Diameter 2.1 cm LA Volume 45.7 cm??? 18 - 58 / 22 - 52 cm??? LA Volume Index 18.4 cm???/m??? 16 - 28 cm???/m??? Ascending Aorta Diameter 3.3 cm DOPPLER AV Peak Velocity 132.7 cm/s AV Peak Gradient 7.0 mmHg AV Mean Velocity 93.5 cm/s AV Mean Gradient 4.0 mmHg AV Velocity Time Integral 22.6 cm LVOT Peak Velocity 111.6 cm/s LVOT Peak Gradient 5.0 mmHg LVOT Velocity Time Integral 19.7 cm LVOT Stroke Volume 66.7 cm??? LVOT Stroke Volume Index 28.6 ml/m??? LVOT Cardiac Index 2811.0 cm???/min???m??? AV Area Cont Eq vti 2.9 cm??? AV Area Cont Eq pk 2.9 cm??? MV Area PHT 7.9 cm??? Mitral E Point Velocity 48.8 cm/s Mitral A Point Velocity 70.0 cm/s Mitral E to A Ratio 0.7 MV Deceleration Time 96.2 ms PV Peak Velocity 108.5 cm/s PV Peak Gradient 4.7 mmHg FINDINGS Left Ventricle Left ventricular ejection fraction is estimated at 55-60 %. Left ventricular cavity size normal. Left ventricular wall thickness normal. No obvious regional wall motion abnormalities. Right Ventricle Normal right ventricular size and function. Unable to estimate the right ventricular systolic pressure. Right Atrium Normal right atrial size. Left Atrium Normal left atrial size. Mitral Valve Structurally normal mitral valve. No mitral stenosis, regurgitation or prolapse. Aortic Valve Trileaflet aortic valve. No aortic valve stenosis or regurgitation. Tricuspid Valve Structurally normal tricuspid valve. No tricuspid stenosis, regurgitation or prolapse. Pulmonic Valve Pulmonic valve not well visualized. No pulmonic stenosis. No pulmonic regurgitation. Pericardium No pericardial effusion. Aorta Normal size aortic root and proximal ascending aorta. CONCLUSIONS Diagnosis Abnormal EKG, history of RV enlargement, recurrent chest discomfort Normal LV size and function no wall motion abnormalities Normal inferior wall function Right ventricle appears to be of normal size No valvular abnormalities Previewed by: Dr. Bud Dunn MD (Electronically Signed) Final Date: 17 June 2024 11:08
--- NOTE | 2024-06-17 11:21 | CA ---
Dobutamine Stress Echocardiogram Report Sary Lopez Age: 38 Gender: F : 1985 Exam Date: 06/17/2024 08:40 Exam Location: [place] [facility] Ordering Physician: Bud Dunn MD ([id number]) Referring Physician: PAZ, Business Analyst: DANIEL Technologist: Ht (in): 68 Wt (lb): 272 Procedure CPT: Indication: , Recurrent lower chest discomfort, risk factors ICD-9 Codes: Rhythm: Patient History: CHEST PAIN, DIABETES, PALPITATIONS, ELEVATED CHOLESTEROL LEVELS, FAMILY HX OF HEART DISEASE, CHEST PAIN Cardiac Medications: Medications in past 24 hours: Contrast: Definity Total Dose (mL): 3 Stress Results Protocol: Dobutamine Peak Dose (???g/kg/min): 40 Duration (min:sec): Atropine:(mg) None Target HR: 155 Double Product: [id number] Resting HR: 69 Resting BP: 119 / 76 Peak HR: 140 Peak BP: 135 / 80 Max Predicted HR: 182 77 % Max Predicted HR Stress Summary: BP Response: Reason for Termination: DIRECTED PER Cardiac Symptoms: NO SYMPTOMS ECG Analysis Resting EKG: Stress EKG: Arrhythmia: Echo Analysis Base Echo Analysis: Low Echo Anaylsis: Peak Echo Analysis: Recovery Echo: MEASUREMENTS (Male/Female) Normal Values CONCLUSIONS Diagnosis Recurrent chest discomfort, diabetes type 2 hemoglobin A1c 6.7, dyslipidemia, hypertriglyceridemia abnormal EKG with T wave inversions in the inferior leads Dobutamine stress echo does not show any ECG or echocardiographic evidence for ischemia Up to 40 mics of dobutamine infused. Stepwise augmentation of overall LV contractility without development of any wall motion abnormalities during dobutamine infusion and during recovery Dr. Bud Dunn MD (Electronically Signed) Final Date: 17 June 2024 11:20
--- NOTE | 2024-06-17 13:01 | P.PN ---
Subjective Progress Note Date: 06/17/24 patient is a 38-year-old lady with past medical history significant for hyperlipidemia, GERD who presented the ER because of chest pain. Patient stated that she was all right yesterday afternoon when she started noticing left-sided chest pain, chest pain was constant, sharp, nonradiating, no aggravating or relieving factor associated with this chest pain. Patient was complaining of nausea but no vomiting. Denied any palpitations. There was no complaint of orthopnea or PND. Denied any fever or chills. Because of this chest pain, patient presented to the ER Initial lab work done in the ER showed WBC 7.1, hemoglobin 13.2, platelet count 264, sodium 139, potassium 4, BUN 17, creatinine 0.67, glucose 160, AST 47, ALT 36, troponin 0.012 EKG done in the ER showed no ST segment elevation or depression seen, no T-wave inversions seen. Chest x-ray done in the ER showed no acute cardiopulmonary process Patient admitted to internal medicine service 06/17. Patient seen and examined. Cardiology ordered stress echo. Patient states chest pain is improved. REVIEW OF SYSTEMS: CONSTITUTIONAL: No fever, no malaise,. CARDIOVASCULAR: No chest pain, no palpitations, no syncope. PULMONARY: No shortness of breath, no cough, GASTROINTESTINAL: No diarrhea, no nausea, no vomiting, no abdominal pain. NEUROLOGICAL: No headaches, no weakness, PHYSICAL EXAMINATION: GENERAL: The patient is alert and oriented x3, not in any acute distress. Well developed, well nourished. HEENT: Pupils are round and equally reacting to light. EOMI. No scleral icterus. No conjunctival pallor. Normocephalic, atraumatic. No pharyngeal erythema. No thyromegaly. CARDIOVASCULAR: S1 and S2 present. No murmurs, rubs, or gallops. PULMONARY: Chest is clear to auscultation, no wheezing or crackles. ABDOMEN: Soft, nontender, nondistended, normoactive bowel sounds. No palpable organomegaly. MUSCULOSKELETAL: No joint swelling or deformity. EXTREMITIES: No cyanosis, clubbing, or pedal edema. NEUROLOGICAL: Gross neurological examination did not reveal any focal deficits. SKIN: No rashes. Assessment and plan Chest pain, rule out acute coronary syndrome Hyperlipidemia GERD Depression Monitor vital signs Monitor CBC Monitor CMP Continue telemetry monitoring Trend troponins. D-dimer was normal Continue Protonix and Carafate Cardiology evaluated, ordered stress echo General Surgery following, planning EGD Labs and medication were reviewed.. Continue same treatment. Continue with symptomatic treatment. Resume home medication. Monitor labs and vitals. DVT and GI prophylaxis. Further recommendations as per clinical course of the patient Dictation was produced using [employer] dictation software. please excuse any grammatical, word or spelling errors. Objective - Vital Signs Vital signs: Vital Signs Temp 97.8 F 06/17/24 07:00 Pulse 70 06/17/24 07:00 Resp 16 06/17/24 07:00 BP 124/62 06/17/24 07:00 Pulse Ox 98 06/17/24 10:07 FiO2 Intake & Output 06/16/24 06/17/24 06/17/24 18:59 06:59 18:59 Intake Total 193 Balance 193 Weight 123.377 kg Intake: IV 75 Sodium Chloride 0.9% 1, 75 000 ml @ 75 mls/hr IV . [id number] BRITTANEY Rx#:[id number] Oral 118 Other: # Voids 2 - Labs CBC & Chem 7: 06/17/24 03:50 06/17/24 03:50 Labs: Abnormal Lab Results - Last 24 Hours (Table) 06/16/24 06/16/24 06/16/24 Range/Units 09:59 09:59 09:59 RBC (4.10-5.20) X 10*6/uL Hgb (12.0-15.0) g/dL Hct (37.2-46.3) % MCHC (32.0-37.0) g/dL Carbon Dioxide (21.6-31.8) mmol/L Anion Gap (4.00-12.00) mmol/L Glucose 160 H (74-99) mg/dL Hemoglobin A1c 6.7 H (<=6.0) % AST 47 H (14-36) U/L ALT 36 H (4-34) U/L Triglycerides (0.00-149.00) mg/dL Cholesterol (0.00-200.00) mg/dL VLDL Cholesterol, Calc (5.00-40.00) mg/dL HDL Cholesterol (40.00-60.00) mg/dL Urine Appearance Cloudy H (Clear) Urine Protein Trace H (Negative) Ur Leukocyte Esterase Moderate H (Negative) Ur Squamous Epith Cells 10 H (0-4) /hpf Urine Bacteria Rare H (None) /hpf Urine Mucus Rare H (None) /hpf 06/16/24 06/17/24 06/17/24 Range/Units 09:59 03:50 03:50 RBC 4.08 L (4.10-5.20) X 10*6/uL Hgb 11.8 L (12.0-15.0) g/dL Hct 37.0 L (37.2-46.3) % MCHC 31.9 L (32.0-37.0) g/dL Carbon Dioxide 21.2 L (21.6-31.8) mmol/L Anion Gap 12.80 H (4.00-12.00) mmol/L Glucose 125 H (74-99) mg/dL Hemoglobin A1c (<=6.0) % AST (14-36) U/L ALT (4-34) U/L Triglycerides 353.00 H (0.00-149.00) mg/dL Cholesterol 221.00 H (0.00-200.00) mg/dL VLDL Cholesterol, Calc 70.60 H (5.00-40.00) mg/dL HDL Cholesterol 37.60 L (40.00-60.00) mg/dL Urine Appearance (Clear) Urine Protein (Negative) Ur Leukocyte Esterase (Negative) Ur Squamous Epith Cells (0-4) /hpf Urine Bacteria (None) /hpf Urine Mucus (None) /hpf
[2024-06-17] MEDS ORDERED: PROPOFOL 10 MG/ML 20 ML VIAL IV ONE (15:18)
[2024-06-17] MEDS ORDERED: LIDOCAINE 1% INJ 10MG/ML (20 ML MDV) ONE (15:18)
[2024-06-17] MEDS ORDERED: fentaNYL (PF) 50 MCG/ML 2 ML AMP ONE (15:18)
[2024-06-17] MEDS ORDERED: ONDANSETRON 4 MG/2 ML VIAL ONE (15:18)
[2024-06-17] MEDS: IV FLUID CONTINUATION 1,000 ML IV ONE (15:26)
--- NOTE | 2024-06-17 15:46 | P.PCN ---
Date of Procedure: 06/17/24 Description of Procedure: PREOPERATIVE DIAGNOSIS: Atypical chest pain Dysphagia Morbid obesity excess calories, BMI 41.4 Gastroesophageal reflux disease POSTOPERATIVE DIAGNOSIS: Dysphagia Esophageal dysmotility Atypical chest pain Gastroesophageal reflux disease Gastritis Morbid obesity excess calories, BMI 41.4 OPERATION: Esophagogastroduodenoscopy with biopsies along esophagus, antrum and duodenum SURGEON: Yasmin Chang MD ANESTHESIA: MAC. INDICATIONS: The patient is a 38-year-old female who presents with atypical chest pain, dysphagia. Benefits and risks of the procedure were described. Informed consent was obtained. DESCRIPTION: The patient was brought into the endoscopy suite and laid in the left lateral decubitus position. An Olympus gastroscope was passed along the posterior oropharynx down to the distal esophagus where the squamocolumnar junction was encountered at 40 cm from the incisors. The stomach was entered and no bile reflux was found. Additional findings are listed below. Biopsies with cold forceps were obtained of the antrum. The first through third portion of the duodenum was examined. Retroflexion of the scope confirmed Hill grade 2 lower esophageal valve. The squamocolumnar junction demonstrated LA grade A erosive esophagitis. The stomach was desufflated. The patient tolerated the procedure well. FINDINGS: Squamocolumnar junction 40 cm from the incisors. Diaphragmatic hiatus at 40 cm. Hill grade 2 lower esophageal valve. LA grade A erosive esophagitis. Biopsies obtained Biopsies obtained of the duodenum. Chronic gastritis with biopsies obtained. RECOMMENDATIONS: Upper endoscopy as needed. May benefit from manometry for esophageal dysmotility May have regular diet and discharge if tolerates diet
[2024-06-17 16:51] VITALS: BP 115/76; PULSE 67; RESP 15; TEMP 97.6
--- NOTE | 2024-07-03 15:25 | P.DS ---
Providers Date of admission: 06/16/24 11:37 Expected date of discharge: 07/03/24 Attending physician: Franck Peterson MD Consults: 06/16/24 11:29 Consult Physician Routine Consulting Provider: [facility] Consult Reason/Comments: chest pain Do you want consulting provider notified?: Yes 06/16/24 20:08 Consult Physician Routine Consulting Provider: Yasmin Chang Consult Reason/Comments: scope scheduled 06/27 Do you want consulting provider notified?: Yes, Notify in am Primary care physician: Toney Ortez [facility] Course: Discharge diagnoses; Chest pain, rule out acute coronary syndrome Hyperlipidemia GERD Depression Hospital course; patient is a 38-year-old lady with past medical history significant for hyperlipidemia, GERD who presented the ER because of chest pain. Patient stated that she was all right yesterday afternoon when she started noticing left-sided chest pain, chest pain was constant, sharp, nonradiating, no aggravating or relieving factor associated with this chest pain. Patient was complaining of nausea but no vomiting. Denied any palpitations. There was no complaint of orthopnea or PND. Denied any fever or chills. Because of this chest pain, patient presented to the ER Initial lab work done in the ER showed WBC 7.1, hemoglobin 13.2, platelet count 264, sodium 139, potassium 4, BUN 17, creatinine 0.67, glucose 160, AST 47, ALT 36, troponin 0.012 EKG done in the ER showed no ST segment elevation or depression seen, no T-wave inversions seen. Chest x-ray done in the ER showed no acute cardiopulmonary process Patient admitted to internal medicine service 06/17. Patient seen and examined. Cardiology ordered stress echo, which was negative for any ischemia. Patient states chest pain is improved. Surgery evaluated patient, recommended doing EGD. EGD done showed Squamocolumnar junction 40 cm from the incisors,Diaphragmatic hiatus at 40 cm,Hill grade 2 lower esophageal valve,LA grade A erosive esophagitis. Surgery recommend outpatient follow-up PHYSICAL EXAMINATION: GENERAL: The patient is alert and oriented x3, not in any acute distress. Well developed, well nourished. HEENT: Pupils are round and equally reacting to light. EOMI. No scleral icterus. No conjunctival pallor. Normocephalic, atraumatic. No pharyngeal erythema. No thyromegaly. CARDIOVASCULAR: S1 and S2 present. No murmurs, rubs, or gallops. PULMONARY: Chest is clear to auscultation, no wheezing or crackles. ABDOMEN: Soft, nontender, nondistended, normoactive bowel sounds. No palpable organomegaly. MUSCULOSKELETAL: No joint swelling or deformity. EXTREMITIES: No cyanosis, clubbing, or pedal edema. NEUROLOGICAL: Gross neurological examination did not reveal any focal deficits. SKIN: No rashes. Dictation was produced using [employer] dictation software. please excuse any grammatical, word or spelling errors. Patient Condition at Discharge: Stable Plan - Discharge Summary Discharge Rx Participant: Yes New Discharge Prescriptions: Continue Pantoprazole [Protonix] 40 mg PO BID 30 Days #60 tab Lasmiditan Succinate [Reyvow] 50 mg PO DAILY PRN PRN Reason: Migraine Headache Fremanezumab-Vfrm [Ajovy Autoinjector] 225 mg SQ Q28D Ondansetron Odt [Zofran ODT] 4 mg PO Q8HR PRN PRN Reason: Nausea Atorvastatin [Lipitor] 20 mg PO HS Ubrogepant [Ubrelvy] 100 mg PO DAILY PRN PRN Reason: Migraine Headache Escitalopram [Lexapro] 20 mg PO DAILY Sucralfate [Carafate] 1 gm PO TID No Action Atorvastatin [Lipitor] 20 mg PO HS Discharge Medication List Atorvastatin [Lipitor] 20 mg PO HS 07/19/23 [History] Pantoprazole [Protonix] 40 mg PO BID 30 Days #60 tab 07/22/23 [Rx] Fremanezumab-Vfrm [Ajovy Autoinjector] 225 mg SQ Q28D 02/09/24 [History] Lasmiditan Succinate [Reyvow] 50 mg PO DAILY PRN 02/09/24 [History] Ubrogepant [Ubrelvy] 100 mg PO DAILY PRN 02/09/24 [History] Escitalopram [Lexapro] 20 mg PO DAILY 02/12/24 [History] Ondansetron Odt [Zofran ODT] 4 mg PO Q8HR PRN 06/04/24 [History] Sucralfate [Carafate] 1 gm PO TID 06/04/24 [History] Atorvastatin [Lipitor] 20 mg PO HS 06/29/24 [History] Follow up Appointment(s)/Referral(s): Toney Ortez DO [Primary Care Provider] - 1-2 days B[facility] [place], [place] [NON-STAFF] - 06/22/24 2:30 pm Patient Instructions/Handouts: Dysphagia (ED) Discharge Disposition: HOME SELF-CARE
== END 2024-06-17 17:51 | disposition home or self-care (01) ==
LOC: EC 09:30 → 6NMEDSUR 11:37
PROVIDERS: ADMIT Internal Medicine; ATTEND Internal Medicine
DX: R07.89 Other chest pain (principal); R94.31 Abnormal electrocardiogram [ECG] [EKG]; R13.10 Dysphagia, unspecified; K29.50 Unspecified chronic gastritis without bleeding; K22.4 Dyskinesia of esophagus; K21.00 Gastro-esophageal reflux disease with esophagitis, without bleeding; E78.5 Hyperlipidemia, unspecified; F31.9 Bipolar disorder, unspecified; F41.9 Anxiety disorder, unspecified; E11.9 Type 2 diabetes mellitus without complications; E78.1 Pure hyperglyceridemia; E66.01 Morbid (severe) obesity due to excess calories; Z68.41 Body mass index [BMI] 40.0-44.9, adult; Z86.19 Personal history of other infectious and parasitic diseases; Z90.49 Acquired absence of other specified parts of digestive tract; Z79.899 Other long term (current) drug therapy; Z88.1 Allergy status to other antibiotic agents; Z82.49 Family history of ischemic heart disease and other diseases of the circulatory system; Z82.3 Family history of stroke
CPT/HCPCS: 36415; 43239; 71046; 76705; 80053; 80061; 81001; 83036; 83690; 83735; 84484; 84703; 85025; 85379; 85610; 85730; 88305; 88313; 88342; 93005; 93306; 93351; 94760; 96361; 96372; 96374; 99285

== ENCOUNTER → 2024-06-29 | Outpatient (CLI) | payer OTHER ==
[2024-06-29 15:54] VITALS: BP 134/84; PULSE 85; RESP 16; TEMP 98; BMI 42.7
--- NOTE | 2024-06-29 16:41 | P.BASOAP ---
Subjective Progress Note Date: 06/29/24 Need to obtain esophagram for hypertensive sphincter and has celiac disease.Plan for sleeve vs bypass. Scopes reviewed. Needs labs. ECHO already done. Objective - Vital Signs Vital signs: Vital Signs Temp 98.0 F 06/29/24 15:46 Pulse 85 06/29/24 15:46 Resp 16 06/29/24 15:46 BP 134/84 06/29/24 15:46 Pulse Ox FiO2 Intake & Output 06/28/24 06/29/24 06/29/24 18:59 06:59 18:59 Weight 127.459 kg Assessment/Plan Plan: Date: 06/29/24 Initial Weight: Initial BMI: Current Weight: 127.459 kg Current BMI: 42.7 Type of Surgery: Total Volume in Band: Previous Volume: Volume Removed: Volume Added: Band Size:
== END ==
LOC: BARWHC3 15:10
PROVIDERS: ATTEND Surgery Plastic and Reconstructive Surgery
DX: E66.01 Morbid (severe) obesity due to excess calories (principal); Z88.7 Allergy status to serum and vaccine; Z88.1 Allergy status to other antibiotic agents; Z68.41 Body mass index [BMI] 40.0-44.9, adult
CPT/HCPCS: 99211

== ENCOUNTER → 2024-07-18 | Outpatient (CLI) | payer OTHER ==
[2024-07-18 11:17] LABS: INR 0.9 (<1.2); Prothrombin Time 10.1 sec (10.0-12.5)
[2024-07-18 11:18] LABS: Partial Thromboplastin Time 23.3 sec (22.0-30.0)
[2024-07-18 15:40] LABS: Prealbumin 20.7 mg/dL (18.0-42.0)
[2024-07-18 16:10] LABS: HCT 41.2 % (37.2-46.3); HGB 13.2 g/dL (12.0-15.0); MCH 28.5 pg (27.0-32.0); Mean Platelet Volume 11.1 FL (9.5-12.2); NRBC Per 100 WBC 0 X 10*3/uL (0.00-0.01); Platelet Count 276 X 10*3/uL (140-440); RBC 4.63 X 10*6/uL (4.10-5.20); RDW 13.3 % (11.5-14.5); WBC 6.34 X 10*3/uL (4.50-10.00)
[2024-07-18 16:28] LABS: % Iron Saturation 15.46 (12.00-45.00); ALT 36 U/L (8-44); AST 34 U/L (13-35); Albumin 4.4 g/dL (3.8-4.9); Albumin/Globulin Ratio 1.57 Ratio (1.60-3.17); Alkaline Phosphatase 87 U/L (41-126); BUN/Creat Ratio 16.71 Ratio (12.00-20.00); Blood Urea Nitrogen 11.7 mg/dL (9.0-27.0); Calcium 9.1 mg/dL (8.7-10.3); Carbon Dioxide 16.3 mmol/L (21.6-31.8); Chloride 101 mmol/L (96-109); Chol/HDL Ratio 4.93 Ratio; Ferritin 60.3 ng/mL (10.0-291.0); Globulin 2.8 g/dL (1.6-3.3); Glucose 170 mg/dL (70-110); Iron 66 UG/DL (50-170); LDL Cholesterol,Calculated 93.1 mg/dL (0.0-131.0); Magnesium 1.9 mg/dL (1.5-2.4); Phosphorus 2.8 mg/dL (2.4-5.1); Potassium 4.6 mmol/L (3.5-5.5); Sodium 140 mmol/L (135-145); Total Bilirubin 0.4 mg/dL (0.3-1.2); Total Iron Binding Capacity 427 UG/DL (228-460); Total Protein 7.2 g/dL (6.2-8.2)
[2024-07-19 12:00] LABS: Zinc, Serum 103 ug/dL (60-130)
[2024-07-20 07:41] LABS: Vit B1(Thiamine) 51 ug/L (38-122)
[2024-07-21 05:54] LABS: Anabasine Urine <2.0 ng/mL (<2.0)
[2024-07-21 07:43] LABS: Vitamin A 50 ug/dL (38-106)
== END ==
LOC: LABWHC1 10:21
PROVIDERS: ATTEND Surgery Plastic and Reconstructive Surgery
CPT/HCPCS: 36415; 80053; 80061; 80307; 80323; 82306; 82525; 82607; 82728; 82746; 83036; 83540; 83550; 83735; 83970; 84100; 84134; 84255; 84425; 84443; 84590; 84630; 85027; 85610; 85730

== ENCOUNTER → 2024-08-04 | Outpatient (CLI) | payer OTHER ==
--- NOTE | 2024-08-04 09:54 | FL ---
EXAMINATION TYPE: FL barium swallow DATE OF EXAM: 08/04/2024 COMPARISON: CLINICAL INDICATION: Female, 38 years old with history of R13.10 DYSPHAGIA; [facility], TECHNIQUE: A double contrast esophagram is performed utilizing air and barium. A total of 43 second s of fluoroscopic time was utilized during procedure and 22 images obtained. Total dose area product (DAP) in uGy*m?, mGy*cm? (or similar) Provided. COMPARISON: None FINDINGS: The esophagus shows normal motility and emptying into the stomach. No evidence of hiatal h ernia or stricture noted. No significant gastroesophageal reflux was seen during real time performanc e of this study. IMPRESSION: No significant abnormality is seen to account for patient's symptoms. [facility], , 08/04/2024 9:52 AM
== END | disposition home or self-care (01) ==
LOC: RADFLMAIN 07:52
PROVIDERS: ATTEND Surgery Plastic and Reconstructive Surgery
DX: R13.10 Dysphagia, unspecified (principal)
CPT/HCPCS: 74220

== ENCOUNTER → 2024-09-12 | Outpatient (CLI) | payer OTHER ==
--- NOTE | 2024-09-12 17:16 | XR ---
EXAMINATION TYPE: XR ankle complete LT DATE OF EXAM: 09/12/2024 3:35 PM COMPARISON: None CLINICAL INDICATION: Female, 39 years old with history of S93.402A SPRAIN OF UNSPECIFIED LIGAMENT OF LEFT AN; PHH, pain TECHNIQUE: XR ankle complete LT; ankle is imaged in frontal, lateral and oblique projections. FINDINGS: There is no evidence of acute osseous pathology. No evidence of subluxation or dislocation. Kager's fat pad is intact. Mild soft tissue swelling around the ankle. No radiopaque foreign bodies are ident ified. Calcaneal plantar spurring is present. IMPRESSION: 1. No evidence of acute fracture. 2. Subcutaneous swelling around the ankle likely secondary to underlying soft tissue injury. [facility], , 09/12/2024 5:13 PM
== END | disposition home or self-care (01) ==
LOC: RADXRMAIN 15:22
PROVIDERS: ATTEND Internal Medicine
DX: S93.402A Sprain of unspecified ligament of left ankle, initial encounter (principal); M25.473 Effusion, unspecified ankle; X58.XXXA Exposure to other specified factors, initial encounter

== ENCOUNTER 2025-01-16 16:42 | Emergency (ER) | payer OTHER ==
[2025-01-16] MEDS: HYDROcodone/APAP 5-325MG 1 EACH TAB PO STA (17:26)
[2025-01-16] MEDS: KETOROLAC 15 MG/ML 1 ML VIAL IM STA (17:27)
--- NOTE | 2025-01-16 17:32 | ED ---
Fall HPI - General Chief Complaint: Fall Stated Complaint: R Ankle Injury Time Seen by Provider: 01/16/25 17:15 Source: patient, RN notes reviewed Mode of arrival: wheelchair Limitations: no limitations - History of Present Illness Initial Comments: This is a 39-year-old female who presents to the emergency department for a right ankle injury. Patient states that as she was leaving work she went to step off of a curb and developed sudden pain to the right ankle and right heel. States that her foot feels swollen and she is having difficulty ambulating. Denies hitting her head or sustaining any other injuries. MD Complaint: fall - Related Data Home Medications Medication Instructions Recorded Confirmed Atorvastatin [Lipitor] 20 mg PO HS 07/19/23 06/29/24 Fremanezumab-Vfrm [Ajovy 225 mg SQ Q28D 02/09/24 06/29/24 Autoinjector] Lasmiditan Succinate [Reyvow] 50 mg PO DAILY PRN 02/09/24 06/29/24 Ubrogepant [Ubrelvy] 100 mg PO DAILY PRN 02/09/24 06/29/24 Escitalopram [Lexapro] 20 mg PO DAILY 02/12/24 06/29/24 Ondansetron Odt [Zofran ODT] 4 mg PO Q8HR PRN 06/04/24 06/29/24 Sucralfate [Carafate] 1 gm PO TID 06/04/24 06/29/24 Atorvastatin [Lipitor] 20 mg PO HS 06/29/24 06/29/24 Previous Rx's Medication Instructions Recorded Pantoprazole [Protonix] 40 mg PO BID 30 Days #60 tab 07/22/23 Allergies Allergy/AdvReac Type Severity Reaction Status Date / Time sertraline [From Zoloft] Allergy Unknown Verified 01/16/25 17:12 Tetanus Vaccines and Toxoid Allergy Anaphylaxis Verified 01/16/25 17:12 cephalexin [From Keflex] AdvReac Vomiting Verified 01/16/25 17:12 Review of Systems ROS Statement: Those systems with pertinent positive or pertinent negative responses have been documented in the HPI. ROS Other: All systems not noted in ROS Statement are negative. Past Medical History Past Medical History: Chest Pain / Angina, Hyperlipidemia, Thyroid Disorder Additional Past Medical History / Comment(s): migraines, POTS, History of Any Multi-Drug Resistant Organisms: None Reported Past Surgical History: Cholecystectomy, Orthopedic Surgery Additional Past Surgical History / Comment(s): right shoulder x2. fallopian removal, right elbow. Past Anesthesia/Blood Transfusion Reactions: No Reported Reaction Past Psychological History: Anxiety, Bipolar, Depression, PTSD Smoking Status: Never smoker Past Alcohol Use History: None Reported Past Drug Use History: None Reported - Past Family History Mother Family Medical History: Chest Pain / Angina Father Family Medical History: Cancer General Exam Limitations: no limitations General appearance: alert, in no apparent distress Head exam: Present: atraumatic, normocephalic, normal inspection Respiratory exam: Present: normal lung sounds bilaterally. Absent: respiratory distress, wheezes, rales, rhonchi, stridor Cardiovascular Exam: Present: regular rate, normal rhythm Extremities exam: Present: other (Tenderness to palpation over the right lateral malleolus and right heel. Range of motion limited by pain. 2+ DP and PT pulses) Neurological exam: Present: alert, oriented X3, CN II-XII intact Psychiatric exam: Present: normal affect, normal mood Course Vital Signs 01/16/25 01/16/25 17:10 19:09 Temperature 97.8 F 98.1 F Pulse Rate 97 86 Respiratory 18 20 Rate Blood Pressure 155/88 146/78 O2 Sat by Pulse 98 99 Oximetry Medical Decision Making - Medical Decision Making This is a 39-year-old female who presents to the emergency department for a right ankle injury. Was pt. sent in by a medical professional or institution? @ -No Did you speak to anyone other than the patient for history? @ -No Did you review nursing and triage notes? @ -Yes, and I agree, it is accurate with regards to the patient's symptoms. Were old charts reviewed? @ -No Differential Diagnosis? @ -Differential Musculoskeletal Muscular strain, contusion, ligament sprain, fracture, arthritis, septic arthritis, bursitis, cellulitis, muscle spasm, nerve compression, DVT, arterial occlusion, herpes zoster, electrolyte abnormality, tumor.... This is not meant to be in all inclusive list EKG interpreted by me (3pts min.)? @ -Not obtained X-rays interpreted by me (1pt min.)? @ -X-ray of the right foot and ankle obtained. My interpretation identifies no acute fractures. CT interpreted by me (1pt min.)? @ -Not obtained U/S interpreted by me (1pt. min.)? @ -Not obtained What testing was considered but not performed? (CT, X-rays, U/S, labs)? Why? @ -None What meds were considered but not given? Why? @ -None Did you discuss the management of the patient with other professionals? @ -No Did you reconcile home meds? @ -No Was smoking cessation discussed for >3mins.? @ -No Was critical care preformed (if so, how long)? @ -No Were there social determinants of health that impacted care today? How? (Homelessness, low income, unemployed, alcoholism, drug addiction, transportation, low edu. Level, literacy, decrease access to med. care, usp, rehab)? @ -No Was there de-escalation of care discussed even if they declined? (Discuss DNR or withdrawal of care, Hospice)? @ -No What co-morbidities impacted this encounter? (DM, HTN, Smoking, COPD, CAD, Cancer, CVA, Hep., AIDS, mental health diagnosis, sleep apnea, morbid obesity)? @ -None Was patient admitted / discharged? @ -Discharged. X-ray of the right foot and ankle obtained revealing no acute process. Pain was treated in the emergency department. Advised that this is likely related to a sprain, however if symptoms persist after 7 to 10 days she may need repeat imaging in the event she has a fracture that is not currently identifiable. Velcro stirrup splint was applied for support. Advised ibuprofen and Tylenol as needed for pain relief as well as ice and elevation. Patient discharged home in stable condition. Case discussed with ED attending Dr. Wood. Return precautions reviewed in depth, the patient is instructed to return to the emergency department with any new, worsening, or concerning symptoms. Patient verbalized understanding. Undiagnosed new problem with uncertain prognosis? @ -None Drug Therapy requiring intensive monitoring for toxicity (Heparin, Nitro, Insulin, Cardizem)? @ -None Were any procedures done? @ -None Diagnosis/symptom? @ -Right ankle sprain Acute, or Chronic, or Acute on Chronic? @ -Acute Uncomplicated (without systemic symptoms) or Complicated (systemic symptoms)? @ -Uncomplicated Side effects of treatment? @ -None Exacerbation, Progression, or Severe Exacerbation] @ -Not applicable Poses a threat to life or bodily function? @ -No - Radiology Data Radiology results: report reviewed, image reviewed Disposition Clinical Impression: Right ankle sprain Disposition: HOME SELF-CARE Instructions (If sedation given, give patient instructions): Ankle Sprain (ED) Additional Instructions: Return to the emergency department with any new, worsening, or concerning symptoms. Take Tylenol as needed for pain relief. Apply ice and elevate the ankle. If you do not start to improve, you may need repeat images in 7 to 10 days. Is patient prescribed a controlled substance at d/c from ED?: No Referrals: Melita Handley MD [Primary Care Provider] - 1-2 days Time of Disposition: 18:34
--- NOTE | 2025-01-16 18:29 | XR ---
EXAMINATION TYPE: XR foot complete RT, XR ankle complete RT DATE OF EXAM: 01/16/2025 5:36 PM COMPARISON: 01/16/2025 09/12/2024 CLINICAL INDICATION: Female, 39 years old with history of Injury, pain TECHNIQUE: XR foot complete RT, XR ankle complete RT examined in the AP, oblique, and lateral project ions. FINDINGS: No evidence of any acute osseous pathology. Calcaneal plantar spurring is present. Incidental note is made of symphalangism of the fifth distal interphalangeal joint. IMPRESSION: No evidence of acute fracture. [facility], , 01/16/2025 6:27 PM
[2025-01-16] MEDS: ACET/COD 300 MG/30 MG STARTER PACK 6 TAB BTL PO STA (19:04)
[2025-01-16 19:10] VITALS: BP 146/78; PULSE 86; RESP 20; TEMP 98.1
== END 2025-01-16 19:10 | disposition home or self-care (01) ==
LOC: EC 16:42
DX: S93.401A Sprain of unspecified ligament of right ankle, initial encounter (principal); Z88.1 Allergy status to other antibiotic agents; Z88.8 Allergy status to other drugs, medicaments and biological substances; W10.9XXA Fall (on) (from) unspecified stairs and steps, initial encounter; Y99.0 Civilian activity done for income or pay
CPT/HCPCS: 73610; 73630; 99283; 96372; L4350; J1885

== ENCOUNTER → 2025-01-17 | Outpatient (CLI) | payer OTHER ==
[2025-01-17 14:58] LABS: ALT 53 U/L (8-44); AST 66 U/L (13-35); Albumin 4.3 g/dL (3.8-4.9); Albumin/Globulin Ratio 1.48 Ratio (1.60-3.17); Alkaline Phosphatase 79 U/L (41-126); BUN/Creat Ratio 17.86 Ratio (12.00-20.00); Blood Urea Nitrogen 12.5 mg/dL (9.0-27.0); Calcium 9.3 mg/dL (8.7-10.3); Carbon Dioxide 22.6 mmol/L (21.6-31.8); Chloride 102 mmol/L (96-109); Globulin 2.9 g/dL (1.6-3.3); Glucose 195 mg/dL (70-110); Potassium 4.2 mmol/L (3.5-5.5); Sodium 139 mmol/L (135-145); Total Bilirubin 0.4 mg/dL (0.3-1.2); Total Protein 7.2 g/dL (6.2-8.2)
== END | disposition home or self-care (01) ==
LOC: LABWHC1 11:32
PROVIDERS: ATTEND Family Medicine
DX: R74.02 Elevation of levels of lactic acid dehydrogenase [LDH] (principal)
CPT/HCPCS: 36415; 80053; 83605

== ENCOUNTER 2025-01-20 16:55 | Emergency (ER) | payer OTHER ==
[2025-01-20 17:14] VITALS: TEMP 98.4
--- NOTE | 2025-01-20 18:05 | ED ---
General Adult HPI - General Chief complaint: Abdominal Pain Stated complaint: back pain Time Seen by Provider: 01/20/25 17:16 Source: patient, RN notes reviewed Mode of arrival: ambulatory Limitations: no limitations - History of Present Illness Initial comments: 39-year-old female presents to the emergency department for evaluation of abdominal pain. Patient states that she has pain in the right upper abdomen. She notes that has been going on for 2 days. She denies any known aggravating or alleviating factors. She notes it is a stabbing pain. Denies any recent fever, chills. Admits to nausea without vomiting. Endorses loose stools. She does report a prior cholecystectomy. - Related Data Home Medications Medication Instructions Recorded Confirmed Atorvastatin [Lipitor] 20 mg PO HS 07/19/23 06/29/24 Fremanezumab-Vfrm [Ajovy 225 mg SQ Q28D 02/09/24 06/29/24 Autoinjector] Lasmiditan Succinate [Reyvow] 50 mg PO DAILY PRN 02/09/24 06/29/24 Ubrogepant [Ubrelvy] 100 mg PO DAILY PRN 02/09/24 06/29/24 Escitalopram [Lexapro] 20 mg PO DAILY 02/12/24 06/29/24 Ondansetron Odt [Zofran ODT] 4 mg PO Q8HR PRN 06/04/24 06/29/24 Sucralfate [Carafate] 1 gm PO TID 06/04/24 06/29/24 Atorvastatin [Lipitor] 20 mg PO HS 06/29/24 06/29/24 Previous Rx's Medication Instructions Recorded Pantoprazole [Protonix] 40 mg PO BID 30 Days #60 tab 07/22/23 Allergies Allergy/AdvReac Type Severity Reaction Status Date / Time sertraline [From Zoloft] Allergy Unknown Verified 01/20/25 17:14 Tetanus Vaccines and Toxoid Allergy Anaphylaxis Verified 01/20/25 17:14 cephalexin [From Keflex] AdvReac Vomiting Verified 01/20/25 17:14 Review of Systems ROS Statement: Those systems with pertinent positive or pertinent negative responses have been documented in the HPI. ROS Other: All systems not noted in ROS Statement are negative. Past Medical History Past Medical History: Chest Pain / Angina, Hyperlipidemia, Thyroid Disorder Additional Past Medical History / Comment(s): migraines, POTS, History of Any Multi-Drug Resistant Organisms: None Reported Past Surgical History: Cholecystectomy, Orthopedic Surgery Additional Past Surgical History / Comment(s): right shoulder x2. fallopian removal, right elbow. Past Anesthesia/Blood Transfusion Reactions: No Reported Reaction Past Psychological History: Anxiety, Bipolar, Depression, PTSD Smoking Status: Never smoker Past Alcohol Use History: None Reported Past Drug Use History: None Reported - Past Family History Mother Family Medical History: Chest Pain / Angina Father Family Medical History: Cancer General Exam Limitations: no limitations General appearance: alert, in no apparent distress Head exam: Present: atraumatic, normocephalic, normal inspection Eye exam: Present: normal appearance, PERRL, EOMI. Absent: scleral icterus, conjunctival injection, periorbital swelling ENT exam: Present: normal exam, mucous membranes moist Neck exam: Present: normal inspection. Absent: tenderness, meningismus, lymphadenopathy Respiratory exam: Present: normal lung sounds bilaterally. Absent: respiratory distress, wheezes, rales, rhonchi, stridor Cardiovascular Exam: Present: regular rate, normal rhythm, normal heart sounds. Absent: systolic murmur, diastolic murmur, rubs, gallop, clicks GI/Abdominal exam: Present: soft, normal bowel sounds. Absent: distended, tenderness, guarding, rebound, rigid Extremities exam: Present: normal inspection, full ROM, normal capillary refill. Absent: tenderness, pedal edema, joint swelling, calf tenderness Back exam: Present: normal inspection Neurological exam: Present: alert, oriented X3 Psychiatric exam: Present: normal affect, normal mood Skin exam: Present: warm, dry, intact, normal color. Absent: rash Course Vital Signs 01/20/25 01/20/25 01/20/25 17:11 19:17 19:33 Temperature 98.4 F 98.4 F Pulse Rate 100 83 Respiratory 16 20 Rate Blood Pressure 128/90 113/65 114/74 O2 Sat by Pulse 97 99 Oximetry Medical Decision Making - Medical Decision Making Was pt. sent in by a medical professional or institution (, PA, [employer] PR[employer]ING [employer]PARER, urgent care, hospital, or long-term...) When possible be specific @ -No Did you speak to anyone other than the patient for history (EMS, parent, family, police, friend...)? What history was obtained from this source @ -No Did you review nursing and triage notes (agree or disagree)? Why? @ -I reviewed and agree with nursing and triage notes Were old charts reviewed (outside hosp., previous admission, EMS record, old EKG, old radiological studies, urgent care reports/EKG's, long-term records)? Report findings @ -No old charts were reviewed Differential Diagnosis (chest pain, altered mental status, abdominal pain women, abdominal pain men, vaginal bleeding, weakness, fever, dyspnea, syncope, headache, dizziness, GI bleed, back pain, seizure, CVA, palpatations, mental health, musculoskeletal)? @ -Differential Abdominal Pain Women: Appendicitis, Cholecystitis, diverticulosis, ischemic bowel, pancreatitis, hepatitis, UTI, gastroenteritis, AAA, incarcerated hernia, bowel obstruction, constipation, inflammatory bowel, hepatitis, peptic ulcer disease, splenic infarction, perforated viscus, vulvitis, ovarian torsion, PID, kidney stone, placenta abruption, this is not meant to be an all-inclusive list EKG interpreted by me (3pts min.). @ -None X-rays interpreted by me (1pt min.). @ -None done CT interpreted by me (1pt min.). @ -None done U/S interpreted by me (1pt. min.). @ -None done What testing was considered but not performed or refused? (CT, X-rays, U/S, labs)? Why? @ -Abdominal imaging considered but the patient recently had imaging and based on her labs this was deferred What meds were considered but not given or refused? Why? @ -None Did you discuss the management of the patient with other professionals (professionals i.e. , PA, SCRE[employer] PR[employer]ING ST[employer]IL PREPARER, lab, RT, psych nurse, social services coordinator, branch logistics supervisor, teacher, banking officer, case investigator)? Give summary @ -No Was smoking cessation discussed for >3mins.? @ -No Was critical care preformed (if so, how long)? @ -No Were there social determinants of health that impacted care today? How? (Homelessness, low income, unemployed, alcoholism, drug addiction, transportation, low edu. Level, literacy, decrease access to med. care, shelter, rehab)? @ -No Was there de-escalation of care discussed even if they declined (Discuss DNR or withdrawal of care, Hospice)? DNR status @ -No What co-morbidities impacted this encounter? (DM, HTN, Smoking, COPD, CAD, Cancer, CVA, ARF, Chemo, Hep., AIDS, mental health diagnosis, sleep apnea, morbid obesity)? @ -None Was patient admitted / discharged? Hospital course, mention meds given and route, prescriptions, significant lab abnormalities, going to OR and other pertinent info. @ -Discharge. Patient presented emergency department for evaluation of abdominal pain.Laboratory studies show no significant leukocytosis, hemoglobin 12.5; CMP is nonactionable she does have very mild transaminitis which is improving from her prior labs 2 days ago. UA shows no evidence of infectious process, negative urine hCG. Patient provided medication for pain and nausea control in the emergency department. She will be discharged home. She is understanding agreeable to plan. Patient stable at time of discharge. Case discussed with Dr. Ramirez Undiagnosed new problem with uncertain prognosis? @ -No Drug Therapy requiring intensive monitoring for toxicity (Heparin, Nitro, Insulin, Cardizem)? @ -No Were any procedures done? @ -No Diagnosis/symptom? @ -abdominal pain Acute, or Chronic, or Acute on Chronic? @ -acute Uncomplicated (without systemic symptoms) or Complicated (systemic symptoms)? @ -uncomplicated Side effects of treatment? @ -No Exacerbation, Progression, or Severe Exacerbation? @ -No Poses a threat to life or bodily function? How? (Chest pain, [place], [place], pneumonia, PE, COPD, DKA, ARF, appy, cholecystitis, CVA, Diverticulitis, Homicidal, Suicidal, threat to staff... and all critical care pts) @ -No - Lab Data Result diagrams: 01/20/25 17:50 01/20/25 17:50 Lab Results 01/20/25 01/20/25 01/20/25 Range/Units 17:50 17:50 17:50 WBC 9.04 (4.50-10.00) 10*3/uL RBC 4.24 (4.10-5.20) 10*6/uL Hgb 12.5 (12.0-15.0) g/dL Hct 36.8 L (37.2-46.3) % MCV 86.8 (80.0-97.0) fL MCH 29.5 (27.0-32.0) pg MCHC 34.0 (32.0-37.0) g/dL Plt Count 262 (140-440) 10*3/uL MPV 10.3 (9.5-12.2) fL Immature Gran % (Auto) 0.3 % Neutrophils % 57.4 % Lymphocytes % 34.3 % Monocytes % 5.4 % Eosinophils % 2.0 % Basophils % 0.6 % Immature Gran # 0.03 (0.00-0.04) 10*3/uL Neutrophils # 5.19 (1.80-7.70) 10*3/uL Lymphocytes # 3.10 (0.90-5.00) 10*3/uL Monocytes # 0.49 (0.20-1.00) 10*3/uL Eosinophils # 0.18 (0.04-0.35) 10*3/uL Basophils # 0.05 (0.00-0.10) 10*3/uL Sodium (137-145) mmol/L Potassium (3.5-5.1) mmol/L Chloride (98-107) mmol/L Carbon Dioxide (22-30) mmol/L Anion Gap mmol/L BUN (7-17) mg/dL Creatinine (0.52-1.04) mg/dL Est GFR (CKD-EPI)AfAm (>60 ml/min/1.73 sqM) Est GFR (CKD-EPI)NonAf (>60 ml/min/1.73 sqM) Glucose (74-99) mg/dL Plasma Lactic Acid Darin (0.7-2.0) mmol/L Calcium (8.4-10.2) mg/dL Total Bilirubin (0.2-1.3) mg/dL AST (14-36) U/L ALT (4-34) U/L Alkaline Phosphatase (38-126) U/L Total Protein (6.3-8.2) g/dL Albumin (3.5-5.0) g/dL Amylase (30-110) U/L Lipase (23-300) U/L Urine Color Colorless Urine Appearance Clear (Clear) Urine pH 6.0 (5.0-8.0) Ur Specific [place] 1.009 (1.001-1.035) Urine Protein Negative (Negative) Urine Glucose (UA) Negative (Negative) Urine Ketones Negative (Negative) Urine Blood Negative (Negative) Urine Nitrite Negative (Negative) Urine Bilirubin Negative (Negative) Urine Urobilinogen <2.0 (<2.0) mg/dL Ur Leukocyte Esterase Negative (Negative) Urine HCG, Qual Not Detected (Not Detectd) 01/20/25 01/20/25 Range/Units 17:50 17:50 WBC (4.50-10.00) 10*3/uL RBC (4.10-5.20) 10*6/uL Hgb (12.0-15.0) g/dL Hct (37.2-46.3) % MCV (80.0-97.0) fL MCH (27.0-32.0) pg MCHC (32.0-37.0) g/dL Plt Count (140-440) 10*3/uL MPV (9.5-12.2) fL Immature Gran % (Auto) % Neutrophils % % Lymphocytes % % Monocytes % % Eosinophils % % Basophils % % Immature Gran # (0.00-0.04) 10*3/uL Neutrophils # (1.80-7.70) 10*3/uL Lymphocytes # (0.90-5.00) 10*3/uL Monocytes # (0.20-1.00) 10*3/uL Eosinophils # (0.04-0.35) 10*3/uL Basophils # (0.00-0.10) 10*3/uL Sodium 137 (137-145) mmol/L Potassium 3.7 (3.5-5.1) mmol/L Chloride 103 (98-107) mmol/L Carbon Dioxide 22 (22-30) mmol/L Anion Gap 12 mmol/L BUN 12 (7-17) mg/dL Creatinine 0.63 (0.52-1.04) mg/dL Est GFR (CKD-EPI)AfAm >90 (>60 ml/min/1.73 sqM) Est GFR (CKD-EPI)NonAf >90 (>60 ml/min/1.73 sqM) Glucose 103 H (74-99) mg/dL Plasma Lactic Acid Darin 1.7 (0.7-2.0) mmol/L Calcium 9.4 (8.4-10.2) mg/dL Total Bilirubin 0.6 (0.2-1.3) mg/dL AST 42 H (14-36) U/L ALT 43 H (4-34) U/L Alkaline Phosphatase 72 (38-126) U/L Total Protein 7.3 (6.3-8.2) g/dL Albumin 4.2 (3.5-5.0) g/dL Amylase 46 (30-110) U/L Lipase 152 (23-300) U/L Urine Color Urine Appearance (Clear) Urine pH (5.0-8.0) Ur Specific [place] (1.001-1.035) Urine Protein (Negative) Urine Glucose (UA) (Negative) Urine Ketones (Negative) Urine Blood (Negative) Urine Nitrite (Negative) Urine Bilirubin (Negative) Urine Urobilinogen (<2.0) mg/dL Ur Leukocyte Esterase (Negative) Urine HCG, Qual (Not Detectd) Disposition Clinical Impression: Abdominal pain Disposition: HOME SELF-CARE Condition: Stable Instructions (If sedation given, give patient instructions): Abdominal Pain (ED) Additional Instructions: Please follow up with your primary care provider. Return to the emergency department for new or worsening symptoms. Is patient prescribed a controlled substance at d/c from ED?: No Referrals: Melita Handley MD [Primary Care Provider] - 1-2 days
[2025-01-20] MEDS: ONDANSETRON 4 MG/2 ML VIAL IVP STA (18:07)
[2025-01-20 18:09] LABS: Basophils # (A) 0.05 10*3/uL (0.00-0.10); Basophils % (A) 0.6 %; Eosinophils # (A) 0.18 10*3/uL (0.04-0.35); HCT 36.8 % (37.2-46.3); HGB 12.5 g/dL (12.0-15.0); Lymphocytes % (A) 34.3 %; MCH 29.5 pg (27.0-32.0); MCV 86.8 fL (80.0-97.0); Mean Platelet Volume 10.3 fL (9.5-12.2); Monocytes # (A) 0.49 10*3/uL (0.20-1.00); Monocytes % (A) 5.4 %; Neutrophils # (A) 5.19 10*3/uL (1.80-7.70); Neutrophils % (A) 57.4 %; Platelet Count 262 10*3/uL (140-440); RBC 4.24 10*6/uL (4.10-5.20); RDW 13.2 % (11.5-14.5); WBC 9.04 10*3/uL (4.50-10.00)
[2025-01-20] MEDS: KETOROLAC 15 MG/ML 1 ML VIAL IVP STA (18:09)
[2025-01-20] MEDS: SODIUM CHLORIDE 0.9% 1,000 ML IV ONE (18:10)
[2025-01-20 18:14] LABS: Appearance,Urine Clear (Clear); Bilirubin,Urine Negative (Negative); Blood,Urine Negative (Negative); Color,Urine Colorless; Glucose,Urine (UA) Negative (Negative); Ketones,Urine Negative (Negative); Leukocyte Esterase,Urine Negative (Negative); Nitrite,Urine Negative (Negative); Protein,Urine Negative (Negative); Specific Gravity,Urine 1.009 (1.001-1.035); Urobilinogen,Urine <2.0 mg/dL (<2.0)
[2025-01-20 18:21] LABS: ALT 43 U/L (4-34); AST 42 U/L (14-36); African American GFR (CKD) >90 (>60 ml/min/1.73 sqM); Albumin 4.2 g/dL (3.5-5.0); Alkaline Phosphatase 72 U/L (38-126); Amylase 46 U/L (30-110); Anion Gap 12 mmol/L; Blood Urea Nitrogen 12 mg/dL (7-17); Calcium 9.4 mg/dL (8.4-10.2); Carbon Dioxide 22 mmol/L (22-30); Chloride 103 mmol/L (98-107); Glucose 103 mg/dL (74-99); Lipase 152 U/L (23-300); Non-African American GFR(CKD) >90 (>60 ml/min/1.73 sqM); Potassium 3.7 mmol/L (3.5-5.1); Sodium 137 mmol/L (137-145); Total Bilirubin 0.6 mg/dL (0.2-1.3); Total Protein 7.3 g/dL (6.3-8.2)
[2025-01-20] MEDS: MORPHINE SULFATE 4 MG/ML SYRINGE IVP STA (19:11)
[2025-01-20 19:18] VITALS: PULSE 83; RESP 20
[2025-01-20 19:34] VITALS: BP 114/74
== END 2025-01-20 19:40 | disposition home or self-care (01) ==
LOC: EC 16:55
DX: R10.11 Right upper quadrant pain (principal); Z88.7 Allergy status to serum and vaccine; Z88.1 Allergy status to other antibiotic agents; Z88.8 Allergy status to other drugs, medicaments and biological substances
CPT/HCPCS: 36415; 80053; 82150; 83605; 83690; 85025; 81003; 81025; 99284; 96374; 96375 ×2; J2270; J2405; J1885

== ENCOUNTER 2025-01-31 03:43 | Emergency (ER) | payer OTHER ==
--- NOTE | 2025-01-31 03:58 | ED ---
Abdominal Pain HPI - General Chief Complaint: Abdominal Pain Stated Complaint: NVD, Abd pain Time Seen by Provider: 01/31/25 03:50 Source: patient, RN notes reviewed, old records reviewed Mode of arrival: ambulatory Limitations: no limitations - History of Present Illness Initial Comments: This is a 39-year-old female to the ER for evaluation patient presents today for evaluation regards to severe abdominal pain abdominal pain for greater than a week, patient has had prior colonoscopy prior GI bleed and gallbladder surgery. No fevers MD Complaint: abdominal pain -: days(s), week(s) Location: RLQ, epigastric, suprapubic Radiation: RLQ, R flank Migration to: suprapubic Severity: severe Severity scale (1-10): 9 Quality: stabbing Consistency: constant Improves With: nothing Worsens With: nothing Associated Symptoms: nausea, vomiting, diarrhea Treatments Prior to Arrival: other - Related Data Home Medications Medication Instructions Recorded Confirmed RX: Atorvastatin [Lipitor] 20 mg PO HS 07/19/23 06/29/24 RX: Fremanezumab-Vfrm [Ajovy 225 mg SQ Q28D 02/09/24 06/29/24 Autoinjector] RX: Lasmiditan Succinate [Reyvow] 50 mg PO DAILY PRN 02/09/24 06/29/24 RX: Ubrogepant [Ubrelvy] 100 mg PO DAILY PRN 02/09/24 06/29/24 RX: Escitalopram [Lexapro] 20 mg PO DAILY 02/12/24 06/29/24 RX: Ondansetron Odt [Zofran ODT] 4 mg PO Q8HR PRN 06/04/24 06/29/24 RX: Sucralfate [Carafate] 1 gm PO TID 06/04/24 06/29/24 Atorvastatin [Lipitor] 20 mg PO HS 06/29/24 06/29/24 Previous Rx's Medication Instructions Recorded RX: Pantoprazole [Protonix] 40 mg PO BID 30 Days #60 tab 07/22/23 Allergies Allergy/AdvReac Type Severity Reaction Status Date / Time sertraline [From Zoloft] Allergy Unknown Verified 01/31/25 03:48 Tetanus Vaccines and Toxoid Allergy Anaphylaxis Verified 01/31/25 03:48 cephalexin [From Keflex] AdvReac Vomiting Verified 01/31/25 03:48 Review of Systems ROS Statement: Those systems with pertinent positive or pertinent negative responses have been documented in the HPI. ROS Other: All systems not noted in ROS Statement are negative. Past Medical History Past Medical History: Chest Pain / Angina, Hyperlipidemia, Thyroid Disorder Additional Past Medical History / Comment(s): migraines, POTS, History of Any Multi-Drug Resistant Organisms: None Reported Past Surgical History: Cholecystectomy, Orthopedic Surgery Additional Past Surgical History / Comment(s): right shoulder x2. fallopian removal, right elbow. Past Anesthesia/Blood Transfusion Reactions: No Reported Reaction Past Psychological History: Anxiety, Bipolar, Depression, PTSD Smoking Status: Never smoker Past Alcohol Use History: None Reported Past Drug Use History: None Reported - Past Family History Mother Family Medical History: Chest Pain / Angina Father Family Medical History: Cancer General Exam Limitations: no limitations General appearance: alert, in no apparent distress Head exam: Present: atraumatic, normocephalic, normal inspection Eye exam: Present: normal appearance, PERRL, EOMI. Absent: scleral icterus, conjunctival injection, periorbital swelling ENT exam: Present: normal exam, mucous membranes moist Neck exam: Present: normal inspection. Absent: tenderness, meningismus, lymphadenopathy Respiratory exam: Present: normal lung sounds bilaterally. Absent: respiratory distress, wheezes, rales, rhonchi, stridor Cardiovascular Exam: Present: regular rate, normal rhythm, normal heart sounds. Absent: systolic murmur, diastolic murmur, rubs, gallop, clicks GI/Abdominal exam: Present: soft, normal bowel sounds. Absent: distended, tenderness, guarding, rebound, rigid Extremities exam: Present: normal inspection, full ROM, normal capillary refill. Absent: tenderness, pedal edema, joint swelling, calf tenderness Back exam: Present: normal inspection Neurological exam: Present: alert, oriented X3, CN II-XII intact Psychiatric exam: Present: normal affect, normal mood Skin exam: Present: warm, dry, intact, normal color. Absent: rash Course Vital Signs 01/31/25 03:45 Temperature 97.3 F L Pulse Rate 96 Respiratory 16 Rate Blood Pressure 120/88 O2 Sat by Pulse 98 Oximetry - Reevaluation(s) Reevaluation #1: 01/31/25 04:37 Records reviewed Reevaluation #2: 01/31/25 04:38 Patient's symptoms improving here in the ER Reevaluation #3: 01/31/25 04:52 Patient informed of results and questions answered Reevaluation #4: Was pt. sent in by a medical professional or institution (KELL Rosas, R[employer], urgent care, hospital, or prison...) When possible be specific @ -no Did you speak to anyone other than the patient for history (EMS, parent, family, police, friend...)? What history was obtained from this source @ -no Did you review nursing and triage notes (agree or disagree)? Why? @ -agree Are old charts reviewed (outside hosp., previous admission, EMS record, old EKG, old radiological studies, urgent care reports/EKG's, prison records)? Report findings @ -yes Differential Diagnosis (chest pain, altered mental status, abdominal pain women, abdominal pain men, vaginal bleeding, weakness, fever, dyspnea, syncope, headache, dizziness, GI bleed, back pain, seizure, CVA, palpatations, mental health, musculoskeletal)? @ -prior EKG interpreted by me (3pts min.). @ -yes X-rays interpreted by me (1pt min.). @ -yes negative for acute disease CT interpreted by me (1pt min.). @ -no U/S interpreted by me (1pt. min.). @ -no What testing was considered but not performed or refused? (CT, X-rays, U/S, labs)? Why? @ -none What meds were considered but not given or refused? Why? @ -none Did you discuss the management of the patient with other professionals (professionals i.e. KELL Rosas, ROCK [employer]ER, lab, RT, psych nurse, social work nurse, vendette, teacher, collection officer, major case detective)? Give summary @ -no Was smoking cessation discussed for >3mins.? @ -no Was critical care preformed (if so, how long)? @ -no Were there social determinants of health that impacted care today? How? (Homelessness, low income, unemployed, alcoholism, drug addiction, transportation, low edu. Level, literacy, decrease access to med. care, skilled nursing, rehab)? @ -none Was there de-escalation of care discussed even if they declined (Discuss DNR or withdrawal of care, Hospice)? DNR status @ -no What co-morbidities impacted this encounter? (DM, HTN, Smoking, COPD, CAD, Cancer, CVA, ARF, Chemo, Hep., AIDS, mental health diagnosis, sleep apnea, morbid obesity)? @ -none Was patient admitted / discharged? Hospital course, mention meds given and route, prescriptions, significant lab abnormalities, going to OR and other pert inent info. @ - Undiagnosed new problem with uncertain prognosis? @ -no Drug Therapy requiring intensive monitoring for toxicity (Heparin, Nitro, Insulin, Cardizem)? @ -no Were any procedures done? @ -no Diagnosis/symptom? @ - Acute, or Chronic, or Acute on Chronic? @ -Acute Uncomplicated (without systemic symptoms) or Complicated (systemic symptoms)? @ -Complicated Side effects of treatment? @ -no Exacerbation, Progression, or Severe Exacerbation? @ -exacerbation Poses a threat to life or bodily function? How? (Chest pain, [place], [place], pneumonia, PE, COPD, DKA, ARF, appy, cholecystitis, CVA, Diverticulitis, Homicidal, Suicidal, threat to staff... and all critical care pts) @ -yes Reevaluation #5: Differential Abdominal Pain Women: Appendicitis, Cholecystitis, diverticulosis, ischemic bowel, pancreatitis, hepatitis, UTI, gastroenteritis, AAA, incarcerated hernia, bowel obstruction, constipation, inflammatory bowel, hepatitis, peptic ulcer disease, splenic infarction, perforated viscus, vulvitis, ovarian torsion, PID, kidney stone, placenta abruption, this is not meant to be an all-inclusive list Medical Decision Making - Medical Decision Making 39 Female to ER for evaluation of abdominal pain abdominal pain gastroenteritis on CT scan. Patient has symptoms dramatically improved here in the ER and can be discharged home - Lab Data Result diagrams: 01/31/25 04:03 01/31/25 04:02 Lab Results 01/31/25 01/31/25 01/31/25 Range/Units 04:02 04:02 04:03 WBC 12.72 H (4.50-10.00) 10*3/uL RBC 4.59 (4.10-5.20) 10*6/uL Hgb 13.8 (12.0-15.0) g/dL Hct 40.0 (37.2-46.3) % MCV 87.1 (80.0-97.0) fL MCH 30.1 (27.0-32.0) pg MCHC 34.5 (32.0-37.0) g/dL Plt Count 273 (140-440) 10*3/uL MPV 10.6 (9.5-12.2) fL Immature Gran % (Auto) 0.5 % Neutrophils % 60.6 % Lymphocytes % 24.7 % Monocytes % 4.8 % Eosinophils % 8.9 % Basophils % 0.5 % Immature Gran # 0.06 H (0.00-0.04) 10*3/uL Neutrophils # 7.72 H (1.80-7.70) 10*3/uL Lymphocytes # 3.14 (0.90-5.00) 10*3/uL Monocytes # 0.61 (0.20-1.00) 10*3/uL Eosinophils # 1.13 H (0.04-0.35) 10*3/uL Basophils # 0.06 (0.00-0.10) 10*3/uL Sodium 138 (137-145) mmol/L Potassium 4.3 (3.5-5.1) mmol/L Chloride 103 (98-107) mmol/L Carbon Dioxide 25 (22-30) mmol/L Anion Gap 10 mmol/L BUN 14 (7-17) mg/dL Creatinine 0.71 (0.52-1.04) mg/dL Est GFR (CKD-EPI)AfAm >90 (>60 ml/min/1.73 sqM) Est GFR (CKD-EPI)NonAf >90 (>60 ml/min/1.73 sqM) Glucose 132 H (74-99) mg/dL Plasma Lactic Acid Darin 1.4 (0.7-2.0) mmol/L Calcium 9.4 (8.4-10.2) mg/dL Phosphorus 3.5 (2.5-4.5) mg/dL Magnesium 2.0 (1.6-2.3) mg/dL Total Bilirubin 0.9 (0.2-1.3) mg/dL AST 38 H (14-36) U/L ALT 36 H (4-34) U/L Alkaline Phosphatase 80 (38-126) U/L Total Protein 7.8 (6.3-8.2) g/dL Albumin 4.6 (3.5-5.0) g/dL Amylase 43 (30-110) U/L Lipase 104 (23-300) U/L - Radiology Data Radiology results: report reviewed (CT abdomen pelvis is positive for enteritis no other acute finding), image reviewed Disposition Clinical Impression: Abdominal pain, Abdominal colic Disposition: ADMITTED IP TO THIS HOSP Condition: Fair Instructions (If sedation given, give patient instructions): Abdominal Pain (ED) Is patient prescribed a controlled substance at d/c from ED?: No Referrals: Melita Handley MD [Primary Care Provider] - 1-2 days Time of Disposition: 04:50
[2025-01-31] MEDS: ONDANSETRON 4 MG/2 ML VIAL IVP STA (04:16)
[2025-01-31] MEDS: HYDROmorphone 1 MG/ML 1 ML SYRINGE IVP STA (04:16)
[2025-01-31] MEDS: SODIUM CHLORIDE 0.9% 1,000 ML IV ONE (04:18)
[2025-01-31 04:24] LABS: Basophils # (A) 0.06 10*3/uL (0.00-0.10); Basophils % (A) 0.5 %; Eosinophils # (A) 1.13 10*3/uL (0.04-0.35); Eosinophils % (A) 8.9 %; HGB 13.8 g/dL (12.0-15.0); Lymphocytes # (A) 3.14 10*3/uL (0.90-5.00); Lymphocytes % (A) 24.7 %; MCH 30.1 pg (27.0-32.0); MCHC 34.5 g/dL (32.0-37.0); MCV 87.1 fL (80.0-97.0); Mean Platelet Volume 10.6 fL (9.5-12.2); Monocytes # (A) 0.61 10*3/uL (0.20-1.00); Monocytes % (A) 4.8 %; Neutrophils # (A) 7.72 10*3/uL (1.80-7.70); Neutrophils % (A) 60.6 %; Platelet Count 273 10*3/uL (140-440); RBC 4.59 10*6/uL (4.10-5.20); RDW 13.5 % (11.5-14.5); WBC 12.72 10*3/uL (4.50-10.00)
--- NOTE | 2025-01-31 04:39 | CT ---
EXAM: CT Abdomen and Pelvis With Intravenous Contrast CLINICAL HISTORY: ITS.REASON CT Reason: pain TECHNIQUE: Axial computed tomography images of the abdomen and pelvis with intravenous contrast. CTDI is 40.3 mGy and DLP is 2123.1 mGy-cm. This CT exam was performed using one or more of the following dose reduction techniques: automated exposure control, adjustment of the mA and/or kV according to patient size, and/or use of iterative reconstruction technique. COMPARISON: CT dated 11/11/2024. FINDINGS: Lung bases: Unremarkable. No mass. No consolidation. ABDOMEN: Liver: Hepatomegaly and hepatic steatosis. No evidence of hepatic mass. Gallbladder and bile ducts: Gallbladder surgically absent. No ductal dilation. Pancreas: Unremarkable. No mass. No ductal dilation. Spleen: Unremarkable. No splenomegaly. Adrenals: Unremarkable. No mass. Kidneys and ureters: Unremarkable. No solid mass. No hydronephrosis. Stomach and bowel: Mild wall thickening of the colon and small bowel. Mild fluid-filled prominence of the small bowel no evidence of colonic or small bowel obstruction. Fluid density is seen within the colonic lumen. PELVIS: Appendix: No findings to suggest acute appendicitis. Bladder: Unremarkable. No mass. Reproductive: Unremarkable as visualized. ABDOMEN and PELVIS: Intraperitoneal space: Unremarkable. No free air. No significant fluid collection. Bones/joints: Mild degenerative changes are seen within the spine. No acute fracture. No dislocation. Soft tissues: Unremarkable. Vasculature: Unremarkable. No abdominal aortic aneurysm. Lymph nodes: Unremarkable. No enlarged lymph nodes. IMPRESSION: 1. Findings suggestive of infectious or inflammatory enterocolitis with increased transit state seen within the colon. 2. No evidence of obstruction or otherwise acute findings seen within the abdomen or pelvis.
[2025-01-31 04:48] LABS: ALT 36 U/L (4-34); AST 38 U/L (14-36); African American GFR (CKD) >90 (>60 ml/min/1.73 sqM); Albumin 4.6 g/dL (3.5-5.0); Alkaline Phosphatase 80 U/L (38-126); Amylase 43 U/L (30-110); Anion Gap 10 mmol/L; Blood Urea Nitrogen 14 mg/dL (7-17); Calcium 9.4 mg/dL (8.4-10.2); Carbon Dioxide 25 mmol/L (22-30); Chloride 103 mmol/L (98-107); Glucose 132 mg/dL (74-99); Lipase 104 U/L (23-300); Non-African American GFR(CKD) >90 (>60 ml/min/1.73 sqM); Phosphorus 3.5 mg/dL (2.5-4.5); Potassium 4.3 mmol/L (3.5-5.1); Sodium 138 mmol/L (137-145); Total Bilirubin 0.9 mg/dL (0.2-1.3); Total Protein 7.8 g/dL (6.3-8.2)
[2025-01-31] MEDS: metroNIDAZOLE-NS PMX 500 MG in SALINE 1 100ML.BAG IVPB STA (05:26)
[2025-01-31] MEDS: KETOROLAC 15 MG/ML 1 ML VIAL IVP STA (05:27)
[2025-01-31] MEDS: ACET/COD 300 MG/30 MG STARTER PACK 6 TAB BTL PO STA (05:27)
[2025-01-31] MEDS: traMADol 50 MG STARTER PACK 3 TAB BTL PO STA (05:28)
[2025-01-31] MEDS: ONDANSETRON 4 MG ODT STARTER PACK 2 TAB BTL PO STA (05:29)
[2025-01-31 05:46] VITALS: RESP 18
[2025-01-31] MEDS: DIPHENOX-ATROP STARTER PACK 8 TAB BTL PO STA (06:01)
[2025-01-31 06:41] VITALS: BP 93/55; PULSE 67; TEMP 98.3
== END 2025-01-31 06:41 | disposition other institution (70) ==
LOC: EC 03:43
DX: R10.84 Generalized abdominal pain (principal); Z88.7 Allergy status to serum and vaccine; Z88.1 Allergy status to other antibiotic agents
CPT/HCPCS: 36415; 80053; 82150; 83605; 83690; 83735; 84100; 85025; 74177; 99284; 96365; 96375; 96361; J2405; J1171; J1885; S0119; Q9967; J1836

== ENCOUNTER 2025-03-22 21:56 | Emergency (ER) | payer MEDICAID, OTHER ==
[2025-03-22 22:29] VITALS: RESP 18
--- NOTE | 2025-03-22 23:52 | ED ---
General Adult HPI - General Chief complaint: Extremity Injury, Lower Stated complaint: fall down stairs; hurt right knee Time Seen by Provider: 03/22/25 22:36 Source: patient, RN notes reviewed Mode of arrival: wheelchair Limitations: no limitations - History of Present Illness Initial comments: 39-year-old female presents to the emergency department for evaluation of right knee injury. Patient states that she was walking on the stairs when she tripped causing her to fall down 3 stairs. She notes that she twisted her knee. She states that since then has been painful for her to ambulate. She denies any other injuries. Denies head injury. Denies blood thinners. - Related Data Home Medications Medication Instructions Recorded Confirmed Atorvastatin [Lipitor] 20 mg PO HS 07/19/23 06/29/24 Fremanezumab-Vfrm [Ajovy 225 mg SQ Q28D 02/09/24 06/29/24 Autoinjector] Lasmiditan Succinate [Reyvow] 50 mg PO DAILY PRN 02/09/24 06/29/24 Ubrogepant [Ubrelvy] 100 mg PO DAILY PRN 02/09/24 06/29/24 Escitalopram [Lexapro] 20 mg PO DAILY 02/12/24 06/29/24 Ondansetron Odt [Zofran ODT] 4 mg PO Q8HR PRN 06/04/24 06/29/24 Sucralfate [Carafate] 1 gm PO TID 06/04/24 06/29/24 Atorvastatin [Lipitor] 20 mg PO HS 06/29/24 06/29/24 Previous Rx's Medication Instructions Recorded Pantoprazole [Protonix] 40 mg PO BID 30 Days #60 tab 07/22/23 Ondansetron Odt [Zofran ODT] 4 mg PO Q8HR PRN #30 tab 01/31/25 metroNIDAZOLE [Flagyl] 500 mg PO TID #30 tab 01/31/25 Metoclopramide [Reglan] 10 mg PO TID PRN #15 tab 03/02/25 Allergies Allergy/AdvReac Type Severity Reaction Status Date / Time sertraline [From Zoloft] Allergy Unknown Verified 03/22/25 22:29 Tetanus Vaccines and Toxoid Allergy Anaphylaxis Verified 03/22/25 22:29 cephalexin [From Keflex] AdvReac Vomiting Verified 03/22/25 22:29 Review of Systems ROS Statement: Those systems with pertinent positive or pertinent negative responses have been documented in the HPI. ROS Other: All systems not noted in ROS Statement are negative. Past Medical History Past Medical History: Chest Pain / Angina, Hyperlipidemia, Thyroid Disorder Additional Past Medical History / Comment(s): migraines, POTS, History of Any Multi-Drug Resistant Organisms: None Reported Past Surgical History: Cholecystectomy, Orthopedic Surgery Additional Past Surgical History / Comment(s): right shoulder x2. fallopian removal, right elbow. Past Anesthesia/Blood Transfusion Reactions: No Reported Reaction Past Psychological History: Anxiety, Bipolar, Depression, PTSD Smoking Status: Never smoker Past Alcohol Use History: None Reported Past Drug Use History: None Reported - Past Family History Mother Family Medical History: Chest Pain / Angina Father Family Medical History: Cancer General Exam Limitations: no limitations General appearance: alert, in no apparent distress Head exam: Present: atraumatic, normocephalic, normal inspection Eye exam: Present: normal appearance, PERRL, EOMI. Absent: scleral icterus, conjunctival injection, periorbital swelling Neck exam: Present: normal inspection. Absent: tenderness, meningismus, lymphadenopathy Respiratory exam: Present: normal lung sounds bilaterally. Absent: respiratory distress, wheezes, rales, rhonchi, stridor Extremities exam: Present: full ROM, tenderness, normal capillary refill, other (DP and PT 2+). Absent: pedal edema, joint swelling, calf tenderness Back exam: Present: normal inspection Neurological exam: Present: alert, oriented X3 Psychiatric exam: Present: normal affect, normal mood Skin exam: Present: warm, dry, intact, normal color. Absent: rash Course Vital Signs 03/22/25 03/23/25 22:26 00:44 Temperature 98.9 F 98.0 F Pulse Rate 91 78 Respiratory 18 18 Rate Blood Pressure 122/78 124/80 O2 Sat by Pulse 95 99 Oximetry Medical Decision Making - Medical Decision Making Was pt. sent in by a medical professional or institution (, PA, COUNTRY PRINTER APPRENTICE, urgent care, hospital, or [facility]...) When possible be specific @ -No Did you speak to anyone other than the patient for history (EMS, parent, family, police, friend...)? What history was obtained from this source @ -No Did you review nursing and triage notes (agree or disagree)? Why? @ -I reviewed and agree with nursing and triage notes Were old charts reviewed (outside hosp., previous admission, EMS record, old EKG, old radiological studies, urgent care reports/EKG's, [facility] records)? Report findings @ -No old charts were reviewed Differential Diagnosis (chest pain, altered mental status, abdominal pain women, abdominal pain men, vaginal bleeding, weakness, fever, dyspnea, syncope, headache, dizziness, GI bleed, back pain, seizure, CVA, palpatations, mental health, musculoskeletal)? @ -Differential Musculoskeletal Muscular strain, contusion, ligament sprain, fracture, arthritis, septic arthritis, bursitis, cellulitis, muscle spasm, nerve compression, DVT, arterial occlusion, herpes zoster, electrolyte abnormality, tumor.... This is not meant to be in all inclusive list EKG interpreted by me (3pts min.). @ -None X-rays interpreted by me (1pt min.). @ -X-ray of the right knee reveals no evidence of acute process CT interpreted by me (1pt min.). @ -None done U/S interpreted by me (1pt. min.). @ -None done What testing was considered but not performed or refused? (CT, X-rays, U/S, labs)? Why? @ -None What meds were considered but not given or refused? Why? @ -None Did you discuss the management of the patient with other professionals (professionals i.e. , PA, COUNTRY PRINTER APPRENTICE, lab, RT, psych nurse, social service worker, criminal justice lawyer, teacher, landing signal officer, bilingual patient support caseworker)? Give summary @ -No Was smoking cessation discussed for >3mins.? @ -No Was critical care preformed (if so, how long)? @ -No Were there social determinants of health that impacted care today? How? (Homelessness, low income, unemployed, alcoholism, drug addiction, transportation, low edu. Level, literacy, decrease access to med. care, prison, rehab)? @ -No Was there de-escalation of care discussed even if they declined (Discuss DNR or withdrawal of care, Hospice)? DNR status @ -No What co-morbidities impacted this encounter? (DM, HTN, Smoking, COPD, CAD, Cancer, CVA, ARF, Chemo, Hep., AIDS, mental health diagnosis, sleep apnea, morbid obesity)? @ -None Was patient admitted / discharged? Hospital course, mention meds given and route, prescriptions, significant lab abnormalities, going to OR and other pertinent info. @ -Discharge. Patient presents emergency department for evaluation of right knee pain. X-rays obtained revealing no acute process. Distally neurovascular intact. Patient placed in a knee immobilizer and provided crutches. Follow-up advised. She is understanding agreeable discharge plan. Patient stable at time of discharge. Case discussed with Dr. Wood. Undiagnosed new problem with uncertain prognosis? @ -No Drug Therapy requiring intensive monitoring for toxicity (Heparin, Nitro, Insulin, Cardizem)? @ -No Were any procedures done? @ -No Diagnosis/symptom? @ -Knee sprain Acute, or Chronic, or Acute on Chronic? @ -Acute Uncomplicated (without systemic symptoms) or Complicated (systemic symptoms)? @ -Uncomplicated Side effects of treatment? @ -No Exacerbation, Progression, or Severe Exacerbation? @ -No Poses a threat to life or bodily function? How? (Chest pain, [place], [place], pneumonia, PE, COPD, DKA, ARF, appy, cholecystitis, CVA, Diverticulitis, Homicidal, Suicidal, threat to staff... and all critical care pts) @ -No Disposition Clinical Impression: Knee sprain Disposition: HOME SELF-CARE Condition: Stable Instructions (If sedation given, give patient instructions): Knee Sprain (ED), Knee Pain (ED) Additional Instructions: Please follow with your doctor. Return to the emergency department for new or worsening symptoms. Is patient prescribed a controlled substance at d/c from ED?: No Referrals: Melita Handley MD [Primary Care Provider] - 1-2 days
--- NOTE | 2025-03-23 00:04 | XR ---
EXAM: XR Right Knee, 3 Views CLINICAL HISTORY: pain TECHNIQUE: Three views of the right knee. COMPARISON: No relevant prior studies available. FINDINGS: Bones/joints: No fracture or dislocation. Soft tissues: Unremarkable. IMPRESSION: Normal right knee x-rays.
[2025-03-23] MEDS: ACET/COD 300 MG/30 MG STARTER PACK 6 TAB BTL PO STA (00:37)
[2025-03-23] MEDS: KETOROLAC 15 MG/ML 1 ML VIAL IM STA (00:38)
[2025-03-23 00:44] VITALS: BP 124/80; PULSE 78; TEMP 98
== END 2025-03-23 01:18 | disposition home or self-care (01) ==
LOC: EC 21:56
DX: S83.91XA Sprain of unspecified site of right knee, initial encounter (principal); Z88.1 Allergy status to other antibiotic agents; Z88.7 Allergy status to serum and vaccine; Z88.8 Allergy status to other drugs, medicaments and biological substances; X50.1XXA Overexertion from prolonged static or awkward postures, initial encounter; W10.9XXA Fall (on) (from) unspecified stairs and steps, initial encounter; Y93.01 Activity, walking, marching and hiking
CPT/HCPCS: 96372 ×2; 99283 ×2; 73562; J1885

== ENCOUNTER → 2025-03-31 | Outpatient (CLI) | payer OTHER ==
--- NOTE | 2025-04-03 07:10 | MR ---
EXAMINATION TYPE: MR knee RT wo con DATE OF EXAM: 03/31/2025 COMPARISON: Right knee x-ray March 22, 2025. Prior right knee MRI of 09/16/2023 HISTORY: Right knee pain and limited movement for 10 days due to tripping injury at work. history of surgery. TECHNIQUE: Multiplanar, multisequence images of the knee is performed without IV contrast. FINDINGS: MEDIAL MENISCUS: Some increased signal in the periphery of the posterior horn remains present. LATERAL MENISCUS: Anterior and posterior horns are intact without tear. CRUCIATE LIGAMENTS: The anterior and posterior cruciate ligaments are intact and unremarkable. COLLATERAL LIGAMENTS: The medial collateral ligament and lateral collateral ligament complex are inta ct and unremarkable. EXTENSOR MECHANISM: Visualized quadriceps and patellar tendons are intact. EFFUSION: No significant suprapatellar joint effusion. POPLITEAL CYST: No popliteal/oliva cyst. TRICOMPARTMENT SPACES: Tricompartment joint spaces are preserved. No significant spurring. CARTILAGE: Tricompartmental articular cartilage is maintained. BONE MARROW SIGNAL: No focal abnormal marrow signal is appreciated. OTHER: No additional significant abnormality is appreciated. IMPRESSION: Persistent intrasubstance tear posterior horn of the medial meniscus. No new meniscal or ligamentous tear is identified. [facility], , 04/03/2025 7:07 AM
== END | disposition home or self-care (01) ==
LOC: RADMRIMAIN 08:57
PROVIDERS: ATTEND Emergency Medicine
DX: S83.241A Other tear of medial meniscus, current injury, right knee, initial encounter (principal)